=== PATIENT | female | born 1960 | race Caucasian/White ===

== ENCOUNTER 2016-11-29 02:24 | Inpatient (IN) ==
[2016-11-29] MEDS ORDERED: 0.9 % Sodium Chloride 1,000 ML IVC ONE ×3 (02:41→04:26)
[2016-11-29 02:48] LABS: Basophils % 0.1 %; Eosinophils # 0.1 K/mcL (0.0-0.6); Eosinophils % 1.3 %; Hematocrit 31.7 % (35.3-44.9); Immature Granulocytes % 0.5 % (0-4); Lymphocytes # 0.4 K/mcL (0.6-4.6); Lymphocytes % 5.1 %; Mean Corpuscular HGB Conc 34.7 g/dL (31.6-35.5); Mean Corpuscular Hemoglobin 33.6 pg (28.0-33.3); Mean Corpuscular Volume 96.9 fL (83.0-100.0); Mean Platelet Volume 9.6 fL (9.4-12.4); Monocytes # 0.8 K/mcL (0.0-1.3); Monocytes % 9.2 %; Neutrophils # 7.2 K/mcL (1.6-8.9); Red Blood Count 3.27 M/mcL (3.82-4.97); Red Cell Distribution Width 13.1 % (11.5-14.5); Segmented Neutrophils % 83.8 %
[2016-11-29 02:50] LABS: Platelet Count 92 K/mcL (140-400)
--- NOTE | 2016-11-29 02:54 | Emergency Department Note ---
Disposition Clinical Impression: Respiratory distress Respiratory failure Qualifiers: Chronicity: unspecified Respiratory failure complication: unspecified whether with hypoxia or hypercapnia Qualified Code(s): J96.90 - Respiratory failure, unspecified, unspecified whether with hypoxia or hypercapnia Pneumonia Qualifiers: Pneumonia type: due to unspecified organism Laterality: left Lung location: unspecified part of lung Qualified Code(s): J18.9 - Pneumonia, unspecified organism Anemia Qualifiers: Anemia type: unspecified cause Qualified Code(s): D64.9 - Anemia, unspecified Disposition: Admitted As Inpatient Condition: Critical Time of Disposition: 06:28 General Adult HPI - General Chief complaint: ED General Medical Stated complaint: CHELITA Time Seen by Provider: 11/29/16 02:41 Source: EMS Mode of arrival: EMS Limitations: language barrier, physical limitation Nursing Notes Reviewed: Yes Vital Signs Reviewed: Yes - History of Present Illness HPI Narrative: 56-year-old female presents for evaluation for increased work of breathing. Patient is nonverbal and nonambulatory. Much of a history provided by the patient's caregiver. As the patient does have a history of psychiatric issues as well as aspiration pneumonia. Notes that the patient symptoms started within the past 24 hours. Notes increased work of breathing. Denies any cough. Denies any notable fevers. Patient is nonverbal and does not provide a complete review of systems. Caregiver states that the patient's mental status is at baseline. No notable evidence of trauma. Caregiver at bedside denies any history of hypertension, diabetes or heart disease. Pain Scale: 0 - Related Data Home Medications Medication Instructions Recorded Confirmed Docusate [Colace] 40 mg GTUBE BID 02/10/15 05/21/16 Estradiol [Deandra] 0.05 mg TD MOTH 02/10/15 05/21/16 Famotidine [Pepcid] 2.5 ml GTUBE BID 02/10/15 05/21/16 Medroxyprogesterone Acetate 5 mg GTUBE DAILY 02/10/15 05/21/16 [Provera] Valproic Acid Oral Soln [Depakene 10 ml GTUBE BID 02/10/15 05/21/16 Oral Soln] risperiDONE [Risperdal] 4 ml GTUBE BID 02/10/15 05/21/16 Citalopram [CeleXA] 20 mg GTUBE DAILY 03/29/15 05/21/16 Lactose-Reduced Food/Fiber [Jevity 265 ml GTUBE QID 03/29/15 05/21/16 1.5 Alec Liquid] Polyethylene Glycol 3350 [MiraLAX] 17 gm GTUBE BID PRN 03/29/15 05/21/16 LORazepam Oral Conc [Ativan Oral 1 mg GTUBE BID 03/31/16 05/21/16 Conc] Chlorhexidine Gluconate [Hibiclens] 15 ml PO BID 05/21/16 05/21/16 Magnesium Hydroxide [Milk of 1 appl TP DAILY PRN 05/21/16 05/21/16 Magnesia] Multivitamin with Iron [Animal 1 each GTUBE DAILY 05/21/16 05/21/16 Shapes Plus Iron] Doron/Poly/Analy OINT [Triple 1 appl TP BID PRN 05/21/16 05/21/16 Antibiotic Ointment] Sodium Chloride 1 gm GTUBE TID 05/21/16 05/21/16 Valproic Acid (As Sodium Salt) 15 ml GTUBE HS 05/21/16 05/21/16 [Valproic Acid] Previous Rx's Medication Instructions Recorded GuaiFENesin Liq [Robitussin Liq] 200 mg PO Q6HR PRN #120 mls 05/26/15 Albuterol Neb [Proventil Neb] 2.5 mg IH Q4HR PRN #30 inhsol 05/25/16 Clindamycin [Cleocin] 300 mg GTUBE Q8HR #30 capsule 05/25/16 Lactobacillus [Culturelle] 1 each GTUBE BID #30 cap.sprink 05/25/16 Allergies Allergy/AdvReac Type Severity Reaction Status Date / Time Sulfa (Sulfonamide Allergy Hives Verified 05/21/16 09:24 Antibiotics) Limitations: ROS unobtainable due to patients medical condition Past Medical History - Past Medical History Medical history: Reports: other Surgical history: Reports: hysterectomy Psychiatric history: Reports: anxiety, bipolar, depression - Social History Smoking Status: Never smoker Smokeless Tobacco Status: No Alcohol use: Reports: none Drug use: Reports: none Physical Exam - General Limitations: language barrier, physical limitation General appearance: alert, in distress, other (Ill-appearing) - Head Head exam: normocephalic - Eye Eye exam: Present: normal appearance - ENT ENT exam: normal exam, mucous membranes dry - Neck Neck exam: Present: normal inspection - Chest Chest inspection: Present: normal inspection, symmetric chest wall rise - Respiratory Respiratory exam: Present: accessory muscle use, prolonged expiratory phase, other (Rhonchorous breath sounds left > right) - Cardiovascular Cardiovascular exam: Present: normal rhythm, tachycardia. Absent: systolic murmur - Abdominal Exam Abdominal exam: Present: soft, Non-Tender, other - Extremities Exam Extremities exam: Present: normal inspection. Absent: pedal edema - Back Exam Back exam: Present: normal inspection - Neurological Exam Neurological exam: Present: other (At patient's baseline per caregiver bedside.) - Skin Skin exam: Present: warm, dry, intact, normal color Course Course Narrative: Patient seen and examined. Patient concerns for sepsis and SIRS criteria with tachycardia as well as tachypnea. Patient will get epidural evaluation with labs, EKG, chest x-ray as well as urinalysis. IV fluid hydration. Disposition admission. - Reevaluation(s) Reevaluation #1: Patient has increased work of breathing and tachycardia. Increase oxygen requirement. Caregiver at bedside. Addressed CODE STATUS and whether or not the patient would want intubation with respiratory support. Power of insurance defense attorney is attempted to be reached. Respiratory bedside with BiPAP. Time: 03:09 Reevaluation #2: Spoke with the power of insurance defense attorney who stated the patient is full code. Updated on plan of care. Patient required intubation as well as central IV access. Time: 03:33 Reevaluation #3: Intubation as well as central line placement was performed by Dr. Dodge. Time: 04:26 Vital Signs Temperature 98.7 F 11/29/16 02:42 Pulse Rate 94 11/29/16 02:42 Respiratory Rate 24 11/29/16 02:42 Blood Pressure 85/67 11/29/16 02:42 O2 Sat by Pulse Oximetry 95 11/29/16 02:42 Temperature 98.9 F 11/29/16 03:18 Pulse Rate 84 11/29/16 05:35 Respiratory Rate 16 11/29/16 06:15 Blood Pressure 92/62 11/29/16 06:15 O2 Sat by Pulse Oximetry 92 11/29/16 06:15 Oxygen Delivery Oxygen Delivery Ventilator Medical Decision Making - MDM Narrative Medical decision making narrative: 56-year-old female presents for evaluation in respiratory distress. Patient is at baseline and is nonverbal and nonambulatory. Patient's caregiver at bedside providing history since patient has had a cold that started yesterday. Noted increased work of breathing this morning. Does have history of aspiration pneumonia in had a gastric tube. Patient initially was tachypnea can tachycardic with rhonchorous lung sounds. Patient triggered the SIRS criteria and was borderline hypotensive. Patient had the ED sepsis order set ordered. Patient received 3 L of normal saline which should suffice to 30 mL/kg. Patient 's blood pressure improved with IV fluid hydration. Patient became more hypoxic and would not improve with oxygen supplementation with increased tachypnea and tachycardia. Confirm that the patient was a full code and spoke with the power of insurance defense attorney. Patient was intubated without difficulty. Precedex ordered for post intubation sedation. Given the patient's clinical exam and episodes of hypotension upon arrival the patient would likely need a central line. Central line was placed without difficulty in the right IJ. These were placed under informed consent given emergent procedure. Triple antibiotics were ordered. Patient's initial blood gas showed normal pH. The patient did have elevated PA O2 which was reduced after intubation. Patient's blood gas was repeated. Patient's chest x-ray shows left-sided pneumonia. Patient's caregiver was given information about the severity of the patient's symptoms. Patient was admitted to the intensive care unit. - Lab Data Lab results reviewed: Yes I reviewed the patient's lab results. Result diagrams: 11/29/16 02:38 11/29/16 02:38 Lab Results 11/29/16 11/29/16 11/29/16 Range/Units 02:38 02:38 02:38 WBC 8.6 (4.3-11.1) K/mcL RBC 3.27 L (3.82-4.97) M/mcL Hgb 11.0 L (11.5-15.4) g/dL Hct 31.7 L (35.3-44.9) % MCV 96.9 (83.0-100.0) fL MCH 33.6 H (28.0-33.3) pg MCHC 34.7 (31.6-35.5) g/dL RDW 13.1 (11.5-14.5) % Plt Count 92 L (140-400) K/mcL MPV 9.6 (9.4-12.4) fL Immature Gran % 0.5 (0-4) % Seg Neutrophils % 83.8 % Lymphocytes % 5.1 % Monocytes % 9.2 % Eosinophils % 1.3 % Basophils % 0.1 % Neutrophils # 7.2 (1.6-8.9) K/mcL Lymphocytes # 0.4 L (0.6-4.6) K/mcL Monocytes # 0.8 (0.0-1.3) K/mcL Eosinophils # 0.1 (0.0-0.6) K/mcL Basophils # 0.0 (0.0-0.2) K/mcL PT (9.4-12.1) Seconds INR APTT (26.0-36.0) Seconds ABG pH (7.32-7.45) pH Units ABG pCO2 (35-45) mmHg ABG pO2 (85-104) mmHg ABG HCO3 (21-27) mEQ/L ABG Total CO2 (20-26) mEq/L ABG O2 Saturation (95-98) % ABG Base Excess (-2.0 to 3.0) mEq/L Blood Gas Modality Inspired O2 % Sodium 128 L (136-145) mEq/L Potassium 4.3 (3.5-4.5) mEq/L Chloride 92 L (98-109) mEq/L Carbon Dioxide 30 H (19-29) mEq/L BUN 16 (7-20) mg/dL Creatinine 0.66 (0.57-1.11) mg/dL Est GFR ( Amer) > 60 (> 60) Est GFR (Non-Af Amer) > 60 (> 60) BUN/Creatinine Ratio 24 (6-26) Glucose 102 H (70-99) mg/dL Calculated Osmolality 267 L (280-300) Lactic Acid 1.0 (0.5-2.2) mmol/L Calcium 9.0 (8.6-10.8) mg/dL Phosphorus 3.3 (2.3-4.7) mg/dL Magnesium 1.5 L (1.6-2.6) mg/dL Total Bilirubin 0.7 (0.2-1.2) mg/dL Direct Bilirubin 0.2 (0.0-0.5) mg/dL Indirect Bilirubin 0.5 (0.0-1.2) mg/dL AST 38 H (5-34) Units/L ALT 10 (0-55) Units/L Alkaline Phosphatase 81 (38-126) Units/L Troponin I (0-0.03) ng/mL B-Natriuretic Peptide (0-100) pg/mL Serum Total Protein 7.1 (6.0-8.3) g/dL Albumin 2.9 L (3.5-5.0) g/dL Globulin 4.2 H (2.4-3.5) g/dL Albumin/Globulin Ratio 0.7 L (1.1-2.2) Urine Color (Yellow) Urine Clarity (Clear) Urine pH (5.0-8.0) pH Units Ur Specific [place] (1.010-1.025) Urine Protein (Neg-Trace) mg/dL Urine Glucose (UA) (Normal) mg/dL Urine Ketones (Negative) mg/dL Urine Blood (Negative) Urine Nitrite (Negative) Urine Bilirubin (Negative) Urine Urobilinogen (Normal) mg/dL Ur Leukocyte Esterase (Negative) Ur Culture Indicated? (NO) 11/29/16 11/29/16 11/29/16 Range/Units 02:38 02:38 02:50 WBC (4.3-11.1) K/mcL RBC (3.82-4.97) M/mcL Hgb (11.5-15.4) g/dL Hct (35.3-44.9) % MCV (83.0-100.0) fL MCH (28.0-33.3) pg MCHC (31.6-35.5) g/dL RDW (11.5-14.5) % Plt Count (140-400) K/mcL MPV (9.4-12.4) fL Immature Gran % (0-4) % Seg Neutrophils % % Lymphocytes % % Monocytes % % Eosinophils % % Basophils % % Neutrophils # (1.6-8.9) K/mcL Lymphocytes # (0.6-4.6) K/mcL Monocytes # (0.0-1.3) K/mcL Eosinophils # (0.0-0.6) K/mcL Basophils # (0.0-0.2) K/mcL PT 12.6 H (9.4-12.1) Seconds INR 1.2 APTT 31.6 (26.0-36.0) Seconds ABG pH (7.32-7.45) pH Units ABG pCO2 (35-45) mmHg ABG pO2 (85-104) mmHg ABG HCO3 (21-27) mEQ/L ABG Total CO2 (20-26) mEq/L ABG O2 Saturation (95-98) % ABG Base Excess (-2.0 to 3.0) mEq/L Blood Gas Modality Inspired O2 % Sodium (136-145) mEq/L Potassium (3.5-4.5) mEq/L Chloride (98-109) mEq/L Carbon Dioxide (19-29) mEq/L BUN (7-20) mg/dL Creatinine (0.57-1.11) mg/dL Est GFR ( Amer) (> 60) Est GFR (Non-Af Amer) (> 60) BUN/Creatinine Ratio (6-26) Glucose (70-99) mg/dL Calculated Osmolality (280-300) Lactic Acid (0.5-2.2) mmol/L Calcium (8.6-10.8) mg/dL Phosphorus (2.3-4.7) mg/dL Magnesium (1.6-2.6) mg/dL Total Bilirubin (0.2-1.2) mg/dL Direct Bilirubin (0.0-0.5) mg/dL Indirect Bilirubin (0.0-1.2) mg/dL AST (5-34) Units/L ALT (0-55) Units/L Alkaline Phosphatase (38-126) Units/L Troponin I 0.00 (0-0.03) ng/mL B-Natriuretic Peptide 157 H (0-100) pg/mL Serum Total Protein (6.0-8.3) g/dL Albumin (3.5-5.0) g/dL Globulin (2.4-3.5) g/dL Albumin/Globulin Ratio (1.1-2.2) Urine Color (Yellow) Urine Clarity (Clear) Urine pH (5.0-8.0) pH Units Ur Specific [place] (1.010-1.025) Urine Protein (Neg-Trace) mg/dL Urine Glucose (UA) (Normal) mg/dL Urine Ketones (Negative) mg/dL Urine Blood (Negative) Urine Nitrite (Negative) Urine Bilirubin (Negative) Urine Urobilinogen (Normal) mg/dL Ur Leukocyte Esterase (Negative) Ur Culture Indicated? (NO) 07/22/17 07/22/17 07/22/17 Range/Units 02:55 03:49 04:43 WBC (4.3-11.1) K/mcL RBC (3.82-4.97) M/mcL Hgb (11.5-15.4) g/dL Hct (35.3-44.9) % MCV (83.0-100.0) fL MCH (28.0-33.3) pg MCHC (31.6-35.5) g/dL RDW (11.5-14.5) % Plt Count (140-400) K/mcL MPV (9.4-12.4) fL Immature Gran % (0-4) % Seg Neutrophils % % Lymphocytes % % Monocytes % % Eosinophils % % Basophils % % Neutrophils # (1.6-8.9) K/mcL Lymphocytes # (0.6-4.6) K/mcL Monocytes # (0.0-1.3) K/mcL Eosinophils # (0.0-0.6) K/mcL Basophils # (0.0-0.2) K/mcL PT (9.4-12.1) Seconds INR APTT (26.0-36.0) Seconds ABG pH 7.41 (7.32-7.45) pH Units ABG pCO2 50 H (35-45) mmHg ABG pO2 297 H (85-104) mmHg ABG HCO3 31.7 H (21-27) mEQ/L ABG Total CO2 33.2 H (20-26) mEq/L ABG O2 Saturation 100 H (95-98) % ABG Base Excess 6.2 H (-2.0 to 3.0) mEq/L Blood Gas Modality VCT Inspired O2 100 % Sodium (136-145) mEq/L Potassium (3.5-4.5) mEq/L Chloride (98-109) mEq/L Carbon Dioxide (19-29) mEq/L BUN (7-20) mg/dL Creatinine (0.57-1.11) mg/dL Est GFR ( Amer) (> 60) Est GFR (Non-Af Amer) (> 60) BUN/Creatinine Ratio (6-26) Glucose (70-99) mg/dL Calculated Osmolality (280-300) Lactic Acid 1.2 (0.5-2.2) mmol/L Calcium (8.6-10.8) mg/dL Phosphorus (2.3-4.7) mg/dL Magnesium (1.6-2.6) mg/dL Total Bilirubin (0.2-1.2) mg/dL Direct Bilirubin (0.0-0.5) mg/dL Indirect Bilirubin (0.0-1.2) mg/dL AST (5-34) Units/L ALT (0-55) Units/L Alkaline Phosphatase (38-126) Units/L Troponin I (0-0.03) ng/mL B-Natriuretic Peptide (0-100) pg/mL Serum Total Protein (6.0-8.3) g/dL Albumin (3.5-5.0) g/dL Globulin (2.4-3.5) g/dL Albumin/Globulin Ratio (1.1-2.2) Urine Color Yellow (Yellow) Urine Clarity Clear (Clear) Urine pH 6.5 (5.0-8.0) pH Units Ur Specific [place] 1.020 (1.010-1.025) Urine Protein Negative (Neg-Trace) mg/dL Urine Glucose (UA) Normal (Normal) mg/dL Urine Ketones Negative (Negative) mg/dL Urine Blood Negative (Negative) Urine Nitrite Negative (Negative) Urine Bilirubin Negative (Negative) Urine Urobilinogen 2.0 H (Normal) mg/dL Ur Leukocyte Esterase Negative (Negative) Ur Culture Indicated? NO (NO) - Radiology Data Radiology results reviewed: Yes I reviewed the patient's radiology results. Chest X-Ray 11/29/16 00:00 IMPRESSION: Diffuse left lung airspace disease with volume loss. This may represent atelectasis and/or pneumonia. Asymmetric pulmonary edema is less likely. The endotracheal tube is in satisfactory position. D/ / Ryan Hartman MD / Ryan Hartman MD Interpreting Provider: Ryan Hartman MD - EKG Data EKG #1 EKG attestation: Yes I reviewed and interpreted this EKG. EKG shows normal: sinus rhythm Rate: tachycardia Rhythm: NSR Yeso/QRS: normal Q waves: aVR Interpretation: nonspecific ST-T wave changes Critical Care Time Critical Care Time: Yes Total Critical Care Time: 60 Attestation: Critical care performed: Time is exclusive of separately billable procedures. Time includes: direct patient care, patient reassessment, coordination of patient care, interpretation of data (laboratory data, radiology data, and respiratory data), review of patient's medical records, medical consultation and documentation of patient care. Procedures included in critical care time: Procedures excluded from critical care time: Endotracheal intubation, right IJ central line placement S.B.Parag - S.Sydney Situation: Demographics Background: Presenting Complaint Assessment: Vital Signs, Course and respsone to treatment Recommendation: Barrier(s) to disposition, Recommendation based on pending studies, treatments, or consults S.B.Parag Report Given to: Dr. Jeb Ha Repor Time: 04:42 Attestation Statement - Attestation Attestation: I, Thien Degroot MD, personally evaluated this patient and discussed their management with the resident physician. I reviewed the resident's note and agree with the documented findings, medical decision making, and plan of care. 56-year-old female presents to the emergency department from a private care long-term for congestion and difficulty breathing with low oxygen saturation. Patient's baseline mental status is nonambulatory and nonverbal. Apparently for the past day or so she has had some congestion with a cough and increasing noisy respirations shortness of breath. Patient is a full code. On examination patient is a well-developed female who appears significantly older than her actual age. Contractures of upper extremities. No cyanosis or diaphoresis. She does have coarse noisy upper respiratory congestion causing course rales. No definite wheezes noted. Minimal improvement with suctioning. Heart is regular with a mild tachycardia. Abdomen soft with normal bowel sounds. Patient was intubated orally by Dr. Dodge on first attempt without difficulty or complications. A right IJ central line was placed by Dr. Dodge. These procedures were under my supervision with assistance from the senior resident, Dr. Moyer. Chest x-ray shows a large left-sided pneumonia. Labs reviewed. The hospitalist, Dr. Russ, was consulted and accepted admission of the patient.
[2016-11-29 03:02] LABS: INR 1.2; Prothrombin Time 12.6 Seconds (9.4-12.1)
[2016-11-29 03:03] LABS: Alanine Aminotransferase 10 Units/L (0-55); Albumin 2.9 g/dL (3.5-5.0); Albumin/Globulin Ratio 0.7 (1.1-2.2); Alkaline Phosphatase 81 Units/L (38-126); Aspartate Amino Transferase 38 Units/L (5-34); BUN/Creatinine Ratio 24 (6-26); Bilirubin,Direct 0.2 mg/dL (0.0-0.5); Bilirubin,Indirect 0.5 mg/dL (0.0-1.2); Bilirubin,Total 0.7 mg/dL (0.2-1.2); Blood Urea Nitrogen 16 mg/dL (7-20); Carbon Dioxide 30 mEq/L (19-29); Chloride 92 mEq/L (98-109); Globulin 4.2 g/dL (2.4-3.5); Glucose 102 mg/dL (70-99); Magnesium 1.5 mg/dL (1.6-2.6); Osmolality,Calculated 267 (280-300); Phosphorous 3.3 mg/dL (2.3-4.7); Sodium 128 mEq/L (136-145); Total Protein 7.1 g/dL (6.0-8.3); eGFR For African Americans > 60 (> 60); eGFR For Non-African Americans > 60 (> 60)
[2016-11-29 03:04] LABS: Potassium 4.3 mEq/L (3.5-4.5)
[2016-11-29 03:04] LABS: Activated Partial Thrombo Time 31.6 Seconds (26.0-36.0)
[2016-11-29 03:09] LABS: Bilirubin,Urine Negative (Negative); Blood,Urine Negative (Negative); Clarity,Urine Clear (Clear); Color,Urine Yellow (Yellow); Glucose,Urine (UA) Normal (Normal); Ketones,Urine Negative (Negative); Leukocyte Esterase,Urine Negative (Negative); Nitrite,Urine Negative (Negative); PH,Urine 6.5 pH Units (5.0-8.0); Protein,Urine Negative (Neg-Trace)
[2016-11-29] MEDS ORDERED: Piperacillin/Tazobactam 4.5 GM in D5% in Water (Mini-Bag+) 100 ML IVPB ONE (03:10)
[2016-11-29] MEDS ORDERED: Vancomycin 1,500 MG in D5% in Water 250 ML IVPB ONE (03:10)
[2016-11-29] MEDS ORDERED: Levofloxacin 750 MG/150 ML 750 MG/150 ML BAG IVPB ONE (03:10)
[2016-11-29 03:59] LABS: ABG Base Excess 6.2 mEq/L (-2.0 to 3.0); ABG HCO3 31.7 mEQ/L (21-27); ABG Oxygen Saturation 100 % (95-98); ABG PCO2 50 mmHg (35-45); ABG PH 7.41 pH Units (7.32-7.45); ABG PO2 297 mmHg (85-104); ABG TCO2 33.2 mEq/L (20-26)
[2016-11-29 04:01] LABS: Blood Gas FiO2 100 %
[2016-11-29] MEDS: Dexmedetomidine HCl 400 MCG/100 ML MLS IVC SCH ×3 (04:14→22:29)
--- NOTE | 2016-11-29 04:40 | Emergency Department Note ---
Disposition Clinical Impression: Respiratory distress Respiratory failure Qualifiers: Chronicity: unspecified Respiratory failure complication: unspecified whether with hypoxia or hypercapnia Qualified Code(s): J96.90 - Respiratory failure, unspecified, unspecified whether with hypoxia or hypercapnia Pneumonia Qualifiers: Pneumonia type: due to unspecified organism Laterality: left Lung location: unspecified part of lung Qualified Code(s): J18.9 - Pneumonia, unspecified organism Disposition: Admitted As Inpatient General Adult HPI - General Chief complaint: ED Shortness of Breath/Dyspnea Stated complaint: CHELITA Time Seen by Provider: 11/29/16 02:41 Source: EMS Mode of arrival: EMS Limitations: language barrier, physical limitation Nursing Notes Reviewed: Yes Vital Signs Reviewed: Yes - History of Present Illness HPI Narrative: Procedure note only. Refer to Dr. Moyer note for full history and physical. Pain Scale: 0 - Related Data Home Medications Medication Instructions Recorded Confirmed Docusate [Colace] 40 mg GTUBE BID 02/10/15 05/21/16 Estradiol [Deandra] 0.05 mg TD MOTH 02/10/15 05/21/16 Famotidine [Pepcid] 2.5 ml GTUBE BID 02/10/15 05/21/16 Medroxyprogesterone Acetate 5 mg GTUBE DAILY 02/10/15 05/21/16 [Provera] Valproic Acid Oral Soln [Depakene 10 ml GTUBE BID 02/10/15 05/21/16 Oral Soln] risperiDONE [Risperdal] 4 ml GTUBE BID 02/10/15 05/21/16 Citalopram [CeleXA] 20 mg GTUBE DAILY 03/29/15 05/21/16 Lactose-Reduced Food/Fiber [Jevity 265 ml GTUBE QID 03/29/15 05/21/16 1.5 Alec Liquid] Polyethylene Glycol 3350 [MiraLAX] 17 gm GTUBE BID PRN 03/29/15 05/21/16 LORazepam Oral Conc [Ativan Oral 1 mg GTUBE BID 03/31/16 05/21/16 Conc] Chlorhexidine Gluconate [Hibiclens] 15 ml PO BID 05/21/16 05/21/16 Magnesium Hydroxide [Milk of 1 appl TP DAILY PRN 05/21/16 05/21/16 Magnesia] Multivitamin with Iron [Animal 1 each GTUBE DAILY 05/21/16 05/21/16 Shapes Plus Iron] Doron/Poly/Analy OINT [Triple 1 appl TP BID PRN 05/21/16 05/21/16 Antibiotic Ointment] Sodium Chloride 1 gm GTUBE TID 05/21/16 05/21/16 Valproic Acid (As Sodium Salt) 15 ml GTUBE HS 05/21/16 05/21/16 [Valproic Acid] Previous Rx's Medication Instructions Recorded GuaiFENesin Liq [Robitussin Liq] 200 mg PO Q6HR PRN #120 mls 05/26/15 Albuterol Neb [Proventil Neb] 2.5 mg IH Q4HR PRN #30 inhsol 05/25/16 Clindamycin [Cleocin] 300 mg GTUBE Q8HR #30 capsule 05/25/16 Lactobacillus [Culturelle] 1 each GTUBE BID #30 cap.sprink 05/25/16 Allergies Allergy/AdvReac Type Severity Reaction Status Date / Time Sulfa (Sulfonamide Allergy Hives Verified 05/21/16 09:24 Antibiotics) Past Medical History - Past Medical History Medical history: Reports: other Surgical history: Reports: hysterectomy Psychiatric history: Reports: anxiety, bipolar, depression - Social History Smoking Status: Never smoker Smokeless Tobacco Status: No Alcohol use: Reports: none Drug use: Reports: none Physical Exam - General Limitations: language barrier, physical limitation General appearance: alert, other (Ill-appearing) Course Vital Signs Temperature 98.7 F 11/29/16 02:42 Pulse Rate 94 11/29/16 02:42 Respiratory Rate 24 11/29/16 02:42 Blood Pressure 85/67 11/29/16 02:42 O2 Sat by Pulse Oximetry 95 11/29/16 02:42 Temperature 98.7 F 11/29/16 02:42 Pulse Rate 84 11/29/16 05:05 Respiratory Rate 12 11/29/16 05:05 Blood Pressure 114/67 11/29/16 05:05 O2 Sat by Pulse Oximetry 92 11/29/16 05:05 Oxygen Delivery Oxygen Delivery Ventilator Procedures - Central Line Placement Right IJ Central Line Inserted*: Yes Central Line Catheter Replacement*: Yes Central Line Insertion: emergent Consent Obtained: verbal consent Procedural Pause: verify patient name and date of , timeout performed per policy, devon and assess the site, assemble equipment and verify supplies, perform hand hygiene Patient Placed on Monitor/Pulse Ox: Yes During the Procedure: clinician is wearing sterile gloves, cap, mask,& gown during insertion, sterile field and sterile technique are maintained, patient's face is covered with drape or mask and wearing a cap, everyone in room is wearing a mask Central Line Prep: Chlorhexidine scrub, sterile drapes applied Prep the Procedure Site: apply chloraprep to the skin using a back and forth scrubbing motion, apply chloraprep for 30 seconds (upper body), 1-2 min ( femoral sites), allow prep to dry, drape the patient with a full body drape Local Anesthetic: other anesthetic (Patient intubated and on Precedex and on ventilator) Ultrasound Used for Placement: Yes Central Line Lumen Inserted: triple Post Procedure: sutured in place, good blood return, all ports aspirated, flushed, capped, sterile dressing applied, guide wire removed and visualized Post Procedure X-Ray: tip of catheter in good position, no pneumothorax seen Patient Tolerated Procedure: well, no complications Complications: none Name of Clinician Inserting Central Line: John Dodge, Clinician Assisting/Completing Checklist: Junaid Moyer Date: 11/29/16 Time: 04:41 Additional Comments: Attending is Dr. Degroot - Intubation sedative: Etomidate Mg Given: 20 paralytic: Rocuronium Mg Given: 80 Laryngoscope: Eron ET Tube Size: 7.5 ET Tube Uncuffed: No Tube Secured Depth (cm): 24 Tube Secured Location: lips Tube Placement Confirmation: visualized tube passing through cords, equal breath sounds bilaterally, no breath sounds over epigastrium, confirmation by capnometry Patient Tolerated Procedure: well Intubation Complications: none Medical Decision Making - MDM Narrative Medical decision making narrative: Only procedure note done before intubation and central venous catheterization. Assisted by Dr. Moyer. Refer to Dr. Moyer note for full history and physical. - Lab Data Result diagrams: 11/29/16 02:38 11/29/16 02:38 Lab Results 11/29/16 11/29/16 11/29/16 Range/Units 02:38 02:38 02:38 WBC 8.6 (4.3-11.1) K/mcL RBC 3.27 L (3.82-4.97) M/mcL Hgb 11.0 L (11.5-15.4) g/dL Hct 31.7 L (35.3-44.9) % MCV 96.9 (83.0-100.0) fL MCH 33.6 H (28.0-33.3) pg MCHC 34.7 (31.6-35.5) g/dL RDW 13.1 (11.5-14.5) % Plt Count 92 L (140-400) K/mcL MPV 9.6 (9.4-12.4) fL Immature Gran % 0.5 (0-4) % Seg Neutrophils % 83.8 % Lymphocytes % 5.1 % Monocytes % 9.2 % Eosinophils % 1.3 % Basophils % 0.1 % Neutrophils # 7.2 (1.6-8.9) K/mcL Lymphocytes # 0.4 L (0.6-4.6) K/mcL Monocytes # 0.8 (0.0-1.3) K/mcL Eosinophils # 0.1 (0.0-0.6) K/mcL Basophils # 0.0 (0.0-0.2) K/mcL PT (9.4-12.1) Seconds INR APTT (26.0-36.0) Seconds ABG pH (7.32-7.45) pH Units ABG pCO2 (35-45) mmHg ABG pO2 (85-104) mmHg ABG HCO3 (21-27) mEQ/L ABG Total CO2 (20-26) mEq/L ABG O2 Saturation (95-98) % ABG Base Excess (-2.0 to 3.0) mEq/L Blood Gas Modality Inspired O2 % Sodium 128 L (136-145) mEq/L Potassium 4.3 (3.5-4.5) mEq/L Chloride 92 L (98-109) mEq/L Carbon Dioxide 30 H (19-29) mEq/L BUN 16 (7-20) mg/dL Creatinine 0.66 (0.57-1.11) mg/dL Est GFR ( Amer) > 60 (> 60) Est GFR (Non-Af Amer) > 60 (> 60) BUN/Creatinine Ratio 24 (6-26) Glucose 102 H (70-99) mg/dL Calculated Osmolality 267 L (280-300) Lactic Acid 1.0 (0.5-2.2) mmol/L Calcium 9.0 (8.6-10.8) mg/dL Phosphorus 3.3 (2.3-4.7) mg/dL Magnesium 1.5 L (1.6-2.6) mg/dL Total Bilirubin 0.7 (0.2-1.2) mg/dL Direct Bilirubin 0.2 (0.0-0.5) mg/dL Indirect Bilirubin 0.5 (0.0-1.2) mg/dL AST 38 H (5-34) Units/L ALT 10 (0-55) Units/L Alkaline Phosphatase 81 (38-126) Units/L Troponin I (0-0.03) ng/mL B-Natriuretic Peptide (0-100) pg/mL Serum Total Protein 7.1 (6.0-8.3) g/dL Albumin 2.9 L (3.5-5.0) g/dL Globulin 4.2 H (2.4-3.5) g/dL Albumin/Globulin Ratio 0.7 L (1.1-2.2) Urine Color (Yellow) Urine Clarity (Clear) Urine pH (5.0-8.0) pH Units Ur Specific [place] (1.010-1.025) Urine Protein (Neg-Trace) mg/dL Urine Glucose (UA) (Normal) mg/dL Urine Ketones (Negative) mg/dL Urine Blood (Negative) Urine Nitrite (Negative) Urine Bilirubin (Negative) Urine Urobilinogen (Normal) mg/dL Ur Leukocyte Esterase (Negative) Ur Culture Indicated? (NO) 11/29/16 11/29/16 11/29/16 Range/Units 02:38 02:38 02:50 WBC (4.3-11.1) K/mcL RBC (3.82-4.97) M/mcL Hgb (11.5-15.4) g/dL Hct (35.3-44.9) % MCV (83.0-100.0) fL MCH (28.0-33.3) pg MCHC (31.6-35.5) g/dL RDW (11.5-14.5) % Plt Count (140-400) K/mcL MPV (9.4-12.4) fL Immature Gran % (0-4) % Seg Neutrophils % % Lymphocytes % % Monocytes % % Eosinophils % % Basophils % % Neutrophils # (1.6-8.9) K/mcL Lymphocytes # (0.6-4.6) K/mcL Monocytes # (0.0-1.3) K/mcL Eosinophils # (0.0-0.6) K/mcL Basophils # (0.0-0.2) K/mcL PT 12.6 H (9.4-12.1) Seconds INR 1.2 APTT 31.6 (26.0-36.0) Seconds ABG pH (7.32-7.45) pH Units ABG pCO2 (35-45) mmHg ABG pO2 (85-104) mmHg ABG HCO3 (21-27) mEQ/L ABG Total CO2 (20-26) mEq/L ABG O2 Saturation (95-98) % ABG Base Excess (-2.0 to 3.0) mEq/L Blood Gas Modality Inspired O2 % Sodium (136-145) mEq/L Potassium (3.5-4.5) mEq/L Chloride (98-109) mEq/L Carbon Dioxide (19-29) mEq/L BUN (7-20) mg/dL Creatinine (0.57-1.11) mg/dL Est GFR ( Amer) (> 60) Est GFR (Non-Af Amer) (> 60) BUN/Creatinine Ratio (6-26) Glucose (70-99) mg/dL Calculated Osmolality (280-300) Lactic Acid (0.5-2.2) mmol/L Calcium (8.6-10.8) mg/dL Phosphorus (2.3-4.7) mg/dL Magnesium (1.6-2.6) mg/dL Total Bilirubin (0.2-1.2) mg/dL Direct Bilirubin (0.0-0.5) mg/dL Indirect Bilirubin (0.0-1.2) mg/dL AST (5-34) Units/L ALT (0-55) Units/L Alkaline Phosphatase (38-126) Units/L Troponin I 0.00 (0-0.03) ng/mL B-Natriuretic Peptide 157 H (0-100) pg/mL Serum Total Protein (6.0-8.3) g/dL Albumin (3.5-5.0) g/dL Globulin (2.4-3.5) g/dL Albumin/Globulin Ratio (1.1-2.2) Urine Color (Yellow) Urine Clarity (Clear) Urine pH (5.0-8.0) pH Units Ur Specific [place] (1.010-1.025) Urine Protein (Neg-Trace) mg/dL Urine Glucose (UA) (Normal) mg/dL Urine Ketones (Negative) mg/dL Urine Blood (Negative) Urine Nitrite (Negative) Urine Bilirubin (Negative) Urine Urobilinogen (Normal) mg/dL Ur Leukocyte Esterase (Negative) Ur Culture Indicated? (NO) 11/29/16 11/29/16 11/29/16 Range/Units 02:55 03:49 04:43 WBC (4.3-11.1) K/mcL RBC (3.82-4.97) M/mcL Hgb (11.5-15.4) g/dL Hct (35.3-44.9) % MCV (83.0-100.0) fL MCH (28.0-33.3) pg MCHC (31.6-35.5) g/dL RDW (11.5-14.5) % Plt Count (140-400) K/mcL MPV (9.4-12.4) fL Immature Gran % (0-4) % Seg Neutrophils % % Lymphocytes % % Monocytes % % Eosinophils % % Basophils % % Neutrophils # (1.6-8.9) K/mcL Lymphocytes # (0.6-4.6) K/mcL Monocytes # (0.0-1.3) K/mcL Eosinophils # (0.0-0.6) K/mcL Basophils # (0.0-0.2) K/mcL PT (9.4-12.1) Seconds INR APTT (26.0-36.0) Seconds ABG pH 7.41 (7.32-7.45) pH Units ABG pCO2 50 H (35-45) mmHg ABG pO2 297 H (85-104) mmHg ABG HCO3 31.7 H (21-27) mEQ/L ABG Total CO2 33.2 H (20-26) mEq/L ABG O2 Saturation 100 H (95-98) % ABG Base Excess 6.2 H (-2.0 to 3.0) mEq/L Blood Gas Modality VCT Inspired O2 100 % Sodium (136-145) mEq/L Potassium (3.5-4.5) mEq/L Chloride (98-109) mEq/L Carbon Dioxide (19-29) mEq/L BUN (7-20) mg/dL Creatinine (0.57-1.11) mg/dL Est GFR ( Amer) (> 60) Est GFR (Non-Af Amer) (> 60) BUN/Creatinine Ratio (6-26) Glucose (70-99) mg/dL Calculated Osmolality (280-300) Lactic Acid 1.2 (0.5-2.2) mmol/L Calcium (8.6-10.8) mg/dL Phosphorus (2.3-4.7) mg/dL Magnesium (1.6-2.6) mg/dL Total Bilirubin (0.2-1.2) mg/dL Direct Bilirubin (0.0-0.5) mg/dL Indirect Bilirubin (0.0-1.2) mg/dL AST (5-34) Units/L ALT (0-55) Units/L Alkaline Phosphatase (38-126) Units/L Troponin I (0-0.03) ng/mL B-Natriuretic Peptide (0-100) pg/mL Serum Total Protein (6.0-8.3) g/dL Albumin (3.5-5.0) g/dL Globulin (2.4-3.5) g/dL Albumin/Globulin Ratio (1.1-2.2) Urine Color Yellow (Yellow) Urine Clarity Clear (Clear) Urine pH 6.5 (5.0-8.0) pH Units Ur Specific [place] 1.020 (1.010-1.025) Urine Protein Negative (Neg-Trace) mg/dL Urine Glucose (UA) Normal (Normal) mg/dL Urine Ketones Negative (Negative) mg/dL Urine Blood Negative (Negative) Urine Nitrite Negative (Negative) Urine Bilirubin Negative (Negative) Urine Urobilinogen 2.0 H (Normal) mg/dL Ur Leukocyte Esterase Negative (Negative) Ur Culture Indicated? NO (NO) Attestation Statement - Attestation Attestation: I, Thien Degroot MD, personally evaluated this patient and discussed their management with the resident physician. I reviewed the resident's note and agree with the documented findings, medical decision making, and plan of care. Endotracheal intubation and right IJ central line placement performed February under my supervision.
[2016-11-29] MEDS ORDERED: Acetaminophen 650 MG RECTAL SUPP RC PRN (04:49)
[2016-11-29] MEDS ORDERED: Naloxone 0.4 MG/ML INJ IVP PRN (04:49)
[2016-11-29] MEDS ORDERED: Magnesium Sulfate 2 GM in D5% in Water 100 ML IVPB ONE (04:59)
[2016-11-29] MEDS ORDERED: Lacri-Lube 3.5 GM TUBE BOTH EYES PRN (05:01)
[2016-11-29] MEDS ORDERED: *HR* Etomidate 40 MG/20 ML VIAL IVP ONE (05:21)
[2016-11-29] MEDS ORDERED: *HR* Rocuronium Bromide 50 MG/5 ML VIAL IVP ONE (05:21)
--- NOTE | 2016-11-29 05:54 | Internal Med History&Physical ---
Date of Encounter: 11/29/16 Time of Encounter: 05:30 Assessment and Plan (1) Acute respiratory failure with hypercapnia Current visit: Yes Status: Acute Acute on chronic Hypoxic Hypercapnic respiratory failure - secondary to healthcare associated pneumonia, possible aspiration - present on admission and probable mucous plug Continue AC mode on vent - FiO2 60%, rate 12, Tidal Volume 450, PEEP 5 DuoNeb breathing treatment, IV Zosyn, IV Levaquin, IV Vancomycin Continue IV fluids, sedation with Precedex Levophed to be started if patient is hemodynamically unstable Cultures pending Chest x-ray - Diffuse left lung airspace disease with volume loss, likely atelectasis and pneumonia, ET tube and central line in satisfactory position Echocardiogram (06/13/2016) - LVEF 55%, normal LV chamber size mild LV diastolic dysfunction Pulmonology consult Cardiac monitoring, hold PEG tube feedings labs in a.m., Repeat ABG and chest x-ray (2) HCAP (healthcare-associated pneumonia) Current visit: No Status: Acute Healthcare associated pneumonia, present on admission with possible aspiration - bacterial, probably gram-negative bacilli and possible anaerobes Cultures pending Continue IV Levaquin, IV Zosyn, IV vancomycin and DuoNeb breathing treatment Plan as above (3) GERD (gastroesophageal reflux disease) Current visit: No Status: Chronic Continue IV Protonix for GERD and stress ulcer prophylaxis Qualifiers: Esophagitis presence: esophagitis presence not specified Qualified Code(s) : K21.9 - Gastro-esophageal reflux disease without esophagitis (4) Bipolar disease, chronic Current visit: No Status: Chronic Patient is on Risperdal and Valproic acid at home resume home meds when patient is stable (5) Mental retardation Current visit: No Status: Chronic Patient is a resident of a retirement (6) Thrombocytopenia Current visit: No Status: Chronic Chronic Thrombocytopenia - currently 92 -stable and seems to be at baseline no signs of bleeding (7) DVT prophylaxis Current visit: No Status: Acute Continue SCDs, avoid heparin due to thrombocytopenia Internal Medicine - H&P: HPI Chief complaint: Respiratory distress Admitted From: Emergency Dept Plans for Post Hospital Care: Home History of present illness: Ms. Mayberry is a 56 year old female with past medical history of GERD, bipolar disease, anxiety, depression and MRDD. She presents to the ED with shortness of breath and respiratory distress. On examination patient is intubated, sedated and mechanically ventilated. All history is obtained from patient's caregiver at the retirement and also from medical records. Caregiver states the patient is had shortness of breath and cough over the past 2 days. Symptoms have gradually worsened. She states she went to check on the patient a few hours prior to arrival in the ED, and found the patient to be in distress. She states that the patient seemed to have severe wheezing and cough with productive sputum and shortness of breath. Caregiver mentions that the patient is nonverbal and nonambulatory at baseline. She was unable to obtain any other history from the patient. She decided to bring the patient to the ED. Patient has been admitted about 6 months ago for similar complaints. She was treated for healthcare associated pneumonia and sepsis. Caregiver states patient has a PEG tube and all feed are via PEG tube. She mentions that aspiration precautions are maintained at all times. No other pertinent history at this time. Patient was intubated in the ED because of increased work of breathing and tachycardia and worsening distress. Right IJ central line was also placed in view of hypotension. Patient seems to respond to fluids and does not require pressors at this time. Patient has coarse breath sounds bilaterally. Chest x- ray reveals diffuse left lung airspace disease with volume loss probably atelectasis and pneumonia. Patient is being admitted for acute hypoxic and hypercapnic respiratory failure secondary to healthcare associated pneumonia and probable mucous plug on the left side. Caregiver has been explained about critical condition and plan of care. Understood and agreed. No unanswered questions. No family members at the time of admission. CODE STATUS full code. Past Med Surg Social Fam HX - Past Medical History Medical history: other (MRDD) Psychiatric history: anxiety, bipolar, depression - Past Surgical History Surgical History: hysterectomy - Social History Smoking Status: Never smoker Smokeless Tobacco Status: No Alcohol use: none Drug use: none Internal Medicine - H&P: Meds Docusate [Colace] 40 mg GTUBE BID 02/10/15 [History] Estradiol [Deandra] 0.05 mg TD MOTH 02/10/15 [History] Famotidine [Pepcid] 2.5 ml GTUBE BID 02/10/15 [History] Medroxyprogesterone Acetate [Provera] 5 mg GTUBE DAILY 02/10/15 [History] Valproic Acid Oral Soln [Depakene Oral Soln] 10 ml GTUBE BID 02/10/15 [History] risperiDONE [Risperdal] 4 ml GTUBE BID 02/10/15 [History] Citalopram [CeleXA] 20 mg GTUBE DAILY 03/29/15 [History] Lactose-Reduced Food/Fiber [Jevity 1.5 Alec Liquid] 265 ml GTUBE QID 03/29/15 [ History] Polyethylene Glycol 3350 [MiraLAX] 17 gm GTUBE BID PRN 03/29/15 [History] GuaiFENesin Liq [Robitussin Liq] 200 mg PO Q6HR PRN #120 mls 05/26/15 [Rx] LORazepam Oral Conc [Ativan Oral Conc] 1 mg GTUBE BID 03/31/16 [History] Chlorhexidine Gluconate [Hibiclens] 15 ml PO BID 05/21/16 [History] Magnesium Hydroxide [Milk of Magnesia] 1 appl TP DAILY PRN 05/21/16 [History] Multivitamin with Iron [Animal Shapes Plus Iron] 1 each GTUBE DAILY 05/21/16 [ History] Doron/Poly/Analy OINT [Triple Antibiotic Ointment] 1 appl TP BID PRN 05/21/16 [ History] Sodium Chloride 1 gm GTUBE TID 05/21/16 [History] Valproic Acid (As Sodium Salt) [Valproic Acid] 15 ml GTUBE HS 05/21/16 [History] Albuterol Neb [Proventil Neb] 2.5 mg IH Q4HR PRN #30 inhsol 05/25/16 [Rx] Clindamycin [Cleocin] 300 mg GTUBE Q8HR #30 capsule 05/25/16 [Rx] Lactobacillus [Culturelle] 1 each GTUBE BID #30 cap.sprink 05/25/16 [Rx] Allergies Sulfa (Sulfonamide Antibiotics) Allergy (Verified 05/21/16 09:24) Hives ROS unobtainable: due to endotracheal tube All Systems PM: A 10-system review of systems was performed and is negative for pertinent findings except as documented above in the HPI. - Constitutional Vitals: Temp Pulse Resp BP Pulse Ox 98.7 F 84 12 91/63 91 11/29/16 02:42 11/29/16 05:35 11/29/16 05:48 11/29/16 05:48 11/29/16 05:35 Exam: Patient is intubated, sedated and mechanically ventilated - Head Head exam: Present: atraumatic - ENT Additional comments: ET tube in place - Neck Additional comments: Right IJ line in place - Respiratory Respiratory exam: Present: rales (Bilateral), rhonchi (Extensive bilateral) Additional comments: Intubated and mechanically ventilated - Cardiovascular Cardiovascular exam: Present: RRR, +S1, +S2 - GI/Abdominal GI/Abdominal exam: Present: soft, no peritoneal signs. Absent: distended, firm , guarding, rigid Additional comments: PEG tube in place - Extremities Exam Extremities exam: Present: radial pulses palpable and symetrical. Absent: cyanotic, pedal edema, tenderness - Neurological Exam Additional comments: Patient is intubated, sedated and mechanically ventilated Internal Med - H&P Results - Labs CBC & Chem 7: 11/29/16 02:38 11/29/16 02:38
[2016-11-29 05:57] LABS: ABG Base Excess 5.1 mEq/L (-2.0 to 3.0); ABG HCO3 30.9 mEQ/L (21-27); ABG Oxygen Saturation 89 % (95-98); ABG PCO2 51 mmHg (35-45); ABG PH 7.39 pH Units (7.32-7.45); ABG PO2 58 mmHg (85-104); ABG TCO2 32.5 mEq/L (20-26); Blood Gas FiO2 50 %
[2016-11-29] MEDS ORDERED: Vancomycin 1,000 MG in D5% in Water 250 ML IVPB SCH ×3 (06:00→16:00)
[2016-11-29] MEDS ORDERED: *HR* Heparin 5,000 UNIT/ML VIAL SQ SCH (06:30)
[2016-11-29] MEDS: Norepinephrine 4 MG in D5% in Water 250 ML IVC SCH (07:51)
[2016-11-29] MEDS: Ipratropium/Albuterol Neb 3 ML IH SCH ×4 (08:06→19:58)
--- NOTE | 2016-11-29 08:11 | Pulmonology Consult Note ---
Date of Encounter: 11/29/16 Time of Encounter: 08:09 Assessment and Plan (1) Septic shock Current Visit: Yes Status: Acute Patient presents from a [facility] with shortness of breath and cough. History is limited given the patient's clinical status and underlying mental disability. Patient was intubated due to respiratory distress, ABG shows acceptable oxygenation and ventilation. Patient has complete white out of the left lung concerning for pneumonia with possible mucus plugging and atelectasis. Large amount of pus was suctioned through the ET tube and breath sounds improved on the left side. Patient may require bronchoscopy later today for relief of bronchial mucous plugging. Patient is currently being treated for septic shock with broad-spectrum antibiotics for healthcare associated pneumonia. Aspiration is also concern as the patient has a G-tube and apparently has a history of aspiration per the medical record. Patient received 30 mL/kg of IV fluid and remains hypotensive so norepinephrine will be added for blood pressure support. Blood cultures, and sputum cultures are pending. Strep and Legionella antigen will be sent, and MRSA screening will be sent as well. Per review of records patient has minimal family members and decisions on her care were made by her caregivers at the [facility]. We will attempt to obtain clarity on the patient's medical power of ip attorney and who is the legal decision maker for her. Patient is on adequate DVT and GI prophylaxis. (2) Acute respiratory failure with hypoxia Current Visit: Yes Status: Acute (3) Pneumonia Current Visit: Yes Status: Acute Qualifiers: Pneumonia type: due to unspecified organism Laterality: left Lung location: unspecified part of lung Qualified Code(s): J18.9 - Pneumonia, unspecified organism (4) Chronic hyponatremia Current Visit: No Status: Inactive (5) Thrombocytopenia Current Visit: No Status: Chronic (6) Mental retardation Current Visit: No Status: Chronic History of Present Illness Consult date: 11/29/16 Requesting physician: Jesu Santana Reason for consult: pneumonia Chief complaint: Respiratory distress History of present illness: Patient is a 56-year-old female who presents with shortness of breath. Patient is intubated and sedated and is unable to provide history. History is obtained from the medical record. Patient resides in a [facility] and apparently the patient was having shortness of breath and cough for the last 2 days. The cough was productive. Patient was admitted approximately 6 months ago with similar issues. Patient receives feeding through the PEG tube and the caregiver states that aspiration precautions are maintained. Past Med Surg Social Fam HX - Past Medical History Medical history: other (MRDD) Psychiatric history: anxiety, bipolar, depression - Past Surgical History Surgical History: hysterectomy - Social History Smoking Status: Never smoker Smokeless Tobacco Status: No Alcohol use: none Drug use: none - Additional Family History Additional family history: Unable to obtain due to intubation and mechanical ventilation. Medications and Allergies Docusate [Colace] 40 mg GTUBE BID 02/10/15 [History] Estradiol [Deandra] 0.05 mg TD MOTH 02/10/15 [History] Famotidine [Pepcid] 2.5 ml GTUBE BID 02/10/15 [History] Medroxyprogesterone Acetate [Provera] 5 mg GTUBE DAILY 02/10/15 [History] Valproic Acid Oral Soln [Depakene Oral Soln] 10 ml GTUBE BID 02/10/15 [History] risperiDONE [Risperdal] 4 ml GTUBE BID 02/10/15 [History] Citalopram [CeleXA] 20 mg GTUBE DAILY 03/29/15 [History] Lactose-Reduced Food/Fiber [Jevity 1.5 Alec Liquid] 265 ml GTUBE QID 03/29/15 [ History] Polyethylene Glycol 3350 [MiraLAX] 17 gm GTUBE BID PRN 03/29/15 [History] GuaiFENesin Liq [Robitussin Liq] 200 mg PO Q6HR PRN #120 mls 05/26/15 [Rx] LORazepam Oral Conc [Ativan Oral Conc] 1 mg GTUBE BID 03/31/16 [History] Chlorhexidine Gluconate [Hibiclens] 15 ml PO BID 05/21/16 [History] Magnesium Hydroxide [Milk of Magnesia] 1 appl TP DAILY PRN 05/21/16 [History] Multivitamin with Iron [Animal Shapes Plus Iron] 1 each GTUBE DAILY 05/21/16 [ History] Doron/Poly/Analy OINT [Triple Antibiotic Ointment] 1 appl TP BID PRN 05/21/16 [ History] Sodium Chloride 1 gm GTUBE TID 05/21/16 [History] Valproic Acid (As Sodium Salt) [Valproic Acid] 15 ml GTUBE HS 05/21/16 [History] Albuterol Neb [Proventil Neb] 2.5 mg IH Q4HR PRN #30 inhsol 05/25/16 [Rx] Clindamycin [Cleocin] 300 mg GTUBE Q8HR #30 capsule 05/25/16 [Rx] Lactobacillus [Culturelle] 1 each GTUBE BID #30 cap.sprink 05/25/16 [Rx] Allergies Sulfa (Sulfonamide Antibiotics) Allergy (Verified 05/21/16 09:24) Hives ROS unobtainable: due to endotracheal tube All Systems: A 10-system review of systems was performed and is negative for pertinent findings except as documented above in the HPI. Physical Examination Vital Signs: Vital Signs, Last 4 Hours Temp Pulse Resp BP Pulse Ox 11/29/16 07:00 68 12 67/48 92 11/29/16 06:30 70 11/29/16 06:15 16 92/62 92 11/29/16 06:14 12 90 11/29/16 06:00 97.7 F 88 14 104/68 91 11/29/16 05:48 12 91/63 11/29/16 05:35 84 12 101/67 91 11/29/16 05:05 84 12 114/67 92 General appearance: no acute distress ENT: oropharynx moist Effort: normal Auscultation: left: diminished breath sounds, right: clear Cardiovascular: regular rate and rhythm Gastrointestinal: hypoactive bowel sounds, soft, non-tender, non-distended, other (G-tube present) Extremities: no cyanosis, no edema, no clubbing unable to assess due to mental status Ventilator Settings Ventilator Settings: Ventilator Settings, Last 8 Hours Ventilator Mode VC+ Ventilator Mode A/C Ventilator Mode VC+ Ventilator Tidal Volume 450 Setting Ventilator Tidal Volume 450 Setting Ventilator Tidal Volume 450 Setting Ventilator Respiratory Rate 12 Setting Ventilator Respiratory Rate 12 Setting Ventilator Respiratory Rate 12 Setting Actual Respiratory Rate 16 Actual Respiratory Rate 14 Positive End Expiratory 5 Pressure Positive End Expiratory 5 Pressure Positive End Expiratory 5 Pressure Peak Inspiratory Airway 26 Pressure Peak Inspiratory Airway 25 Pressure Results - Laboratory Findings CBC and BMP: 11/29/16 02:38 11/29/16 02:38 ABG ABG pH 7.39 pH Units (7.32-7.45) 11/29/16 05:54 ABG pCO2 51 mmHg (35-45) H 11/29/16 05:54 ABG pO2 58 mmHg (85-104) L 11/29/16 05:54 ABG O2 Saturation 89 % (95-98) L 11/29/16 05:54 PT/INR, D-dimer PT 12.6 Seconds (9.4-12.1) H 11/29/16 02:50 Abnormal lab findings: Abnormal lab results RBC 3.27 M/mcL (3.82-4.97) L 11/29/16 02:38 Hgb 11.0 g/dL (11.5-15.4) L 11/29/16 02:38 Hct 31.7 % (35.3-44.9) L 11/29/16 02:38 MCH 33.6 pg (28.0-33.3) H 11/29/16 02:38 Plt Count 92 K/mcL (140-400) L 11/29/16 02:38 Lymphocytes # 0.4 K/mcL (0.6-4.6) L 11/29/16 02:38 PT 12.6 Seconds (9.4-12.1) H 11/29/16 02:50 ABG pCO2 51 mmHg (35-45) H 11/29/16 05:54 ABG pO2 58 mmHg (85-104) L 11/29/16 05:54 ABG HCO3 30.9 mEQ/L (21-27) H 11/29/16 05:54 ABG Total CO2 32.5 mEq/L (20-26) H 11/29/16 05:54 ABG O2 Saturation 89 % (95-98) L 11/29/16 05:54 ABG Base Excess 5.1 mEq/L (-2.0 to 3.0) H 11/29/16 05:54 Sodium 128 mEq/L (136-145) L 11/29/16 02:38 Chloride 92 mEq/L (98-109) L 11/29/16 02:38 Carbon Dioxide 30 mEq/L (19-29) H 11/29/16 02:38 Glucose 102 mg/dL (70-99) H 11/29/16 02:38 Calculated Osmolality 267 (280-300) L 11/29/16 02:38 Magnesium 1.5 mg/dL (1.6-2.6) L 11/29/16 02:38 AST 38 Units/L (5-34) H 11/29/16 02:38 B-Natriuretic Peptide 157 pg/mL (0-100) H 11/29/16 02:38 Albumin 2.9 g/dL (3.5-5.0) L 11/29/16 02:38 Globulin 4.2 g/dL (2.4-3.5) H 11/29/16 02:38 Albumin/Globulin Ratio 0.7 (1.1-2.2) L 11/29/16 02:38 Urine Urobilinogen 2.0 mg/dL (Normal) H 11/29/16 02:55 - Clinical Findings Intake & Output: Intake & Output 11/28/16 11/29/16 11/29/16 23:59 07:59 15:59 Intake Total 505 / 2505 Balance 505 / 2505 Consult Discharge Plan - Plan Referrals: Ronald Thomas MD [Primary Care Provider] -
[2016-11-29 08:37] LABS: ABG Base Excess 5.3 mEq/L (-2.0 to 3.0); ABG HCO3 29.9 mEQ/L (21-27); ABG Oxygen Saturation 98 % (95-98); ABG PCO2 43 mmHg (35-45); ABG PH 7.45 pH Units (7.32-7.45); ABG PO2 102 mmHg (85-104); ABG TCO2 31.2 mEq/L (20-26)
[2016-11-29 08:39] LABS: Blood Gas FiO2 60 %
[2016-11-29] MEDS ORDERED: Levofloxacin 750 MG/150 ML 750 MG/150 ML BAG IVPB SCH (09:00)
[2016-11-29] MEDS: Lacri-Lube 3.5 GM TUBE BOTH EYES SCH ×5 (09:18→23:38)
[2016-11-29] MEDS: Pantoprazole 40 MG VIAL IVPB SCH (09:19)
[2016-11-29] MEDS: Chlorhexidine Rinse 15 ML MOUTHWASH MM SCH ×2 (09:19→21:09)
[2016-11-29] MEDS: Piperacillin/Tazobactam 3.375 GM in D5% in Water (Mini-Bag+) 100 ML IVPB SCH ×3 (09:19→23:38)
[2016-11-29 09:39] LABS: Hemoglobin A1C 4.8 %
--- NOTE | 2016-11-29 10:06 | Procedure Note ---
Date of procedure: 11/29/16 Pre-op diagnosis: Atelectasis pneumonia Post-op diagnosis: same Procedure: Procedure was performed emergently given severe hypoxemia high FiO2 requirement and the suggestion of mucus obstruction of the left lower lobe (dense consolidation suggested by ultrasound evaluation of the left lower lobe) as a potential etiology for profound hypoxemia. Through the pre-existing oral endotracheal tube, disposable bronchoscope was passed without difficulty. Inspection of the main distal trachea unremarkable. Inspection of the right main stem bronchus and all bronchopulmonary segments within the right chest unremarkable. Left mainstem bronchus was widely patent as was the left upper lobe. Thick secretions were noted within the left lower lobe accompanied by mild submucosal edema and erythema. Vigorous washing technique was utilized and ultimately patency was reestablished the left lower lobe. Specimens were not sent for microbiological analysis since previous specimens have been retrieved following intubation. No untoward events were noted. Of note, this procedure was performed by Dr. Gandhi under my direct supervision. [facility] [phone]
[2016-11-29 11:14] LABS: Hemoglobin A1C 4.8 %
[2016-11-29] MEDS ORDERED: Vancomycin 1,500 MG in D5% in Water 250 ML IVPB SCH (16:00)
[2016-11-29] MEDS: Vancomycin 1,250 MG in D5% in Water 250 ML IVPB SCH (16:43)
[2016-11-30] MEDS: Ipratropium/Albuterol Neb 3 ML IH SCH ×7 (00:03→23:04)
[2016-11-30] MEDS: Vancomycin 1,250 MG in D5% in Water 250 ML IVPB SCH (03:24)
[2016-11-30] MEDS: Lacri-Lube 3.5 GM TUBE BOTH EYES SCH ×6 (03:24→23:56)
[2016-11-30 03:27] LABS: Basophils % 0.2 %; Eosinophils # 0.1 K/mcL (0.0-0.6); Eosinophils % 1.6 %; Hematocrit 29.3 % (35.3-44.9); Immature Granulocytes % 0.2 % (0-4); Immature Platelets 5.1 % (1.1-6.1); Lymphocytes # 0.6 K/mcL (0.6-4.6); Lymphocytes % 6.9 %; Mean Corpuscular HGB Conc 34.1 g/dL (31.6-35.5); Mean Corpuscular Hemoglobin 32.8 pg (28.0-33.3); Mean Corpuscular Volume 96.1 fL (83.0-100.0); Mean Platelet Volume 10.2 fL (9.4-12.4); Monocytes # 2.5 K/mcL (0.0-1.3); Monocytes % 27.8 %; Neutrophils # 5.6 K/mcL (1.6-8.9); Red Blood Count 3.05 M/mcL (3.82-4.97); Red Cell Distribution Width 13.1 % (11.5-14.5); Segmented Neutrophils % 63.3 %
[2016-11-30 03:31] LABS: Platelet Count 86 K/mcL (140-400)
[2016-11-30 03:41] LABS: Alanine Aminotransferase 6 Units/L (0-55); Albumin/Globulin Ratio 0.6 (1.1-2.2); Alkaline Phosphatase 68 Units/L (38-126); Aspartate Amino Transferase 24 Units/L (5-34); BUN/Creatinine Ratio 16 (6-26); Blood Urea Nitrogen 11 mg/dL (7-20); Calcium 8.9 mg/dL (8.6-10.8); Carbon Dioxide 31 mEq/L (19-29); Chloride 96 mEq/L (98-109); Globulin 3.7 g/dL (2.4-3.5); Glucose 89 mg/dL (70-99); Magnesium 1.3 mg/dL (1.6-2.6); Osmolality,Calculated 269 (280-300); Potassium 4.5 mEq/L (3.5-4.5); Sodium 130 mEq/L (136-145); Total Protein 5.9 g/dL (6.0-8.3); eGFR For African Americans > 60 (> 60); eGFR For Non-African Americans > 60 (> 60)
[2016-11-30] MEDS: Dexmedetomidine HCl 400 MCG/100 ML MLS IVC SCH ×3 (03:44→22:08)
[2016-11-30 03:51] LABS: Albumin 2.2 g/dL (3.5-5.0)
[2016-11-30 04:18] LABS: Platelet Estimate Decreased (Normal); Reactive Lymphocytes Present (Not Present); Toxic Granulation Present (Not Present)
[2016-11-30 05:01] LABS: ABG Base Excess 7.1 mEq/L (-2.0 to 3.0); ABG HCO3 31.3 mEQ/L (21-27); ABG Oxygen Saturation 98 % (95-98); ABG PCO2 42 mmHg (35-45); ABG PH 7.48 pH Units (7.32-7.45); ABG PO2 94 mmHg (85-104); ABG TCO2 32.6 mEq/L (20-26); Blood Gas FiO2 40 %; Blood Gas PEEP 5 cm H2O; Blood Gas Respiration Rate 12; Blood Gas VT 450 cc
[2016-11-30] MEDS ORDERED: Magnesium Sulfate 2 GM in D5% in Water 100 ML IVPB ONE (05:51)
[2016-11-30] MEDS: Norepinephrine 4 MG in D5% in Water 250 ML IVC SCH (06:03)
[2016-11-30] MEDS: Pantoprazole 40 MG VIAL IVPB SCH (07:51)
[2016-11-30] MEDS: Piperacillin/Tazobactam 3.375 GM in D5% in Water (Mini-Bag+) 100 ML IVPB SCH (07:52)
[2016-11-30] MEDS: Chlorhexidine Rinse 15 ML MOUTHWASH MM SCH ×2 (07:52→20:08)
--- NOTE | 2016-11-30 08:51 | Pulmonology Progress Note ---
Date of Encounter: 11/30/16 Time of Encounter: 08:44 Assessment and Plan (1) Septic shock Current Visit: Yes Status: Acute Patient appears improved. Need for vasopressor support has decreased. Culture results are no growth to date but final results are pending. Continue antibiotics, MRSA nasal swab was negative so will d/c vancomycin, de-escalate to rocephin. Continue Levaquin and Zosyn. Patient is spontaneously breathing on the ventilator. Possible extubation later today. Patient is status post bronchoscopy with relief of mucous plugging, on exam there is improved air movement in the left lung. Continue DVT, GI prophylaxis. Tube feeds have been initiated (2) Acute respiratory failure with hypoxia Current Visit: Yes Status: Acute (3) Pneumonia Current Visit: Yes Status: Acute Qualifiers: Pneumonia type: due to unspecified organism Laterality: left Lung location: unspecified part of lung Qualified Code(s): J18.9 - Pneumonia, unspecified organism (4) Chronic hyponatremia Current Visit: No Status: Inactive (5) Thrombocytopenia Current Visit: No Status: Chronic (6) Mental retardation Current Visit: No Status: Chronic Subjective Principal diagnosis: Pneumonia/respiratory failure Interval history: Patient seen and examined at bedside. Patient remains intubated and minimally sedated. She will wake up but does not follow commands which may be her baseline given her underlying disability. Objective PUL Vital signs: Last Vital Signs Temp 100.2 F H 11/30/16 08:00 Pulse 78 11/30/16 08:00 Resp 21 11/30/16 08:15 BP 92/52 11/30/16 08:00 Pulse Ox 97 11/30/16 08:15 General appearance: no acute distress ENT: oropharynx moist Auscultation: left: rhonchi Cardiovascular: regular rate and rhythm Gastrointestinal: hypoactive bowel sounds, soft, non-tender, non-distended Extremities: no cyanosis, no edema, no clubbing unable to assess due to mental status Ventilator Settings Ventilator Settings: Ventilator Settings, Last 8 Hours Ventilator Mode CPAP Ventilator Mode VC+ Ventilator Mode VC+ Ventilator Mode VC+ Ventilator Mode VC+ Ventilator Mode VC+ Ventilator Mode VC+ Ventilator Mode VC+ Ventilator Tidal Volume 450 Setting Ventilator Tidal Volume 450 Setting Ventilator Tidal Volume 450 Setting Ventilator Tidal Volume 450 Setting Ventilator Tidal Volume 450 Setting Ventilator Tidal Volume 450 Setting Ventilator Tidal Volume 450 Setting Ventilator Respiratory Rate 12 Setting Ventilator Respiratory Rate 12 Setting Ventilator Respiratory Rate 12 Setting Ventilator Respiratory Rate 12 Setting Ventilator Respiratory Rate 12 Setting Actual Respiratory Rate 20 Actual Respiratory Rate 22 Actual Respiratory Rate 20 Actual Respiratory Rate 13 Actual Respiratory Rate 15 Actual Respiratory Rate 13 Actual Respiratory Rate 12 Positive End Expiratory 5 Pressure Positive End Expiratory 5 Pressure Positive End Expiratory 5 Pressure Positive End Expiratory 5 Pressure Positive End Expiratory 5 Pressure Positive End Expiratory 5 Pressure Positive End Expiratory 5 Pressure Positive End Expiratory 5 Pressure Peak Inspiratory Airway 15 Pressure Peak Inspiratory Airway 15 Pressure Peak Inspiratory Airway 15 Pressure Peak Inspiratory Airway 22 Pressure Peak Inspiratory Airway 22 Pressure Peak Inspiratory Airway 26 Pressure Peak Inspiratory Airway 25 Pressure Results - Laboratory Findings CBC and BMP: 11/30/16 03:07 11/30/16 03:07 ABG ABG pH 7.48 pH Units (7.32-7.45) H 11/30/16 04:51 ABG pCO2 42 mmHg (35-45) 11/30/16 04:51 ABG pO2 94 mmHg (85-104) 11/30/16 04:51 ABG O2 Saturation 98 % (95-98) 11/30/16 04:51 PT/INR, D-dimer PT 12.6 Seconds (9.4-12.1) H 11/29/16 02:50 Abnormal lab findings: Abnormal lab results RBC 3.05 M/mcL (3.82-4.97) L 11/30/16 03:07 Hgb 10.0 g/dL (11.5-15.4) L 11/30/16 03:07 Hct 29.3 % (35.3-44.9) L 11/30/16 03:07 Plt Count 86 K/mcL (140-400) L 11/30/16 03:07 Monocytes # 2.5 K/mcL (0.0-1.3) H 11/30/16 03:07 Reactive Lymphocytes Present (Not Present) A 11/30/16 03:07 Toxic Granulation Present (Not Present) A 11/30/16 03:07 Platelet Estimate Decreased (Normal) L 11/30/16 03:07 PT 12.6 Seconds (9.4-12.1) H 11/29/16 02:50 ABG pH 7.48 pH Units (7.32-7.45) H 11/30/16 04:51 ABG HCO3 31.3 mEQ/L (21-27) H 11/30/16 04:51 ABG Total CO2 32.6 mEq/L (20-26) H 11/30/16 04:51 ABG Base Excess 7.1 mEq/L (-2.0 to 3.0) H 11/30/16 04:51 Sodium 130 mEq/L (136-145) L 11/30/16 03:07 Chloride 96 mEq/L (98-109) L 11/30/16 03:07 Carbon Dioxide 31 mEq/L (19-29) H 11/30/16 03:07 POC Glucose 100 (58-89) H 11/29/16 06:13 Calculated Osmolality 269 (280-300) L 11/30/16 03:07 Magnesium 1.3 mg/dL (1.6-2.6) L 11/30/16 03:07 B-Natriuretic Peptide 157 pg/mL (0-100) H 11/29/16 02:38 Serum Total Protein 5.9 g/dL (6.0-8.3) L 11/30/16 03:07 Albumin 2.2 g/dL (3.5-5.0) L D 11/30/16 03:07 Globulin 3.7 g/dL (2.4-3.5) H 11/30/16 03:07 Albumin/Globulin Ratio 0.6 (1.1-2.2) L 11/30/16 03:07 Urine Urobilinogen 2.0 mg/dL (Normal) H 11/29/16 02:55 - Microbiology Findings Microbiology Findings: Microbiology, Last 48 Hours 11/29/16 07:30 Sputum Culture - Preliminary Sputum 11/29/16 07:56 Legionella Antigen - Final Urine,[place] Streptococcus pneumoniae Antigen (M - Final - Clinical Findings Intake & Output: Intake & Output 11/29/16 11/30/16 11/30/16 23:59 07:59 15:59 Intake Total 665 / 665 827 / 827 Output Total 525 / 525 1400 / 1400 Balance 140 / 140 -573 / -573 Weight 79.4 kg Consult Discharge Plan - Plan Referrals: Ronald Thomas MD [Primary Care Provider] -
[2016-11-30] MEDS ORDERED: Levofloxacin 750 MG/150 ML 750 MG/150 ML BAG IVPB SCH (09:00)
[2016-11-30] MEDS ORDERED: 0.9 % Sodium Chloride 250 ML IVC ONE (18:45)
[2016-11-30] MEDS: 0.9 % Sodium Chloride 1,000 ML IVC SCH (18:58)
[2016-12-01 03:16] LABS: Hemoglobin 9.3 g/dL (11.5-15.4); Immature Platelets 3.7 % (1.1-6.1); Mean Corpuscular HGB Conc 34.4 g/dL (31.6-35.5); Mean Corpuscular Hemoglobin 33.7 pg (28.0-33.3); Mean Corpuscular Volume 97.8 fL (83.0-100.0); Mean Platelet Volume 10.4 fL (9.4-12.4); Platelet Count 101 K/mcL (140-400); Red Blood Count 2.76 M/mcL (3.82-4.97); Red Cell Distribution Width 13.5 % (11.5-14.5)
[2016-12-01 03:47] LABS: BUN/Creatinine Ratio 17 (6-26); Blood Urea Nitrogen 13 mg/dL (7-20); Calcium 8.7 mg/dL (8.6-10.8); Carbon Dioxide 25 mEq/L (19-29); Chloride 102 mEq/L (98-109); Glucose 108 mg/dL (70-99); Magnesium 1.5 mg/dL (1.6-2.6); Osmolality,Calculated 279 (280-300); Sodium 134 mEq/L (136-145); eGFR For African Americans > 60 (> 60); eGFR For Non-African Americans > 60 (> 60)
[2016-12-01 03:52] LABS: Neutrophils # 5.3 K/mcL (1.6-8.9); Platelet Estimate Normal (Normal)
[2016-12-01] MEDS: Lacri-Lube 3.5 GM TUBE BOTH EYES SCH ×5 (03:56→20:40)
[2016-12-01] MEDS: 0.9 % Sodium Chloride 1,000 ML IVC SCH (03:57)
[2016-12-01] MEDS: Dexmedetomidine HCl 400 MCG/100 ML MLS IVC SCH (03:58)
[2016-12-01] MEDS: Ipratropium/Albuterol Neb 3 ML IH SCH ×5 (04:32→20:24)
[2016-12-01 05:18] LABS: ABG Base Excess 6.9 mEq/L (-2.0 to 3.0); ABG HCO3 31.3 mEQ/L (21-27); ABG Oxygen Saturation 99 % (95-98); ABG PCO2 43 mmHg (35-45); ABG PH 7.47 pH Units (7.32-7.45); ABG PO2 117 mmHg (85-104); ABG TCO2 32.6 mEq/L (20-26)
[2016-12-01 05:19] LABS: Blood Gas FiO2 40 %
--- NOTE | 2016-12-01 07:50 | Pulmonology Progress Note ---
<Marcial Gandhi - Last Filed: 12/01/16 07:50> Date of Encounter: 12/01/16 Time of Encounter: 07:50 Assessment and Plan (1) Septic shock Current Visit: Yes Status: Acute Patient appears improved. Need for vasopressor support has decreased. Culture results are no growth to date but final results are pending. Continue antibiotics, MRSA nasal swab was negative so will d/c vancomycin, de-escalate to rocephin. Continue Levaquin and Zosyn. Patient is spontaneously breathing on the ventilator. Possible extubation later today. Patient is status post bronchoscopy with relief of mucous plugging, on exam there is improved air movement in the left lung. Continue DVT, GI prophylaxis. Tube feeds have been initiated (2) Acute respiratory failure with hypoxia Current Visit: Yes Status: Acute (3) Pneumonia Current Visit: Yes Status: Acute Qualifiers: Pneumonia type: due to unspecified organism Laterality: left Lung location: unspecified part of lung Qualified Code(s): J18.9 - Pneumonia, unspecified organism (4) Chronic hyponatremia Current Visit: No Status: Inactive (5) Thrombocytopenia Current Visit: No Status: Chronic (6) Mental retardation Current Visit: No Status: Chronic Subjective Principal diagnosis: Pneumonia/respiratory failure Interval history: Patient seen and examined at bedside. Patient remains intubated and minimally sedated. She will wake up but does not follow commands which may be her baseline given her underlying disability. Objective PUL Vital signs: Last Vital Signs Temp 99.5 F 12/01/16 03:50 Pulse 88 12/01/16 07:36 Resp 19 12/01/16 07:36 BP 123/76 12/01/16 07:36 Pulse Ox 99 12/01/16 07:36 Ventilator Settings Ventilator Settings: Ventilator Settings, Last 8 Hours Ventilator Mode A/C Ventilator Mode A/C Ventilator Mode CPAP Ventilator Mode A/C Ventilator Mode A/C Ventilator Mode A/C Ventilator Mode A/C Ventilator Mode A/C Ventilator Mode A/C Ventilator Mode A/C Ventilator Mode A/C Ventilator Mode A/C Ventilator Mode A/C Ventilator Mode A/C Ventilator Tidal Volume 450 Setting Ventilator Tidal Volume 450 Setting Ventilator Tidal Volume 450 Setting Ventilator Tidal Volume 450 Setting Ventilator Tidal Volume 450 Setting Ventilator Tidal Volume 450 Setting Ventilator Tidal Volume 450 Setting Ventilator Tidal Volume 450 Setting Ventilator Tidal Volume 450 Setting Ventilator Tidal Volume 450 Setting Ventilator Tidal Volume 450 Setting Ventilator Tidal Volume 450 Setting Ventilator Tidal Volume 450 Setting Ventilator Respiratory Rate 12 Setting Ventilator Respiratory Rate 12 Setting Ventilator Respiratory Rate 12 Setting Ventilator Respiratory Rate 12 Setting Ventilator Respiratory Rate 12 Setting Ventilator Respiratory Rate 12 Setting Ventilator Respiratory Rate 12 Setting Ventilator Respiratory Rate 12 Setting Ventilator Respiratory Rate 12 Setting Ventilator Respiratory Rate 12 Setting Ventilator Respiratory Rate 12 Setting Ventilator Respiratory Rate 12 Setting Ventilator Respiratory Rate 12 Setting Actual Respiratory Rate 19 Actual Respiratory Rate 18 Actual Respiratory Rate 17 Actual Respiratory Rate 14 Actual Respiratory Rate 12 Actual Respiratory Rate 18 Actual Respiratory Rate 16 Actual Respiratory Rate 15 Actual Respiratory Rate 16 Actual Respiratory Rate 21 Actual Respiratory Rate 16 Actual Respiratory Rate 12 Actual Respiratory Rate 12 Positive End Expiratory 5 Pressure Positive End Expiratory 5 Pressure Positive End Expiratory 5 Pressure Positive End Expiratory 5 Pressure Positive End Expiratory 5 Pressure Positive End Expiratory 5 Pressure Positive End Expiratory 5 Pressure Positive End Expiratory 5 Pressure Positive End Expiratory 5 Pressure Positive End Expiratory 5 Pressure Positive End Expiratory 5 Pressure Positive End Expiratory 5 Pressure Positive End Expiratory 5 Pressure Positive End Expiratory 5 Pressure Peak Inspiratory Airway 13 Pressure Peak Inspiratory Airway 13 Pressure Peak Inspiratory Airway 13 Pressure Peak Inspiratory Airway 17 Pressure Peak Inspiratory Airway 27 Pressure Peak Inspiratory Airway 20 Pressure Peak Inspiratory Airway 20 Pressure Peak Inspiratory Airway 20 Pressure Peak Inspiratory Airway 21 Pressure Peak Inspiratory Airway 14 Pressure Peak Inspiratory Airway 23 Pressure Peak Inspiratory Airway 22 Pressure Peak Inspiratory Airway 28 Pressure Results - Laboratory Findings CBC and BMP: 12/01/16 02:54 12/01/16 02:54 ABG ABG pH 7.47 pH Units (7.32-7.45) H 12/01/16 04:50 ABG pCO2 43 mmHg (35-45) 12/01/16 04:50 ABG pO2 117 mmHg (85-104) H 12/01/16 04:50 ABG O2 Saturation 99 % (95-98) H 12/01/16 04:50 PT/INR, D-dimer PT 12.6 Seconds (9.4-12.1) H 11/29/16 02:50 Abnormal lab findings: Abnormal lab results RBC 2.76 M/mcL (3.82-4.97) L 12/01/16 02:54 Hgb 9.3 g/dL (11.5-15.4) L 12/01/16 02:54 Hct 27.0 % (35.3-44.9) L 12/01/16 02:54 MCH 33.7 pg (28.0-33.3) H 12/01/16 02:54 Plt Count 101 K/mcL (140-400) L 12/01/16 02:54 Band Neutrophils % 24.0 % (0-4) H 12/01/16 02:54 Monocytes # 2.0 K/mcL (0.0-1.3) H 12/01/16 02:54 Reactive Lymphocytes Present (Not Present) A 11/30/16 03:07 Toxic Granulation Present (Not Present) A 11/30/16 03:07 PT 12.6 Seconds (9.4-12.1) H 11/29/16 02:50 ABG pH 7.47 pH Units (7.32-7.45) H 12/01/16 04:50 ABG pO2 117 mmHg (85-104) H 12/01/16 04:50 ABG HCO3 31.3 mEQ/L (21-27) H 12/01/16 04:50 ABG Total CO2 32.6 mEq/L (20-26) H 12/01/16 04:50 ABG O2 Saturation 99 % (95-98) H 12/01/16 04:50 ABG Base Excess 6.9 mEq/L (-2.0 to 3.0) H 12/01/16 04:50 Sodium 134 mEq/L (136-145) L 12/01/16 02:54 Glucose 108 mg/dL (70-99) H 12/01/16 02:54 POC Glucose 100 (58-89) H 11/29/16 06:13 Calculated Osmolality 279 (280-300) L 12/01/16 02:54 Magnesium 1.5 mg/dL (1.6-2.6) L 12/01/16 02:54 B-Natriuretic Peptide 157 pg/mL (0-100) H 11/29/16 02:38 Serum Total Protein 5.9 g/dL (6.0-8.3) L 11/30/16 03:07 Albumin 2.2 g/dL (3.5-5.0) L D 11/30/16 03:07 Globulin 3.7 g/dL (2.4-3.5) H 11/30/16 03:07 Albumin/Globulin Ratio 0.6 (1.1-2.2) L 11/30/16 03:07 Urine Urobilinogen 2.0 mg/dL (Normal) H 11/29/16 02:55 - Microbiology Findings Microbiology Findings: Microbiology, Last 48 Hours 11/29/16 07:30 Sputum Culture - Preliminary Sputum Gram Negative Mike 11/29/16 07:56 Legionella Antigen - Final Urine,M[place]rary Port Streptococcus pneumoniae Antigen (M - Final - Clinical Findings Intake & Output: Intake & Output 11/30/16 11/30/16 12/01/16 15:59 23:59 07:59 Intake Total 500 / 500 984 / 984 1341 / 1341 Output Total 600 / 600 1400 / 1400 250 / 250 Balance -100 / -100 -416 / -416 1091 / 1091 Weight 79.2 kg - VTE Documentation of Mechanical Device: Intermittent pneumatic compression device Consult Discharge Plan - Plan Referrals: Ronald Thomas MD [Primary Care Provider] - <Emre Lock - Last Filed: 12/01/16 14:48> Date of Encounter: 12/01/16 Objective PUL Vital signs: Last Vital Signs Temp 98.3 F 12/01/16 07:30 Pulse 88 12/01/16 07:36 Resp 15 12/01/16 08:21 BP 123/76 12/01/16 07:36 Pulse Ox 99 12/01/16 08:21 Ventilator Settings Ventilator Settings: Ventilator Settings, Last 8 Hours Ventilator Mode CPAP Ventilator Mode A/C Ventilator Mode A/C Ventilator Mode CPAP Ventilator Mode A/C Ventilator Mode A/C Ventilator Mode A/C Ventilator Mode A/C Ventilator Mode A/C Ventilator Mode A/C Ventilator Mode A/C Ventilator Mode A/C Ventilator Mode A/C Ventilator Tidal Volume 450 Setting Ventilator Tidal Volume 450 Setting Ventilator Tidal Volume 450 Setting Ventilator Tidal Volume 450 Setting Ventilator Tidal Volume 450 Setting Ventilator Tidal Volume 450 Setting Ventilator Tidal Volume 450 Setting Ventilator Tidal Volume 450 Setting Ventilator Tidal Volume 450 Setting Ventilator Tidal Volume 450 Setting Ventilator Tidal Volume 450 Setting Ventilator Tidal Volume 450 Setting Ventilator Respiratory Rate 12 Setting Ventilator Respiratory Rate 12 Setting Ventilator Respiratory Rate 12 Setting Ventilator Respiratory Rate 12 Setting Ventilator Respiratory Rate 12 Setting Ventilator Respiratory Rate 12 Setting Ventilator Respiratory Rate 12 Setting Ventilator Respiratory Rate 12 Setting Ventilator Respiratory Rate 12 Setting Ventilator Respiratory Rate 12 Setting Ventilator Respiratory Rate 12 Setting Actual Respiratory Rate 16 Actual Respiratory Rate 19 Actual Respiratory Rate 18 Actual Respiratory Rate 17 Actual Respiratory Rate 14 Actual Respiratory Rate 12 Actual Respiratory Rate 18 Actual Respiratory Rate 16 Actual Respiratory Rate 15 Actual Respiratory Rate 16 Actual Respiratory Rate 21 Actual Respiratory Rate 16 Positive End Expiratory 5 Pressure Positive End Expiratory 5 Pressure Positive End Expiratory 5 Pressure Positive End Expiratory 5 Pressure Positive End Expiratory 5 Pressure Positive End Expiratory 5 Pressure Positive End Expiratory 5 Pressure Positive End Expiratory 5 Pressure Positive End Expiratory 5 Pressure Positive End Expiratory 5 Pressure Positive End Expiratory 5 Pressure Positive End Expiratory 5 Pressure Positive End Expiratory 5 Pressure Peak Inspiratory Airway 13 Pressure Peak Inspiratory Airway 13 Pressure Peak Inspiratory Airway 13 Pressure Peak Inspiratory Airway 13 Pressure Peak Inspiratory Airway 17 Pressure Peak Inspiratory Airway 27 Pressure Peak Inspiratory Airway 20 Pressure Peak Inspiratory Airway 20 Pressure Peak Inspiratory Airway 20 Pressure Peak Inspiratory Airway 21 Pressure Peak Inspiratory Airway 14 Pressure Peak Inspiratory Airway 23 Pressure Results - Laboratory Findings CBC and BMP: 12/01/16 02:54 12/01/16 02:54 ABG ABG pH 7.47 pH Units (7.32-7.45) H 12/01/16 04:50 ABG pCO2 43 mmHg (35-45) 12/01/16 04:50 ABG pO2 117 mmHg (85-104) H 12/01/16 04:50 ABG O2 Saturation 99 % (95-98) H 12/01/16 04:50 PT/INR, D-dimer PT 12.6 Seconds (9.4-12.1) H 11/29/16 02:50 Abnormal lab findings: Abnormal lab results RBC 2.76 M/mcL (3.82-4.97) L 12/01/16 02:54 Hgb 9.3 g/dL (11.5-15.4) L 12/01/16 02:54 Hct 27.0 % (35.3-44.9) L 12/01/16 02:54 MCH 33.7 pg (28.0-33.3) H 12/01/16 02:54 Plt Count 101 K/mcL (140-400) L 12/01/16 02:54 Band Neutrophils % 24.0 % (0-4) H 12/01/16 02:54 Monocytes # 2.0 K/mcL (0.0-1.3) H 12/01/16 02:54 Reactive Lymphocytes Present (Not Present) A 11/30/16 03:07 Toxic Granulation Present (Not Present) A 11/30/16 03:07 PT 12.6 Seconds (9.4-12.1) H 11/29/16 02:50 ABG pH 7.47 pH Units (7.32-7.45) H 12/01/16 04:50 ABG pO2 117 mmHg (85-104) H 12/01/16 04:50 ABG HCO3 31.3 mEQ/L (21-27) H 12/01/16 04:50 ABG Total CO2 32.6 mEq/L (20-26) H 12/01/16 04:50 ABG O2 Saturation 99 % (95-98) H 12/01/16 04:50 ABG Base Excess 6.9 mEq/L (-2.0 to 3.0) H 12/01/16 04:50 Sodium 134 mEq/L (136-145) L 12/01/16 02:54 Glucose 108 mg/dL (70-99) H 12/01/16 02:54 POC Glucose 100 (58-89) H 11/29/16 06:13 Calculated Osmolality 279 (280-300) L 12/01/16 02:54 Magnesium 1.5 mg/dL (1.6-2.6) L 12/01/16 02:54 B-Natriuretic Peptide 157 pg/mL (0-100) H 11/29/16 02:38 Serum Total Protein 5.9 g/dL (6.0-8.3) L 11/30/16 03:07 Albumin 2.2 g/dL (3.5-5.0) L D 11/30/16 03:07 Globulin 3.7 g/dL (2.4-3.5) H 11/30/16 03:07 Albumin/Globulin Ratio 0.6 (1.1-2.2) L 11/30/16 03:07 Urine Urobilinogen 2.0 mg/dL (Normal) H 11/29/16 02:55 - Microbiology Findings Microbiology Findings: Microbiology, Last 48 Hours 11/29/16 07:30 Sputum Culture - Preliminary Sputum Gram Negative Mike 11/29/16 07:56 Legionella Antigen - Final Urine,M[place]rary Port Streptococcus pneumoniae Antigen (M - Final - Clinical Findings Intake & Output: Intake & Output 11/30/16 12/01/16 12/01/16 23:59 07:59 15:59 Intake Total 984 / 984 1341 / 1341 Output Total 1400 / 1400 675 / 675 Balance -416 / -416 666 / 666 Weight 79.2 kg - Attending Attestation I examined this patient and my medical decision-making was reviewed with the Resident Physician. I agree with the documented findings, disposition and treatment plan as described except to the extent set forth below. Labs, radiology, chart personally reviewed. All lines examined without evidence of infection. Management was reviewed during multidisciplinary critical care rounds. Neuropsych: Awake and alert she is able to follow simple commands poorly she has developmental delay at baseline and is nonverbal she has been weaned off all sedation while on vent Pulm: Favorable spontaneous breathing trial today she is currently doing well on CPAP trial will get parameters and then likely proceed with extubation etiology of acute respiratory failure appears to be aspiration pneumonia she is being treated for this and improving Cards: Distributive shock secondary to sepsis now off vasopressors 24 hours map greater than 60 continue to follow FEN-GI: GI prophylaxis given holding enteral nutrition because of planned liberation from vent Renal: No evidence of a catlike continue to monitor ID: Treated for possible aspiration pneumonia she has gram-negative rods in sputum which we will follow up on speciation Heme/Onc: DVT prophylaxis given Endo: Glucose monitored Integ/MSK: Skin care per routine ICU protocol to prevent ulcers CODE: Full code
[2016-12-01] MEDS: Norepinephrine 4 MG in D5% in Water 250 ML IVC SCH (09:37)
[2016-12-01] MEDS: *HR* Heparin 5,000 UNIT/ML VIAL SQ SCH ×2 (09:43→20:41)
[2016-12-01] MEDS: Chlorhexidine Rinse 15 ML MOUTHWASH MM SCH ×2 (09:43→20:40)
[2016-12-01] MEDS: Pantoprazole 40 MG VIAL IVPB SCH (09:43)
[2016-12-01] MEDS ORDERED: Aminoglycoside Consult 1 EACH MC ONE (09:56)
--- NOTE | 2016-12-01 13:51 | Electrocardiograph Report ---
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
[2016-12-01] MEDS ORDERED: 0.9 % Sodium Chloride 500 ML IVC ONE (15:53)
[2016-12-01] MEDS ORDERED: Magnesium Sulfate 2 GM in D5% in Water 100 ML IVPB ONE (16:02)
--- NOTE | 2016-12-01 16:22 | Electrocardiograph Report ---
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
[2016-12-01] MEDS: Piperacillin/Tazobactam 3.375 GM in D5% in Water (Mini-Bag+) 100 ML IVPB SCH (17:03)
[2016-12-02] MEDS: Lacri-Lube 3.5 GM TUBE BOTH EYES SCH ×3 (00:06→08:10)
[2016-12-02] MEDS: Ipratropium/Albuterol Neb 3 ML IH SCH ×6 (00:09→20:11)
[2016-12-02] MEDS: Piperacillin/Tazobactam 3.375 GM in D5% in Water (Mini-Bag+) 100 ML IVPB SCH ×4 (01:24→17:08)
[2016-12-02 03:40] LABS: Hematocrit 27.4 % (35.3-44.9); Hemoglobin 9.1 g/dL (11.5-15.4); Mean Corpuscular HGB Conc 33.2 g/dL (31.6-35.5); Mean Corpuscular Volume 99.3 fL (83.0-100.0); Mean Platelet Volume 9.6 fL (9.4-12.4); Platelet Count 116 K/mcL (140-400); Red Blood Count 2.76 M/mcL (3.82-4.97); Red Cell Distribution Width 13.7 % (11.5-14.5)
[2016-12-02 03:50] LABS: BUN/Creatinine Ratio 21 (6-26); Blood Urea Nitrogen 15 mg/dL (7-20); Calcium 8.8 mg/dL (8.6-10.8); Carbon Dioxide 29 mEq/L (19-29); Chloride 101 mEq/L (98-109); Glucose 89 mg/dL (70-99); Magnesium 1.8 mg/dL (1.6-2.6); Osmolality,Calculated 282 (280-300); Potassium 3.5 mEq/L (3.5-4.5); Sodium 136 mEq/L (136-145); eGFR For African Americans > 60 (> 60); eGFR For Non-African Americans > 60 (> 60)
[2016-12-02 04:48] LABS: Basophils # 0.2 K/mcL (0.0-0.2); Eosinophils # 0.3 K/mcL (0.0-0.6); Lymphocytes # 1.1 K/mcL (0.6-4.6); Monocytes # 1.1 K/mcL (0.0-1.3); Neutrophils # 5.1 K/mcL (1.6-8.9); Platelet Estimate Slight Decrease (Normal)
[2016-12-02] MEDS: *HR* Heparin 5,000 UNIT/ML VIAL SQ SCH ×2 (06:21→17:12)
--- NOTE | 2016-12-02 07:01 | Pulmonology Progress Note ---
Addendum entered and electronically signed by Marcial Gandhi DO 12/02/16 08:49: Patient has been transferred to [facility] in stable condition. Sign out was given to the admitting hospitalist who accepted the patient in transfer. Original Note: <Marcial Gandhi - Last Filed: 12/02/16 07:59> Date of Encounter: 12/02/16 Time of Encounter: 07:01 Assessment and Plan (1) Septic shock Current Visit: Yes Status: Acute Neuropsych: Awake and alert she is able to follow simple commands poorly she has developmental delay at baseline and is nonverbal. She has been off sedation and appears to be at her baseline mental status. Pulm: Currently being treated for pneumonia, possible aspiration. Patient was successfully liberated from the ventilator yesterday and has been stable from respiratory status. Cards: Hemodynamically stable. Patient been off pressors for greater than 24 hours. FEN-GI: Will continue with tube feeds that the patient uses on a routine basis. No electrolyte disturbances. Renal: Patient has normal creatinine with good urine output. Continue to monitor. Will remove Mccrary today. ID: Treated for possible aspiration pneumonia, gram-negative rods in sputum. Awaiting final culture and sensitivity results. We will continue with Rocephin and Zosyn until final culture results are obtained. Heme/Onc: DVT prophylaxis given Endo: Blood sugars under good control. Continue to monitor. Integ/MSK: Skin care per routine ICU protocol. Patient is stable for transfer to the floor today. CODE: Full code (2) Acute respiratory failure with hypoxia Current Visit: Yes Status: Acute (3) Pneumonia Current Visit: Yes Status: Acute Qualifiers: Pneumonia type: due to unspecified organism Laterality: left Lung location: unspecified part of lung Qualified Code(s): J18.9 - Pneumonia, unspecified organism (4) Chronic hyponatremia Current Visit: No Status: Inactive (5) Thrombocytopenia Current Visit: No Status: Chronic (6) Mental retardation Current Visit: No Status: Chronic Subjective Principal diagnosis: Pneumonia/respiratory failure Interval history: Patient seen and examined at bedside. Patient was extubated yesterday, no acute events overnight. Patient is nonverbal at baseline. Does not appear to be in any acute distress. Objective PUL Vital signs: Last Vital Signs Temp 98.5 F 12/02/16 04:48 Pulse 92 12/02/16 06:00 Resp 12 07/25/17 06:00 BP 113/63 12/02/16 06:00 Pulse Ox 96 12/02/16 06:00 General appearance: no acute distress ENT: oropharynx moist Effort: normal Auscultation: bilateral: rhonchi Cardiovascular: regular rate and rhythm Gastrointestinal: normoactive bowel sounds, soft, non-tender, other (G-tube present) Extremities: no cyanosis, no edema, no clubbing unable to assess due to mental status Results - Laboratory Findings CBC and BMP: 12/02/16 03:30 12/02/16 03:30 ABG ABG pH 7.47 pH Units (7.32-7.45) H 12/01/16 04:50 ABG pCO2 43 mmHg (35-45) 12/01/16 04:50 ABG pO2 117 mmHg (85-104) H 12/01/16 04:50 ABG O2 Saturation 99 % (95-98) H 12/01/16 04:50 PT/INR, D-dimer PT 12.6 Seconds (9.4-12.1) H 11/29/16 02:50 Abnormal lab findings: Abnormal lab results RBC 2.76 M/mcL (3.82-4.97) L 12/02/16 03:30 Hgb 9.1 g/dL (11.5-15.4) L 12/02/16 03:30 Hct 27.4 % (35.3-44.9) L 12/02/16 03:30 Plt Count 116 K/mcL (140-400) L 12/02/16 03:30 Reactive Lymphocytes Present (Not Present) A 11/30/16 03:07 Toxic Granulation Present (Not Present) A 11/30/16 03:07 Platelet Estimate Slight Decrease (Normal) L 12/02/16 03:30 PT 12.6 Seconds (9.4-12.1) H 11/29/16 02:50 ABG pH 7.47 pH Units (7.32-7.45) H 12/01/16 04:50 ABG pO2 117 mmHg (85-104) H 12/01/16 04:50 ABG HCO3 31.3 mEQ/L (21-27) H 12/01/16 04:50 ABG Total CO2 32.6 mEq/L (20-26) H 12/01/16 04:50 ABG O2 Saturation 99 % (95-98) H 12/01/16 04:50 ABG Base Excess 6.9 mEq/L (-2.0 to 3.0) H 12/01/16 04:50 POC Glucose 100 (58-89) H 11/29/16 06:13 B-Natriuretic Peptide 157 pg/mL (0-100) H 11/29/16 02:38 Serum Total Protein 5.9 g/dL (6.0-8.3) L 11/30/16 03:07 Albumin 2.2 g/dL (3.5-5.0) L D 11/30/16 03:07 Globulin 3.7 g/dL (2.4-3.5) H 11/30/16 03:07 Albumin/Globulin Ratio 0.6 (1.1-2.2) L 11/30/16 03:07 Urine Urobilinogen 2.0 mg/dL (Normal) H 11/29/16 02:55 - Microbiology Findings Microbiology Findings: Microbiology, Last 48 Hours 11/29/16 07:30 Sputum Culture - Preliminary Sputum Gram Negative Mike - Clinical Findings Intake & Output: Intake & Output 12/01/16 12/01/16 12/02/16 15:59 23:59 07:59 Intake Total / 12 200 / 200 100 / 100 Output Total 500 / 500 1900 / 1900 250 / 250 Balance -488 / -488 -1700 / -1700 -150 / -150 Weight 81.511 kg - VTE Documentation of Mechanical Device: Intermittent pneumatic compression device Consult Discharge Plan - Plan Referrals: Ronald Thomas MD [Primary Care Provider] - <Emre Lock W - Last Filed: 12/02/16 09:27> Date of Encounter: 12/02/16 Objective PUL Vital signs: Last Vital Signs Temp 99.7 F H 12/02/16 08:56 Pulse 97 12/02/16 08:56 Resp 18 12/02/16 08:56 BP 115/81 12/02/16 08:56 Pulse Ox 97 12/02/16 08:56 Results - Laboratory Findings CBC and BMP: 12/02/16 03:30 12/02/16 03:30 ABG ABG pH 7.47 pH Units (7.32-7.45) H 12/01/16 04:50 ABG pCO2 43 mmHg (35-45) 12/01/16 04:50 ABG pO2 117 mmHg (85-104) H 12/01/16 04:50 ABG O2 Saturation 99 % (95-98) H 12/01/16 04:50 PT/INR, D-dimer PT 12.6 Seconds (9.4-12.1) H 11/29/16 02:50 Abnormal lab findings: Abnormal lab results RBC 2.76 M/mcL (3.82-4.97) L 12/02/16 03:30 Hgb 9.1 g/dL (11.5-15.4) L 12/02/16 03:30 Hct 27.4 % (35.3-44.9) L 12/02/16 03:30 Plt Count 116 K/mcL (140-400) L 12/02/16 03:30 Reactive Lymphocytes Present (Not Present) A 11/30/16 03:07 Toxic Granulation Present (Not Present) A 11/30/16 03:07 Platelet Estimate Slight Decrease (Normal) L 12/02/16 03:30 PT 12.6 Seconds (9.4-12.1) H 11/29/16 02:50 ABG pH 7.47 pH Units (7.32-7.45) H 12/01/16 04:50 ABG pO2 117 mmHg (85-104) H 12/01/16 04:50 ABG HCO3 31.3 mEQ/L (21-27) H 12/01/16 04:50 ABG Total CO2 32.6 mEq/L (20-26) H 12/01/16 04:50 ABG O2 Saturation 99 % (95-98) H 12/01/16 04:50 ABG Base Excess 6.9 mEq/L (-2.0 to 3.0) H 12/01/16 04:50 POC Glucose 100 (58-89) H 11/29/16 06:13 B-Natriuretic Peptide 157 pg/mL (0-100) H 11/29/16 02:38 Serum Total Protein 5.9 g/dL (6.0-8.3) L 11/30/16 03:07 Albumin 2.2 g/dL (3.5-5.0) L D 11/30/16 03:07 Globulin 3.7 g/dL (2.4-3.5) H 11/30/16 03:07 Albumin/Globulin Ratio 0.6 (1.1-2.2) L 11/30/16 03:07 Urine Urobilinogen 2.0 mg/dL (Normal) H 11/29/16 02:55 - Microbiology Findings Microbiology Findings: Microbiology, Last 48 Hours 11/29/16 07:30 Sputum Culture - Preliminary Sputum Gram Negative Mike - Clinical Findings Intake & Output: Intake & Output 12/01/16 12/02/16 12/02/16 23:59 07:59 15:59 Intake Total 200 / 200 100 / 100 Output Total 1900 / 1900 250 / 250 Balance -1700 / -1700 -150 / -150 Weight 81.511 kg - Attending Attestation I examined this patient and my medical decision-making was reviewed with the Resident Physician. I agree with the documented findings, disposition and treatment plan as described except to the extent set forth below. Patient seen and examined at bedside Labs, radiology, chart personally reviewed. All lines examined without evidence of infection. Neuropsych: Awake and alert today appears to be at baseline mental status Pulm: Liberated from the ventilator doing well on she liters nasal cannula oxygen secondary to can be acquired pneumonia continue to wean to keep saturation greater than 88% Cards: Mean arterial pressure remains greater than 60 has not required vasopressor for the last 36 hours. Shock has resolved FEN-GI: Advanced diet as tolerated after speech and swallow evaluation Renal: Good urine output continue to monitor ID: Being treated for likely aspiration pneumonia she is on a beta lactam placed therapy for this we will follow-up cultures as she has gram-negative rods in sputum Heme/Onc: DVT prophylaxis given Endo: Glucose monitor Integ/MSK: She is receiving routine skin care to prevent ulcers CODE: Full code stable for transfer to medical telemetry for ongoing care
[2016-12-02] MEDS: Pantoprazole 40 MG VIAL IVPB SCH (08:09)
[2016-12-02] MEDS: Norepinephrine 4 MG in D5% in Water 250 ML IVC SCH (08:10)
[2016-12-02] MEDS: Dexmedetomidine HCl 400 MCG/100 ML MLS IVC SCH (08:10)
[2016-12-02] MEDS: Chlorhexidine Rinse 15 ML MOUTHWASH MM SCH (08:10)
[2016-12-02] MEDS ORDERED: Naloxone 0.4 MG/ML INJ IVP PRN (09:17)
[2016-12-02] MEDS ORDERED: Acetaminophen 650 MG RECTAL SUPP RC PRN (09:17)
[2016-12-02] MEDS: *HR* LORazepam Oral Conc 2 MG/ML GTUBE SCH ×2 (13:47→22:59)
[2016-12-02] MEDS: Docusate Oral Soln 100 MG/10 ML UDC GTUBE SCH ×2 (13:48→22:57)
[2016-12-02] MEDS: Valproic Acid Oral Soln 250 MG/5 ML UDC GTUBE SCH ×3 (13:48→22:58)
[2016-12-02] MEDS: FAMOTIDINE GTUBE SCH ×2 (13:56→22:58)
[2016-12-02] MEDS: RISPERIDONE GTUBE SCH ×2 (13:56→22:58)
[2016-12-03] MEDS: Ipratropium/Albuterol Neb 3 ML IH SCH ×7 (00:24→23:59)
[2016-12-03] MEDS: Piperacillin/Tazobactam 3.375 GM in D5% in Water (Mini-Bag+) 100 ML IVPB SCH ×2 (02:16→10:15)
[2016-12-03 03:39] LABS: Basophils % 0.6 %; Eosinophils # 0.2 K/mcL (0.0-0.6); Eosinophils % 2.7 %; Hematocrit 27.2 % (35.3-44.9); Hemoglobin 8.9 g/dL (11.5-15.4); Immature Granulocytes % 0.5 % (0-4); Lymphocytes # 1.7 K/mcL (0.6-4.6); Lymphocytes % 26.4 %; Mean Corpuscular HGB Conc 32.7 g/dL (31.6-35.5); Mean Corpuscular Hemoglobin 32.7 pg (28.0-33.3); Mean Platelet Volume 9.4 fL (9.4-12.4); Monocytes # 1.2 K/mcL (0.0-1.3); Monocytes % 18.9 %; Neutrophils # 3.2 K/mcL (1.6-8.9); Platelet Count 137 K/mcL (140-400); Red Blood Count 2.72 M/mcL (3.82-4.97); Red Cell Distribution Width 13.5 % (11.5-14.5); Segmented Neutrophils % 50.9 %
[2016-12-03 03:59] LABS: BUN/Creatinine Ratio 23 (6-26); Blood Urea Nitrogen 16 mg/dL (7-20); Calcium 8.7 mg/dL (8.6-10.8); Carbon Dioxide 32 mEq/L (19-29); Chloride 103 mEq/L (98-109); Glucose 98 mg/dL (70-99); Magnesium 1.7 mg/dL (1.6-2.6); Osmolality,Calculated 289 (280-300); Potassium 3.6 mEq/L (3.5-4.5); Sodium 139 mEq/L (136-145); eGFR For African Americans > 60 (> 60); eGFR For Non-African Americans > 60 (> 60)
[2016-12-03 04:18] LABS: Platelet Estimate Normal (Normal)
[2016-12-03] MEDS: *HR* Heparin 5,000 UNIT/ML VIAL SQ SCH ×2 (05:47→17:45)
[2016-12-03] MEDS ORDERED: Pantoprazole 40 MG VIAL IVPB SCH (09:00)
[2016-12-03] MEDS: Docusate Oral Soln 100 MG/10 ML UDC GTUBE SCH ×2 (10:07→20:58)
[2016-12-03] MEDS: Valproic Acid Oral Soln 250 MG/5 ML UDC GTUBE SCH ×3 (10:07→21:20)
[2016-12-03] MEDS: *HR* LORazepam Oral Conc 2 MG/ML GTUBE SCH ×2 (10:08→20:57)
--- NOTE | 2016-12-03 11:59 | Internal Med Progress Note ---
Date of Encounter: 12/03/16 Time of Encounter: 11:58 - Assessment and plan (1) Acute respiratory failure with hypoxia Current Visit: Yes Status: Acute Assessment and plan: secondary to aspiration pneumonia given current sputum culture, will d/c current abx and start Meropenem ID consultation requested continue O2 supplementation and suctioning of oral secretions bronchodilator support as needed (2) Pneumonia Current Visit: Yes Status: Acute Assessment and plan: as listed above Qualifiers: Pneumonia type: due to unspecified organism Laterality: left Lung location: unspecified part of lung Qualified Code(s): J18.9 - Pneumonia, unspecified organism (3) Anemia Current Visit: No Status: Acute Assessment and plan: H&H low but acceptable will continue to closely monitor Qualifiers: Anemia type: unspecified type Qualified Code(s): D64.9 - Anemia, unspecified (4) Bipolar disease, chronic Current Visit: No Status: Chronic Assessment and plan: continue home medications (5) DVT prophylaxis Current Visit: No Status: Acute Assessment and plan: Heparin SQ - Subjective Interval history: Patient is a 56y/o female with MRDD, s/p PEG tube placement admitted from a [place] for management of acute respiratory failure secondary to aspiration pneumonia. Patient was initially admitted to the ICU for septic shock secondary to aspiration pneumonia. She was mechanically ventilated and started on pressor support. She responded appropriately to therapy and was extubated and off pressor support. She was transferred to medical floor overnight for continuation of her medical care. At this time patient is resting comfortably in bed. She is at her baseline mental status and is bed bound at baseline. She is noted to have positive sputum culture for Acinetobacter Leyla MDR for which she is started on Merem. She is to continue her tube feedings and O2 support. - Constitutional Vitals: Temp Pulse Resp BP Pulse Ox 99.5 F 86 18 111/90 97 12/03/16 11:17 12/03/16 11:17 12/03/16 11:17 12/03/16 11:17 12/03/16 11:17 General appearance: Present: A&O X 0, no acute distress - Head Head exam: Present: atraumatic, normocephalic - Eye Eye exam: Present: conjuntiva pink, sclera anicteric - Respiratory Respiratory exam: Absent: respiratory distress, wheezes (equal air entry bilaterally) - Cardiovascular Cardiovascular exam: Present: RRR, +S1, +S2. Absent: diastolic murmur, gallop, rubs, systolic murmur - GI/Abdominal GI/Abdominal exam: Present: normal bowel sounds, soft. Absent: tenderness (PEG tube in place) - Extremities Exam Extremities exam: Present: warm, radial pulses palpable and symetrical. Absent : calf tenderness - Neurological Exam Neurological exam: Present: alert Internal Medicine: Result - Labs CBC & Chem 7: 12/03/16 03:23 12/03/16 03:23 Labs: Short CBC 12/03/16 Range/Units 03:23 WBC 6.3 (4.3-11.1) K/mcL Hgb 8.9 L (11.5-15.4) g/dL Hct 27.2 L (35.3-44.9) % Plt Count 137 L (140-400) K/mcL Neutrophils # 3.2 (1.6-8.9) K/mcL BMP 12/03/16 03:23 Sodium 139 Potassium 3.6 Chloride 103 Carbon Dioxide 32 H BUN 16 Creatinine 0.69 Glucose 98 Calcium 8.7 - ABG Interpretation ABG results: ABG ABG pH 7.47 pH Units (7.32-7.45) H 12/01/16 04:50 ABG pCO2 43 mmHg (35-45) 12/01/16 04:50 ABG pO2 117 mmHg (85-104) H 12/01/16 04:50 ABG O2 Saturation 99 % (95-98) H 12/01/16 04:50 PT/INR, D-dimer PT 12.6 Seconds (9.4-12.1) H 11/29/16 02:50 - VTE Documentation of Mechanical Device: Intermittent pneumatic compression device Consult Discharge Plan - Plan Referrals: Ronald Thomas MD [Primary Care Provider] -
[2016-12-03] MEDS: Meropenem 1,000 MG in 0.9 % Sodium Chloride Mini Bag 100 ML IVPB SCH (16:18)
[2016-12-03] MEDS: risperiDONE 1 MG TABLET PO SCH (20:57)
[2016-12-04] MEDS: Meropenem 1,000 MG in 0.9 % Sodium Chloride Mini Bag 100 ML IVPB SCH ×2 (00:10→09:12)
[2016-12-04 04:52] LABS: Basophils % 0.6 %; Eosinophils # 0.2 K/mcL (0.0-0.6); Eosinophils % 3.4 %; Hematocrit 28.3 % (35.3-44.9); Hemoglobin 9.3 g/dL (11.5-15.4); Immature Granulocytes % 0.9 % (0-4); Lymphocytes % 30.1 %; Mean Corpuscular HGB Conc 32.9 g/dL (31.6-35.5); Mean Corpuscular Hemoglobin 32.7 pg (28.0-33.3); Mean Corpuscular Volume 99.6 fL (83.0-100.0); Mean Platelet Volume 9.7 fL (9.4-12.4); Monocytes # 1.3 K/mcL (0.0-1.3); Monocytes % 19.4 %; Neutrophils # 3.1 K/mcL (1.6-8.9); Platelet Count 166 K/mcL (140-400); Red Blood Count 2.84 M/mcL (3.82-4.97); Red Cell Distribution Width 13.2 % (11.5-14.5); Segmented Neutrophils % 45.6 %
[2016-12-04 05:03] LABS: BUN/Creatinine Ratio 25 (6-26); Blood Urea Nitrogen 16 mg/dL (7-20); Calcium 8.9 mg/dL (8.6-10.8); Carbon Dioxide 33 mEq/L (19-29); Chloride 104 mEq/L (98-109); Glucose 100 mg/dL (70-99); Magnesium 1.8 mg/dL (1.6-2.6); Osmolality,Calculated 291 (280-300); Potassium 4.1 mEq/L (3.5-4.5); Sodium 140 mEq/L (136-145); eGFR For African Americans > 60 (> 60); eGFR For Non-African Americans > 60 (> 60)
[2016-12-04] MEDS: Ipratropium/Albuterol Neb 3 ML IH SCH ×5 (05:17→20:21)
[2016-12-04 05:40] LABS: Platelet Estimate Normal (Normal)
[2016-12-04] MEDS: *HR* Heparin 5,000 UNIT/ML VIAL SQ SCH ×2 (06:17→18:01)
[2016-12-04] MEDS ORDERED: *HR* Etomidate 20 MG/10 ML AMPUL IVP ONE (06:56)
[2016-12-04] MEDS ORDERED: *HR* Rocuronium Bromide 100 MG/10 ML VIAL IVC ONE (06:56)
[2016-12-04] MEDS: Valproic Acid Oral Soln 250 MG/5 ML UDC GTUBE SCH ×3 (09:11→23:14)
[2016-12-04] MEDS: Docusate Oral Soln 100 MG/10 ML UDC GTUBE SCH ×2 (09:11→23:14)
[2016-12-04] MEDS: *HR* LORazepam Oral Conc 2 MG/ML GTUBE SCH ×2 (09:36→23:14)
--- NOTE | 2016-12-04 10:53 | Internal Med Progress Note ---
Date of Encounter: 12/04/16 Time of Encounter: 10:52 - Assessment and plan (1) Acute respiratory failure with hypoxia Current Visit: Yes Status: Acute Assessment and plan: secondary to aspiration pneumonia given current sputum culture, continue Meropenem Awaiting ID consultation continue O2 supplementation and suctioning of oral secretions bronchodilator support as needed (2) Pneumonia Current Visit: Yes Status: Acute Assessment and plan: as listed above Qualifiers: Pneumonia type: due to unspecified organism Laterality: left Lung location: unspecified part of lung Qualified Code(s): J18.9 - Pneumonia, unspecified organism (3) Anemia Current Visit: No Status: Acute Assessment and plan: H&H low but acceptable will continue to closely monitor Qualifiers: Anemia type: unspecified type Qualified Code(s): D64.9 - Anemia, unspecified (4) Bipolar disease, chronic Current Visit: No Status: Chronic Assessment and plan: continue home medications (5) DVT prophylaxis Current Visit: No Status: Acute Assessment and plan: Heparin SQ - Subjective Interval history: Patient is a 56y/o female with MRDD, s/p PEG tube placement admitted from a [place] for management of acute respiratory failure secondary to aspiration pneumonia. Patient was initially admitted to the ICU for septic shock secondary to aspiration pneumonia. She was mechanically ventilated and started on pressor support. She responded appropriately to therapy and was extubated and off pressor support. She was transferred to medical floor overnight for continuation of her medical care. Pt seen and examined at bedside with her primary caretakers. As per the general office dispatcher, patient is at baseline. She is resting in bed and saturating well on nasal cannula. ID consultation requested for abx duration given positive sputum culture results. - Constitutional Vitals: Temp Pulse Resp BP Pulse Ox 98.3 F 92 18 119/68 98 12/04/16 07:40 12/04/16 07:40 12/04/16 07:40 12/04/16 07:40 12/04/16 08:50 General appearance: Present: A&O X 0, no acute distress - Head Head exam: Present: atraumatic, normocephalic - Eye Eye exam: Present: conjuntiva pink, sclera anicteric - Respiratory Respiratory exam: Present: CTAB. Absent: respiratory distress, wheezes - Cardiovascular Cardiovascular exam: Present: RRR, +S1, +S2. Absent: diastolic murmur, gallop, rubs, systolic murmur - GI/Abdominal GI/Abdominal exam: Present: normal bowel sounds, soft, no peritoneal signs. Absent: distended, tenderness Additional comments: PEG tube in place - Extremities Exam Extremities exam: Present: warm, radial pulses palpable and symetrical. Absent : calf tenderness, cyanotic, pedal edema - Neurological Exam Neurological exam: Present: alert - Psychiatric Psychiatric exam: Present: normal affect, normal mood Internal Medicine: Result - Labs CBC & Chem 7: 12/04/16 04:31 12/04/16 04:31 Labs: Short CBC 12/04/16 Range/Units 04:31 WBC 6.7 (4.3-11.1) K/mcL Hgb 9.3 L (11.5-15.4) g/dL Hct 28.3 L (35.3-44.9) % Plt Count 166 (140-400) K/mcL Neutrophils # 3.1 (1.6-8.9) K/mcL BMP 12/04/16 04:31 Sodium 140 Potassium 4.1 Chloride 104 Carbon Dioxide 33 H BUN 16 Creatinine 0.64 Glucose 100 H Calcium 8.9 - ABG Interpretation ABG results: ABG ABG pH 7.47 pH Units (7.32-7.45) H 12/01/16 04:50 ABG pCO2 43 mmHg (35-45) 12/01/16 04:50 ABG pO2 117 mmHg (85-104) H 12/01/16 04:50 ABG O2 Saturation 99 % (95-98) H 12/01/16 04:50 PT/INR, D-dimer PT 12.6 Seconds (9.4-12.1) H 11/29/16 02:50 - VTE Documentation of Mechanical Device: Intermittent pneumatic compression device Consult Discharge Plan - Plan Referrals: Ronald Thomas MD [Primary Care Provider] -
[2016-12-04] MEDS: risperiDONE 1 MG TABLET GTUBE SCH ×2 (12:13→23:13)
[2016-12-04] MEDS: risperiDONE 1 MG TABLET PO SCH (12:50)
--- NOTE | 2016-12-04 15:43 | Infectious Disease Consult ---
Date of Encounter: 12/04/16 Time of Encounter: 10:40 Assessment and Plan (1) Severe sepsis Status: Acute Assessment and plan: patient had severe sepsis on admission with Fever, Tachycardia, and organ dysfunction ( required mechanical ventilation) Source is secondary to pneumonia ( possibly aspiration). Blood cultures from 11/29/16 show no growth to date. Urine antigens for strep and legionella are negative. Sputum culture from 11/29/16 has grown acenitobacter MDRO patient has improved clinically. afebrile. Now on 2 L of O2. Recommendation: Discontinue Meropenem. Start Ciprofloxacin Start Flagyl. CrCL is currently 98 so no need to adjust dosage at this time. Recommend a total of 10 days. continue to monitor for drug toxicities. continue aspiration precautions. thank you for the consultation and the opportunity to participate in this patients care (2) Acute respiratory failure Status: Acute Assessment and plan: Resolving. Doing well on 2L NC Qualifiers: Respiratory failure complication: unspecified whether with hypoxia or hypercapnia Qualified Code(s): J96.00 - Acute respiratory failure, unspecified whether with hypoxia or hypercapnia (3) Pneumonia Status: Acute Assessment and plan: possible aspiration given her PEG tube. Recommend discontinuing meropenem. Start Cipro and flagyl. Duration of antibitiotics should be 10 days. Qualifiers: Pneumonia type: due to other aerobic Gram-negative bacteria Laterality: bilateral Lung location: lower lobe of lung Qualified Code(s): J15.6 - Pneumonia due to other aerobic Gram-negative bacteria (4) Mental retardation Status: Chronic Assessment and plan: per medical history. Patient is non verbal on my exam today. this is reportedly her baseline. Infectious Disease HPI - Data of Consult Patient: new to practice Consult date: 12/04/16 Requesting Physician: Tracey Fung MD Primary Care Provider: Ronald Thomas MD - Consult Narrative Reason for consult: Pneumonia. Acenitobacter in sputum. Antibioitics Recommendations History of present illness: Ms. Mayberry is a 56 year old female admitted to [facility] on 11/29/16 for Acute respiratory failure, Sepsis, and suspected aspiration pneumonia. Infectious Disease is consulted on 12/04/16 for recommendation on antibiotics and treatment duration. Mrs. Mayberry is a 56 y.o. female with pmh of mental retardation that is unable to speak or ambulate at her baseline. She lives in a fpc and takes all of her meals through a PEG tube. On admission the patient had fever, tachycardia, and tachypnea. She would have respiratory failure and require mechanical ventilation beginning on 11/29/16 and was extubated on 12/02/16. Initial CXR from 11/29/16 would reveal diffuse left lung airspace disease. There would be improved aeration on subsequent exams. She was started on Vancomycin, Zosyn and levofloxacin. Vancomycin was discontinued after one day because Nasal MRSA swab was negative. Zosyn and levofloxacon were discontinued on 12/03/16 and MEropenem 1G Q8H IV was started due to MDRO acenitobacter that had grown out of her sputum. Today the patient is nonverbal. She appears comfortable. She is alert during the exam. No issues overnight or this AM per last model maker. PAtient has remained upright throughout the day and Tube feed residuals were 100cc's when last checked. CC: Tracey Fung MD Past Med Surg Social Fam HX - Past Medical History Medical history: other (MRDD) Psychiatric history: anxiety, bipolar, depression - Past Surgical History Surgical History: hysterectomy - Social History Smoking Status: Never smoker Smokeless Tobacco Status: No Alcohol use: none Drug use: none Infectious Disease-CN:Meds Docusate [Colace] 40 mg GTUBE BID 02/10/15 [History] Estradiol [Deandra] 0.05 mg TD MOTH 02/10/15 [History] Famotidine [Pepcid] 2.5 ml GTUBE BID 02/10/15 [History] Medroxyprogesterone Acetate [Provera] 5 mg GTUBE DAILY 02/10/15 [History] Valproic Acid Oral Soln [Depakene Oral Soln] 10 ml GTUBE BID 02/10/15 [History] risperiDONE [Risperdal] 4 ml GTUBE BID 02/10/15 [History] Citalopram [CeleXA] 20 mg GTUBE DAILY 03/29/15 [History] Lactose-Reduced Food/Fiber [Jevity 1.5 Alec Liquid] 265 ml GTUBE QID 03/29/15 [ History] Polyethylene Glycol 3350 [MiraLAX] 17 gm GTUBE BID PRN 03/29/15 [History] GuaiFENesin Liq [Robitussin Liq] 200 mg PO Q6HR PRN #120 mls 05/26/15 [Rx] LORazepam Oral Conc [Ativan Oral Conc] 1 mg GTUBE BID 03/31/16 [History] Chlorhexidine Gluconate [Hibiclens] 15 ml PO BID 05/21/16 [History] Magnesium Hydroxide [Milk of Magnesia] 1 appl TP DAILY PRN 05/21/16 [History] Multivitamin with Iron [Animal Shapes Plus Iron] 1 tab GTUBE DAILY 05/21/16 [ History] Doron/Poly/Analy OINT [Triple Antibiotic Ointment] 1 appl TP BID PRN 05/21/16 [ History] Sodium Chloride 1 gm GTUBE TID 05/21/16 [History] Valproic Acid (As Sodium Salt) [Valproic Acid] 15 ml GTUBE HS 05/21/16 [History] Albuterol Neb [Proventil Neb] 2.5 mg IH Q4HR PRN #30 inhsol 05/25/16 [Rx] Ciprofloxacin [Cipro] 500 mg GTUBE BID #20 tab 12/05/16 [Rx] metroNIDAZOLE [Flagyl] 500 mg GTUBE TID #30 tab 12/05/16 [Rx] Allergies Sulfa (Sulfonamide Antibiotics) Allergy (Verified 05/21/16 09:24) Hives ROS unobtainable: due to mental status (patient is nonverbal at baseline per medical record. Nonverbal during todays exam as well. ) Exam - Constitutional Vitals: Temp Pulse Resp BP Pulse Ox 99.5 F 75 18 119/68 99 12/04/16 11:23 12/04/16 11:23 12/04/16 11:23 12/04/16 07:40 12/04/16 11:23 General appearance: cooperative, no acute distress - Head Head exam: Present: atraumatic, normal inspection, normocephalic - Eye Eye exam: Present: PERRL, conjuntiva pink, sclera anicteric - ENT ENT exam: Present: mucous membranes moist Additional comments: edentulous - Neck Neck exam: Absent: lymphadenopathy, tenderness, thyromegaly - Respiratory Additional comments: Rhonchi wheezes and course breath sounds over the left upper lung field. - Cardiovascular Cardiovascular exam: Present: RRR, +S1, +S2 - GI/Abdominal GI/Abdominal exam: Present: normal bowel sounds, soft. Absent: tenderness Additional comments: PEG in place, Clean without erythema or drainage from insertion site. - Extremities Exam Extremities exam: Present: normal inspection. Absent: pedal edema - Skin Skin exam: Absent: erythema, rash Infectious Disease CN: Results - Labs CBC & Chem 7: 12/05/16 04:25 12/05/16 04:25 Cultures: Cultures 11/29/16 07:30 Sputum Culture - Final Sputum Acinetobacter sarah/haem MDRO 11/29/16 07:56 Legionella Antigen - Final Urine,[place] Streptococcus pneumoniae Antigen (M - Final Serology: Serology 11/29/16 Range/Units 07:56 Nasal Screen MRSA (PCR) Negative (Negative) - VTE Documentation of Mechanical Device: Intermittent pneumatic compression device Consult Discharge Plan - Plan Additional Instructions: Please follow up with your primary care physician within one week after your discharge from the hospital. Hold Multivitamin while on Ciprofloxacin, restart multivitamin after completion of abx therapy. Continue oral antibiotics as prescribed. Resume all home medications as prescribed by your primary care physician. Referrals: Ronald Thomas MD [Primary Care Provider] - Prescriptions: Ciprofloxacin [Cipro] 500 mg GTUBE BID #20 tab metroNIDAZOLE [Flagyl] 500 mg GTUBE TID #30 tab - Attending Attestation I examined this patient and my medical decision-making was reviewed with the Resident Physician. I agree with the documented findings, disposition and treatment plan as described except to the extent set forth below. Marybel addendum to original report dictated by Dr. Ryan Daley resident physician. Please refer to Dr. Elise note for full detail. Patient is a 56-year-old woman with past medical history mentioned below was admitted to [place] with sepsis and acute respiratory failure. Apparently patient has baseline mental retardation unable to speak has a back to with tube feeding came in with acute respiratory failure and signs of sepsis. Evaluation of the patient revealed sepsis like picture. She needed intubation from 11/29/16 to 12/02. Chest x-ray revealed diffuse left lung airspace disease on 11/29/16. Patient was started on broad-spectrum antibiotics for healthcare associated pneumonia with vancomycin, Zosyn and Levaquin. Vancomycin was later discontinued because of history of MRSA. Patient was noted to have multidrug resistant Acinetobacter baumanni and was switched from the Zosyn and levofloxacin to meropenem. We were asked to evaluate the patient and make further recommendation. Patient laying in bed appears at baseline. No acute distress. Does not really respond but opens eyes and opens mouth to command. After reviewing the x-ray all cultures, chest x-ray and susceptibility pattern I think the patient is okay to go on cefazolin plus Flagyl which would cover all the gram negatives, the Acinetobacter and anaerobes with the Flagyl for possible aspiration. On discharge patient can be switched to Cipro plus Flagyl to finish another 4-5 day course. Monitor labs and drug toxicity. Discussed with pharmacy staff.
[2016-12-04] MEDS ORDERED: metroNIDAZOLE 500 MG TABLET PO SCH (21:00)
[2016-12-04] MEDS: metroNIDAZOLE 500 MG TABLET GTUBE SCH (23:13)
[2016-12-05] MEDS: Ipratropium/Albuterol Neb 3 ML IH SCH ×7 (00:10→23:09)
[2016-12-05 05:19] LABS: Basophils % 0.6 %; Eosinophils # 0.3 K/mcL (0.0-0.6); Eosinophils % 3.7 %; Hematocrit 29.5 % (35.3-44.9); Hemoglobin 10.2 g/dL (11.5-15.4); Immature Granulocytes % 0.9 % (0-4); Lymphocytes % 27.9 %; Mean Corpuscular HGB Conc 34.6 g/dL (31.6-35.5); Mean Corpuscular Hemoglobin 34.3 pg (28.0-33.3); Mean Corpuscular Volume 99.3 fL (83.0-100.0); Mean Platelet Volume 9.3 fL (9.4-12.4); Monocytes # 1.5 K/mcL (0.0-1.3); Monocytes % 20.8 %; Neutrophils # 3.2 K/mcL (1.6-8.9); Platelet Count 230 K/mcL (140-400); Red Blood Count 2.97 M/mcL (3.82-4.97); Red Cell Distribution Width 13.2 % (11.5-14.5); Segmented Neutrophils % 46.1 %
[2016-12-05 05:40] LABS: BUN/Creatinine Ratio 23 (6-26); Blood Urea Nitrogen 15 mg/dL (7-20); Calcium 9.3 mg/dL (8.6-10.8); Carbon Dioxide 30 mEq/L (19-29); Chloride 104 mEq/L (98-109); Glucose 83 mg/dL (70-99); Magnesium 1.9 mg/dL (1.6-2.6); Osmolality,Calculated 288 (280-300); Potassium 4.7 mEq/L (3.5-4.5); Sodium 139 mEq/L (136-145); eGFR For African Americans > 60 (> 60); eGFR For Non-African Americans > 60 (> 60)
[2016-12-05 06:11] LABS: Hypochromasia Present (Not Present); Platelet Estimate Normal (Normal)
[2016-12-05] MEDS: *HR* Heparin 5,000 UNIT/ML VIAL SQ SCH ×2 (06:46→19:10)
[2016-12-05] MEDS: risperiDONE 1 MG TABLET GTUBE SCH ×2 (10:43→21:48)
[2016-12-05] MEDS: metroNIDAZOLE 500 MG TABLET GTUBE SCH ×3 (10:46→21:48)
[2016-12-05] MEDS: *HR* LORazepam Oral Conc 2 MG/ML GTUBE SCH ×2 (10:46→21:27)
[2016-12-05] MEDS: Docusate Oral Soln 100 MG/10 ML UDC GTUBE SCH ×2 (10:47→21:38)
[2016-12-05] MEDS: Valproic Acid Oral Soln 250 MG/5 ML UDC GTUBE SCH ×3 (10:47→21:44)
--- NOTE | 2016-12-05 11:23 | Discharge Summary ---
Date of Encounter: 12/05/16 Time of Encounter: 11:20 - Discharge Diagnosis (1) Acute respiratory failure with hypoxia Priority: Primary Status: Resolved (2) Pneumonia Priority: Primary Status: Acute Qualifiers: Pneumonia type: due to unspecified organism Laterality: left Lung location: unspecified part of lung Qualified Code(s): J18.9 - Pneumonia, unspecified organism (3) Anemia Priority: Secondary Status: Chronic Qualifiers: Anemia type: unspecified type Qualified Code(s): D64.9 - Anemia, unspecified (4) Bipolar disease, chronic Priority: Secondary Status: Chronic (5) DVT prophylaxis Priority: Secondary Status: Acute - Discharge Medications Prescriptions: Ciprofloxacin [Cipro] 500 mg GTUBE BID #20 tab metroNIDAZOLE [Flagyl] 500 mg GTUBE TID #30 tab Home Medications: Docusate [Colace] 40 mg GTUBE BID 02/10/15 [History] Estradiol [Deandra] 0.05 mg TD MOTH 02/10/15 [History] Famotidine [Pepcid] 2.5 ml GTUBE BID 02/10/15 [History] Medroxyprogesterone Acetate [Provera] 5 mg GTUBE DAILY 02/10/15 [History] Valproic Acid Oral Soln [Depakene Oral Soln] 10 ml GTUBE BID 02/10/15 [History] risperiDONE [Risperdal] 4 ml GTUBE BID 02/10/15 [History] Citalopram [CeleXA] 20 mg GTUBE DAILY 03/29/15 [History] Lactose-Reduced Food/Fiber [Jevity 1.5 Alec Liquid] 265 ml GTUBE QID 03/29/15 [ History] Polyethylene Glycol 3350 [MiraLAX] 17 gm GTUBE BID PRN 03/29/15 [History] GuaiFENesin Liq [Robitussin Liq] 200 mg PO Q6HR PRN #120 mls 05/26/15 [Rx] LORazepam Oral Conc [Ativan Oral Conc] 1 mg GTUBE BID 03/31/16 [History] Chlorhexidine Gluconate [Hibiclens] 15 ml PO BID 05/21/16 [History] Magnesium Hydroxide [Milk of Magnesia] 1 appl TP DAILY PRN 05/21/16 [History] Multivitamin with Iron [Animal Shapes Plus Iron] 1 tab GTUBE DAILY 05/21/16 [ History] Doron/Poly/Analy OINT [Triple Antibiotic Ointment] 1 appl TP BID PRN 05/21/16 [ History] Sodium Chloride 1 gm GTUBE TID 05/21/16 [History] Valproic Acid (As Sodium Salt) [Valproic Acid] 15 ml GTUBE HS 05/21/16 [History] Albuterol Neb [Proventil Neb] 2.5 mg IH Q4HR PRN #30 inhsol 05/25/16 [Rx] Ciprofloxacin [Cipro] 500 mg GTUBE BID #20 tab 12/05/16 [Rx] metroNIDAZOLE [Flagyl] 500 mg GTUBE TID #30 tab 12/05/16 [Rx] Allergies/Adverse Reactions: Allergies Sulfa (Sulfonamide Antibiotics) Allergy (Verified 05/21/16 09:24) Hives Date of admission: 11/29/16 04:46 Primary care physician: Ronald Thomas MD Consults: 11/29/16 08:24 Consult to Nutrition [CONS] Routine Comment: Consulting Provider: NUTRITION Reason for Dietary Consult: TF Start and Manage Other:: Patient on tube feeds normally 12/03/16 11:52 Consult to Infectious Diseases [CONS] Routine Consulting Provider: Infectious Disease [place] Reason for Consult: Aspiration PNA with acinotobacter Call Completed: No Discharging clinician: Tracey Fung Anticipated date of discharge: 12/05/16 - Patient Status Disposition: Transfer Other Condition: Good Functional capacity at discharge: bed bound Overall status at discharge: patient is back to baseline - Discharge Instructions Follow Up With: Ronald Thomas MD [Primary Care Provider] - Additional Instructions: Please follow up with your primary care physician within one week after your discharge from the hospital. Hold Multivitamin while on Ciprofloxacin, restart multivitamin after completion of abx therapy. Continue oral antibiotics as prescribed. Resume all home medications as prescribed by your primary care physician. - Diet and Activity Activity: resume usual activities as tolerated, wear oxygen at all times Diet: low fat, low cholesterol, low salt diet Hospital course: Patient is a 56y/o female with MRDD, s/p PEG tube placement admitted from a [place] for management of acute respiratory failure secondary to aspiration pneumonia. Patient was initially admitted to the ICU for septic shock secondary to aspiration pneumonia. She was mechanically ventilated and started on pressor support. She responded appropriately to therapy and was extubated and off pressor support. She was found to have positive respiratory cultures with acinetobacter MDR due to which ID was consulted. Patient was placed on oral abx by ID. At this time she is hemodynamically stable and will be discharged to her longterm with oral antibiotics. Pt is to follow up with PCP after discharge. - Time Spent with Patient Total time spent providing and/or coordinating discharge services: Greater than 30 minutes - Constitutional Vitals: Temp Pulse Resp BP Pulse Ox 99 F 81 16 111/79 97 12/05/16 07:07 12/05/16 07:07 12/05/16 07:07 12/05/16 07:07 12/05/16 07:07 General appearance: Present: A&O X 0, no acute distress - Head Head exam: Present: atraumatic, normocephalic - Eye Eye exam: Present: conjuntiva pink, sclera anicteric - Respiratory Respiratory exam: Present: CTAB. Absent: accessory muscle use, rales, rhonchi, wheezes - Cardiovascular Cardiovascular exam: Present: RRR, +S1, +S2. Absent: diastolic murmur, gallop, rubs, systolic murmur - GI/Abdominal GI/Abdominal exam: Present: normal bowel sounds, soft, no peritoneal signs. Absent: distended, tenderness Additional comments: PEG - Extremities Exam Extremities exam: Present: warm, radial pulses palpable and symetrical. Absent : calf tenderness - Neurological Exam Neurological exam: Present: alert - Psychiatric Psychiatric exam: Present: normal affect, normal mood - VTE Documentation of Mechanical Device: Intermittent pneumatic compression device
--- NOTE | 2016-12-05 16:26 | Infectious Disease Progress No ---
Date of Encounter: 12/05/16 Time of Encounter: 10:30 - Assessment and Plan (1) Severe sepsis Current Visit: Yes Status: Acute patient had severe sepsis on admission with Fever, Tachycardia, and organ dysfunction ( required mechanical ventilation) This has now resolved. She is afebrile with Tmax over the past 24 hours being 99.7. Source is secondary to pneumonia ( possibly aspiration). Blood cultures from 11/29/16 show no growth to date. Urine antigens for strep and legionella are negative. Sputum culture from 11/29/16 has grown acenitobacter MDRO patient has improved clinically. Now on 2 L of O2 via NC. Recommendation: Continue Cipro and flagyl. CrCL is currently 98 so no need to adjust dosage at this time. Recommend a total of 10 days. continue to monitor for drug toxicities. continue aspiration precautions. (2) Acute respiratory failure Current Visit: Yes Status: Acute Resolving. Patient now on 2L of oxygen via nasal canula and is comfortable. Qualifiers: Respiratory failure complication: unspecified whether with hypoxia or hypercapnia Qualified Code(s): J96.00 - Acute respiratory failure, unspecified whether with hypoxia or hypercapnia (3) Pneumonia Current Visit: Yes Status: Acute possible aspiration given her PEG tube. Continue Cipro and flagyl through 12/08/16 to complete a 10 days course. Qualifiers: Pneumonia type: due to other aerobic Gram-negative bacteria Laterality: bilateral Lung location: lower lobe of lung Qualified Code(s): J15.6 - Pneumonia due to other aerobic Gram-negative bacteria (4) Mental retardation Current Visit: Yes Status: Chronic - Subjective Interval history: No major events overnight per staffing branch manager. Patient is nonverbal but dose not appear to be uncomfortable at this time. She is currently receiving a breathing treatment. Infect Dis PN-Objective Data - Labs CBC & Chem 7: 12/05/16 04:25 12/05/16 04:25 Labs: Laboratory Results - last 24 hr 12/03/16 12/04/16 12/04/16 20:24 00:08 05:25 WBC RBC Hgb Hct MCV MCH MCHC RDW Plt Count MPV Immature Gran % Seg Neutrophils % Lymphocytes % Monocytes % Eosinophils % Basophils % Neutrophils # Lymphocytes # Monocytes # Eosinophils # Basophils # Platelet Estimate Hypochromasia Sodium Potassium Chloride Carbon Dioxide BUN Creatinine Est GFR ( Amer) Est GFR (Non-Af Amer) BUN/Creatinine Ratio Glucose POC Glucose 104 H 78 102 H Calculated Osmolality Calcium Phosphorus Magnesium 12/04/16 12/04/16 12/04/16 07:22 11:22 18:01 WBC RBC Hgb Hct MCV MCH MCHC RDW Plt Count MPV Immature Gran % Seg Neutrophils % Lymphocytes % Monocytes % Eosinophils % Basophils % Neutrophils # Lymphocytes # Monocytes # Eosinophils # Basophils # Platelet Estimate Hypochromasia Sodium Potassium Chloride Carbon Dioxide BUN Creatinine Est GFR ( Amer) Est GFR (Non-Af Amer) BUN/Creatinine Ratio Glucose POC Glucose 107 H 93 H 88 Calculated Osmolality Calcium Phosphorus Magnesium 12/05/16 12/05/16 12/05/16 04:25 04:25 04:25 WBC 7.0 RBC 2.97 L Hgb 10.2 L Hct 29.5 L MCV 99.3 MCH 34.3 H MCHC 34.6 RDW 13.2 Plt Count 230 MPV 9.3 L Immature Gran % 0.9 Seg Neutrophils % 46.1 Lymphocytes % 27.9 Monocytes % 20.8 Eosinophils % 3.7 Basophils % 0.6 Neutrophils # 3.2 Lymphocytes # 2.0 Monocytes # 1.5 H Eosinophils # 0.3 Basophils # 0.0 Platelet Estimate Normal Hypochromasia Present A Sodium 139 Potassium 4.7 H Chloride 104 Carbon Dioxide 30 H BUN 15 Creatinine 0.66 Est GFR ( Amer) > 60 Est GFR (Non-Af Amer) > 60 BUN/Creatinine Ratio 23 Glucose 83 POC Glucose Calculated Osmolality 288 Calcium 9.3 Phosphorus 4.5 Magnesium 1.9 Cultures: Cultures 11/29/16 07:30 Sputum Culture - Final Sputum Acinetobacter sarah/haem MDRO 11/29/16 07:56 Legionella Antigen - Final Urine,[place] Streptococcus pneumoniae Antigen (M - Final Serology 11/29/16 Range/Units 07:56 Nasal Screen MRSA (PCR) Negative (Negative) Exam - Constitutional Vitals: Temp Pulse Resp BP Pulse Ox 98.1 F 88 16 129/111 95 12/05/16 16:17 12/05/16 16:17 12/05/16 16:17 12/05/16 16:17 12/05/16 16:17 Exam: she is alert, noncomunicative. Moves all limbs. No acute disstress at this time. - Head Head exam: Present: atraumatic, normal inspection, normocephalic - ENT Additional comments: edentulous. Moist mucous membranes. - Neck Neck exam: Present: normal inspection. Absent: lymphadenopathy, tenderness, thyromegaly - Respiratory Additional comments: She has some course breath sounds and wheezing in the Left upper lung field. Normal effort of breathing. currently receiving a breathing treatment. - Cardiovascular Cardiovascular exam: Present: RRR, +S1, +S2. Absent: clicks, diastolic murmur, gallop, systolic murmur - GI/Abdominal GI/Abdominal exam: Present: normal bowel sounds. Absent: mass, organomegaly, pulsatile mass, tenderness Additional comments: PEG tube is in place insertion site is clean without erythema. - Extremities Exam Extremities exam: Present: normal inspection. Absent: joint swelling, pedal edema, tenderness - Skin Additional comments: No rashes or lesions noted. - VTE Documentation of Mechanical Device: Intermittent pneumatic compression device Consult Discharge Plan - Plan Additional Instructions: Please follow up with your primary care physician within one week after your discharge from the hospital. Hold Multivitamin while on Ciprofloxacin, restart multivitamin after completion of abx therapy. Continue oral antibiotics as prescribed. Resume all home medications as prescribed by your primary care physician. Referrals: Ronald Thomas MD [Primary Care Provider] - Prescriptions: Ciprofloxacin [Cipro] 500 mg GTUBE BID #20 tab metroNIDAZOLE [Flagyl] 500 mg GTUBE TID #30 tab - Attending Attestation I examined this patient and my medical decision-making was reviewed with the Resident Physician. I agree with the documented findings, disposition and treatment plan as described except to the extent set forth below.
[2016-12-06] MEDS: Ipratropium/Albuterol Neb 3 ML IH SCH ×4 (04:12→16:54)
[2016-12-06] MEDS: *HR* Heparin 5,000 UNIT/ML VIAL SQ SCH (05:15)
[2016-12-06] MEDS: Valproic Acid Oral Soln 250 MG/5 ML UDC GTUBE SCH (10:43)
[2016-12-06] MEDS: metroNIDAZOLE 500 MG TABLET GTUBE SCH (10:43)
[2016-12-06] MEDS: *HR* LORazepam Oral Conc 2 MG/ML GTUBE SCH (10:45)
[2016-12-06] MEDS: risperiDONE 1 MG TABLET GTUBE SCH (10:45)
--- NOTE | 2016-12-06 10:47 | Internal Med Progress Note ---
Date of Encounter: 12/06/16 Time of Encounter: 10:47 - Assessment and plan (1) Acute respiratory failure with hypoxia Current Visit: Yes Status: Resolved (2) Pneumonia Current Visit: Yes Status: Acute Qualifiers: Pneumonia type: due to unspecified organism Laterality: left Lung location: unspecified part of lung Qualified Code(s): J18.9 - Pneumonia, unspecified organism (3) Anemia Current Visit: No Status: Chronic Qualifiers: Anemia type: unspecified type Qualified Code(s): D64.9 - Anemia, unspecified (4) Bipolar disease, chronic Current Visit: No Status: Chronic (5) DVT prophylaxis Current Visit: No Status: Acute - Subjective Interval history: Patient is a 56y/o female with MRDD, s/p PEG tube placement admitted from a [facility] for management of acute respiratory failure secondary to aspiration pneumonia. Patient was initially admitted to the ICU for septic shock secondary to aspiration pneumonia. She was mechanically ventilated and started on pressor support. She responded appropriately to therapy and was extubated and off pressor support. She was transferred to medical floor overnight for continuation of her medical care. Pt seen and examined at bedside. Pt resting in bed and in no distress. At baseline mental status. Pt was discharged to nursing home yesterday however due to delay in her home O2 arrangement she was not able to leave. She will be discharged to home once her home O2 has been arranged. No overnight issues reported - Constitutional Vitals: Temp Pulse Resp BP Pulse Ox 98.2 F 86 18 123/72 96 12/06/16 08:06 12/06/16 08:06 12/06/16 08:06 12/06/16 08:06 12/06/16 08:06 General appearance: Present: A&O X 0, no acute distress - Head Head exam: Present: atraumatic, normocephalic - Eye Eye exam: Present: conjuntiva pink, sclera anicteric - Respiratory Respiratory exam: Absent: respiratory distress, wheezes - Cardiovascular Cardiovascular exam: Present: RRR, +S1, +S2. Absent: diastolic murmur, gallop, rubs, systolic murmur - GI/Abdominal GI/Abdominal exam: Present: normal bowel sounds, soft. Absent: tenderness (PEG tube intact) - Extremities Exam Extremities exam: Present: warm, radial pulses palpable and symetrical. Absent : calf tenderness - Neurological Exam Neurological exam: Present: alert Internal Medicine: Result - Labs CBC & Chem 7: 12/05/16 04:25 12/05/16 04:25 - ABG Interpretation ABG results: ABG ABG pH 7.47 pH Units (7.32-7.45) H 12/01/16 04:50 ABG pCO2 43 mmHg (35-45) 12/01/16 04:50 ABG pO2 117 mmHg (85-104) H 12/01/16 04:50 ABG O2 Saturation 99 % (95-98) H 12/01/16 04:50 PT/INR, D-dimer PT 12.6 Seconds (9.4-12.1) H 11/29/16 02:50 - VTE Documentation of Mechanical Device: Intermittent pneumatic compression device Consult Discharge Plan - Plan Additional Instructions: Please follow up with your primary care physician within one week after your discharge from the hospital. Hold Multivitamin while on Ciprofloxacin, restart multivitamin after completion of abx therapy. Continue oral antibiotics as prescribed. Resume all home medications as prescribed by your primary care physician. Referrals: Ronald Thomas MD [Primary Care Provider] - Prescriptions: Ciprofloxacin [Cipro] 500 mg GTUBE BID #20 tab metroNIDAZOLE [Flagyl] 500 mg GTUBE TID #30 tab
[2016-12-06] MEDS: Docusate Oral Soln 100 MG/10 ML UDC GTUBE SCH (10:48)
[2016-12-06 16:26] VITALS: BP 136/74
== END 2016-12-06 19:03 | disposition other institution (70) | DRG 871 ==
LOC: EMEROO 02:24 → SUATTDRO 04:46 → ICNU 04:46 → 2NENU 12-02 09:16
PROVIDERS: ADMIT Family Medicine; ATTEND Internal Medicine

== ENCOUNTER 2017-08-05 19:57 | Inpatient (IN) ==
[2017-08-05] MEDS ORDERED: Acetaminophen 650 MG RECTAL SUPP RC ONE ×2 (20:21→20:25)
[2017-08-05 20:32] LABS: Immature Granulocytes % 0.3 % (0-4)
[2017-08-05 20:33] LABS: Basophils % 0.4 %; Eosinophils % 0.4 %; Hematocrit 31.9 % (35.3-44.9); Hemoglobin 10.9 g/dL (11.5-15.4); Immature Platelets 2.1 % (1.1-6.1); Lymphocytes % 14.4 %; Mean Corpuscular HGB Conc 34.2 g/dL (31.6-35.5); Mean Corpuscular Hemoglobin 34.4 pg (28.0-33.3); Mean Corpuscular Volume 100.6 fL (83.0-100.0); Mean Platelet Volume 10.4 fL (9.4-12.4); Monocytes # 1.7 K/mcL (0.0-1.3); Monocytes % 24.8 %; Neutrophils # 4.1 K/mcL (1.6-8.9); Nucleated Red Blood Cells 0.4 /100 WBC (0); Red Blood Count 3.17 M/mcL (3.82-4.97); Red Cell Distribution Width 13.2 % (11.5-14.5); Segmented Neutrophils % 59.7 %
[2017-08-05 20:55] LABS: Alanine Aminotransferase 23 Units/L (7-52); Albumin 3.3 g/dL (3.5-5.7); Alkaline Phosphatase 105 Units/L (34-104); Aspartate Amino Transferase 52 Units/L (13-39); BUN/Creatinine Ratio 35 (6-26); Bilirubin,Direct 0.1 mg/dL (0.0-0.2); Bilirubin,Indirect 0.2 mg/dL (0.0-1.2); Bilirubin,Total 0.3 mg/dL (0.3-1.0); Blood Urea Nitrogen 29 mg/dL (6-20); Calcium 8.7 mg/dL (8.6-10.3); Carbon Dioxide 29 mEq/L (23-29); Chloride 100 mEq/L (98-107); Globulin 3.2 g/dL (2.4-3.5); Glucose 101 mg/dL (70-105); Osmolality,Calculated 286 (280-300); Potassium 3.5 mEq/L (3.5-5.1); Sodium 135 mEq/L (136-145); Total Protein 6.5 g/dL (6.4-8.9); eGFR For African Americans > 60 (> 60); eGFR For Non-African Americans > 60 (> 60)
[2017-08-05 20:57] LABS: Platelet Count 81 K/mcL (140-400); Troponin I < 0.03 ng/mL (< 0.04)
[2017-08-05 21:00] LABS: Platelet Estimate Decreased (Normal)
[2017-08-05] MEDS ORDERED: Piperacillin/Tazobactam 3.375 GM in 0.9 % Sodium Chloride Mini Bag 100 ML IVPB ONE (22:55)
[2017-08-05] MEDS ORDERED: Levofloxacin 500 MG/100 ML 500 MG/100 ML BAG IVPB ONE (22:55)
[2017-08-05 23:26] LABS: Bilirubin,Urine Negative (Negative); Blood,Urine Negative (Negative); Clarity,Urine Clear (Clear); Color,Urine Yellow (Yellow); Glucose,Urine (UA) Normal (Normal); Ketones,Urine Trace mg/dL (Negative); Leukocyte Esterase,Urine Negative (Negative); Nitrite,Urine Negative (Negative); Protein,Urine 30 mg/dL (Neg-Trace); Specific Gravity,Urine > 1.030 (1.010-1.025); Urobilinogen,Urine Normal (Normal)
[2017-08-05 23:28] LABS: Bacteria,Urine None Seen per hpf (None-Few); Hyaline Casts,Urine None Seen per lpf (None-Few); Squamous Epithelial Cell,Urine Many per lpf (None-Few); WBC,Urine 0-3 per hpf (0-3)
[2017-08-05 23:44] LABS: RBC,Urine 0-3 per hpf (0-3)
--- NOTE | 2017-08-06 00:02 | Emergency Department Note ---
START Narrative - START START: I examined this patient and my medical decision-making was reviewed with the Resident Physician. I agree with the documented findings, disposition and treatment plan as described except to the extent set forth below. Patient arrives ill appearing, nonverbal (this is her baseline per the caregiver at bedside), febrile, tachypneic, hypoxic. Saturating 94-95% on nonrebreather, came up to 97-98% on high flow humidified oxygen by nasal cannula. Clinical diagnosis of pneumonia was made at the bedside, treatment was initiated. Chest x-ray did not confirm this diagnosis, but is reveal no other source for fever. We have Added a flu swab. Her respiratory rate is slowed and she seems much more comfortable since being placed on HFNC. Comfortable with the patient going to the stepdown unit. Critical care time: I was directly and primarily involved in the care of this patient for 35 minutes excluding procedures.
--- NOTE | 2017-08-06 00:30 | Emergency Department Note ---
Disposition Clinical Impression: Acute respiratory failure with hypoxia Pneumonia Qualifiers: Pneumonia type: due to unspecified organism Laterality: unspecified laterality Lung location: unspecified part of lung Qualified Code(s): J18.9 - Pneumonia, unspecified organism Disposition: Admitted As Inpatient Condition: Fair Time of Disposition: 00:43 General Adult HPI - General Chief complaint: ED Fever Stated complaint: High Fever Time Seen by Provider: 08/05/17 20:03 Source: patient, EMS Mode of arrival: EMS Limitations: no limitations Nursing Notes Reviewed: Yes Vital Signs Reviewed: Yes - History of Present Illness HPI Narrative: Patient is a 49-year-old female with a past medical history of bipolar, depression, anxiety, and G-tube presenting to the emergency room in by squad for fever of 104F and shortness of breath. According to the squad the patient' s saturation was in the 80% the patient was having a productive cough that is bringing up mucus. She was initially placed on nasal cannula nonrebreather. Upon arrival to the emergency department respiratory therapy was paged and the patient was placed on high flow nasal cannula oxygen with improvement of her saturation as well as oral suctioning. According the patient's family member at bedside and she is nonverbal. She resides at a [facility] and over the past 2-3 days she has been having increasing cough and congestion as well as fevers. She was seen at an urgent care and diagnosed with URI and sent back to the senior living and no antibiotics at that time. The family member states that she called the squad due to the patient having a fever of 104 after Tylenol administration. The patient is on a baseline 2 L of nasal cannula at home. Pain Scale: 0 - Related Data Home Medications Medication Instructions Recorded Confirmed Estradiol [Deandra] 0.05 mg TD MOTH 02/10/15 08/06/17 Famotidine [Pepcid] 2.5 ml GTUBE BID 02/10/15 08/06/17 Valproic Acid Oral Soln [Depakene 10 ml GTUBE BID 02/10/15 08/06/17 Oral Soln] risperiDONE [Risperdal] 4 ml GTUBE BID 02/10/15 08/06/17 Citalopram [CeleXA] 20 mg GTUBE DAILY 03/29/15 08/06/17 Lactose-Reduced Food/Fiber [Jevity 265 ml GTUBE HS 03/29/15 08/06/17 1.5 Alec Liquid] Polyethylene Glycol 3350 [MiraLAX] 17 gm GTUBE BID PRN 03/29/15 08/06/17 LORazepam Oral Conc [Ativan Oral 1 mg GTUBE BID 03/31/16 08/06/17 Conc] Chlorhexidine Gluconate [Hibiclens] 15 ml PO BID 05/21/16 08/06/17 Magnesium Hydroxide [Milk of 1 appl TP DAILY PRN 05/21/16 08/06/17 Magnesia] Multivitamin with Iron [Animal 1 tab GTUBE DAILY 05/21/16 08/06/17 Shapes Plus Iron] Doron/Poly/Analy OINT [Triple 1 appl TP BID PRN 05/21/16 08/06/17 Antibiotic Ointment] Sodium Chloride 1 gm GTUBE TID 05/21/16 08/06/17 Acetaminophen [Tylenol] 15 ml PO QID PRN 03/03/17 08/06/17 Albuterol Sulfate [Ventolin Hfa] 2 puff IH Q4H PRN 03/03/17 08/06/17 Ferrous Sulfate Oral Soln 7 ml GTUBE DAILY 03/03/17 08/06/17 Docusate [Colace] 100 mg GTUBE DAILY PRN 08/06/17 08/06/17 GuaiFENesin Liq [Robitussin Liq] 15 ml PO Q6HR PRN 08/06/17 08/06/17 Previous Rx's Medication Instructions Recorded Albuterol Neb [Proventil Neb] 2.5 mg IH Q4HR PRN #30 inhsol 05/25/16 Allergies Allergy/AdvReac Type Severity Reaction Status Date / Time Sulfa (Sulfonamide Allergy Hives Verified 08/04/17 17:38 Antibiotics) Past Medical History - Past Medical History Attestation: Yes The following information was validated with the patient. Medical history: Reports: non-contributory Surgical history: Reports: hysterectomy Psychiatric history: Reports: anxiety, bipolar, depression CERTIFIED MEDICATION AIDE history: Reports: no CERTIFIED MEDICATION AIDE history - Social History Smoking Status: Never smoker Smokeless Tobacco Status: No Alcohol use: Reports: none Drug use: Reports: none Physical Exam - General Limitations: no limitations General appearance: alert, in no apparent distress - Head Head exam: atraumatic, normocephalic, normal inspection - Eye Eye exam: Present: normal appearance, PERRL, EOMI - ENT ENT exam: normal exam, normal oropharynx - Neck Neck exam: Present: normal inspection, full ROM, trachea midline - Chest Chest inspection: Present: normal inspection, symmetric chest wall rise. Absent : tenderness - Respiratory Respiratory exam: Present: normal lung sounds bilaterally. Absent: respiratory distress - Expanded Respiratory Exam Location: rhonchi: Left, Right, Upper, Lower - Cardiovascular Cardiovascular exam: Present: tachycardia - Abdominal Exam Abdominal exam: Present: soft, Non-Tender, normal bowel sounds - Extremities Exam Extremities exam: Present: normal inspection, full ROM, normal capillary refill. Absent: tenderness, pedal edema - Back Exam Back exam: Present: normal inspection, full ROM. Absent: CVA tenderness (R), CVA tenderness (L) - Neurological Exam Neurological exam: Present: alert, oriented X3 - Psychiatric Psychiatric exam: Present: normal affect, normal mood - Skin Skin exam: Present: warm, dry, intact, normal color Course Course Narrative: Patient is tolerating high flow oxygen nasal cannula well. She is oxygen saturating in the 100%. Plan at this time is to do a workup of the patient I am considering pneumonia given her recent infectious symptoms and fever. Patient also has a history of being admitted for aspiration pneumonia. - Reevaluation(s) Reevaluation #1: Patient is more alert. Her vital signs have stabilized however she remains on a high flow nasal cannula oxygen saturation is currently at 98%. Her chest x- ray shows bronchial wall thickening possibly consistent with bronchitis according to radiologist however, given patient's presentation and her history of aspiration pneumonia I will initiate antibiotics for healthcare associated pneumonia given that she is coming from a [facility] and she has been hospitalized within the past 90 days. Time: 00:45 Vital Signs Temperature 102.9 F H 08/05/17 20:00 Pulse Rate 104 08/05/17 20:00 Respiratory Rate 20 08/05/17 20:00 Blood Pressure 133/95 08/05/17 20:00 O2 Sat by Pulse Oximetry 87 08/05/17 20:00 Temperature 99.4 F 08/06/17 21:04 Pulse Rate 91 08/06/17 21:04 Respiratory Rate 20 08/06/17 22:10 Blood Pressure 114/48 08/06/17 21:04 O2 Sat by Pulse Oximetry 100 08/06/17 22:10 Oxygen Delivery Oxygen Delivery Nasal Cannula Medical Decision Making - Medical Records Medical records reviewed: Yes I reviewed the patient's medical records. - Lab Data Lab results reviewed: Yes I reviewed the patient's lab results. Result diagrams: 08/06/17 05:25 08/06/17 05:25 Lab Results 08/05/17 08/05/17 08/05/17 Range/Units 20:15 20:15 20:57 WBC 6.8 (4.3-11.1) K/mcL RBC 3.17 L (3.82-4.97) M/mcL Hgb 10.9 L (11.5-15.4) g/dL Hct 31.9 L (35.3-44.9) % MCV 100.6 H (83.0-100.0) fL MCH 34.4 H (28.0-33.3) pg MCHC 34.2 (31.6-35.5) g/dL RDW 13.2 (11.5-14.5) % Plt Count 81 L (140-400) K/mcL MPV 10.4 (9.4-12.4) fL Immature Gran % 0.3 (0-4) % Seg Neutrophils % 59.7 % Lymphocytes % 14.4 % Monocytes % 24.8 % Eosinophils % 0.4 % Basophils % 0.4 % Neutrophils # 4.1 (1.6-8.9) K/mcL Lymphocytes # 1.0 (0.6-4.6) K/mcL Monocytes # 1.7 H (0.0-1.3) K/mcL Eosinophils # 0.0 (0.0-0.6) K/mcL Basophils # 0.0 (0.0-0.2) K/mcL Nucleated RBCs/100 WBC 0.4 H (0) /100 WBC Platelet Estimate Decreased L (Normal) Immature Plt Fraction 2.1 (1.1-6.1) % Sodium 135 L (136-145) mEq/L Potassium 3.5 (3.5-5.1) mEq/L Chloride 100 (98-107) mEq/L Carbon Dioxide 29 (23-29) mEq/L BUN 29 H (6-20) mg/dL Creatinine 0.83 (0.60-1.20) mg/dL Est GFR ( Amer) > 60 (> 60) Est GFR (Non-Af Amer) > 60 (> 60) BUN/Creatinine Ratio 35 H (6-26) Glucose 101 (70-105) mg/dL Calculated Osmolality 286 (280-300) Lactic Acid 0.7 (0.5-2.2) mmol/L Calcium 8.7 (8.6-10.3) mg/dL Total Bilirubin 0.3 (0.3-1.0) mg/dL Direct Bilirubin 0.1 (0.0-0.2) mg/dL Indirect Bilirubin 0.2 (0.0-1.2) mg/dL AST 52 H (13-39) Units/L ALT 23 (7-52) Units/L Alkaline Phosphatase 105 H (34-104) Units/L Troponin I < 0.03 (< 0.04) ng/mL Serum Total Protein 6.5 (6.4-8.9) g/dL Albumin 3.3 L (3.5-5.7) g/dL Globulin 3.2 (2.4-3.5) g/dL Albumin/Globulin Ratio 1.0 L (1.1-2.2) Urine Color (Yellow) Urine Clarity (Clear) Urine pH (5.0-8.0) pH Units Ur Specific Cecil (1.010-1.025) Urine Protein (Neg-Trace) mg/dL Urine Glucose (UA) (Normal) mg/dL Urine Ketones (Negative) mg/dL Urine Blood (Negative) Urine Nitrite (Negative) Urine Bilirubin (Negative) Urine Urobilinogen (Normal) mg/dL Ur Leukocyte Esterase (Negative) Urine Microscopic RBC (0-3) per hpf Urine Microscopic WBC (0-3) per hpf Ur Squamous Epith Cells (None-Few) per lpf Urine Bacteria (None-Few) per hpf Hyaline Casts (None-Few) per lpf Ur Culture Indicated? (NO) 08/05/17 Range/Units 23:16 WBC (4.3-11.1) K/mcL RBC (3.82-4.97) M/mcL Hgb (11.5-15.4) g/dL Hct (35.3-44.9) % MCV (83.0-100.0) fL MCH (28.0-33.3) pg MCHC (31.6-35.5) g/dL RDW (11.5-14.5) % Plt Count (140-400) K/mcL MPV (9.4-12.4) fL Immature Gran % (0-4) % Seg Neutrophils % % Lymphocytes % % Monocytes % % Eosinophils % % Basophils % % Neutrophils # (1.6-8.9) K/mcL Lymphocytes # (0.6-4.6) K/mcL Monocytes # (0.0-1.3) K/mcL Eosinophils # (0.0-0.6) K/mcL Basophils # (0.0-0.2) K/mcL Nucleated RBCs/100 WBC (0) /100 WBC Platelet Estimate (Normal) Immature Plt Fraction (1.1-6.1) % Sodium (136-145) mEq/L Potassium (3.5-5.1) mEq/L Chloride (98-107) mEq/L Carbon Dioxide (23-29) mEq/L BUN (6-20) mg/dL Creatinine (0.60-1.20) mg/dL Est GFR ( Amer) (> 60) Est GFR (Non-Af Amer) (> 60) BUN/Creatinine Ratio (6-26) Glucose (70-105) mg/dL Calculated Osmolality (280-300) Lactic Acid (0.5-2.2) mmol/L Calcium (8.6-10.3) mg/dL Total Bilirubin (0.3-1.0) mg/dL Direct Bilirubin (0.0-0.2) mg/dL Indirect Bilirubin (0.0-1.2) mg/dL AST (13-39) Units/L ALT (7-52) Units/L Alkaline Phosphatase (34-104) Units/L Troponin I (< 0.04) ng/mL Serum Total Protein (6.4-8.9) g/dL Albumin (3.5-5.7) g/dL Globulin (2.4-3.5) g/dL Albumin/Globulin Ratio (1.1-2.2) Urine Color Yellow (Yellow) Urine Clarity Clear (Clear) Urine pH 6.0 (5.0-8.0) pH Units Ur Specific Cecil > 1.030 H (1.010-1.025) Urine Protein 30 H (Neg-Trace) mg/dL Urine Glucose (UA) Normal (Normal) mg/dL Urine Ketones Trace H (Negative) mg/dL Urine Blood Negative (Negative) Urine Nitrite Negative (Negative) Urine Bilirubin Negative (Negative) Urine Urobilinogen Normal (Normal) mg/dL Ur Leukocyte Esterase Negative (Negative) Urine Microscopic RBC 0-3 (0-3) per hpf Urine Microscopic WBC 0-3 (0-3) per hpf Ur Squamous Epith Cells Many H (None-Few) per lpf Urine Bacteria None Seen (None-Few) per hpf Hyaline Casts None Seen (None-Few) per lpf Ur Culture Indicated? NO (NO) - Radiology Data Radiology results reviewed: Yes I reviewed the patient's radiology results. Chest X-Ray 08/05/17 20:17 IMPRESSION: New bilateral central airway thickening concerning for acute bronchitis. No focal consolidation. D/ / Dave Gandhi / Dave Gandhi Interpreting Provider: Dave Gandhi - EKG Data EKG #1 EKG attestation: Yes I reviewed and interpreted this EKG. EKG results narrative: EKG done at 20:43 shows sinus tachycardia at a rate of 100. Normal axis. [place] is 132, QRS is 90, QT is 246 and QTc is 4 and 3 and these are within normal limits. No signs of ST elevation, ST depression or Q waves present at this time. This is unchanged from the EKG that was done on November 122017.
[2017-08-06] MEDS ORDERED: GuaiFENesin Liq 200 MG/10 ML UDC PO PRN (04:29)
[2017-08-06] MEDS ORDERED: Patient Taking Own Medication 1 EACH TP PRN (04:29)
[2017-08-06] MEDS ORDERED: Acetaminophen 160 MG/5 ML UDC PO PRN (04:29)
[2017-08-06] MEDS ORDERED: Naloxone 0.4 MG/ML INJ IVP PRN (04:46)
--- NOTE | 2017-08-06 05:10 | Internal Med History&Physical ---
Date of Encounter: 08/06/17 Time of Encounter: 05:25 Assessment and Plan (1) Pneumonia Status: Suspected ASSESSMENT: - SOB due to possible *Pneumonia - Blood Cx - Antibiotics - CBCD, CMP in AM - Tylenol 650 mg PO q 4-6 hr PRN pain or fever Qualifiers: Pneumonia type: due to other aerobic Gram-negative bacteria Laterality: bilateral Lung location: lower lobe of lung Qualified Code(s): J15.6 - Pneumonia due to other Gram-negative bacteria (2) Acute respiratory failure with hypoxia Status: Resolved Patient was hypoxic when she was evaluated by EMS with reported SPO2 is 80S, in the ER she was placed on nonrebreather and her saturation was around 93%, later came up to 97-98% on high flow humidified oxygen by nasal cannula. The decision was made to admit the patient to step-down unit however due to bed availability she remained in the ER for while and during that time the staff were able to titrate her oxygen requirement down all the way to 4 L on nasal cannula with reported saturation of 99% . (3) Anemia Status: Chronic Macrocytic anemia, hemoglobin is around 10 we will obtain folic acid and B12. Qualifiers: Anemia type: other cause Other causes of anemia: other cause, not classified (4) Mental retardation Status: Chronic (5) Bipolar disease, chronic Status: Chronic We will continue home medication (6) GERD (gastroesophageal reflux disease) Status: Chronic Qualifiers: Esophagitis presence: without esophagitis Qualified Code(s): K21.9 - Gastro -esophageal reflux disease without esophagitis (7) DVT prophylaxis Status: Acute We will place SCDs. Internal Medicine - H&P: HPI Chief complaint: Cough, fever shortness of breath History of present illness: Ms. Mayberry is a 57 year old female with a past medical history of bipolar, depression, anxiety, and G-tube presenting to the emergency for fever of 104F and shortness of breath associated with productive cough of white mucus. . She was hypoxic and on arrival and was placed initially on nasal cannula nonrebreather then later she was placed on high flow nasal cannula oxygen with improvement of her saturation. The patient is nonverbal and cannot provide any history She was treated with antibiotic for possible diagnoses of pneumonia, however her chest x-ray did not confirm pneumonia. A flu screening labs was obtained and bending. Past Med Surg Social Fam HX - Past Medical History Medical history: non-contributory Psychiatric history: anxiety, bipolar, depression - Past Surgical History Surgical History: hysterectomy - Social History Smoking Status: Never smoker Smokeless Tobacco Status: No Alcohol use: none Drug use: none Internal Medicine - H&P: Meds Estradiol [Deandra] 0.05 mg TD MOTH 02/10/15 [History] Famotidine [Pepcid] 2.5 ml GTUBE BID 02/10/15 [History] Valproic Acid Oral Soln [Depakene Oral Soln] 10 ml GTUBE BID 02/10/15 [History] risperiDONE [Risperdal] 4 ml GTUBE BID 02/10/15 [History] Citalopram [CeleXA] 20 mg GTUBE DAILY 03/29/15 [History] Lactose-Reduced Food/Fiber [Jevity 1.5 Alec Liquid] 265 ml GTUBE HS 03/29/15 [ History] Polyethylene Glycol 3350 [MiraLAX] 17 gm GTUBE BID PRN 03/29/15 [History] LORazepam Oral Conc [Ativan Oral Conc] 1 mg GTUBE BID 03/31/16 [History] Chlorhexidine Gluconate [Hibiclens] 15 ml PO BID 05/21/16 [History] Magnesium Hydroxide [Milk of Magnesia] 1 appl TP DAILY PRN 05/21/16 [History] Multivitamin with Iron [Animal Shapes Plus Iron] 1 tab GTUBE DAILY 05/21/16 [ History] Doron/Poly/Analy OINT [Triple Antibiotic Ointment] 1 appl TP BID PRN 05/21/16 [ History] Sodium Chloride 1 gm GTUBE TID 05/21/16 [History] Albuterol Neb [Proventil Neb] 2.5 mg IH Q4HR PRN #30 inhsol 05/25/16 [Rx] Acetaminophen [Tylenol] 15 ml PO QID PRN 03/03/17 [History] Albuterol Sulfate [Ventolin Hfa] 2 puff IH Q4H PRN 03/03/17 [History] Ferrous Sulfate Oral Soln 7 ml GTUBE DAILY 03/03/17 [History] Docusate [Colace] 100 mg GTUBE DAILY PRN 08/06/17 [History] GuaiFENesin Liq [Robitussin Liq] 15 ml PO Q6HR PRN 08/06/17 [History] LORazepam Oral Conc [Ativan Oral Conc] 1 mg GTUBE BID 2 Days #4 mls 08/12/17 [Rx ] 3 Allergy/AdvReac Type Severity Reaction Status Date / Time Sulfa (Sulfonamide Allergy Hives Verified 08/04/17 17:38 Antibiotics) ROS unobtainable: due to mental status All Systems PM: A 10-system review of systems was performed and is negative for pertinent findings except as documented above in the HPI. - Constitutional Vitals: Temp Pulse Resp BP Pulse Ox 103.4 F H 105 18 102/80 97 08/06/17 03:41 08/06/17 03:41 08/06/17 03:41 08/06/17 03:41 08/06/17 03:41 General appearance: Present: A&O X 0 - Head Head exam: Present: atraumatic, normocephalic - Neck Neck exam general surgery: Present: supple, trachea midline. Absent: lymphadenopathy - Respiratory Respiratory exam: Present: respiratory distress, rhonchi, wheezes. Absent: accessory muscle use, rales - Cardiovascular Cardiovascular exam: Present: RRR, +S1, +S2. Absent: diastolic murmur, gallop, rubs, systolic murmur - GI/Abdominal GI/Abdominal exam: Present: normal bowel sounds, soft, no peritoneal signs. Absent: distended, tenderness - Extremities Exam Extremities exam: Present: warm, radial pulses palpable and symmetrical. Absent : calf tenderness, cyanotic, pedal edema Internal Med - H&P Results - Labs CBC & Chem 7: 08/11/17 05:05 08/11/17 05:05
[2017-08-06 05:46] LABS: Red Cell Distribution Width 13.2 % (11.5-14.5)
[2017-08-06 05:49] LABS: Basophils % 0.3 %; Hematocrit 32.9 % (35.3-44.9); Immature Granulocytes % 0.4 % (0-4); Immature Platelets 2.9 % (1.1-6.1); Lymphocytes # 0.8 K/mcL (0.6-4.6); Lymphocytes % 8.9 %; Mean Corpuscular HGB Conc 33.4 g/dL (31.6-35.5); Mean Corpuscular Volume 101.5 fL (83.0-100.0); Mean Platelet Volume 10.5 fL (9.4-12.4); Monocytes # 2.7 K/mcL (0.0-1.3); Monocytes % 28.9 %; Nucleated Red Blood Cells 0.4 /100 WBC (0); Red Blood Count 3.24 M/mcL (3.82-4.97); Segmented Neutrophils % 61.5 %
[2017-08-06 05:55] LABS: Neutrophils # 5.7 K/mcL (1.6-8.9); Platelet Count 73 K/mcL (140-400)
[2017-08-06 06:04] LABS: INR 1.2; Prothrombin Time 12.8 Seconds (9.4-12.1)
[2017-08-06 06:06] LABS: Alanine Aminotransferase 37 Units/L (7-52); Albumin/Globulin Ratio 0.9 (1.1-2.2); Alkaline Phosphatase 102 Units/L (34-104); Aspartate Amino Transferase 82 Units/L (13-39); BUN/Creatinine Ratio 35 (6-26); Bilirubin,Total 0.4 mg/dL (0.3-1.0); Blood Urea Nitrogen 28 mg/dL (6-20); Calcium 8.8 mg/dL (8.6-10.3); Carbon Dioxide 30 mEq/L (23-29); Chloride 101 mEq/L (98-107); Chol/HDL Ratio 3.2 (0-4.9); Cholesterol 121 mg/dL (< 200); Globulin 3.5 g/dL (2.4-3.5); Glucose 95 mg/dL (70-105); HDL Cholesterol 38 mg/dL (40-59); LDL Cholesterol,Calculated 68 mg/dL (0-99); Magnesium 1.7 mg/dL (1.6-2.6); Osmolality,Calculated 291 (280-300); Phosphorous 3.2 mg/dL (2.7-4.5); Potassium 3.9 mEq/L (3.5-5.1); Sodium 138 mEq/L (136-145); Total Protein 6.5 g/dL (6.4-8.9); Triglycerides 74 mg/dL (< 150); eGFR For African Americans > 60 (> 60); eGFR For Non-African Americans > 60 (> 60)
[2017-08-06 06:07] LABS: Activated Partial Thrombo Time 25.7 Seconds (26.0-36.0)
[2017-08-06 06:13] LABS: Platelet Estimate Decreased (Normal)
[2017-08-06 06:52] LABS: Vitamin B12 1248 pg/mL (250-1100)
[2017-08-06 06:59] LABS: Folate > 22.3 ng/mL (3.0-16.0)
[2017-08-06] MEDS ORDERED: GuaiFENesin Liq 200 MG/10 ML UDC GTUBE PRN (09:45)
[2017-08-06] MEDS ORDERED: Neosporin OINT 1 APPL PACKET TP PRN (10:25)
[2017-08-06] MEDS ORDERED: Albuterol 2.5 MG/3 ML NEBULIZER IH PRN (10:25)
[2017-08-06] MEDS ORDERED: Docusate Oral Soln 100 MG/10 ML UDC GTUBE PRN (10:25)
[2017-08-06] MEDS ORDERED: LACTOSE REDUCED FOOD GTUBE SCH (10:30)
[2017-08-06] MEDS ORDERED: [UNRECOGNIZED DRUG - OTHER] GTUBE SCH (10:30)
[2017-08-06] MEDS ORDERED: FIBER GTUBE SCH (10:30)
--- NOTE | 2017-08-06 10:34 | Event Note ---
Date of Encounter: 08/06/17 Time of Encounter: 10:29 S: Per nursing staff, patient has not had any acute events since admission. Patient is non-verbal, so I am unable to get history from her. She shakes her head to deny any issues or needs. She denies SOB. This morning, she is on 6L high flow NC. O: Vitals - Temp 98.8 degrees F., HR 98, RR 16, BP 110/64, O2 sat 100% on 5 L HFNC Gen - Awake, well-nourished, no acute distress HEENT - NCAT, PERRLA, EOMI, hearing grossly intact, oropharynx benign Resp - Mildly labored WOB, intermittent rhonchi bilaterally, no rales or wheezing CV - RRR, normal S1 and S2, no M/R/G, no BLE edema GI - Soft, NT/ND, no masses, normal BS, no HSP Skin - Warm, dry, no rashes/lesions/ulcers Psych - Normal mood and affect, no depression or anxiety A/P: 1) Pneumonia - Continue IV levaquin. Blood cultures pending. Tylenol PRN for pain/fever. Recheck labwork in AM. 2) Acute Respiratory Failure - Continue supplemental O2 PRN; wean as tolerated. Start duonebs Q6H.
[2017-08-06] MEDS: Ipratropium/Albuterol Neb 3 ML IH SCH ×3 (11:20→22:10)
[2017-08-06] MEDS: *HR* LORazepam Oral Conc 2 MG/ML GTUBE SCH ×2 (11:33→22:40)
[2017-08-06] MEDS: Multivitamin Liquid 15 ML UDC GTUBE SCH (11:34)
[2017-08-06] MEDS: Valproic Acid Oral Soln 250 MG/5 ML UDC GTUBE SCH ×2 (11:34→22:40)
[2017-08-06] MEDS: risperiDONE 1 MG TABLET GTUBE SCH ×2 (11:34→22:40)
[2017-08-06] MEDS: Ferrous Sulfate Oral Soln 300 MG/5 ML UDC GTUBE SCH (11:34)
[2017-08-06] MEDS: Chlorhexidine Rinse 15 ML MOUTHWASH PO SCH ×2 (11:51→22:39)
[2017-08-06] MEDS: Levofloxacin 750 MG/150 ML 750 MG/150 ML BAG IVPB SCH (16:45)
--- NOTE | 2017-08-06 16:50 | Electrocardiograph Report ---
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
[2017-08-07] MEDS: Ipratropium/Albuterol Neb 3 ML IH SCH ×4 (04:40→21:44)
[2017-08-07 05:50] LABS: Basophils % 0.2 %; Mean Corpuscular HGB Conc 33.3 g/dL (31.6-35.5); Red Blood Count 2.94 M/mcL (3.82-4.97)
[2017-08-07 05:52] LABS: Eosinophils % 0.2 %; Immature Granulocytes % 0.2 % (0-4); Immature Platelets 3.7 % (1.1-6.1); Lymphocytes # 1.9 K/mcL (0.6-4.6); Lymphocytes % 22.8 %; Mean Platelet Volume 10.9 fL (9.4-12.4); Monocytes # 1.1 K/mcL (0.0-1.3); Nucleated Red Blood Cells 0.2 /100 WBC (0); Red Cell Distribution Width 13.2 % (11.5-14.5); Segmented Neutrophils % 63.6 %
[2017-08-07 05:53] LABS: Neutrophils # 5.2 K/mcL (1.6-8.9); Platelet Count 75 K/mcL (140-400)
[2017-08-07 07:48] LABS: BUN/Creatinine Ratio 34 (6-26); Blood Urea Nitrogen 24 mg/dL (6-20); Calcium 8.5 mg/dL (8.6-10.3); Carbon Dioxide 31 mEq/L (23-29); Chloride 103 mEq/L (98-107); Glucose 131 mg/dL (70-105); Osmolality,Calculated 296 (280-300); Potassium 3.6 mEq/L (3.5-5.1); Sodium 140 mEq/L (136-145); eGFR For African Americans > 60 (> 60); eGFR For Non-African Americans > 60 (> 60)
[2017-08-07] MEDS: Ferrous Sulfate Oral Soln 300 MG/5 ML UDC GTUBE SCH (08:07)
[2017-08-07] MEDS: *HR* LORazepam Oral Conc 2 MG/ML GTUBE SCH ×2 (08:08→22:17)
[2017-08-07] MEDS: Valproic Acid Oral Soln 250 MG/5 ML UDC GTUBE SCH ×2 (08:08→22:17)
[2017-08-07] MEDS: Multivitamin Liquid 15 ML UDC GTUBE SCH (08:08)
[2017-08-07] MEDS: Chlorhexidine Rinse 15 ML MOUTHWASH PO SCH ×2 (08:18→22:17)
[2017-08-07] MEDS: risperiDONE 1 MG TABLET GTUBE SCH ×2 (08:23→22:17)
[2017-08-07] MEDS ORDERED: 0.9 % Sodium Chloride 1,000 ML IVC ONE (16:48)
--- NOTE | 2017-08-07 16:56 | Internal Med Progress Note ---
Date of Encounter: 08/07/17 Time of Encounter: 16:54 - Assessment and plan (1) Acute respiratory failure with hypoxia Current Visit: Yes Status: Acute Assessment and plan: Mildly improved clinically, but still requiring significant supplemental oxygen. Blood cultures preliminary no growth to date. No leukocytosis. Treating pneumonia with antibiotics as per below. Will add mucomyst inhaled Q6H , guaifenesin 300 mg scheduled through PEG, Q4H suctioning, and Q2H turning/ coughing/deep breathing. Continue supplemental O2 and wean as tolerated. Continue duonebs scheduled Q6H. Continue albuterol nebs Q4H PRN SOB. (2) Pneumonia Current Visit: Yes Status: Acute Assessment and plan: Continue IV levaquin. Continue respiratory interventions as per above. Give 1L NS bolus due to mild hypotension. Monitor vitals closely. Recheck labwork in AM. Qualifiers: Pneumonia type: due to unspecified organism Laterality: unspecified laterality Lung location: unspecified part of lung Qualified Code(s): J18.9 - Pneumonia, unspecified organism (3) Anemia Current Visit: Yes Status: Chronic Assessment and plan: Slowly downtrending Hgb. No signs of bleeding. This is a chronic issue for her. Will monitor and transfuse if Hgb < 7.0 or symptomatic. Qualifiers: Anemia type: other cause Other causes of anemia: other cause, not classified Qualified Code(s): D64.89 - Other specified anemias (4) Bipolar disease, chronic Current Visit: Yes Status: Chronic Assessment and plan: Continue home medications. (5) GERD (gastroesophageal reflux disease) Current Visit: Yes Status: Chronic Assessment and plan: Continue home medications. Qualifiers: Qualified Code(s): K21.9 - Gastro-esophageal reflux disease without esophagitis (6) Mental retardation Current Visit: Yes Status: Chronic (7) DVT prophylaxis Current Visit: Yes Status: Acute Assessment and plan: Continue SCDs. Will defer lovenox for now due to downtrending Hgb. - Time Spent With Patient less than 15 minutes - Subjective Interval history: Patient had no acute events overnight. She is non-verbal, so unable to obtain much history except yes/no answers. Lungs still with significant secretions. She is saturating 100% on 5 L NC at this time. She appears to be comfortable. She is unable to voice any concerns. - Constitutional Vitals: Temp Pulse Resp BP Pulse Ox 98.5 F 78 17 104/58 100 08/07/17 15:00 08/07/17 15:00 08/07/17 15:00 08/07/17 15:00 08/07/17 15:00 General appearance: Present: A&O X 0, pleasant, no acute distress. Absent: answers questions appropriately - Respiratory Respiratory exam: Absent: accessory muscle use, rales, wheezes Additional comments: Mildly labored WOB; bilateral rhonchi, minimally improved from yesterday - Cardiovascular Cardiovascular exam: Present: RRR, +S1, +S2. Absent: diastolic murmur, gallop, rubs, systolic murmur - GI/Abdominal GI/Abdominal exam: Present: normal bowel sounds, soft. Absent: distended, hepatomegaly, mass, splenomegaly, tenderness - Psychiatric Psychiatric exam: Present: normal affect, normal mood. Absent: anxious, depressed - Skin Skin exam: Present: dry, intact, warm. Absent: cyanosis, rash Internal Medicine: Result - Labs CBC & Chem 7: 08/07/17 05:24 08/07/17 05:24 Labs: Short CBC 08/07/17 Range/Units 05:24 WBC 8.1 (4.3-11.1) K/mcL Hgb 10.0 L (11.5-15.4) g/dL Hct 30.0 L (35.3-44.9) % Plt Count 75 L (140-400) K/mcL Neutrophils # 5.2 (1.6-8.9) K/mcL BMP 08/07/17 05:24 Sodium 140 Potassium 3.6 Chloride 103 Carbon Dioxide 31 H BUN 24 H Creatinine 0.71 Glucose 131 H Calcium 8.5 L Cardiac Enzymes 08/06/17 Range/Units 16:32 Troponin I < 0.03 (< 0.04) ng/mL - ABG Interpretation ABG results: PT/INR, D-dimer PT 12.8 Seconds (9.4-12.1) H 08/06/17 05:25 - VTE Reasons for not Prescribing Prophylaxis: Medical contraindication (Deferring anticoagulation for now due to downtrending Hgb.) Documentation of Mechanical Device: Intermittent pneumatic compression device Consult Discharge Plan - Plan
[2017-08-07] MEDS: Levofloxacin 750 MG/150 ML 750 MG/150 ML BAG IVPB SCH (18:09)
[2017-08-07] MEDS: GuaiFENesin Liq 200 MG/10 ML UDC GTUBE SCH (18:10)
[2017-08-07] MEDS: Acetylcysteine 10% 2 ML INHSOL IH SCH ×2 (19:28→21:45)
[2017-08-08] MEDS: GuaiFENesin Liq 200 MG/10 ML UDC GTUBE SCH ×4 (02:00→17:45)
[2017-08-08] MEDS: Acetylcysteine 10% 2 ML INHSOL IH SCH ×4 (04:16→22:49)
[2017-08-08] MEDS: Ipratropium/Albuterol Neb 3 ML IH SCH ×4 (04:16→22:49)
[2017-08-08 05:42] LABS: ABG Base Excess 8 mEq/L (-2 to 3); ABG HCO3 34 mEq/L (21-27); ABG Oxygen Saturation 97 % (95-98); ABG PCO2 50 mmHg (35-45); ABG PH 7.43 pH Units (7.32-7.45); ABG PO2 91 mmHg (85-104); ABG TCO2 35 mEq/L (20-26)
[2017-08-08 06:27] LABS: Eosinophils % 1.2 %; Immature Granulocytes % 0.4 % (0-4)
[2017-08-08 06:28] LABS: Basophils % 0.2 %; Eosinophils # 0.1 K/mcL (0.0-0.6); Hematocrit 29.4 % (35.3-44.9); Hemoglobin 9.6 g/dL (11.5-15.4); Immature Platelets 5.2 % (1.1-6.1); Lymphocytes # 1.4 K/mcL (0.6-4.6); Lymphocytes % 28.1 %; Mean Corpuscular HGB Conc 32.7 g/dL (31.6-35.5); Mean Corpuscular Hemoglobin 34.3 pg (28.0-33.3); Mean Platelet Volume 11.3 fL (9.4-12.4); Monocytes # 0.8 K/mcL (0.0-1.3); Monocytes % 16.5 %; Neutrophils # 2.6 K/mcL (1.6-8.9); Red Cell Distribution Width 13.3 % (11.5-14.5); Segmented Neutrophils % 53.6 %
[2017-08-08 06:33] LABS: Platelet Count 74 K/mcL (140-400)
[2017-08-08 06:46] LABS: BUN/Creatinine Ratio 30 (6-26); Blood Urea Nitrogen 19 mg/dL (6-20); Calcium 8.4 mg/dL (8.6-10.3); Carbon Dioxide 32 mEq/L (23-29); Chloride 102 mEq/L (98-107); Glucose 106 mg/dL (70-105); Osmolality,Calculated 291 (280-300); Potassium 3.7 mEq/L (3.5-5.1); Sodium 139 mEq/L (136-145); eGFR For African Americans > 60 (> 60); eGFR For Non-African Americans > 60 (> 60)
[2017-08-08 06:51] LABS: Platelet Estimate Decreased (Normal)
[2017-08-08] MEDS: *HR* LORazepam Oral Conc 2 MG/ML GTUBE SCH ×2 (09:32→22:26)
[2017-08-08] MEDS: risperiDONE 1 MG TABLET GTUBE SCH ×2 (09:32→22:26)
[2017-08-08] MEDS: Valproic Acid Oral Soln 250 MG/5 ML UDC GTUBE SCH ×2 (09:33→22:27)
[2017-08-08] MEDS: Chlorhexidine Rinse 15 ML MOUTHWASH PO SCH ×2 (09:33→22:27)
[2017-08-08] MEDS: Ferrous Sulfate Oral Soln 300 MG/5 ML UDC GTUBE SCH (09:33)
[2017-08-08] MEDS: Multivitamin Liquid 15 ML UDC GTUBE SCH (09:34)
--- NOTE | 2017-08-08 09:58 | Internal Med Progress Note ---
Date of Encounter: 08/08/17 Time of Encounter: 09:55 - Assessment and plan (1) Acute respiratory failure with hypoxia Current Visit: Yes Status: Acute Assessment and plan: Much improved today. ABG this AM with normal pH and mild borderline hypercarbia. Start wean of supplemental O2 as tolerated now. Blood cultures preliminary no growth to date. No leukocytosis. Treating pneumonia with antibiotics as per below. Continue mucomyst inhaled Q6H, guaifenesin 300 mg scheduled through PEG, Q4H suctioning, and Q2H turning/coughing/deep breathing. Continue duonebs scheduled Q6H. Continue albuterol nebs Q4H PRN SOB. (2) Pneumonia Current Visit: Yes Status: Acute Assessment and plan: Continue IV levaquin. Continue respiratory interventions as per above. Start gentle hydration with IV NS at 75 ml/hr due to mild hypotension. Monitor vitals closely. Recheck labwork in AM. Qualifiers: Pneumonia type: due to unspecified organism Laterality: unspecified laterality Lung location: unspecified part of lung Qualified Code(s): J18.9 - Pneumonia, unspecified organism (3) Anemia Current Visit: Yes Status: Chronic Assessment and plan: Slowly downtrending Hgb, relatively stable from yesterday. No signs of bleeding. This is a chronic issue for her. Will monitor and transfuse if Hgb < 7.0 or symptomatic. Qualifiers: Anemia type: other cause Other causes of anemia: other cause, not classified Qualified Code(s): D64.89 - Other specified anemias (4) Bipolar disease, chronic Current Visit: Yes Status: Chronic Assessment and plan: Continue home medications. (5) GERD (gastroesophageal reflux disease) Current Visit: Yes Status: Chronic Assessment and plan: Continue home medications. Qualifiers: Qualified Code(s): K21.9 - Gastro-esophageal reflux disease without esophagitis (6) Mental retardation Current Visit: Yes Status: Chronic (7) DVT prophylaxis Current Visit: Yes Status: Acute Assessment and plan: Continue SCDs. Will defer lovenox for now due to downtrending Hgb. - Time Spent With Patient less than 15 minutes - Subjective Interval history: Patient had no acute events overnight. She is non-verbal at baseline, so unable to obtain much history except yes/no answers. Lungs still improved secretions. She is saturating 100% on 5 L NC at this time; started wean to 3L at this time. She appears to be comfortable. She is unable to voice any concerns. - Constitutional Vitals: Temp Pulse Resp BP Pulse Ox 98 F 75 16 106/57 96 08/08/17 07:14 08/08/17 07:14 08/08/17 07:14 08/08/17 07:14 08/08/17 07:14 General appearance: Present: A&O X 0, cooperative, pleasant, no acute distress. Absent: answers questions appropriately - Respiratory Respiratory exam: Absent: accessory muscle use, rales, wheezes Additional comments: Mildly labored WOB, moderate intermittent rhonchi improving from yesterday - Cardiovascular Cardiovascular exam: Present: RRR, +S1, +S2. Absent: diastolic murmur, gallop, rubs, systolic murmur Additional comments: No BLE edema - GI/Abdominal GI/Abdominal exam: Present: normal bowel sounds, soft. Absent: distended, hepatomegaly, mass, splenomegaly, tenderness - Psychiatric Psychiatric exam: Present: normal affect, normal mood. Absent: anxious, depressed - Skin Skin exam: Present: dry, intact, warm. Absent: cyanosis, rash Internal Medicine: Result - Labs CBC & Chem 7: 08/08/17 05:40 08/08/17 05:40 Labs: Short CBC 08/08/17 Range/Units 05:40 WBC 4.9 (4.3-11.1) K/mcL Hgb 9.6 L (11.5-15.4) g/dL Hct 29.4 L (35.3-44.9) % Plt Count 74 L (140-400) K/mcL Neutrophils # 2.6 (1.6-8.9) K/mcL BMP 08/08/17 05:40 Sodium 139 Potassium 3.7 Chloride 102 Carbon Dioxide 32 H BUN 19 Creatinine 0.64 Glucose 106 H Calcium 8.4 L - ABG Interpretation ABG results: ABG ABG pH 7.43 pH Units (7.32-7.45) 08/08/17 05:40 ABG pCO2 50 mmHg (35-45) H 08/08/17 05:40 ABG pO2 91 mmHg (85-104) 08/08/17 05:40 ABG O2 Saturation 97 % (95-98) 08/08/17 05:40 PT/INR, D-dimer PT 12.8 Seconds (9.4-12.1) H 08/06/17 05:25 - VTE Reasons for not Prescribing Prophylaxis: Medical contraindication (Deferring anticoagulation for now due to downtrending Hgb.) Documentation of Mechanical Device: Intermittent pneumatic compression device Consult Discharge Plan - Plan Referrals: Ronald Thomas MD [Primary Care Provider] -
[2017-08-08] MEDS: 0.9 % Sodium Chloride 1,000 ML IVC SCH (14:03)
[2017-08-08] MEDS: Levofloxacin 750 MG/150 ML 750 MG/150 ML BAG IVPB SCH (17:46)
[2017-08-09] MEDS: GuaiFENesin Liq 200 MG/10 ML UDC GTUBE SCH ×4 (01:30→17:49)
[2017-08-09] MEDS: 0.9 % Sodium Chloride 1,000 ML IVC SCH ×2 (04:55→17:44)
[2017-08-09] MEDS: Ipratropium/Albuterol Neb 3 ML IH SCH ×4 (04:56→22:04)
[2017-08-09] MEDS: Acetylcysteine 10% 2 ML INHSOL IH SCH ×4 (04:57→22:04)
[2017-08-09 06:10] LABS: Basophils % 0.3 %; Immature Granulocytes % 0.3 % (0-4); Red Cell Distribution Width 13.2 % (11.5-14.5)
[2017-08-09 06:12] LABS: Eosinophils # 0.1 K/mcL (0.0-0.6); Eosinophils % 3.6 %; Hematocrit 29.4 % (35.3-44.9); Hemoglobin 9.5 g/dL (11.5-15.4); Immature Platelets 5.2 % (1.1-6.1); Lymphocytes # 1.8 K/mcL (0.6-4.6); Lymphocytes % 49.7 %; Mean Corpuscular HGB Conc 32.3 g/dL (31.6-35.5); Mean Corpuscular Hemoglobin 33.9 pg (28.0-33.3); Mean Platelet Volume 11.2 fL (9.4-12.4); Monocytes # 0.6 K/mcL (0.0-1.3); Monocytes % 15.6 %; Neutrophils # 1.1 K/mcL (1.6-8.9); Nucleated Red Blood Cells 0.5 /100 WBC (0); Segmented Neutrophils % 30.5 %
[2017-08-09 06:27] LABS: BUN/Creatinine Ratio 26 (6-26); Blood Urea Nitrogen 15 mg/dL (6-20); Calcium 8.4 mg/dL (8.6-10.3); Carbon Dioxide 35 mEq/L (23-29); Chloride 104 mEq/L (98-107); Glucose 108 mg/dL (70-105); Osmolality,Calculated 295 (280-300); Platelet Count 78 K/mcL (140-400); Potassium 4.3 mEq/L (3.5-5.1); Sodium 142 mEq/L (136-145); eGFR For African Americans > 60 (> 60); eGFR For Non-African Americans > 60 (> 60)
[2017-08-09 06:29] LABS: Platelet Estimate Decreased (Normal)
[2017-08-09] MEDS: *HR* LORazepam Oral Conc 2 MG/ML GTUBE SCH ×2 (10:36→21:25)
[2017-08-09] MEDS: Multivitamin Liquid 15 ML UDC GTUBE SCH (10:38)
[2017-08-09] MEDS: Valproic Acid Oral Soln 250 MG/5 ML UDC GTUBE SCH ×2 (10:39→21:24)
[2017-08-09] MEDS: risperiDONE 1 MG TABLET GTUBE SCH ×2 (10:40→21:24)
[2017-08-09] MEDS: Ferrous Sulfate Oral Soln 300 MG/5 ML UDC GTUBE SCH (10:40)
[2017-08-09] MEDS: Chlorhexidine Rinse 15 ML MOUTHWASH PO SCH ×2 (10:49→21:24)
--- NOTE | 2017-08-09 13:02 | Internal Med Progress Note ---
Date of Encounter: 08/09/17 Time of Encounter: 12:59 - Assessment and plan (1) Acute respiratory failure with hypoxia Current Visit: Yes Status: Acute Assessment and plan: Improving. Continue wean of supplemental O2 as tolerated. Blood cultures preliminary no growth to date. Treating pneumonia with antibiotics as per below. Continue mucomyst inhaled Q6H, guaifenesin 300 mg scheduled through PEG , Q4H suctioning, and Q2H turning/coughing/deep breathing. Continue duonebs scheduled Q6H. Continue albuterol nebs Q4H PRN SOB. (2) Pneumonia Current Visit: Yes Status: Acute Assessment and plan: Continue IV levaquin. Continue respiratory interventions as per above. Continue gentle hydration with IV NS at 75 ml/hr due to mild hypotension. Monitor vitals closely. Recheck labwork in AM. Qualifiers: Pneumonia type: due to unspecified organism Laterality: unspecified laterality Lung location: unspecified part of lung Qualified Code(s): J18.9 - Pneumonia, unspecified organism (3) Anemia Current Visit: Yes Status: Chronic Assessment and plan: Stable Hgb. No signs of bleeding. This is a chronic issue for her. Will monitor and transfuse if Hgb < 7.0 or symptomatic. Qualifiers: Anemia type: other cause Other causes of anemia: other cause, not classified Qualified Code(s): D64.89 - Other specified anemias (4) Bipolar disease, chronic Current Visit: Yes Status: Chronic Assessment and plan: Continue home medications. (5) GERD (gastroesophageal reflux disease) Current Visit: Yes Status: Chronic Assessment and plan: Continue home medications. Qualifiers: Qualified Code(s): K21.9 - Gastro-esophageal reflux disease without esophagitis (6) Mental retardation Current Visit: Yes Status: Chronic (7) DVT prophylaxis Current Visit: Yes Status: Acute Assessment and plan: Continue SCDs. Will defer lovenox for now due to downtrending Hgb. - Time Spent With Patient less than 15 minutes - Subjective Interval history: Patient had no acute events overnight. She is non-verbal at baseline, so unable to obtain much history except yes/no answers. Lungs with improving secretions. She is saturating 100% on 3 L NC at this time; continuing to wean. She appears to be comfortable. She is unable to voice any concerns. - Constitutional Vitals: Temp Pulse Resp BP Pulse Ox 98 F 73 19 103/63 100 08/09/17 07:00 08/09/17 11:00 08/09/17 11:00 08/09/17 11:00 08/09/17 11:00 General appearance: Present: A&O X 0, cooperative, pleasant, no acute distress. Absent: answers questions appropriately - Respiratory Respiratory exam: Absent: accessory muscle use, rales, wheezes Additional comments: Mildly labored WOB, rare intermittent rhonchi auscultated bilaterally - much improved from yesterday - Cardiovascular Cardiovascular exam: Present: RRR, +S1, +S2. Absent: diastolic murmur, gallop, rubs, systolic murmur Additional comments: No BLE edema - GI/Abdominal GI/Abdominal exam: Present: normal bowel sounds, soft. Absent: distended, hepatomegaly, mass, splenomegaly, tenderness - Psychiatric Psychiatric exam: Present: normal affect, normal mood. Absent: anxious, depressed - Skin Skin exam: Present: dry, intact, warm. Absent: cyanosis, rash Internal Medicine: Result - Labs CBC & Chem 7: 08/09/17 05:37 08/09/17 05:37 Labs: Short CBC 08/09/17 Range/Units 05:37 WBC 3.7 L (4.3-11.1) K/mcL Hgb 9.5 L (11.5-15.4) g/dL Hct 29.4 L (35.3-44.9) % Plt Count 78 L (140-400) K/mcL Neutrophils # 1.1 L (1.6-8.9) K/mcL BMP 08/09/17 05:37 Sodium 142 Potassium 4.3 Chloride 104 Carbon Dioxide 35 H BUN 15 Creatinine 0.58 L Glucose 108 H Calcium 8.4 L - ABG Interpretation ABG results: ABG ABG pH 7.43 pH Units (7.32-7.45) 08/08/17 05:40 ABG pCO2 50 mmHg (35-45) H 08/08/17 05:40 ABG pO2 91 mmHg (85-104) 08/08/17 05:40 ABG O2 Saturation 97 % (95-98) 08/08/17 05:40 PT/INR, D-dimer PT 12.8 Seconds (9.4-12.1) H 03/29/18 05:25 - VTE Reasons for not Prescribing Prophylaxis: Medical contraindication (Deferring anticoagulation for now due to downtrending Hgb.) Documentation of Mechanical Device: Intermittent pneumatic compression device Consult Discharge Plan - Plan Referrals: Ronald Thomas MD [Primary Care Provider] -
[2017-08-09] MEDS: Levofloxacin 750 MG/150 ML 750 MG/150 ML BAG IVPB SCH (17:45)
[2017-08-10] MEDS: GuaiFENesin Liq 200 MG/10 ML UDC GTUBE SCH ×5 (00:19→23:04)
[2017-08-10] MEDS: Ipratropium/Albuterol Neb 3 ML IH SCH ×4 (04:29→23:07)
[2017-08-10] MEDS: Acetylcysteine 10% 2 ML INHSOL IH SCH ×4 (04:29→23:07)
[2017-08-10 04:45] LABS: Basophils % 0.3 %; Hemoglobin 9.5 g/dL (11.5-15.4); Immature Granulocytes % 0.3 % (0-4); Mean Corpuscular Volume 103.6 fL (83.0-100.0); Red Cell Distribution Width 12.9 % (11.5-14.5)
[2017-08-10 04:46] LABS: Eosinophils # 0.2 K/mcL (0.0-0.6); Eosinophils % 6.5 %; Hematocrit 28.7 % (35.3-44.9); Immature Platelets 4.5 % (1.1-6.1); Lymphocytes # 1.7 K/mcL (0.6-4.6); Lymphocytes % 49.1 %; Mean Corpuscular HGB Conc 33.1 g/dL (31.6-35.5); Mean Corpuscular Hemoglobin 34.3 pg (28.0-33.3); Mean Platelet Volume 11.4 fL (9.4-12.4); Monocytes # 0.6 K/mcL (0.0-1.3); Monocytes % 16.5 %; Neutrophils # 0.9 K/mcL (1.6-8.9); Nucleated Red Blood Cells 0.6 /100 WBC (0); Red Blood Count 2.77 M/mcL (3.82-4.97); Segmented Neutrophils % 27.3 %
[2017-08-10 04:48] LABS: Platelet Count 87 K/mcL (140-400)
[2017-08-10 05:01] LABS: BUN/Creatinine Ratio 25 (6-26); Blood Urea Nitrogen 14 mg/dL (6-20); Calcium 8.4 mg/dL (8.6-10.3); Carbon Dioxide 30 mEq/L (23-29); Chloride 108 mEq/L (98-107); Glucose 91 mg/dL (70-105); Osmolality,Calculated 294 (280-300); Potassium 4.3 mEq/L (3.5-5.1); Sodium 142 mEq/L (136-145); eGFR For African Americans > 60 (> 60); eGFR For Non-African Americans > 60 (> 60)
[2017-08-10 05:12] LABS: Platelet Estimate Decreased (Normal)
[2017-08-10] MEDS: *HR* LORazepam Oral Conc 2 MG/ML GTUBE SCH ×2 (09:34→23:06)
[2017-08-10] MEDS: Multivitamin Liquid 15 ML UDC GTUBE SCH (09:34)
[2017-08-10] MEDS: Ferrous Sulfate Oral Soln 300 MG/5 ML UDC GTUBE SCH (09:34)
[2017-08-10] MEDS: risperiDONE 1 MG TABLET GTUBE SCH ×2 (09:35→23:04)
[2017-08-10] MEDS: Valproic Acid Oral Soln 250 MG/5 ML UDC GTUBE SCH ×2 (09:35→23:04)
[2017-08-10] MEDS: Chlorhexidine Rinse 15 ML MOUTHWASH PO SCH ×2 (09:35→23:04)
[2017-08-10] MEDS: 0.9 % Sodium Chloride 1,000 ML IVC SCH ×2 (09:36→18:28)
--- NOTE | 2017-08-10 11:50 | Internal Med Progress Note ---
Date of Encounter: 08/10/17 Time of Encounter: 11:49 - Assessment and plan (1) Acute respiratory failure with hypoxia Current Visit: Yes Status: Acute Assessment and plan: Improving. Continue wean of supplemental O2 as tolerated. Blood cultures x 3 preliminary no growth to date. Treating pneumonia with antibiotics as per below. Continue mucomyst inhaled Q6H, guaifenesin 300 mg scheduled through PEG , Q4H suctioning, and Q2H turning/coughing/deep breathing. Continue duonebs scheduled Q6H. Continue albuterol nebs Q4H PRN SOB. Plan for discharged tomorrow back to care home once back to home oxygen requirement. (2) Pneumonia Current Visit: Yes Status: Acute Assessment and plan: Continue IV levaquin. Continue respiratory interventions as per above. Continue gentle hydration with IV NS at 75 ml/hr. Monitor vitals closely. Recheck labwork in AM. Qualifiers: Pneumonia type: due to unspecified organism Laterality: unspecified laterality Lung location: unspecified part of lung Qualified Code(s): J18.9 - Pneumonia, unspecified organism (3) Anemia Current Visit: Yes Status: Chronic Assessment and plan: Stable Hgb. No signs of bleeding. This is a chronic issue for her. Will monitor and transfuse if Hgb < 7.0 or symptomatic. Qualifiers: Anemia type: other cause Other causes of anemia: other cause, not classified Qualified Code(s): D64.89 - Other specified anemias (4) Bipolar disease, chronic Current Visit: Yes Status: Chronic Assessment and plan: Continue home medications. (5) GERD (gastroesophageal reflux disease) Current Visit: Yes Status: Chronic Assessment and plan: Continue home medications. Qualifiers: Qualified Code(s): K21.9 - Gastro-esophageal reflux disease without esophagitis (6) Mental retardation Current Visit: Yes Status: Chronic (7) DVT prophylaxis Current Visit: Yes Status: Acute Assessment and plan: Continue SCDs. Will defer lovenox for now due to downtrending Hgb. - Time Spent With Patient less than 15 minutes - Subjective Interval history: Patient had no acute events overnight. She is non-verbal at baseline, so unable to obtain much history except yes/no answers. Lungs with greatly improved secretions today. She is saturating 100% on 3 L NC at this time; will try to wean to home 2 L by NC. She appears to be comfortable. She is unable to voice any concerns. - Constitutional Vitals: Temp Pulse Resp BP Pulse Ox 98.2 F 83 16 122/66 95 08/10/17 11:29 08/10/17 11:29 08/10/17 11:29 08/10/17 11:29 08/10/17 11:29 General appearance: Present: A&O X 0, cooperative, pleasant, no acute distress. Absent: answers questions appropriately - Respiratory Respiratory exam: Absent: accessory muscle use, rales, wheezes Additional comments: Normal WOB, rare intermittent rhonchi - greatly improved from yesterday - Cardiovascular Cardiovascular exam: Present: RRR, +S1, +S2. Absent: diastolic murmur, gallop, rubs, systolic murmur Additional comments: No BLE edema - GI/Abdominal GI/Abdominal exam: Present: normal bowel sounds, soft. Absent: distended, hepatomegaly, mass, splenomegaly, tenderness - Psychiatric Psychiatric exam: Present: normal affect, normal mood. Absent: anxious, depressed - Skin Skin exam: Present: dry, intact, warm. Absent: cyanosis, rash Internal Medicine: Result - Labs CBC & Chem 7: 08/10/17 04:21 08/10/17 04:21 Labs: Short CBC 08/10/17 Range/Units 04:21 WBC 3.4 L (4.3-11.1) K/mcL Hgb 9.5 L (11.5-15.4) g/dL Hct 28.7 L (35.3-44.9) % Plt Count 87 L (140-400) K/mcL Neutrophils # 0.9 L (1.6-8.9) K/mcL BMP 08/10/17 04:21 Sodium 142 Potassium 4.3 Chloride 108 H Carbon Dioxide 30 H BUN 14 Creatinine 0.56 L Glucose 91 Calcium 8.4 L - ABG Interpretation ABG results: ABG ABG pH 7.43 pH Units (7.32-7.45) 08/08/17 05:40 ABG pCO2 50 mmHg (35-45) H 08/08/17 05:40 ABG pO2 91 mmHg (85-104) 08/08/17 05:40 ABG O2 Saturation 97 % (95-98) 08/08/17 05:40 PT/INR, D-dimer PT 12.8 Seconds (9.4-12.1) H 08/06/17 05:25 - VTE Reasons for not Prescribing Prophylaxis: Medical contraindication (Deferring anticoagulation for now due to downtrending Hgb.) Documentation of Mechanical Device: Intermittent pneumatic compression device Consult Discharge Plan - Plan Referrals: Ronald Thomas MD [Primary Care Provider] -
[2017-08-10] MEDS: Levofloxacin 750 MG/150 ML 750 MG/150 ML BAG IVPB SCH (18:13)
[2017-08-11] MEDS: Ipratropium/Albuterol Neb 3 ML IH SCH ×4 (04:09→21:31)
[2017-08-11] MEDS: Acetylcysteine 10% 2 ML INHSOL IH SCH ×4 (04:09→21:33)
[2017-08-11] MEDS: GuaiFENesin Liq 200 MG/10 ML UDC GTUBE SCH ×3 (05:32→22:09)
[2017-08-11 05:38] LABS: Basophils % 0.2 %; Eosinophils # 0.2 K/mcL (0.0-0.6); Eosinophils % 3.6 %; Hematocrit 29.6 % (35.3-44.9); Hemoglobin 9.4 g/dL (11.5-15.4); Immature Granulocytes % 0.2 % (0-4); Lymphocytes % 44.1 %; Mean Corpuscular HGB Conc 31.8 g/dL (31.6-35.5); Mean Corpuscular Hemoglobin 32.8 pg (28.0-33.3); Mean Corpuscular Volume 103.1 fL (83.0-100.0); Mean Platelet Volume 11.3 fL (9.4-12.4); Monocytes # 0.6 K/mcL (0.0-1.3); Monocytes % 15.3 %; Neutrophils # 1.5 K/mcL (1.6-8.9); Platelet Count 108 K/mcL (140-400); Red Blood Count 2.87 M/mcL (3.82-4.97); Segmented Neutrophils % 36.6 %
[2017-08-11 05:51] LABS: Lymphocytes # 1.9 K/mcL (0.6-4.6)
[2017-08-11 05:53] LABS: BUN/Creatinine Ratio 21 (6-26); Blood Urea Nitrogen 14 mg/dL (6-20); Calcium 8.5 mg/dL (8.6-10.3); Carbon Dioxide 31 mEq/L (23-29); Chloride 106 mEq/L (98-107); Glucose 111 mg/dL (70-105); Osmolality,Calculated 295 (280-300); Potassium 4.4 mEq/L (3.5-5.1); Sodium 142 mEq/L (136-145); eGFR For African Americans > 60 (> 60); eGFR For Non-African Americans > 60 (> 60)
[2017-08-11 06:36] LABS: Hypochromasia Present (Not Present); Macrocytosis Present (Not Present); Platelet Estimate Decreased (Normal)
[2017-08-11] MEDS: *HR* LORazepam Oral Conc 2 MG/ML GTUBE SCH ×2 (08:28→22:09)
[2017-08-11] MEDS: Chlorhexidine Rinse 15 ML MOUTHWASH PO SCH ×2 (08:28→22:07)
[2017-08-11] MEDS: Multivitamin Liquid 15 ML UDC GTUBE SCH (08:28)
[2017-08-11] MEDS: Valproic Acid Oral Soln 250 MG/5 ML UDC GTUBE SCH ×2 (08:28→22:08)
[2017-08-11] MEDS: risperiDONE 1 MG TABLET GTUBE SCH ×2 (08:28→22:07)
[2017-08-11] MEDS: Ferrous Sulfate Oral Soln 300 MG/5 ML UDC GTUBE SCH (08:28)
[2017-08-11] MEDS: 0.9 % Sodium Chloride 1,000 ML IVC SCH (10:49)
[2017-08-11] MEDS: Levofloxacin 750 MG/150 ML 750 MG/150 ML BAG IVPB SCH (16:11)
--- NOTE | 2017-08-11 20:57 | Internal Med Progress Note ---
Date of Encounter: 08/11/17 Time of Encounter: 09:00 - Assessment and plan (1) Acute respiratory failure with hypoxia Current Visit: Yes Status: Acute Assessment and plan: Improving slowly. Continue current management and weaning of oxygen. (2) Pneumonia Current Visit: Yes Status: Acute Assessment and plan: Continue abx. Qualifiers: Pneumonia type: due to unspecified organism Laterality: unspecified laterality Lung location: unspecified part of lung Qualified Code(s): J18.9 - Pneumonia, unspecified organism (3) Bipolar disease, chronic Current Visit: Yes Status: Chronic Assessment and plan: Chronic issue (4) GERD (gastroesophageal reflux disease) Current Visit: Yes Status: Chronic Assessment and plan: Supportive care. Qualifiers: Qualified Code(s): K21.9 - Gastro-esophageal reflux disease without esophagitis (5) Anemia Current Visit: Yes Status: Chronic Assessment and plan: Following. Qualifiers: Anemia type: other cause Other causes of anemia: other cause, not classified Qualified Code(s): D64.89 - Other specified anemias (6) DVT prophylaxis Current Visit: Yes Status: Acute (7) Mental retardation Current Visit: Yes Status: Chronic - Time Spent With Patient Total time spent is greater than 50% in coordination of care (as documented) at patient's floor/unit and/or counseling patient: - Subjective Interval history: Ms Mayberry is currently admitted for respiratory failure due to pneumonia. She remains moderate to high risk due to potential for worsening clinical status. Ms Mayberry is awake but non verbal to me. - Constitutional Vitals: Temp Pulse Resp BP Pulse Ox 97.9 F 91 16 126/75 93 08/11/17 17:10 08/11/17 17:10 08/11/17 17:10 08/11/17 17:10 08/11/17 17:10 General appearance: Present: A&O X 0, cooperative, pleasant, no acute distress. Absent: answers questions appropriately - Head Head exam: Present: normocephalic - Eye Eye exam: Present: conjuntiva pink - ENT ENT exam: Present: mucous membranes moist - Respiratory Respiratory exam: Present: rhonchi, wheezes - Cardiovascular Cardiovascular exam: Present: distant heart sounds, RRR - GI/Abdominal GI/Abdominal exam: Present: soft. Absent: tenderness - Extremities Exam Extremities exam: Present: warm. Absent: tenderness - Neurological Exam Neurological exam: Present: alert - Skin Skin exam: Present: dry, warm Internal Medicine: Result - Labs CBC & Chem 7: 08/11/17 05:05 08/11/17 05:05 Labs: Short CBC 08/11/17 Range/Units 05:05 WBC 4.2 L (4.3-11.1) K/mcL Hgb 9.4 L (11.5-15.4) g/dL Hct 29.6 L (35.3-44.9) % Plt Count 108 L (140-400) K/mcL Neutrophils # 1.5 L (1.6-8.9) K/mcL BMP 08/11/17 05:05 Sodium 142 Potassium 4.4 Chloride 106 Carbon Dioxide 31 H BUN 14 Creatinine 0.68 Glucose 111 H Calcium 8.5 L - ABG Interpretation ABG results: ABG ABG pH 7.43 pH Units (7.32-7.45) 08/08/17 05:40 ABG pCO2 50 mmHg (35-45) H 08/08/17 05:40 ABG pO2 91 mmHg (85-104) 08/08/17 05:40 ABG O2 Saturation 97 % (95-98) 08/08/17 05:40 PT/INR, D-dimer PT 12.8 Seconds (9.4-12.1) H 08/06/17 05:25 - VTE Reasons for not Prescribing Prophylaxis: Medical contraindication (Deferring anticoagulation for now due to downtrending Hgb.) Documentation of Mechanical Device: Graduated compression elastic hosiery Consult Discharge Plan - Plan Instructions: Acute Respiratory Distress Syndrome (DC), Sepsis (DC), Anemia ( GEN), Pneumonia (DC) Referrals: Ronald Thomas MD [Primary Care Provider] -
[2017-08-12] MEDS: GuaiFENesin Liq 200 MG/10 ML UDC GTUBE SCH ×3 (00:24→12:43)
[2017-08-12] MEDS: Ipratropium/Albuterol Neb 3 ML IH SCH ×2 (03:54→10:50)
[2017-08-12] MEDS: Acetylcysteine 10% 2 ML INHSOL IH SCH ×2 (03:55→10:50)
--- NOTE | 2017-08-12 10:10 | Discharge Summary ---
Date of Encounter: 08/12/17 Time of Encounter: 10:08 - Discharge Diagnosis (1) Acute respiratory failure with hypoxia Priority: Primary Status: Resolved (2) Pneumonia Priority: Primary Status: Suspected Qualifiers: Pneumonia type: due to other aerobic Gram-negative bacteria Laterality: bilateral Lung location: lower lobe of lung Qualified Code(s): J15.6 - Pneumonia due to other Gram-negative bacteria (3) Bipolar disease, chronic Priority: Secondary Status: Chronic (4) GERD (gastroesophageal reflux disease) Priority: Secondary Status: Chronic Qualifiers: Esophagitis presence: without esophagitis Qualified Code(s): K21.9 - Gastro -esophageal reflux disease without esophagitis (5) Anemia Priority: Secondary Status: Chronic Qualifiers: Anemia type: other cause Other causes of anemia: other cause, not classified Qualified Code(s): D64.89 - Other specified anemias (6) Mental retardation Priority: Secondary Status: Chronic (7) DVT prophylaxis Priority: Secondary Status: Acute Hospital course: Ms. Mayebrry is a 57 year old female with hx of bipolar and MRDD brought to ED due to fever and cough. She was noted to be hypoxic by EMS. She was evaluated by ED and admitted with presumed pneumonia. Ms Mayberry was admitted to [facility]. She was started on IV abx. She had slow resolution of her symptoms. Mucomyst was added with some improvement. She remained afebrile. Today she is alert. She does not appear uncomfortable. She is afebrile today. She has completed a course of abx. She is ready to return to Skilled Nursing. - Time Spent with Patient Total time spent providing and/or coordinating discharge services: 42min - Discharge Medications Prescriptions: LORazepam Oral Conc [Ativan Oral Conc] 1 mg GTUBE BID 2 Days #4 mls Home Medications: Estradiol [Deandra] 0.05 mg TD MOTH 02/10/15 [History] Famotidine [Pepcid] 2.5 ml GTUBE BID 02/10/15 [History] Valproic Acid Oral Soln [Depakene Oral Soln] 10 ml GTUBE BID 02/10/15 [History] risperiDONE [Risperdal] 4 ml GTUBE BID 02/10/15 [History] Citalopram [CeleXA] 20 mg GTUBE DAILY 03/29/15 [History] Lactose-Reduced Food/Fiber [Jevity 1.5 Alec Liquid] 265 ml GTUBE HS 03/29/15 [ History] Polyethylene Glycol 3350 [MiraLAX] 17 gm GTUBE BID PRN 03/29/15 [History] LORazepam Oral Conc [Ativan Oral Conc] 1 mg GTUBE BID 03/31/16 [History] Chlorhexidine Gluconate [Hibiclens] 15 ml PO BID 05/21/16 [History] Magnesium Hydroxide [Milk of Magnesia] 1 appl TP DAILY PRN 05/21/16 [History] Multivitamin with Iron [Animal Shapes Plus Iron] 1 tab GTUBE DAILY 05/21/16 [ History] Doron/Poly/Analy OINT [Triple Antibiotic Ointment] 1 appl TP BID PRN 05/21/16 [ History] Sodium Chloride 1 gm GTUBE TID 05/21/16 [History] Albuterol Neb [Proventil Neb] 2.5 mg IH Q4HR PRN #30 inhsol 05/25/16 [Rx] Acetaminophen [Tylenol] 15 ml PO QID PRN 03/03/17 [History] Albuterol Sulfate [Ventolin Hfa] 2 puff IH Q4H PRN 03/03/17 [History] Ferrous Sulfate Oral Soln 7 ml GTUBE DAILY 03/03/17 [History] Docusate [Colace] 100 mg GTUBE DAILY PRN 08/06/17 [History] GuaiFENesin Liq [Robitussin Liq] 15 ml PO Q6HR PRN 08/06/17 [History] LORazepam Oral Conc [Ativan Oral Conc] 1 mg GTUBE BID 2 Days #4 mls 08/12/17 [Rx ] Allergies/Adverse Reactions: 3 Allergy/AdvReac Type Severity Reaction Status Date / Time Sulfa (Sulfonamide Allergy Hives Verified 08/04/17 17:38 Antibiotics) Date of admission: 08/06/17 04:56 Primary care physician: Ronald Thomas MD Consults: 08/06/17 13:32 consult to communications field technician [Consult to Nutrition] [CONS] Stat Comment: Consulting Provider: NUTRITION Reason for Dietary Consult: Tube Feed Start & Manage 08/09/17 12:51 Consult to [employer] Technical Lead Senior Developer [CONS] Routine Reason for SW Consult: Placement Discharging clinician: Chris Godfrey Anticipated date of discharge: 08/12/17 - Constitutional Vitals: Temp Pulse Resp BP Pulse Ox 97.6 F 59 16 117/79 96 08/12/17 07:14 08/12/17 07:14 08/12/17 07:14 08/12/17 07:14 08/12/17 07:14 General appearance: Present: A&O X 0, cooperative, pleasant. Absent: answers questions appropriately - Head Head exam: Present: normocephalic - Eye Eye exam: Present: conjuntiva pink - ENT ENT exam: Present: mucous membranes dry - Respiratory Respiratory exam: Present: CTAB. Absent: rales, rhonchi, wheezes Additional comments: Anteriorly and laterally. - Cardiovascular Cardiovascular exam: Present: RRR. Absent: tachycardia - GI/Abdominal GI/Abdominal exam: Present: soft. Absent: tenderness - Extremities Exam Extremities exam: Present: warm - Neurological Exam Neurological exam: Present: alert - Skin Skin exam: Present: dry, warm - Patient Status Disposition: Home Health Service Condition: Fair Functional capacity at discharge: wheelchair bound Overall status at discharge: patient is progressing back to baseline - Discharge Instructions Instructions: Acute Respiratory Distress Syndrome (DC), Sepsis (DC), Anemia ( GEN), Pneumonia (DC) Follow Up With: Ronald Thomas MD [Primary Care Provider] - Forms: ED Satisfaction Letter - Diet and Activity Activity: increase activity as tolerated Diet: other (tube feed) - VTE Reasons for not Prescribing Prophylaxis: Medical contraindication (Deferring anticoagulation for now due to downtrending Hgb.) Documentation of Mechanical Device: Intermittent pneumatic compression device
--- NOTE | 2017-08-12 10:25 | Physician Discharge Referral ---
Home Health/Hosp Referral Info Transfer to: Home Health Provider in Charge Post Discharge: PCP - Diagnosis (1) Acute respiratory failure with hypoxia Priority: Primary Status: Resolved (2) Pneumonia Priority: Primary Status: Suspected (3) Bipolar disease, chronic Priority: Secondary Status: Chronic (4) GERD (gastroesophageal reflux disease) Priority: Secondary Status: Chronic (5) Anemia Priority: Secondary Status: Chronic (6) Mental retardation Priority: Secondary Status: Chronic (7) DVT prophylaxis Priority: Secondary Status: Acute - Respiratory Orders Oxygen / L per min (Maintain saturation greater than 90%) Smoking Cessation: Smoking cessation has been advised. For more information, call the [place] Tobacco Quit Line at 0-801-QYLR-NOW. - Diet/Nutrition Diet/Nutrition: List: Tube feed - Jevity at 70 ml/h for 12h at hs as before - Activity Activity Orders: Up ad luis, Chair - Services Needed Following services are medically necessary services: Nursing, Home Health Aide - Transfer Medications Prescriptions: LORazepam Oral Conc [Ativan Oral Conc] 1 mg GTUBE BID 2 Days #4 mls Home Medications: Estradiol [Deandra] 0.05 mg TD MOTH 02/10/15 [History] Famotidine [Pepcid] 2.5 ml GTUBE BID 02/10/15 [History] Valproic Acid Oral Soln [Depakene Oral Soln] 10 ml GTUBE BID 02/10/15 [History] risperiDONE [Risperdal] 4 ml GTUBE BID 02/10/15 [History] Citalopram [CeleXA] 20 mg GTUBE DAILY 03/29/15 [History] Lactose-Reduced Food/Fiber [Jevity 1.5 Alec Liquid] 265 ml GTUBE HS 03/29/15 [ History] Polyethylene Glycol 3350 [MiraLAX] 17 gm GTUBE BID PRN 03/29/15 [History] LORazepam Oral Conc [Ativan Oral Conc] 1 mg GTUBE BID 03/31/16 [History] Chlorhexidine Gluconate [Hibiclens] 15 ml PO BID 05/21/16 [History] Magnesium Hydroxide [Milk of Magnesia] 1 appl TP DAILY PRN 05/21/16 [History] Multivitamin with Iron [Animal Shapes Plus Iron] 1 tab GTUBE DAILY 05/21/16 [ History] Doron/Poly/Analy OINT [Triple Antibiotic Ointment] 1 appl TP BID PRN 05/21/16 [ History] Sodium Chloride 1 gm GTUBE TID 05/21/16 [History] Albuterol Neb [Proventil Neb] 2.5 mg IH Q4HR PRN #30 inhsol 05/25/16 [Rx] Acetaminophen [Tylenol] 15 ml PO QID PRN 03/03/17 [History] Albuterol Sulfate [Ventolin Hfa] 2 puff IH Q4H PRN 03/03/17 [History] Ferrous Sulfate Oral Soln 7 ml GTUBE DAILY 03/03/17 [History] Docusate [Colace] 100 mg GTUBE DAILY PRN 08/06/17 [History] GuaiFENesin Liq [Robitussin Liq] 15 ml PO Q6HR PRN 08/06/17 [History] LORazepam Oral Conc [Ativan Oral Conc] 1 mg GTUBE BID 2 Days #4 mls 08/12/17 [Rx ] Allergies/Adverse Reactions: 3 Allergy/AdvReac Type Severity Reaction Status Date / Time Sulfa (Sulfonamide Allergy Hives Verified 08/04/17 17:38 Antibiotics) Certification: Further, I certify that my clinical findings support that this patient is homebound (i.e. absences from home require considerable and taxing effort and are for medical reasons or buddhism services or infrequently or short duration when for other reasons) because: Homebound Reason: Patient requires assistance of a person or device to safely leave home, Altered mental status requiring supervision when leaving home, Severity of cardiac or pulmonary status limits activity tolerance Attestation: My signature below is to certify that this patient is under my care and that I, or nurse practitioner, or a physician's early childhood assistant working with me, has a face-to -face encounter with this patient.
[2017-08-12] MEDS: Chlorhexidine Rinse 15 ML MOUTHWASH PO SCH (11:00)
[2017-08-12] MEDS: risperiDONE 1 MG TABLET GTUBE SCH (11:00)
[2017-08-12] MEDS: Valproic Acid Oral Soln 250 MG/5 ML UDC GTUBE SCH (11:00)
[2017-08-12] MEDS: Ferrous Sulfate Oral Soln 300 MG/5 ML UDC GTUBE SCH (11:00)
[2017-08-12] MEDS: *HR* LORazepam Oral Conc 2 MG/ML GTUBE SCH (11:00)
[2017-08-12] MEDS: Multivitamin Liquid 15 ML UDC GTUBE SCH (12:40)
[2017-08-12 15:45] VITALS: BP 112/69
== END 2017-08-12 16:58 | disposition home health service (06) | DRG 189 ==
LOC: EMEROO 19:57 → 2NENU 19:57 → SUATTDRO 08-06 04:56
PROVIDERS: ADMIT Internal Medicine Nephrology; ATTEND Internal Medicine

== ENCOUNTER 2018-02-28 09:20 | Inpatient (IN) ==
[2018-02-28 09:47] LABS: Basophils % 0.1 %; Eosinophils % 0.2 %; Hemoglobin 11.3 g/dL (11.5-15.4); Immature Granulocytes % 0.4 % (0-4); Lymphocytes # 0.5 K/mcL (0.6-4.6); Lymphocytes % 3.8 %; Mean Corpuscular HGB Conc 33.2 g/dL (31.6-35.5); Mean Corpuscular Hemoglobin 33.7 pg (28.0-33.3); Mean Corpuscular Volume 101.5 fL (83.0-100.0); Mean Platelet Volume 10.1 fL (9.4-12.4); Monocytes # 1.9 K/mcL (0.0-1.3); Monocytes % 13.5 %; Neutrophils # 11.5 K/mcL (1.6-8.9); Red Blood Count 3.35 M/mcL (3.82-4.97); Red Cell Distribution Width 15.8 % (11.5-14.5)
[2018-02-28 09:48] LABS: Platelet Count 83 K/mcL (140-400)
--- NOTE | 2018-02-28 09:51 | Emergency Department Note ---
Disposition Clinical Impression: HCAP (healthcare-associated pneumonia) Disposition: Admitted As Inpatient Condition: Fair Referrals: NONE,PCP [Primary Care Provider] - Forms: ED Satisfaction Letter General Adult HPI - General Chief complaint: ED Shortness of Breath/Dyspnea Stated complaint: cough Time Seen by Provider: 02/28/18 09:24 Source: EMS Mode of arrival: EMS Limitations: language barrier Nursing Notes Reviewed: Yes Vital Signs Reviewed: Yes - History of Present Illness HPI Narrative: 57-year-old female with MRDD presenting to the emergency with department chief complaint of "not acting like herself". Patient is nonverbal and unable to provide any history of present illness. She was sent by alf facility for not acting like herself and having a wet cough. According to EMS patient does get pneumonia frequently. EMS states a alf facility told them that she had a MAXIMUM TEMPERATURE of 104. Caregiver at bedside today she was given cefdinir approximately 5 days ago for the cough. Has not been getting better. Pain Scale: 0 - Related Data Home Medications Medication Instructions Recorded Confirmed Famotidine [Pepcid] 2.5 ml GTUBE BID 02/10/15 08/06/17 risperiDONE [Risperdal] 4 ml GTUBE BID 02/10/15 08/06/17 Lactose-Reduced Food/Fiber [Jevity 265 ml GTUBE HS 03/29/15 08/06/17 1.5 Alec Liquid] Chlorhexidine Gluconate [Hibiclens] 15 ml PO BID 05/21/16 08/06/17 Magnesium Hydroxide [Milk of 1 appl TP DAILY PRN 05/21/16 08/06/17 Magnesia] Multivitamin with Iron [Animal 1 tab GTUBE DAILY 05/21/16 08/06/17 Shapes Plus Iron] Doron/Poly/Analy OINT [Triple 1 appl TP BID PRN 05/21/16 08/06/17 Antibiotic Ointment] Acetaminophen [Tylenol] 15 ml PO QID PRN 03/03/17 08/06/17 Albuterol Sulfate [Ventolin Hfa] 2 puff IH Q4H PRN 03/03/17 08/06/17 Docusate [Colace] 100 mg GTUBE DAILY PRN 08/06/17 08/06/17 GuaiFENesin Liq [Robitussin Liq] 15 ml PO Q6HR PRN 08/06/17 08/06/17 Previous Rx's Medication Instructions Recorded Albuterol Neb [Proventil Neb] 2.5 mg IH Q4HR PRN #30 inhsol 05/25/16 LORazepam Oral Conc [Ativan Oral 1 mg GTUBE BID 2 Days #4 mls 08/12/17 Conc] Hydrocortisone 1% OINT [Cortaid] 1 appl TP BID #1 tube 12/09/17 Allergies Allergy/AdvReac Type Severity Reaction Status Date / Time Sulfa (Sulfonamide Allergy Hives Verified 02/28/18 09:28 Antibiotics) Limitations: ROS unobtainable due to patients medical condition Past Medical History - Past Medical History Attestation: Yes The following information was validated with the patient. Medical history: Reports: non-contributory Surgical history: Reports: hysterectomy Psychiatric history: Reports: anxiety, bipolar, depression LINE SUPPLY history: Reports: no LINE SUPPLY history - Social History Smoking Status: Never smoker Smokeless Tobacco Status: No Alcohol use: Reports: none Drug use: Reports: none Physical Exam - General Limitations: language barrier General appearance: alert, in no apparent distress - Head Head exam: atraumatic, normocephalic, normal inspection - Eye Eye exam: Present: normal appearance. Absent: scleral icterus, conjunctival injection - ENT ENT exam: mucous membranes dry - Neck Neck exam: Present: normal inspection, full ROM - Chest Chest inspection: Present: normal inspection, symmetric chest wall rise. Absent: tenderness, rash - Respiratory Respiratory exam: Present: other (Coarse upper airway sounds, rhonchi noted in the right upper lobe.) - Cardiovascular Cardiovascular exam: Present: regular rate, normal rhythm, normal heart sounds - Abdominal Exam Abdominal exam: Present: soft, Non-Tender, other (G-tube in place, no redness or discharge from the site). Absent: distention, guarding, rebound - Extremities Exam Extremities exam: Present: normal inspection - Neurological Exam Neurological exam: Present: alert - Skin Skin exam: Present: dry Course Course Narrative: 57-year-old female presenting to the emergency department for a cough and fever. Physical exam shows upper airway congestion and rhonchi on the right upper lobe. Patient is hemodynamically stable. Alert. Physical exam otherwise benign. We will perform a two-view chest x-ray and basic laboratory analysis. Concern for healthcare acquired pneumonia with failure of outpatient therapy. Disposition pending results. Caregiver at bedside. - Reevaluation(s) Reevaluation #1: Patient's laboratory analysis shows leukocytosis at 14. Chronic anemia but othe rwise no acute abnormalities. Chest x-ray concerning for pneumonia. Also concerning for possible free air therefore CT of the abdomen and pelvis was completed that did not show any acute abnormality. At this time we will provide the patient with vancomycin, Zosyn and azithromycin for healthcare acquired pneumonia. She remains hemodynamically stable in the room. We will plan to admit for further treatment. I spoke with the hospitalist on-call Dr. Clarke who agrees to accept the patient at this time. Vital Signs Temperature 98.1 F 02/28/18 09:23 Pulse Rate 82 02/28/18 09:23 Respiratory Rate 20 02/28/18 09:23 Blood Pressure 140/56 02/28/18 09:23 O2 Sat by Pulse Oximetry 95 02/28/18 09:23 Temperature 98.1 F 02/28/18 09:23 Pulse Rate 73 02/28/18 11:19 Respiratory Rate 12 02/28/18 11:19 Blood Pressure 101/56 02/28/18 11:19 O2 Sat by Pulse Oximetry 99 02/28/18 11:19 Oxygen Delivery Oxygen Delivery Nasal Cannula Medical Decision Making - Lab Data Result diagrams: 02/28/18 09:34 02/28/18 09:34 Lab Results 02/28/18 02/28/18 02/28/18 Range/Units 09:34 09:34 09:34 WBC 14.0 H (4.3-11.1) K/mcL RBC 3.35 L (3.82-4.97) M/mcL Hgb 11.3 L (11.5-15.4) g/dL Hct 34.0 L (35.3-44.9) % MCV 101.5 H (83.0-100.0) fL MCH 33.7 H (28.0-33.3) pg MCHC 33.2 (31.6-35.5) g/dL RDW 15.8 H (11.5-14.5) % Plt Count 83 L (140-400) K/mcL MPV 10.1 (9.4-12.4) fL Immature Gran % 0.4 (0-4) % Seg Neutrophils % 82.0 % Lymphocytes % 3.8 % Monocytes % 13.5 % Eosinophils % 0.2 % Basophils % 0.1 % Neutrophils # 11.5 H (1.6-8.9) K/mcL Lymphocytes # 0.5 L (0.6-4.6) K/mcL Monocytes # 1.9 H (0.0-1.3) K/mcL Eosinophils # 0.0 (0.0-0.6) K/mcL Basophils # 0.0 (0.0-0.2) K/mcL Sodium 139 (136-145) mEq/L Potassium 4.5 (3.5-5.1) mEq/L Chloride 100 (98-107) mEq/L Carbon Dioxide 35 H (23-29) mEq/L BUN 32 H (6-20) mg/dL Creatinine 0.75 (0.60-1.20) mg/dL Est GFR ( Amer) > 60 (> 60) Est GFR (Non-Af Amer) > 60 (> 60) BUN/Creatinine Ratio 43 H (6-26) Glucose 96 (70-105) mg/dL Calculated Osmolality 295 (280-300) Lactic Acid 1.1 (0.5-2.2) mmol/L Calcium 9.2 (8.6-10.3) mg/dL Troponin I < 0.03 (< 0.04) ng/mL B-Natriuretic Peptide (Less than 100) pg/mL 02/28/18 Range/Units 09:34 WBC (4.3-11.1) K/mcL RBC (3.82-4.97) M/mcL Hgb (11.5-15.4) g/dL Hct (35.3-44.9) % MCV (83.0-100.0) fL MCH (28.0-33.3) pg MCHC (31.6-35.5) g/dL RDW (11.5-14.5) % Plt Count (140-400) K/mcL MPV (9.4-12.4) fL Immature Gran % (0-4) % Seg Neutrophils % % Lymphocytes % % Monocytes % % Eosinophils % % Basophils % % Neutrophils # (1.6-8.9) K/mcL Lymphocytes # (0.6-4.6) K/mcL Monocytes # (0.0-1.3) K/mcL Eosinophils # (0.0-0.6) K/mcL Basophils # (0.0-0.2) K/mcL Sodium (136-145) mEq/L Potassium (3.5-5.1) mEq/L Chloride (98-107) mEq/L Carbon Dioxide (23-29) mEq/L BUN (6-20) mg/dL Creatinine (0.60-1.20) mg/dL Est GFR ( Amer) (> 60) Est GFR (Non-Af Amer) (> 60) BUN/Creatinine Ratio (6-26) Glucose (70-105) mg/dL Calculated Osmolality (280-300) Lactic Acid (0.5-2.2) mmol/L Calcium (8.6-10.3) mg/dL Troponin I (< 0.04) ng/mL B-Natriuretic Peptide 170 H (Less than 100) pg/mL - EKG Data EKG #1 EKG attestation: Yes I reviewed and interpreted this EKG. EKG results narrative: Sinus rhythm. 81 beats minute. MI interval 157, QRS 87, QTC 445. No sign of acute ST segment elevation or ischemia. Compared to previous EKG completed on 08/05/2017 no significant changes noted
[2018-02-28 10:08] LABS: BUN/Creatinine Ratio 43 (6-26); Blood Urea Nitrogen 32 mg/dL (6-20); Calcium 9.2 mg/dL (8.6-10.3); Carbon Dioxide 35 mEq/L (23-29); Chloride 100 mEq/L (98-107); Glucose 96 mg/dL (70-105); Osmolality,Calculated 295 (280-300); Potassium 4.5 mEq/L (3.5-5.1); Sodium 139 mEq/L (136-145); eGFR For Non-African Americans > 60 (> 60)
[2018-02-28 10:09] LABS: Troponin I < 0.03 ng/mL (< 0.04)
[2018-02-28] MEDS ORDERED: Piperacillin/Tazobactam 4.5 GM in 0.9 % Sodium Chloride Mini Bag 100 ML IVPB ONE (10:20)
--- NOTE | 2018-02-28 10:20 | Emergency Department Note ---
Disposition Clinical Impression: HCAP (healthcare-associated pneumonia) Disposition: Admitted As Inpatient Referrals: NONE,PCP [Primary Care Provider] - Forms: ED Satisfaction Letter General Adult HPI - General Chief complaint: ED Shortness of Breath/Dyspnea Stated complaint: cough Time Seen by Provider: 02/28/18 09:24 Source: EMS Mode of arrival: EMS Limitations: language barrier - History of Present Illness HPI Narrative: Attestation note: Patient was seen with the emergency medicine resident/nurse practitioner/erasmo olmedo metallurgical laboratory assistant/transitional resident/medical student: Dr. YUDELKA STAFFORD I have personally performed a face to face evaluation on this patient. I have reviewed and agree with history and physical examination patient management and disposition. Briefly the salient points of the case are as follows: 57-year-old female by EMS from local residential facility for "decreased mental status". Said the patient normally similar per without assistance and able to walk now both arms are flexed at 90 degrees at the elbow. They felt that she had a very wet sounding cough. Patient is MRDD total care patient at local residential facility. Patient's arms did relax she has a G-tube which is in place functioning and free of infection or bleeding. Chest x-ray and screening labs due to very wet sounding cough certainly suggestive or concerning for aspiration pneumonia Pain Scale: 0 - Related Data Home Medications Medication Instructions Recorded Confirmed Estradiol [Deandra] 0.05 mg TD MOTH 02/10/15 08/06/17 Famotidine [Pepcid] 2.5 ml GTUBE BID 02/10/15 08/06/17 Valproic Acid Oral Soln [Depakene 10 ml GTUBE BID 02/10/15 08/06/17 Oral Soln] risperiDONE [Risperdal] 4 ml GTUBE BID 02/10/15 08/06/17 Citalopram [CeleXA] 20 mg GTUBE DAILY 03/29/15 08/06/17 Lactose-Reduced Food/Fiber [Jevity 265 ml GTUBE HS 03/29/15 08/06/17 1.5 Alec Liquid] Polyethylene Glycol 3350 [MiraLAX] 17 gm GTUBE BID PRN 03/29/15 08/06/17 LORazepam Oral Conc [Ativan Oral 1 mg GTUBE BID 03/31/16 08/06/17 Conc] Chlorhexidine Gluconate [Hibiclens] 15 ml PO BID 05/21/16 08/06/17 Magnesium Hydroxide [Milk of 1 appl TP DAILY PRN 05/21/16 08/06/17 Magnesia] Multivitamin with Iron [Animal 1 tab GTUBE DAILY 05/21/16 08/06/17 Shapes Plus Iron] Doron/Poly/Analy OINT [Triple 1 appl TP BID PRN 05/21/16 08/06/17 Antibiotic Ointment] Sodium Chloride 1 gm GTUBE TID 05/21/16 08/06/17 Acetaminophen [Tylenol] 15 ml PO QID PRN 03/03/17 08/06/17 Albuterol Sulfate [Ventolin Hfa] 2 puff IH Q4H PRN 03/03/17 08/06/17 Ferrous Sulfate Oral Soln 7 ml GTUBE DAILY 03/03/17 08/06/17 Docusate [Colace] 100 mg GTUBE DAILY PRN 08/06/17 08/06/17 GuaiFENesin Liq [Robitussin Liq] 15 ml PO Q6HR PRN 08/06/17 08/06/17 Previous Rx's Medication Instructions Recorded Albuterol Neb [Proventil Neb] 2.5 mg IH Q4HR PRN #30 inhsol 05/25/16 LORazepam Oral Conc [Ativan Oral 1 mg GTUBE BID 2 Days #4 mls 08/12/17 Conc] Hydrocortisone 1% OINT [Cortaid] 1 appl TP BID #1 tube 12/09/17 Allergies Allergy/AdvReac Type Severity Reaction Status Date / Time Sulfa (Sulfonamide Allergy Hives Verified 02/28/18 09:28 Antibiotics) Past Medical History - Past Medical History Medical history: Reports: non-contributory Surgical history: Reports: hysterectomy Psychiatric history: Reports: anxiety, bipolar, depression RECONCILIATION COORDINATOR history: Reports: no RECONCILIATION COORDINATOR history - Social History Smoking Status: Never smoker Smokeless Tobacco Status: No Alcohol use: Reports: none Drug use: Reports: none Physical Exam - General Limitations: language barrier General appearance: alert, in no apparent distress Course Vital Signs Temperature 98.1 F 02/28/18 09:23 Pulse Rate 82 02/28/18 09:23 Respiratory Rate 20 02/28/18 09:23 Blood Pressure 140/56 02/28/18 09:23 O2 Sat by Pulse Oximetry 95 02/28/18 09:23 Temperature 98.1 F 02/28/18 09:23 Pulse Rate 82 02/28/18 09:23 Respiratory Rate 20 02/28/18 09:23 Blood Pressure 140/56 02/28/18 09:23 O2 Sat by Pulse Oximetry 96 02/28/18 09:45 Oxygen Delivery Oxygen Delivery Nasal Cannula Medical Decision Making - Lab Data Result diagrams: 02/28/18 09:34 02/28/18 09:34 Lab Results 02/28/18 02/28/18 02/28/18 Range/Units 09:34 09:34 09:34 WBC 14.0 H (4.3-11.1) K/mcL RBC 3.35 L (3.82-4.97) M/mcL Hgb 11.3 L (11.5-15.4) g/dL Hct 34.0 L (35.3-44.9) % MCV 101.5 H (83.0-100.0) fL MCH 33.7 H (28.0-33.3) pg MCHC 33.2 (31.6-35.5) g/dL RDW 15.8 H (11.5-14.5) % Plt Count 83 L (140-400) K/mcL MPV 10.1 (9.4-12.4) fL Immature Gran % 0.4 (0-4) % Seg Neutrophils % 82.0 % Lymphocytes % 3.8 % Monocytes % 13.5 % Eosinophils % 0.2 % Basophils % 0.1 % Neutrophils # 11.5 H (1.6-8.9) K/mcL Lymphocytes # 0.5 L (0.6-4.6) K/mcL Monocytes # 1.9 H (0.0-1.3) K/mcL Eosinophils # 0.0 (0.0-0.6) K/mcL Basophils # 0.0 (0.0-0.2) K/mcL Sodium 139 (136-145) mEq/L Potassium 4.5 (3.5-5.1) mEq/L Chloride 100 (98-107) mEq/L Carbon Dioxide 35 H (23-29) mEq/L BUN 32 H (6-20) mg/dL Creatinine 0.75 (0.60-1.20) mg/dL Est GFR ( Amer) > 60 (> 60) Est GFR (Non-Af Amer) > 60 (> 60) BUN/Creatinine Ratio 43 H (6-26) Glucose 96 (70-105) mg/dL Calculated Osmolality 295 (280-300) Calcium 9.2 (8.6-10.3) mg/dL Troponin I < 0.03 (< 0.04) ng/mL B-Natriuretic Peptide 170 H (Less than 100) pg/mL
[2018-02-28] MEDS ORDERED: Azithromycin 500 MG in D5% in Water 250 ML IVPB ONE (10:22)
[2018-02-28] MEDS: 0.9 % Sodium Chloride 1,000 ML IVC SCH ×2 (12:21→13:30)
--- NOTE | 2018-02-28 14:17 | Internal Med History&Physical ---
Date of Encounter: 02/28/18 Time of Encounter: 14:17 Internal Medicine - H&P: HPI Chief complaint: cough and fever History of present illness: Ms. Mayberry is a 57 year old female with MRDD presenting with changing of MS , productive cough and fever. The patient was treated by ABs as an outpatient with no significant improvement. The patient was evaluated by the ER staff and her labs revealed elevated WBCs, two-view chest x-ray raised a concern for healthcare acquired pneumonia. The patient is non - verbal and was not able to provide any history, The patient was admitted for further evaluation and management Past Med Surg Social Fam HX - Past Medical History Medical history: non-contributory Additional medical history: MRDD. Nonverbal Psychiatric history: anxiety, bipolar, depression - Past Surgical History Surgical History: hysterectomy Additional surgical history: g-tube - Social History Smoking Status: Never smoker Smokeless Tobacco Status: No Alcohol use: none Drug use: none - Family History Mother History Unknown: Yes Internal Medicine - H&P: Meds RX: Famotidine [Pepcid] 20 mg GTUBE BID 02/10/15 [History] RX: risperiDONE [Risperdal] 4 ml GTUBE BID 02/10/15 [History] RX: Lactose-Reduced Food/Fiber [Jevity 1.5 Alec Liquid] 265 ml GTUBE HS 03/29/15 [History] RX: Magnesium Hydroxide [Milk of Magnesia] 1 appl TP DAILY PRN 05/21/16 [History] RX: Multivitamin with Iron [Animal Shapes Plus Iron] 1 tab GTUBE DAILY 05/21/16 [History] RX: Doron/Poly/Analy OINT [Triple Antibiotic Ointment] 1 appl TP BID PRN 05/21/16 [History] RX: Albuterol Neb [Proventil Neb] 2.5 mg IH Q4HR PRN #30 inhsol 05/25/16 [Rx] RX: Acetaminophen [Tylenol] 15 ml PO QID PRN 03/03/17 [History] RX: Albuterol Sulfate [Ventolin Hfa] 2 puff IH Q4H PRN 03/03/17 [History] RX: GuaiFENesin Liq [Robitussin Liq] 10 ml PO Q6HR PRN 08/06/17 [History] RX: LORazepam Oral Conc [Ativan Oral Conc] 1 mg GTUBE BID 2 Days #4 mls 08/12/17 [Rx] RX: Cefdinir [Omnicef] 300 mg PO BID 02/28/18 [History] RX: Cetirizine HCl [Zyrtec] 10 mg PO DAILY 02/28/18 [History] RX: Citalopram [CeleXA] 20 mg GTUBE DAILY 02/28/18 [History] RX: Docusate Sodium [Diocto] 40 mg PO BID 02/28/18 [History] RX: Estradiol [Climara] 0.05 mg TD MOTH 02/28/18 [History] RX: Ferrous Sulfate 308 mg PO DAILY 02/28/18 [History] RX: Polyethylene Glycol 3350 [MiraLAX] 17 gm PO DAILY 02/28/18 [History] RX: Sodium Chloride [Sodium Chloride Tab] 1 gm PO BID 02/28/18 [History] RX: Valproic Acid Oral Soln [Depakene Oral Soln] 500 mg PO 0700,1500 02/28/18 [History] RX: Valproic Acid Oral Soln [Depakene Oral Soln] 750 mg PO 2100 02/28/18 [History] RX: Whey Protein Isolate [Beneprotein] 1 each GTUBE BID 02/28/18 [History] Allergy/AdvReac Type Severity Reaction Status Date / Time Sulfa (Sulfonamide Allergy Hives Verified 02/28/18 09:28 Antibiotics) ROS unobtainable: due to mental status All Systems PM: A 10-system review of systems was performed and is negative for pertinent findings except as documented above in the HPI. - Constitutional Vitals: Temp Pulse Resp BP Pulse Ox 98.1 F 64 12 83/49 99 02/28/18 09:23 02/28/18 13:22 02/28/18 13:22 02/28/18 13:22 02/28/18 13:22 General appearance: Present: no acute distress Exam: As below - Head Head exam: Present: atraumatic, normocephalic - Neck Neck exam general surgery: Present: supple, trachea midline. Absent: lymphadenopathy - Respiratory Respiratory exam: Present: decreased breath sounds, rhonchi. Absent: accessory muscle use, rales, wheezes - Cardiovascular Cardiovascular exam: Present: RRR, +S1, +S2. Absent: diastolic murmur, gallop, rubs, systolic murmur - Extremities Exam Extremities exam: Present: warm, radial pulses palpable and symmetrical. Absent: calf tenderness, cyanotic, pedal edema Internal Med - H&P Results - Labs CBC & Chem 7: 03/04/18 04:08 03/04/18 04:08 Labs: Short CBC 02/28/18 Range/Units 09:34 WBC 14.0 H (4.3-11.1) K/mcL Hgb 11.3 L (11.5-15.4) g/dL Hct 34.0 L (35.3-44.9) % Plt Count 83 L (140-400) K/mcL Neutrophils # 11.5 H (1.6-8.9) K/mcL BMP 02/28/18 09:34 Sodium 139 Potassium 4.5 Chloride 100 Carbon Dioxide 35 H BUN 32 H Creatinine 0.75 Glucose 96 Calcium 9.2 Cardiac Enzymes 02/28/18 Range/Units 09:34 Troponin I < 0.03 (< 0.04) ng/mL - Impressions ITS Impressions Chest X-Ray 02/28/18 09:26 IMPRESSION: Mild dependent bibasilar opacification, possibly infiltrates. Lucency below the right hemidiaphragm raising the possibility of free air. Distended bowel loops were noted below the right hemidiaphragm on previous CT in 2014. If there is clinical concern for free air, consider follow-up decubitus abdomen or CT. Critical results were called by Dr. Mahesh Alfonso MD to Lissetet Lang on 02/28/2018 at 10:05am. D/ / Mahesh Alfonso MD / Mahesh Alfonso MD Interpreting Provider: Mahesh Alfonso MD Abdomen/Pelvis CT 02/28/18 10:07 IMPRESSION: 1. View of lung bases shows bilateral basilar pneumonia. Clinical correlation recommended. 2. Large amount of stool seen throughout colon. 3. No bowel obstruction, free air, or free fluid. D/ / Keyon Chavez / Keyon Chavez Interpreting Provider: Keyon Chavez - Assessment and plan (1) HCAP (healthcare-associated pneumonia) Status: Acute Assessment and plan: ASSESSMENT: - Pneumonia - Blood Cx - Urine Legionella antigen - Antibiotics - CBCD, CMP in AM - Tylenol 650 mg PO q 4-6 hr PRN pain or fever - Home meds - check the list and restart accordingly (2) Bipolar disease, chronic Status: Chronic Assessment and plan: We will cont home meds (3) Anemia Status: Chronic Qualifiers: Anemia type: other cause Other causes of anemia: other cause, not classified Qualified Code(s): D64.89 - Other specified anemias (4) GERD (gastroesophageal reflux disease) Status: Chronic Qualifiers: Esophagitis presence: without esophagitis Qualified Code(s): K21.9 - Gastro-esophageal reflux disease without esophagitis (5) Mental retardation Status: Chronic (6) DVT prophylaxis Status: Acute Assessment and plan: Heparin 5000 BID - Time Spent With Patient Total time spent is greater than 50% in coordination of care (as documented) at patient's floor/unit and/or counseling patient:
[2018-02-28] MEDS ORDERED: Naloxone 0.4 MG/ML INJ IVP PRN (14:18)
[2018-02-28] MEDS ORDERED: Acetaminophen 325 MG TABLET PO PRN (14:18)
[2018-02-28 15:00] LABS: Basophils % 0.1 %; Eosinophils % 0.2 %; Immature Granulocytes % 0.3 % (0-4); Mean Corpuscular Volume 102.9 fL (83.0-100.0); Red Cell Distribution Width 15.9 % (11.5-14.5)
[2018-02-28 15:02] LABS: Hematocrit 28.1 % (35.3-44.9); Hemoglobin 9.2 g/dL (11.5-15.4); Immature Platelets 4.7 % (1.1-6.1); Lymphocytes # 1.7 K/mcL (0.6-4.6); Lymphocytes % 11.9 %; Mean Corpuscular HGB Conc 32.7 g/dL (31.6-35.5); Mean Corpuscular Hemoglobin 33.7 pg (28.0-33.3); Mean Platelet Volume 10.3 fL (9.4-12.4); Monocytes # 1.8 K/mcL (0.0-1.3); Monocytes % 12.9 %; Neutrophils # 10.4 K/mcL (1.6-8.9); Red Blood Count 2.73 M/mcL (3.82-4.97); Segmented Neutrophils % 74.6 %
[2018-02-28 15:04] LABS: Platelet Count 70 K/mcL (140-400)
[2018-02-28 15:18] LABS: Chol/HDL Ratio 3.4 (0-4.9)
[2018-02-28] MEDS ORDERED: Neosporin OINT 1 APPL PACKET TP PRN (20:57)
[2018-02-28] MEDS ORDERED: Albuterol 2.5 MG/3 ML NEBULIZER IH PRN (20:57)
[2018-02-28] MEDS ORDERED: WHEY PROTEIN ISOLATE GTUBE SCH (21:00)
[2018-02-28] MEDS ORDERED: [UNRECOGNIZED DRUG - OTHER] GTUBE SCH (21:00)
[2018-02-28] MEDS ORDERED: FIBER GTUBE SCH (21:00)
[2018-02-28] MEDS ORDERED: RISPERIDONE GTUBE SCH (21:00)
[2018-02-28] MEDS ORDERED: LACTOSE REDUCED FOOD GTUBE SCH (21:00)
[2018-02-28] MEDS ORDERED: risperiDONE 1 MG, risperiDONE 3 MG PO SCH (21:45)
[2018-02-28] MEDS ORDERED: Vancomycin (wt based) 1,000 MG VIAL IVPB SCH (22:00)
[2018-02-28] MEDS: Loratadine 10 MG TABLET PO SCH (22:31)
[2018-02-28] MEDS: *HR* LORazepam 1 MG TABLET GTUBE SCH (22:31)
[2018-02-28] MEDS: Docusate Oral Soln 100 MG/10 ML UDC GTUBE SCH (22:32)
[2018-02-28] MEDS: risperiDONE 1 MG, risperiDONE 3 MG GTUBE SCH (22:32)
[2018-02-28] MEDS: Ferrous Sulfate Oral Soln 300 MG/5 ML UDC PO SCH (22:34)
[2018-02-28 22:57] LABS: Immature Granulocytes % 0.3 % (0-4); Lymphocytes % 12.4 %; Red Cell Distribution Width 15.9 % (11.5-14.5)
[2018-02-28 22:59] LABS: Basophils % 0.1 %; Eosinophils # 0.1 K/mcL (0.0-0.6); Eosinophils % 0.7 %; Hematocrit 31.3 % (35.3-44.9); Immature Platelets 5.7 % (1.1-6.1); Lymphocytes # 1.3 K/mcL (0.6-4.6); Mean Corpuscular HGB Conc 31.9 g/dL (31.6-35.5); Mean Corpuscular Hemoglobin 32.9 pg (28.0-33.3); Mean Platelet Volume 10.6 fL (9.4-12.4); Monocytes # 1.1 K/mcL (0.0-1.3); Monocytes % 10.1 %; Neutrophils # 8.1 K/mcL (1.6-8.9); Red Blood Count 3.04 M/mcL (3.82-4.97); Segmented Neutrophils % 76.4 %
[2018-02-28 23:01] LABS: Platelet Count 74 K/mcL (140-400)
[2018-03-01] MEDS: Piperacillin/Tazobactam 3.375 GM in 0.9 % Sodium Chloride Mini Bag 100 ML IVPB SCH ×3 (00:41→16:53)
[2018-03-01 05:29] LABS: Alanine Aminotransferase 44 Units/L (7-52); Albumin 2.8 g/dL (3.5-5.7); Albumin/Globulin Ratio 0.8 (1.1-2.2); Alkaline Phosphatase 197 Units/L (34-104); Aspartate Amino Transferase 60 Units/L (13-39); BUN/Creatinine Ratio 47 (6-26); Bilirubin,Total 0.4 mg/dL (0.3-1.0); Blood Urea Nitrogen 28 mg/dL (6-20); Calcium 8.7 mg/dL (8.6-10.3); Carbon Dioxide 32 mEq/L (23-29); Chloride 105 mEq/L (98-107); Globulin 3.4 g/dL (2.4-3.5); Glucose 111 mg/dL (70-105); Magnesium 1.7 mg/dL (1.6-2.6); Osmolality,Calculated 292 (280-300); Phosphorous 2.5 mg/dL (2.7-4.5); Potassium 4.2 mEq/L (3.5-5.1); Sodium 138 mEq/L (136-145); Total Protein 6.2 g/dL (6.4-8.9); eGFR For Non-African Americans > 60 (> 60)
[2018-03-01] MEDS: *HR* Heparin 5,000 UNIT/ML VIAL SQ SCH ×2 (06:20→16:55)
[2018-03-01] MEDS: Famotidine 20 MG TABLET GTUBE SCH ×2 (06:28→16:53)
[2018-03-01] MEDS: Valproic Acid Oral Soln 250 MG/5 ML UDC PO SCH ×3 (06:28→20:18)
--- NOTE | 2018-03-01 09:42 | Internal Med Progress Note ---
<Dale Hsu S - Last Filed: 03/01/18 11:21> Hospitalist Progress Note - Encounter Date of Encounter: 03/01/18 Time of Encounter: 09:40 - Subjective Interval History: Pt is seen at the bedside. She was admitted yesterday for productive cough and fever. The pt has a hx of MRDD and is nonverbal/noncommunicative. The pt was treated as an outpt according to H&P and had no improvement. In the ER the pt had a 2view CXR that was concerning for HCAP. Today the pt is seen and she answers no questions. Nursing staff reports no overnight events. - Exam Vitals: Temp Pulse Resp BP Pulse Ox 97.5 F L 70 18 108/47 95 03/01/18 07:08 03/01/18 07:08 03/01/18 07:08 03/01/18 07:08 03/01/18 07:30 Exam: General - AOx0, NAD, laying in bed HEENT - NCAT, mucus membranes moist Cardio - RRR, CTA, no mrg Lungs - bilateral diffuse rhonchi Abd - NTND, no rebound or guarding, no masses palpated Extremities - no edema Skin - no rash, lesions, or open wounds - Assessment and Plan (1) HCAP (healthcare-associated pneumonia) Current Visit: Yes Status: Acute Assessment and Plan: Pt with MRDD presented with increasing cough/productive cough CXR on 02/28 -Mild dependent bibasilar opacification, possibly infiltrates. Pt remains afebrile, not tacycardic -WBC count on admission is 10.6 -doesn't meet SIRS criteria RSV and Influenza swabs negative Plan: - most likely bacterial pneumonia - Blood Cx pending - Urine Legionella antigen - On Vancomycin , levofloxacin and Zosyn day 1 - Tylenol 650 mg PO q 4-6 hr PRN pain or fever - Check CBC/CMP in the morning (2) Bipolar disease, chronic Current Visit: No Status: Chronic Assessment and Plan: Chronic -continue home meds -on risperidone, citrlopram , valproic acid (3) Chronic hyponatremia Current Visit: No Status: Inactive Assessment and Plan: Pt is on salt tablets -has hx of chronic hyponatremia - sodium today is 138 (4) GERD (gastroesophageal reflux disease) Current Visit: No Status: Chronic Assessment and Plan: Chronic -on pepsid (5) Anemia Current Visit: No Status: Chronic Assessment and Plan: Hemoglobin 10, MCV 103 -chronic -baseline appears to be around 10 -will check iron profile, B12 and folic acid -most likel nutritional deficiency (6) DVT prophylaxis Current Visit: No Status: Acute Assessment and Plan: Heparin 5000 BID (7) Mental retardation Current Visit: No Status: Chronic Assessment and Plan: Chronic -nonverbal (8) Acute respiratory failure with hypoxia Current Visit: Yes Status: Resolved Assessment and Plan: See plan as per above. -Pt presented in acute respiratory failure, O2 sat was 95% on 2L. Pt was requiring up to 4L of O2 to maintain O2 sat. -currently O2 sat is 95% on NC - Time Spent with Patient Total time spent is greater than 50% in coordination of care (as documented) at patient's floor/unit and/or counseling patient: less than 15 minutes Plan of Care Discussed with: patient Internal Medicine: Result - Labs CBC & Chem 7: 02/28/18 22:48 03/01/18 04:22 Labs: Short CBC 02/28/18 02/28/18 02/28/18 Range/Units 09:34 14:44 22:48 WBC 14.0 H 13.9 H 10.6 (4.3-11.1) K/mcL Hgb 11.3 L 9.2 L D 10.0 L (11.5-15.4) g/dL Hct 34.0 L 28.1 L 31.3 L (35.3-44.9) % Plt Count 83 L 70 L 74 L (140-400) K/mcL Neutrophils # 11.5 H 10.4 H 8.1 (1.6-8.9) K/mcL BMP 02/28/18 03/01/18 09:34 04:22 Sodium 139 138 Potassium 4.5 4.2 Chloride 100 105 Carbon Dioxide 35 H 32 H BUN 32 H 28 H Creatinine 0.75 0.59 L Glucose 96 111 H Calcium 9.2 8.7 Cardiac Enzymes 02/28/18 02/28/18 02/28/18 Range/Units 09:34 14:44 20:19 Troponin I < 0.03 < 0.03 < 0.03 (< 0.04) ng/mL 03/01/18 Range/Units 04:22 Troponin I < 0.03 (< 0.04) ng/mL Liver Function 03/01/18 Range/Units 04:22 Total Bilirubin 0.4 (0.3-1.0) mg/dL AST 60 H (13-39) Units/L ALT 44 (7-52) Units/L Alkaline Phosphatase 197 H (34-104) Units/L Albumin 2.8 L (3.5-5.7) g/dL - Impressions Impressions Chest X-Ray 02/28/18 09:26 IMPRESSION: Mild dependent bibasilar opacification, possibly infiltrates. Lucency below the right hemidiaphragm raising the possibility of free air. Distended bowel loops were noted below the right hemidiaphragm on previous CT in 2014. If there is clinical concern for free air, consider follow-up decubitus abdomen or CT. Critical results were called by Dr. Mahesh Alfonso MD to Lissette Lang on 02/28/2018 at 10:05am. D/ / Mahesh Alfonso MD / Mahesh Alfonso MD Interpreting Provider: Mahesh Alfonso MD Abdomen/Pelvis CT 02/28/18 10:07 IMPRESSION: 1. View of lung bases shows bilateral basilar pneumonia. Clinical correlation recommended. 2. Large amount of stool seen throughout colon. 3. No bowel obstruction, free air, or free fluid. D/ / Keyon Chavez / Keyon Chavez Interpreting Provider: Keyon Chavez Consult Discharge Plan - Plan Referrals: Ronald Thomas MD [Partnered Physician] - 03/09/18 2:15 pm <Kel Menendez - Last Filed: 03/01/18 17:24> Hospitalist Progress Note - Exam Vitals: Temp Pulse Resp BP Pulse Ox 97.8 F 60 18 100/55 95 03/01/18 12:45 03/01/18 12:45 03/01/18 12:45 03/01/18 12:45 03/01/18 12:45 - Assessment and Plan (1) Bipolar disease, chronic Current Visit: No Status: Chronic (2) Chronic hyponatremia Current Visit: No Status: Inactive (3) GERD (gastroesophageal reflux disease) Current Visit: No Status: Chronic (4) Anemia Current Visit: No Status: Chronic (5) DVT prophylaxis Current Visit: No Status: Acute (6) HCAP (healthcare-associated pneumonia) Current Visit: Yes Status: Acute (7) Mental retardation Current Visit: No Status: Chronic (8) Acute respiratory failure with hypoxia Current Visit: Yes Status: Resolved - Time Spent with Patient Total time spent is greater than 50% in coordination of care (as documented) at patient's floor/unit and/or counseling patient: Internal Medicine: Result - Labs CBC & Chem 7: 02/28/18 22:48 03/01/18 04:22 Labs: Short CBC 02/28/18 Range/Units 22:48 WBC 10.6 (4.3-11.1) K/mcL Hgb 10.0 L (11.5-15.4) g/dL Hct 31.3 L (35.3-44.9) % Plt Count 74 L (140-400) K/mcL Neutrophils # 8.1 (1.6-8.9) K/mcL BMP 03/01/18 04:22 Sodium 138 Potassium 4.2 Chloride 105 Carbon Dioxide 32 H BUN 28 H Creatinine 0.59 L Glucose 111 H Calcium 8.7 Cardiac Enzymes 02/28/18 03/01/18 Range/Units 20:19 04:22 Troponin I < 0.03 < 0.03 (< 0.04) ng/mL Liver Function 03/01/18 Range/Units 04:22 Total Bilirubin 0.4 (0.3-1.0) mg/dL AST 60 H (13-39) Units/L ALT 44 (7-52) Units/L Alkaline Phosphatase 197 H (34-104) Units/L Albumin 2.8 L (3.5-5.7) g/dL - Attending Attestation I examined this patient and my medical decision-making was reviewed with the Resident Physician Dr. Hsu. I agree with the documented findings, disposition and treatment plan as described except to the extent set forth below. Ms. Mayberry is a 57 year old female with MRDD presenting with changing of MS , productive cough and fever. Her CXR showed b/l infiltrates. She was admitted in the hospital and started her on broad spec abx Zosyn, Levaquin and Vanc. She still has lot of junky secretions. Chest: Worsening resp secretions, ronchi+ wheezing + Heart: S1S2 + RRR a/p 1. Sepsis with PNA 2. MLL PNA - mostly bacterial + also high risk for aspiration PNA cont broad spec abx will ask RT for deep suctioning since she still has lot of secretions 3. Dysphasia Cont tube feedings <Dale Hsu - Last Filed: 03/01/18 11:21> (4) GERD (gastroesophageal reflux disease) Qualifiers: Esophagitis presence: without esophagitis Qualified Code(s): K21.9 - Gastro-esophageal reflux disease without esophagitis (5) Anemia Qualifiers: Anemia type: other cause Other causes of anemia: other cause, not classified Qualified Code(s): D64.89 - Other specified anemias <Kel Menendez - Last Filed: 03/01/18 17:24> (3) GERD (gastroesophageal reflux disease) Qualifiers: Esophagitis presence: without esophagitis Qualified Code(s): K21.9 - Gastro- esophageal reflux disease without esophagitis (4) Anemia Qualifiers: Anemia type: other cause Other causes of anemia: other cause, not classified Qualified Code(s): D64.89 - Other specified anemias
[2018-03-01] MEDS: Ferrous Sulfate Oral Soln 300 MG/5 ML UDC PO SCH (09:44)
[2018-03-01] MEDS: Docusate Oral Soln 100 MG/10 ML UDC GTUBE SCH ×2 (09:44→20:19)
[2018-03-01] MEDS: Loratadine 10 MG TABLET PO SCH (09:44)
[2018-03-01] MEDS: *HR* LORazepam 1 MG TABLET GTUBE SCH ×2 (09:46→20:20)
[2018-03-01] MEDS: Levofloxacin 750 MG/150 ML 750 MG/150 ML BAG IVPB SCH (09:46)
[2018-03-01] MEDS: risperiDONE 1 MG, risperiDONE 3 MG GTUBE SCH ×2 (13:25→20:19)
[2018-03-01] MEDS: ESTRADIOL 0.05 MG TD SCH (13:26)
[2018-03-01] MEDS: Multivitamin Liquid 15 ML UDC GTUBE SCH (13:26)
[2018-03-02 03:29] LABS: Basophils % 0.2 %; Immature Granulocytes % 0.3 % (0-4)
[2018-03-02 03:31] LABS: Eosinophils # 0.1 K/mcL (0.0-0.6); Eosinophils % 1.5 %; Hematocrit 27.7 % (35.3-44.9); Immature Platelets 6.4 % (1.1-6.1); Lymphocytes # 1.6 K/mcL (0.6-4.6); Mean Corpuscular HGB Conc 32.5 g/dL (31.6-35.5); Mean Corpuscular Hemoglobin 33.6 pg (28.0-33.3); Mean Corpuscular Volume 103.4 fL (83.0-100.0); Mean Platelet Volume 10.8 fL (9.4-12.4); Monocytes # 0.6 K/mcL (0.0-1.3); Monocytes % 10.6 %; Neutrophils # 3.6 K/mcL (1.6-8.9); Red Blood Count 2.68 M/mcL (3.82-4.97); Red Cell Distribution Width 15.8 % (11.5-14.5); Segmented Neutrophils % 60.4 %
[2018-03-02 03:32] LABS: Platelet Count 74 K/mcL (140-400)
[2018-03-02 03:49] LABS: % Iron Saturation 31 % (15-50); Iron 78 mcg/dL (50-170); Transferrin 181 mg/dL (203-362)
[2018-03-02 03:51] LABS: Alanine Aminotransferase 57 Units/L (7-52); Albumin 2.7 g/dL (3.5-5.7); Albumin/Globulin Ratio 0.8 (1.1-2.2); Alkaline Phosphatase 225 Units/L (34-104); Aspartate Amino Transferase 81 Units/L (13-39); BUN/Creatinine Ratio 35 (6-26); Bilirubin,Total 0.4 mg/dL (0.3-1.0); Blood Urea Nitrogen 21 mg/dL (6-20); Calcium 8.6 mg/dL (8.6-10.3); Carbon Dioxide 31 mEq/L (23-29); Chloride 105 mEq/L (98-107); Globulin 3.3 g/dL (2.4-3.5); Glucose 116 mg/dL (70-105); Osmolality,Calculated 296 (280-300); Potassium 3.9 mEq/L (3.5-5.1); Sodium 141 mEq/L (136-145); eGFR For Non-African Americans > 60 (> 60)
[2018-03-02 04:15] LABS: Vitamin B12 1465 pg/mL (250-1100)
[2018-03-02 04:19] LABS: Folate > 22.3 ng/mL (3.0-16.0)
[2018-03-02] MEDS: *HR* Heparin 5,000 UNIT/ML VIAL SQ SCH ×2 (05:14→16:15)
[2018-03-02] MEDS: Valproic Acid Oral Soln 250 MG/5 ML UDC PO SCH ×3 (05:15→20:33)
[2018-03-02] MEDS: Famotidine 20 MG TABLET GTUBE SCH ×2 (05:15→14:52)
--- NOTE | 2018-03-02 08:20 | Internal Med Progress Note ---
<Dale Hsu S - Last Filed: 03/02/18 10:47> Hospitalist Progress Note - Encounter Date of Encounter: 03/02/18 Time of Encounter: 08:18 - Subjective Interval History: Pt is seen at the bedside. She was admitted yesterday for productive cough and fever. The pt has a hx of MRDD and is nonverbal/noncommunicative. The pt was treated as an outpt according to H&P and had no improvement. In the ER the pt had a 2view CXR that was concerning for HCAP. Today the pt is seen and she answers no questions. Nursing staff reports no overnight events. She is allowing staff to suction her secretions - Exam Vitals: Temp Pulse Resp BP Pulse Ox 97.8 F 68 16 90/51 91 03/02/18 07:09 03/02/18 07:09 03/02/18 07:09 03/02/18 07:09 03/02/18 07:09 Exam: General - AOx0, NAD, laying in bed HEENT - NCAT, mucus membranes moist Cardio - RRR, CTA, no mrg Lungs - bilateral diffuse rhonchi has improved since yesterday Abd - NTND, no rebound or guarding, no masses palpated Extremities - no edema Skin - no rash, lesions, or open wounds - Assessment and Plan (1) HCAP (healthcare-associated pneumonia) Current Visit: Yes Status: Acute Assessment and Plan: Pt with MRDD presented with increasing cough/productive cough; today pt has clinically improved. Rhonchi on lung exam have diminished CXR on 02/28 -Mild dependent bibasilar opacification, possibly infiltrates. Pt remains afebrile, not tacycardic -WBC count on admission is 10.6, today is 5.9 -doesn't meet SIRS criteria RSV and Influenza swabs negative Plan: - most likely bacterial pneumonia - Blood Cx pending - Urine Legionella antigen pending - On Vancomycin , levofloxacin and Zosyn day 2 ; plan to de-escalate abx tomorrow if clinical improvement continues - Tylenol 650 mg PO q 4-6 hr PRN pain or fever - Check CBC/CMP in the morning - continue DuoNebs and suctioning of secretions (2) Bipolar disease, chronic Current Visit: No Status: Chronic Assessment and Plan: Chronic -continue home meds -on risperidone, citrlopram , valproic acid (3) Chronic hyponatremia Current Visit: No Status: Inactive Assessment and Plan: Pt is on salt tablets -has hx of chronic hyponatremia - sodium today is 141 (4) GERD (gastroesophageal reflux disease) Current Visit: No Status: Chronic Assessment and Plan: Chronic -on pepsid (5) Anemia Current Visit: No Status: Chronic Assessment and Plan: Hemoglobin 10, MCV 103 on admission -chronic Today Hgb is 5.9, MCV 103.4 -baseline appears to be around 10 Iron profile -Fe 78, Fe saturation 31%, transferrin 181 B12 1465 Folate >22.3 (6) DVT prophylaxis Current Visit: Yes Status: Acute Assessment and Plan: Heparin 5000 BID (7) Mental retardation Current Visit: No Status: Chronic Assessment and Plan: Chronic -nonverbal (8) Acute respiratory failure with hypoxia Current Visit: Yes Status: Resolved Assessment and Plan: See plan as per above. -Pt presented in acute respiratory failure, O2 sat was 95% on 2L. Pt was requiring up to 4L of O2 to maintain O2 sat. -currently O2 sat is 97% on NC - Time Spent with Patient Total time spent is greater than 50% in coordination of care (as documented) at patient's floor/unit and/or counseling patient: less than 15 minutes Plan of Care Discussed with: patient Internal Medicine: Result - Labs CBC & Chem 7: 03/02/18 03:01 03/02/18 03:01 Labs: Short CBC 03/02/18 Range/Units 03:01 WBC 5.9 (4.3-11.1) K/mcL Hgb 9.0 L (11.5-15.4) g/dL Hct 27.7 L (35.3-44.9) % Plt Count 74 L (140-400) K/mcL Neutrophils # 3.6 (1.6-8.9) K/mcL BMP 03/02/18 03:01 Sodium 141 Potassium 3.9 Chloride 105 Carbon Dioxide 31 H BUN 21 H Creatinine 0.60 Glucose 116 H Calcium 8.6 Liver Function 03/02/18 Range/Units 03:01 Total Bilirubin 0.4 (0.3-1.0) mg/dL AST 81 H (13-39) Units/L ALT 57 H (7-52) Units/L Alkaline Phosphatase 225 H (34-104) Units/L Albumin 2.7 L (3.5-5.7) g/dL Consult Discharge Plan - Plan Referrals: Ronald Thomas MD [Partnered Physician] - 03/09/18 2:15 pm <Fito Jordan - Last Filed: 03/02/18 16:31> Hospitalist Progress Note - Exam Vitals: Temp Pulse Resp BP Pulse Ox 98.2 F 68 18 94/59 96 03/02/18 12:04 03/02/18 12:04 03/02/18 15:47 03/02/18 12:04 03/02/18 15:47 - Assessment and Plan (1) Bipolar disease, chronic Current Visit: No Status: Chronic (2) Chronic hyponatremia Current Visit: No Status: Inactive (3) GERD (gastroesophageal reflux disease) Current Visit: No Status: Chronic (4) Anemia Current Visit: No Status: Chronic (5) DVT prophylaxis Current Visit: Yes Status: Acute (6) HCAP (healthcare-associated pneumonia) Current Visit: Yes Status: Acute (7) Mental retardation Current Visit: No Status: Chronic (8) Acute respiratory failure with hypoxia Current Visit: Yes Status: Resolved - Time Spent with Patient Total time spent is greater than 50% in coordination of care (as documented) at patient's floor/unit and/or counseling patient: Internal Medicine: Result - Labs CBC & Chem 7: 03/02/18 03:01 03/02/18 03:01 Labs: Short CBC 03/02/18 Range/Units 03:01 WBC 5.9 (4.3-11.1) K/mcL Hgb 9.0 L (11.5-15.4) g/dL Hct 27.7 L (35.3-44.9) % Plt Count 74 L (140-400) K/mcL Neutrophils # 3.6 (1.6-8.9) K/mcL BMP 03/02/18 03:01 Sodium 141 Potassium 3.9 Chloride 105 Carbon Dioxide 31 H BUN 21 H Creatinine 0.60 Glucose 116 H Calcium 8.6 Liver Function 03/02/18 Range/Units 03:01 Total Bilirubin 0.4 (0.3-1.0) mg/dL AST 81 H (13-39) Units/L ALT 57 H (7-52) Units/L Alkaline Phosphatase 225 H (34-104) Units/L Albumin 2.7 L (3.5-5.7) g/dL - Attending Attestation I examined this patient and my medical decision-making was reviewed with the Resident Physician. I agree with the documented findings, disposition and treatment plan as described except to the extent set forth below. Wean O2 and de-escalate abx as tolerated. <Dale Hsu - Last Filed: 03/02/18 10:47> (4) GERD (gastroesophageal reflux disease) Qualifiers: Esophagitis presence: without esophagitis Qualified Code(s): K21.9 - Gastro-esophageal reflux disease without esophagitis (5) Anemia Qualifiers: Anemia type: other cause Other causes of anemia: other cause, not classified Qualified Code(s): D64.89 - Other specified anemias <Fito Jordan - Last Filed: 03/02/18 16:31> (3) GERD (gastroesophageal reflux disease) Qualifiers: Esophagitis presence: without esophagitis Qualified Code(s): K21.9 - Gastro- esophageal reflux disease without esophagitis (4) Anemia Qualifiers: Anemia type: other cause Other causes of anemia: other cause, not classified Qualified Code(s): D64.89 - Other specified anemias
[2018-03-02] MEDS: Ipratropium/Albuterol Neb 3 ML IH SCH ×5 (09:20→23:57)
[2018-03-02] MEDS: Piperacillin/Tazobactam 3.375 GM in 0.9 % Sodium Chloride Mini Bag 100 ML IVPB SCH ×3 (09:23→16:07)
[2018-03-02] MEDS: Loratadine 10 MG TABLET PO SCH (09:25)
[2018-03-02] MEDS: Ferrous Sulfate Oral Soln 300 MG/5 ML UDC PO SCH (09:25)
[2018-03-02] MEDS: risperiDONE 1 MG, risperiDONE 3 MG GTUBE SCH ×2 (09:25→20:33)
[2018-03-02] MEDS: Multivitamin Liquid 15 ML UDC GTUBE SCH (09:25)
[2018-03-02] MEDS: GuaiFENesin Liq 200 MG/10 ML UDC PO PRN ×2 (09:25→16:17)
[2018-03-02] MEDS: *HR* LORazepam 1 MG TABLET GTUBE SCH ×2 (09:26→20:33)
[2018-03-02] MEDS: Docusate Oral Soln 100 MG/10 ML UDC GTUBE SCH ×2 (09:26→20:33)
[2018-03-02] MEDS: Levofloxacin 750 MG/150 ML 750 MG/150 ML BAG IVPB SCH (09:26)
[2018-03-03] MEDS: Piperacillin/Tazobactam 3.375 GM in 0.9 % Sodium Chloride Mini Bag 100 ML IVPB SCH ×2 (00:35→10:13)
[2018-03-03] MEDS: Ipratropium/Albuterol Neb 3 ML IH SCH ×6 (04:21→23:58)
[2018-03-03] MEDS: *HR* Heparin 5,000 UNIT/ML VIAL SQ SCH ×2 (04:43→19:03)
[2018-03-03 04:50] LABS: Basophils % 0.2 %; Eosinophils % 0.9 %; Immature Granulocytes % 0.2 % (0-4); Red Blood Count 2.68 M/mcL (3.82-4.97)
[2018-03-03 04:52] LABS: Hematocrit 27.5 % (35.3-44.9); Lymphocytes % 31.5 %; Mean Corpuscular HGB Conc 32.7 g/dL (31.6-35.5); Mean Corpuscular Hemoglobin 33.6 pg (28.0-33.3); Mean Corpuscular Volume 102.6 fL (83.0-100.0); Mean Platelet Volume 10.6 fL (9.4-12.4); Monocytes % 17.4 %; Neutrophils # 2.1 K/mcL (1.6-8.9); Red Cell Distribution Width 15.8 % (11.5-14.5); Segmented Neutrophils % 49.8 %
[2018-03-03 04:55] LABS: Lymphocytes # 1.4 K/mcL (0.6-4.6); Monocytes # 0.8 K/mcL (0.0-1.3); Platelet Count 87 K/mcL (140-400)
[2018-03-03 05:11] LABS: Alanine Aminotransferase 53 Units/L (7-52); Albumin 2.8 g/dL (3.5-5.7); Albumin/Globulin Ratio 0.8 (1.1-2.2); Alkaline Phosphatase 243 Units/L (34-104); Aspartate Amino Transferase 69 Units/L (13-39); BUN/Creatinine Ratio 31 (6-26); Bilirubin,Total 0.3 mg/dL (0.3-1.0); Blood Urea Nitrogen 20 mg/dL (6-20); Calcium 8.9 mg/dL (8.6-10.3); Carbon Dioxide 32 mEq/L (23-29); Chloride 102 mEq/L (98-107); Globulin 3.4 g/dL (2.4-3.5); Glucose 131 mg/dL (70-105); Osmolality,Calculated 294 (280-300); Potassium 4.1 mEq/L (3.5-5.1); Sodium 140 mEq/L (136-145); Total Protein 6.2 g/dL (6.4-8.9); eGFR For Non-African Americans > 60 (> 60)
[2018-03-03] MEDS ORDERED: Aminoglycoside Consult 1 EACH MC ONE (07:04)
[2018-03-03] MEDS: Levofloxacin 750 MG/150 ML 750 MG/150 ML BAG IVPB SCH (08:18)
[2018-03-03] MEDS: Docusate Oral Soln 100 MG/10 ML UDC GTUBE SCH ×2 (08:26→21:32)
[2018-03-03] MEDS: Ferrous Sulfate Oral Soln 300 MG/5 ML UDC PO SCH (08:27)
[2018-03-03] MEDS: Valproic Acid Oral Soln 250 MG/5 ML UDC PO SCH ×3 (08:28→21:30)
[2018-03-03] MEDS: Loratadine 10 MG TABLET PO SCH (08:29)
[2018-03-03] MEDS: Famotidine 20 MG TABLET GTUBE SCH ×2 (08:29→15:25)
[2018-03-03] MEDS: *HR* LORazepam 1 MG TABLET GTUBE SCH ×2 (08:29→21:33)
[2018-03-03] MEDS: risperiDONE 1 MG, risperiDONE 3 MG GTUBE SCH ×2 (08:29→21:33)
[2018-03-03] MEDS: Multivitamin Liquid 15 ML UDC GTUBE SCH (08:29)
--- NOTE | 2018-03-03 09:16 | Internal Med Progress Note ---
<Dale Hsu S - Last Filed: 03/03/18 12:06> Hospitalist Progress Note - Encounter Date of Encounter: 03/03/18 Time of Encounter: 09:14 - Subjective Interval History: Pt is seen at the bedside. She was admitted yesterday for productive cough and fever. The pt has a hx of MRDD and is nonverbal/noncommunicative. The pt was treated as an outpt according to H&P and had no improvement. In the ER the pt had a 2view CXR that was concerning for HCAP. Today the pt is seen and she answers no questions. Nursing staff reports no overnight events. She is allowing staff to suction her secretions - Exam Vitals: Temp Pulse Resp BP Pulse Ox 99.0 F 65 20 115/62 94 03/03/18 08:32 03/03/18 08:48 03/03/18 08:32 03/03/18 08:32 03/03/18 08:40 Exam: General - AOx0, NAD, laying in bed HEENT - NCAT, mucus membranes moist Cardio - RRR, CTA, no mrg Lungs - bilateral diffuse rhonchi has improved since yesterday Abd - NTND, no rebound or guarding, no masses palpated Extremities - no edema Skin - no rash, lesions, or open wounds - Assessment and Plan (1) HCAP (healthcare-associated pneumonia) Current Visit: Yes Status: Acute Assessment and Plan: Pt with MRDD presented with increasing cough/productive cough; today pt has clinically improved. Rhonchi on lung exam have diminished CXR on 02/28 -Mild dependent bibasilar opacification, possibly infiltrates. Pt remains afebrile, not tacycardic -WBC count on admission is 10.6, today is 4.3 -doesn't meet SIRS criteria RSV and Influenza swabs negative Plan: - most likely bacterial pneumonia - Blood Cx pending - Urine Legionella antigen pending - Vancomycin , levofloxacin --- discontinued; continue Zosyn day 3 for a total of 7 days - Tylenol 650 mg PO q 4-6 hr PRN pain or fever - Check CBC/CMP in the morning - continue DuoNebs and suctioning of secretions - dispo: d/c tomorrow as long as clinically stable (2) Bipolar disease, chronic Current Visit: No Status: Chronic Assessment and Plan: Chronic -continue home meds -on risperidone, citrlopram , valproic acid (3) Chronic hyponatremia Current Visit: No Status: Inactive Assessment and Plan: Pt is on salt tablets -has hx of chronic hyponatremia - sodium today is 140 (4) GERD (gastroesophageal reflux disease) Current Visit: No Status: Chronic Assessment and Plan: Chronic -on pepsid (5) Anemia Current Visit: No Status: Chronic Assessment and Plan: Hemoglobin 10, MCV 103 on admission -chronic Today Hgb is 5.9, MCV 103.4 -baseline appears to be around 10 Iron profile -Fe 78, Fe saturation 31%, transferrin 181 B12 1465 Folate >22.3 (6) DVT prophylaxis Current Visit: Yes Status: Acute Assessment and Plan: Heparin 5000 BID (7) Mental retardation Current Visit: No Status: Chronic Assessment and Plan: Chronic -nonverbal (8) Acute respiratory failure with hypoxia Current Visit: Yes Status: Resolved Assessment and Plan: See plan as per above. -Pt presented in acute respiratory failure, O2 sat was 95% on 2L. Pt was requiring up to 4L of O2 to maintain O2 sat. -currently O2 sat is 94% RA - Time Spent with Patient Total time spent is greater than 50% in coordination of care (as documented) at patient's floor/unit and/or counseling patient: less than 15 minutes Plan of Care Discussed with: patient Internal Medicine: Result - Labs CBC & Chem 7: 03/03/18 04:12 03/03/18 04:12 Labs: Short CBC 03/03/18 Range/Units 04:12 WBC 4.3 (4.3-11.1) K/mcL Hgb 9.0 L (11.5-15.4) g/dL Hct 27.5 L (35.3-44.9) % Plt Count 87 L (140-400) K/mcL Neutrophils # 2.1 (1.6-8.9) K/mcL BMP 03/03/18 04:12 Sodium 140 Potassium 4.1 Chloride 102 Carbon Dioxide 32 H BUN 20 Creatinine 0.64 Glucose 131 H Calcium 8.9 Liver Function 03/03/18 Range/Units 04:12 Total Bilirubin 0.3 (0.3-1.0) mg/dL AST 69 H (13-39) Units/L ALT 53 H (7-52) Units/L Alkaline Phosphatase 243 H (34-104) Units/L Albumin 2.8 L (3.5-5.7) g/dL Consult Discharge Plan - Plan Referrals: Ronald Thomas MD [Partnered Physician] - 03/09/18 2:15 pm <Fito Jordan - Last Filed: 03/03/18 14:07> Hospitalist Progress Note - Exam Vitals: Temp Pulse Resp BP Pulse Ox 98.2 F 74 16 102/80 99 03/03/18 11:05 03/03/18 11:39 03/03/18 11:20 03/03/18 11:05 03/03/18 11:20 - Assessment and Plan (1) Bipolar disease, chronic Current Visit: No Status: Chronic (2) Chronic hyponatremia Current Visit: No Status: Inactive (3) GERD (gastroesophageal reflux disease) Current Visit: No Status: Chronic (4) Anemia Current Visit: No Status: Chronic (5) DVT prophylaxis Current Visit: Yes Status: Acute (6) HCAP (healthcare-associated pneumonia) Current Visit: Yes Status: Acute (7) Mental retardation Current Visit: No Status: Chronic (8) Acute respiratory failure with hypoxia Current Visit: Yes Status: Resolved - Time Spent with Patient Total time spent is greater than 50% in coordination of care (as documented) at patient's floor/unit and/or counseling patient: Internal Medicine: Result - Labs CBC & Chem 7: 03/03/18 04:12 03/03/18 04:12 Labs: Short CBC 03/03/18 Range/Units 04:12 WBC 4.3 (4.3-11.1) K/mcL Hgb 9.0 L (11.5-15.4) g/dL Hct 27.5 L (35.3-44.9) % Plt Count 87 L (140-400) K/mcL Neutrophils # 2.1 (1.6-8.9) K/mcL BMP 03/03/18 04:12 Sodium 140 Potassium 4.1 Chloride 102 Carbon Dioxide 32 H BUN 20 Creatinine 0.64 Glucose 131 H Calcium 8.9 Liver Function 03/03/18 Range/Units 04:12 Total Bilirubin 0.3 (0.3-1.0) mg/dL AST 69 H (13-39) Units/L ALT 53 H (7-52) Units/L Alkaline Phosphatase 243 H (34-104) Units/L Albumin 2.8 L (3.5-5.7) g/dL - Attending Attestation I examined this patient and my medical decision-making was reviewed with the Resident Physician. I agree with the documented findings, disposition and treatment plan as described except to the extent set forth below. __ <Dale Hsu - Last Filed: 03/03/18 12:06> (4) GERD (gastroesophageal reflux disease) Qualifiers: Esophagitis presence: without esophagitis Qualified Code(s): K21.9 - Gastro- esophageal reflux disease without esophagitis (5) Anemia Qualifiers: Anemia type: other cause Other causes of anemia: other cause, not classified Qualified Code(s): D64.89 - Other specified anemias <Fito Jordan - Last Filed: 03/03/18 14:07> (3) GERD (gastroesophageal reflux disease) Qualifiers: Esophagitis presence: without esophagitis Qualified Code(s): K21.9 - Gastro- esophageal reflux disease without esophagitis (4) Anemia Qualifiers: Anemia type: other cause Other causes of anemia: other cause, not classified Qualified Code(s): D64.89 - Other specified anemias
[2018-03-04] MEDS: Ipratropium/Albuterol Neb 3 ML IH SCH ×4 (04:00→16:43)
[2018-03-04 04:39] LABS: Basophils % 0.2 %; Eosinophils # 0.1 K/mcL (0.0-0.6); Eosinophils % 2.1 %; Hematocrit 28.2 % (35.3-44.9); Hemoglobin 9.2 g/dL (11.5-15.4); Immature Granulocytes % 0.2 % (0-4); Lymphocytes # 1.5 K/mcL (0.6-4.6); Mean Corpuscular HGB Conc 32.6 g/dL (31.6-35.5); Mean Corpuscular Hemoglobin 33.6 pg (28.0-33.3); Mean Corpuscular Volume 102.9 fL (83.0-100.0); Mean Platelet Volume 10.7 fL (9.4-12.4); Monocytes # 0.6 K/mcL (0.0-1.3); Monocytes % 14.9 %; Neutrophils # 2.1 K/mcL (1.6-8.9); Platelet Count 103 K/mcL (140-400); Red Blood Count 2.74 M/mcL (3.82-4.97); Red Cell Distribution Width 16.1 % (11.5-14.5); Segmented Neutrophils % 48.6 %
[2018-03-04 04:56] LABS: Alanine Aminotransferase 50 Units/L (7-52); Albumin 3.1 g/dL (3.5-5.7); Albumin/Globulin Ratio 0.9 (1.1-2.2); Alkaline Phosphatase 263 Units/L (34-104); Aspartate Amino Transferase 64 Units/L (13-39); BUN/Creatinine Ratio 32 (6-26); Bilirubin,Total 0.3 mg/dL (0.3-1.0); Blood Urea Nitrogen 19 mg/dL (6-20); Calcium 9.1 mg/dL (8.6-10.3); Carbon Dioxide 33 mEq/L (23-29); Chloride 102 mEq/L (98-107); Globulin 3.6 g/dL (2.4-3.5); Glucose 106 mg/dL (70-105); Osmolality,Calculated 291 (280-300); Potassium 4.4 mEq/L (3.5-5.1); Sodium 139 mEq/L (136-145); Total Protein 6.7 g/dL (6.4-8.9); eGFR For Non-African Americans > 60 (> 60)
[2018-03-04] MEDS: *HR* Heparin 5,000 UNIT/ML VIAL SQ SCH (05:13)
--- NOTE | 2018-03-04 07:58 | Electrocardiograph Report ---
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
[2018-03-04] MEDS ORDERED: levoFLOXacin 750 MG TABLET PO SCH (09:00)
[2018-03-04] MEDS: Ferrous Sulfate Oral Soln 300 MG/5 ML UDC PO SCH (09:38)
[2018-03-04] MEDS: Docusate Oral Soln 100 MG/10 ML UDC GTUBE SCH (09:38)
[2018-03-04] MEDS: Multivitamin Liquid 15 ML UDC GTUBE SCH (09:38)
[2018-03-04] MEDS: Loratadine 10 MG TABLET PO SCH (09:39)
[2018-03-04] MEDS: *HR* LORazepam 1 MG TABLET GTUBE SCH (09:39)
[2018-03-04] MEDS: Famotidine 20 MG TABLET GTUBE SCH (09:39)
[2018-03-04] MEDS: risperiDONE 1 MG, risperiDONE 3 MG GTUBE SCH (09:39)
--- NOTE | 2018-03-04 10:44 | Discharge Summary ---
<Dale Hsu S - Last Filed: 03/04/18 11:12> - NOTES TO OUTPATIENT PROVIDER Notes to Outpatient Provider: Follow up to ensure breathing status has improved. Orders not resulted at time of discharge: Pending orders 02/28/18 21:13 Culture,Sputum with Gram Stain [RM] Routine 02/28/18 22:48 Culture,Blood [BC] Routine Date of Encounter: 03/04/18 Time of Encounter: 08:22 - Discharge Diagnosis (1) HCAP (healthcare-associated pneumonia) Priority: Primary Status: Acute (2) Bipolar disease, chronic Priority: Secondary Status: Chronic (3) Chronic hyponatremia Priority: Secondary Status: Inactive (4) GERD (gastroesophageal reflux disease) Priority: Secondary Status: Chronic Qualifiers: Esophagitis presence: without esophagitis Qualified Code(s): K21.9 - Gastro-esophageal reflux disease without esophagitis (5) Anemia Priority: Secondary Status: Chronic Qualifiers: Anemia type: other cause Other causes of anemia: other cause, not classified Qualified Code(s): D64.89 - Other specified anemias (6) DVT prophylaxis Priority: Secondary Status: Acute (7) Mental retardation Priority: Secondary Status: Chronic (8) Acute respiratory failure with hypoxia Priority: Secondary Status: Resolved Hospital course: MMs. Mayberry is a 57 year old female with MRDD, GERD, bipolar disorder. She presented from alf for increasing productive cough/fever. She was initially tx outpt and showed no improvement so was brought in. On admission the pt had a WBC count of 14, which subsequently decreased to 10.6 then 5. 2V xray showed concern for HCAP. Pt is nonverbal, no hx from pt was obtained. She was treated with Levaquin, Vanc and Zosyn x 2 days before de-escalating to just levaquin after showing signs of clinical improvement. Nursing reports no overnight events. The pt is stable for discharge and will go home with 3 more days of levaquin PO for a total of 7 days of tx. Discharge discussed with: patient Time spent discussing smoking cessation with patient: 3 to 10 minutes - Time Spent with Patient Total time spent providing and/or coordinating discharge services: Less than 30 minutes - Discharge Medications Prescriptions: levoFLOXacin [Levaquin] 750 mg PO DAILY 3 Days #3 tablet Home Medications: Famotidine [Pepcid] 20 mg GTUBE BID 02/10/15 [History] risperiDONE [Risperdal] 4 ml GTUBE BID 02/10/15 [History] Lactose-Reduced Food/Fiber [Jevity 1.5 Alec Liquid] 265 ml GTUBE HS 03/29/15 [History] Magnesium Hydroxide [Milk of Magnesia] 1 appl TP DAILY PRN 05/21/16 [History] Multivitamin with Iron [Animal Shapes Plus Iron] 1 tab GTUBE DAILY 05/21/16 [History] Doron/Poly/Analy OINT [Triple Antibiotic Ointment] 1 appl TP BID PRN 05/21/16 [History] Albuterol Neb [Proventil Neb] 2.5 mg IH Q4HR PRN #30 inhsol 05/25/16 [Rx] Acetaminophen [Tylenol] 15 ml PO QID PRN 03/03/17 [History] Albuterol Sulfate [Ventolin Hfa] 2 puff IH Q4H PRN 03/03/17 [History] GuaiFENesin Liq [Robitussin Liq] 10 ml PO Q6HR PRN 08/06/17 [History] LORazepam Oral Conc [Ativan Oral Conc] 1 mg GTUBE BID 2 Days #4 mls 08/12/17 [Rx] Cefdinir [Omnicef] 300 mg PO BID 02/28/18 [History] Cetirizine HCl [Zyrtec] 10 mg PO DAILY 02/28/18 [History] Citalopram [CeleXA] 20 mg GTUBE DAILY 02/28/18 [History] Docusate Sodium [Diocto] 40 mg PO BID 02/28/18 [History] Estradiol [Climara] 0.05 mg TD MOTH 02/28/18 [History] Ferrous Sulfate 308 mg PO DAILY 02/28/18 [History] Polyethylene Glycol 3350 [MiraLAX] 17 gm PO DAILY 02/28/18 [History] Sodium Chloride [Sodium Chloride Tab] 1 gm PO BID 02/28/18 [History] Valproic Acid Oral Soln [Depakene Oral Soln] 500 mg PO 0700,1500 02/28/18 [History] Valproic Acid Oral Soln [Depakene Oral Soln] 750 mg PO 2100 02/28/18 [History] Whey Protein Isolate [Beneprotein] 1 each GTUBE BID 02/28/18 [History] levoFLOXacin [Levaquin] 750 mg PO DAILY 3 Days #3 tablet 03/04/18 [Rx] Allergies/Adverse Reactions: Allergy/AdvReac Type Severity Reaction Status Date / Time Sulfa (Sulfonamide Allergy Hives Verified 02/28/18 09:28 Antibiotics) Date of admission: 02/28/18 17:16 Primary care physician: PCP NONE Consults: 02/28/18 21:14 Consult to Nurse Navigator [CONS] Routine Comment: 02/28/18 23:38 Consult to Shrimp Cleaner [CONS] Routine Reason for SW Consult: Discharge planning Patient is from [facility] with 2L oxygen via [employer] per caregiver. She also gets tube feedings overnight reportedly through [facility]. Discharging clinician: Dale Hsu Anticipated date of discharge: 03/04/18 - Constitutional Vitals: Temp Pulse Resp BP Pulse Ox 97.5 F L 64 18 102/50 100 03/04/18 07:00 03/04/18 07:00 03/04/18 07:43 03/04/18 04:09 03/04/18 07:43 General appearance: Present: no acute distress Exam: General - AOx0, NAD, laying in bed HEENT - NCAT, mucus membranes moist Cardio - RRR, CTA, no mrg Lungs - bilateral diffuse rhonchi has improved since yesterday Abd - NTND, no rebound or guarding, no masses palpated Extremities - no edema Skin - no rash, lesions, or open wounds - Patient Status Disposition: Transfer SNF Condition: Fair Functional capacity at discharge: bed bound Overall status at discharge: patient is progressing back to baseline - Discharge Instructions Instructions: Acute Respiratory Distress Syndrome (DC) Follow Up With: Ronald Thomas MD [Partnered Physician] - 03/09/18 2:15 pm - Diet and Activity Activity: increase activity as tolerated Diet: other <Fito Jordan - Last Filed: 03/04/18 15:32> Orders not resulted at time of discharge: Pending orders 02/28/18 21:13 Culture,Sputum with Gram Stain [RM] Routine 02/28/18 22:48 Culture,Blood [BC] Routine - Discharge Diagnosis (1) Bipolar disease, chronic Status: Chronic (2) Chronic hyponatremia Status: Inactive (3) GERD (gastroesophageal reflux disease) Status: Chronic Qualifiers: Esophagitis presence: without esophagitis Qualified Code(s): K21.9 - Gastro-esophageal reflux disease without esophagitis (4) Anemia Status: Chronic Qualifiers: Anemia type: other cause Other causes of anemia: other cause, not classified Qualified Code(s): D64.89 - Other specified anemias (5) DVT prophylaxis Status: Acute (6) HCAP (healthcare-associated pneumonia) Status: Acute (7) Mental retardation Status: Chronic (8) Acute respiratory failure with hypoxia Status: Resolved Hospital course: Ms. Mayberry is a 57 year old female - Time Spent with Patient Total time spent providing and/or coordinating discharge services: Date of admission: 02/28/18 17:16 Primary care physician: PCP NONE Consults: 02/28/18 21:14 Consult to Nurse Navigator [CONS] Routine Comment: 02/28/18 23:38 Consult to Shrimp Cleaner [CONS] Routine Reason for SW Consult: Discharge planning Patient is from [facility] with 2L oxygen via [employer] per caregiver. She also gets tube feedings overnight reportedly through [facility]. - Constitutional Vitals: Temp Pulse Resp BP Pulse Ox 97.5 F L 65 16 115/56 99 03/04/18 09:00 03/04/18 09:00 03/04/18 13:57 03/04/18 13:57 03/04/18 13:57 - Attending Attestation I examined this patient and my medical decision-making was reviewed with the Resident Physician. I agree with the documented findings, disposition and treatment plan as described except to the extent set forth below.
--- NOTE | 2018-03-04 10:45 | Physician Discharge Referral ---
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 Addendum entered and electronically signed by Dale Hsu 03/04/18 11:49: Note: needs ptot referral and is going to [facility], not [facility] Addendum entered and electronically signed by Dale Hsu 03/04/18 11:14: Pt requires 2L oxygen Original Note: <Dale Hsu - Last Filed: 03/04/18 11:13> ExtendedCare Referral Info Transfer To: [facility] Provider in Charge after Transfer: PCP Institutional Level of Care: Skilled - Diagnosis (1) HCAP (healthcare-associated pneumonia) Priority: Primary Status: Acute (2) Acute respiratory failure with hypoxia Priority: Secondary Status: Resolved (3) Bipolar disease, chronic Priority: Secondary Status: Chronic (4) Chronic hyponatremia Priority: Secondary Status: Inactive (5) GERD (gastroesophageal reflux disease) Priority: Secondary Status: Chronic (6) Anemia Priority: Secondary Status: Chronic (7) DVT prophylaxis Priority: Secondary Status: Acute (8) Mental retardation Priority: Secondary Status: Chronic Prognosis: Fair - Transfer Medications Prescriptions: levoFLOXacin [Levaquin] 750 mg PO DAILY 3 Days #3 tablet Home Medications: Famotidine [Pepcid] 20 mg GTUBE BID 02/10/15 [History] risperiDONE [Risperdal] 4 ml GTUBE BID 02/10/15 [History] Lactose-Reduced Food/Fiber [Jevity 1.5 Alec Liquid] 265 ml GTUBE HS 03/29/15 [History] Magnesium Hydroxide [Milk of Magnesia] 1 appl TP DAILY PRN 05/21/16 [History] Multivitamin with Iron [Animal Shapes Plus Iron] 1 tab GTUBE DAILY 05/21/16 [History] Doron/Poly/Analy OINT [Triple Antibiotic Ointment] 1 appl TP BID PRN 05/21/16 [History] Albuterol Neb [Proventil Neb] 2.5 mg IH Q4HR PRN #30 inhsol 05/25/16 [Rx] Acetaminophen [Tylenol] 15 ml PO QID PRN 03/03/17 [History] Albuterol Sulfate [Ventolin Hfa] 2 puff IH Q4H PRN 03/03/17 [History] GuaiFENesin Liq [Robitussin Liq] 10 ml PO Q6HR PRN 03/29/18 [History] LORazepam Oral Conc [Ativan Oral Conc] 1 mg GTUBE BID 2 Days #4 mls 08/12/17 [Rx] Cefdinir [Omnicef] 300 mg PO BID 02/28/18 [History] Cetirizine HCl [Zyrtec] 10 mg PO DAILY 02/28/18 [History] Citalopram [CeleXA] 20 mg GTUBE DAILY 02/28/18 [History] Docusate Sodium [Diocto] 40 mg PO BID 02/28/18 [History] Estradiol [Climara] 0.05 mg TD MOTH 02/28/18 [History] Ferrous Sulfate 308 mg PO DAILY 02/28/18 [History] Polyethylene Glycol 3350 [MiraLAX] 17 gm PO DAILY 02/28/18 [History] Sodium Chloride [Sodium Chloride Tab] 1 gm PO BID 02/28/18 [History] Valproic Acid Oral Soln [Depakene Oral Soln] 500 mg PO 0700,1500 02/28/18 [History] Valproic Acid Oral Soln [Depakene Oral Soln] 750 mg PO 2100 02/28/18 [History] Whey Protein Isolate [Beneprotein] 1 each GTUBE BID 02/28/18 [History] levoFLOXacin [Levaquin] 750 mg PO DAILY 3 Days #3 tablet 03/04/18 [Rx] Allergies/Adverse Reactions: Allergy/AdvReac Type Severity Reaction Status Date / Time Sulfa (Sulfonamide Allergy Hives Verified 02/28/18 09:28 Antibiotics) - Respiratory Orders None Smoking Cessation: Smoking cessation has been advised. For more information, call the [place] Tobacco Quit Line at 1-318-PPDE-NOW. - Advance Directives Code Status: Full Code - Mobility Orders Chair - Rehabiliation Orders Rehab Potential: Fair CERTIFICATION: I certify that the transfer of the above named patient to an Extended Care Facility is necessary for the continuing treatment of the diagnosis listed. The above information is true and accurate reflection of patient's current condition. Confidential - Redisclosure prohibited without a patient's written consent. <Fito Jordan - Last Filed: 03/04/18 15:33> - Diagnosis (1) Bipolar disease, chronic Status: Chronic (2) Chronic hyponatremia Status: Inactive (3) GERD (gastroesophageal reflux disease) Status: Chronic (4) Anemia Status: Chronic (5) DVT prophylaxis Status: Acute (6) HCAP (healthcare-associated pneumonia) Status: Acute (7) Mental retardation Status: Chronic (8) Acute respiratory failure with hypoxia Status: Resolved - Respiratory Orders Smoking Cessation: Smoking cessation has been advised. For more information, call the [place] Tobacco Quit Line at 8-942-SKWJ-NOW. CERTIFICATION: I certify that the transfer of the above named patient to an Extended Care Facility is necessary for the continuing treatment of the diagnosis listed. The above information is true and accurate reflection of patient's current condition. Confidential - Redisclosure prohibited without a patient's written consent. I examined this patient and my medical decision-making was reviewed with the Resident Physician. I agree with the documented findings, disposition and treatment plan as described except to the extent set forth below.
[2018-03-04] MEDS: Valproic Acid Oral Soln 250 MG/5 ML UDC PO SCH (11:38)
[2018-03-04] MEDS: ESTRADIOL 0.05 MG TD SCH (11:38)
[2018-03-04 13:58] VITALS: BP 115/56
--- NOTE | 2018-03-04 14:43 | Electrocardiograph Report ---
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
== END 2018-03-04 16:10 | DRG 871 ==
LOC: 2ANU 09:20 → EMEROOARM 09:20 → 2NNU 16:12 → SUATTDRO 17:16 → 2NNU 18:41
PROVIDERS: ADMIT Internal Medicine Nephrology; ATTEND Student in an Organized Health Care Education/Training Program

== ENCOUNTER 2019-05-17 04:29 | Inpatient (IN) ==
[2019-05-17] MEDS ORDERED: Ipratropium/Albuterol Neb 3 ML IH ONE (04:35)
[2019-05-17] MEDS ORDERED: cefTRIAXone 1,000 MG in 0.9 % Sodium Chloride Mini Bag 100 ML IVPB ONE (05:21)
[2019-05-17] MEDS ORDERED: Azithromycin 500 MG in 0.9 % Sodium Chloride 250 ML IVPB ONE (05:21)
[2019-05-17 05:49] LABS: Basophils % 0.1 %; Eosinophils # 0.1 K/mcL (0.0-0.6); Hematocrit 33.8 % (35.3-44.9); Hemoglobin 11.3 g/dL (11.5-15.4); Immature Granulocytes % 0.1 % (0-4); Lymphocytes # 0.5 K/mcL (0.6-4.6); Lymphocytes % 6.6 %; Mean Corpuscular HGB Conc 33.4 g/dL (31.6-35.5); Mean Corpuscular Hemoglobin 35.3 pg (28.0-33.3); Mean Corpuscular Volume 105.6 fL (83.0-100.0); Mean Platelet Volume 10.8 fL (9.4-12.4); Monocytes # 1.3 K/mcL (0.0-1.3); Monocytes % 16.4 %; Neutrophils # 5.9 K/mcL (1.6-8.9); Platelet Count 108 K/mcL (140-400); Red Cell Distribution Width 13.4 % (11.5-14.5); Segmented Neutrophils % 75.8 %; White Blood Count 7.9 K/mcL (4.3-11.1)
[2019-05-17 06:06] LABS: BUN/Creatinine Ratio 48 (6-26); Blood Urea Nitrogen 30 mg/dL (8-23); Calcium 9.5 mg/dL (8.6-10.3); Carbon Dioxide 37 mEq/L (23-29); Chloride 96 mEq/L (98-107); Glucose 82 mg/dL (70-105); Osmolality,Calculated 297 (280-300); Potassium 4.7 mEq/L (3.5-5.1); Sodium 141 mEq/L (136-145); Troponin I < 0.03 ng/mL (< 0.04); eGFR For African Americans > 60 (> 60); eGFR For Non-African Americans > 60 (> 60)
[2019-05-17] MEDS ORDERED: MOM Conc 10 ML UD.LIQ GTUBE PRN (08:53)
[2019-05-17] MEDS ORDERED: Acetaminophen 160 MG/5 ML UDC PO PRN (08:53)
[2019-05-17] MEDS ORDERED: Neosporin OINT 1 APPL PACKET TP PRN (08:53)
[2019-05-17] MEDS ORDERED: GuaiFENesin Liq 200 MG/10 ML UDC GTUBE PRN ×2 (08:53)
[2019-05-17] MEDS ORDERED: WHEY PROTEIN ISOLATE GTUBE SCH (09:00)
[2019-05-17] MEDS: Piperacillin/Tazobactam 3.375 GM in 0.9 % Sodium Chloride Mini Bag 100 ML IVPB SCH ×2 (09:23→16:12)
[2019-05-17] MEDS: Albuterol 2.5 MG/3 ML NEBULIZER IH SCH ×4 (10:18→22:35)
[2019-05-17] MEDS: risperiDONE 1 MG TABLET GTUBE SCH ×2 (11:58→21:50)
[2019-05-17] MEDS: Multivit/Ca/Min/Fe/FA 1 TAB TABLET GTUBE SCH (11:58)
[2019-05-17] MEDS: *HR* LORazepam Oral Conc 2 MG/ML GTUBE SCH ×2 (13:15→21:50)
[2019-05-17] MEDS: Ferrous Sulfate Oral Soln 300 MG/5 ML UDC GTUBE SCH (14:08)
[2019-05-17] MEDS: Valproic Acid Oral Soln 250 MG/5 ML UDC GTUBE SCH ×2 (14:08→21:50)
[2019-05-18] MEDS: Piperacillin/Tazobactam 3.375 GM in 0.9 % Sodium Chloride Mini Bag 100 ML IVPB SCH ×3 (02:18→15:23)
[2019-05-18] MEDS: Albuterol 2.5 MG/3 ML NEBULIZER IH SCH ×4 (04:18→21:39)
[2019-05-18 05:25] LABS: Hemoglobin 10.3 g/dL (11.5-15.4); Mean Corpuscular Volume 103.4 fL (83.0-100.0)
[2019-05-18 05:26] LABS: Hematocrit 30.4 % (35.3-44.9); Immature Platelets 4.6 % (1.1-6.1); Mean Corpuscular HGB Conc 33.9 g/dL (31.6-35.5); Mean Platelet Volume 10.6 fL (9.4-12.4); Red Blood Count 2.94 M/mcL (3.82-4.97); Red Cell Distribution Width 14.1 % (11.5-14.5); White Blood Count 9.3 K/mcL (4.3-11.1)
[2019-05-18 05:45] LABS: BUN/Creatinine Ratio 30 (6-26); Blood Urea Nitrogen 23 mg/dL (8-23); Carbon Dioxide 31 mEq/L (23-29); Chloride 98 mEq/L (98-107); Sodium 137 mEq/L (136-145)
[2019-05-18 05:46] LABS: Glucose 82 mg/dL (70-105); Osmolality,Calculated 287 (280-300); eGFR For African Americans > 60 (> 60); eGFR For Non-African Americans > 60 (> 60)
[2019-05-18] MEDS: Ferrous Sulfate Oral Soln 300 MG/5 ML UDC GTUBE SCH (08:05)
[2019-05-18] MEDS: Multivit/Ca/Min/Fe/FA 1 TAB TABLET GTUBE SCH (08:05)
[2019-05-18] MEDS: Valproic Acid Oral Soln 250 MG/5 ML UDC GTUBE SCH ×2 (08:05→19:29)
[2019-05-18] MEDS: risperiDONE 1 MG TABLET GTUBE SCH ×2 (08:06→19:29)
[2019-05-18] MEDS: *HR* LORazepam Oral Conc 2 MG/ML GTUBE SCH (08:06)
[2019-05-18] MEDS ORDERED: Ringers Solution, Lactated 1,000 ML IVC SCH (15:45)
[2019-05-18] MEDS ORDERED: Scopolamine Patch 1.5 MG PATCH.TD72 TD ONE (17:00)
[2019-05-18] MEDS: *HR* Heparin 5,000 UNIT/ML VIAL SQ SCH (17:15)
[2019-05-18] MEDS ORDERED: Ringers Solution, Lactated 500 ML IVC SCH (18:45)
[2019-05-19] MEDS: Piperacillin/Tazobactam 3.375 GM in 0.9 % Sodium Chloride Mini Bag 100 ML IVPB SCH ×3 (01:08→18:04)
[2019-05-19] MEDS: Albuterol 2.5 MG/3 ML NEBULIZER IH SCH ×4 (03:31→23:25)
[2019-05-19] MEDS: *HR* Heparin 5,000 UNIT/ML VIAL SQ SCH ×2 (04:46→18:09)
[2019-05-19] MEDS: Multivit/Ca/Min/Fe/FA 1 TAB TABLET GTUBE SCH (08:05)
[2019-05-19] MEDS: Ferrous Sulfate Oral Soln 300 MG/5 ML UDC GTUBE SCH (08:05)
[2019-05-19] MEDS: Valproic Acid Oral Soln 250 MG/5 ML UDC GTUBE SCH ×2 (08:05→22:25)
[2019-05-19] MEDS: risperiDONE 1 MG TABLET GTUBE SCH ×2 (08:06→22:24)
[2019-05-19 12:57] LABS: Adenovirus Not Detected (Not Detect); Bordetella Pertussis Not Detected (Not Detect); Chlamydophila pneumoniae Not Detected (Not Detect); Coronavirus 229E Not Detected (Not Detect); Coronavirus HKU1 Not Detected (Not Detect); Coronavirus NL63 Not Detected (Not Detect); Coronavirus OC43 Not Detected (Not Detect); Human Metapneumovirus Not Detected (Not Detect); Human Rhinovirus/Enterovirus DETECTED (Not Detect); Influenza A Subtype 2009 H1 Not Detected (Not Detect); Influenza B Not Detected (Not Detect); Mycoplasma pneumoniae Not Detected (Not Detect); Parainfluenza Virus 1 Not Detected (Not Detect); Parainfluenza Virus 2 Not Detected (Not Detect); Parainfluenza Virus 3 Not Detected (Not Detect); Parainfluenza Virus 4 Not Detected (Not Detect); Respiratory Syncytial Virus Not Detected (Not Detect)
[2019-05-20] MEDS: Piperacillin/Tazobactam 3.375 GM in 0.9 % Sodium Chloride Mini Bag 100 ML IVPB SCH ×2 (01:44→10:07)
[2019-05-20] MEDS: Albuterol 2.5 MG/3 ML NEBULIZER IH SCH ×2 (03:13→11:33)
[2019-05-20] MEDS: *HR* Heparin 5,000 UNIT/ML VIAL SQ SCH (06:07)
[2019-05-20] MEDS: risperiDONE 1 MG TABLET GTUBE SCH (10:07)
[2019-05-20] MEDS: Multivit/Ca/Min/Fe/FA 1 TAB TABLET GTUBE SCH (10:07)
[2019-05-20] MEDS: Valproic Acid Oral Soln 250 MG/5 ML UDC GTUBE SCH (10:07)
[2019-05-20] MEDS: Ferrous Sulfate Oral Soln 300 MG/5 ML UDC GTUBE SCH (10:07)
[2019-05-20 11:33] VITALS: BP 99/65
== END 2019-05-20 14:04 | disposition home health service (06) | DRG 871 ==
LOC: EMEROOARM 04:29 → CDU 04:29 → SUATTDRO 09:53 → CDU 10:25 → 3ANU 15:21 → 2NNU 16:44 → 3BNU 05-19 12:47
PROVIDERS: ADMIT Family Medicine; ATTEND Internal Medicine

== ENCOUNTER 2019-05-31 08:20 | Inpatient (IN) ==
[2019-05-31] MEDS ORDERED: Ipratropium/Albuterol Neb 3 ML IH ONE ×2 (08:28→09:08)
[2019-05-31] MEDS ORDERED: Isovue-370 500 ML BOTTLE IVP ONE ×2 (08:36→10:51)
[2019-05-31 08:58] LABS: Basophils % 0.3 %; Eosinophils % 0.1 %; Hematocrit 32.9 % (35.3-44.9); Hemoglobin 11.1 g/dL (11.5-15.4); Immature Granulocytes % 0.3 % (0-4); Lymphocytes # 0.6 K/mcL (0.6-4.6); Lymphocytes % 7.2 %; Mean Corpuscular HGB Conc 33.7 g/dL (31.6-35.5); Mean Corpuscular Hemoglobin 35.1 pg (28.0-33.3); Mean Corpuscular Volume 104.1 fL (83.0-100.0); Mean Platelet Volume 9.7 fL (9.4-12.4); Monocytes # 1.5 K/mcL (0.0-1.3); Neutrophils # 5.5 K/mcL (1.6-8.9); Platelet Count 185 K/mcL (140-400); Red Blood Count 3.16 M/mcL (3.82-4.97); Red Cell Distribution Width 13.8 % (11.5-14.5); Segmented Neutrophils % 72.1 %
[2019-05-31 09:10] LABS: White Blood Count 7.6 K/mcL (4.3-11.1)
[2019-05-31 09:22] LABS: BUN/Creatinine Ratio 33 (6-26); Blood Urea Nitrogen 23 mg/dL (8-23); Calcium 8.8 mg/dL (8.6-10.3); Carbon Dioxide 34 mEq/L (23-29); Chloride 96 mEq/L (98-107); Glucose 102 mg/dL (70-105); Osmolality,Calculated 288 (280-300); Potassium 4.3 mEq/L (3.5-5.1); Sodium 137 mEq/L (136-145); Troponin I < 0.03 ng/mL (< 0.04); eGFR For African Americans > 60 (> 60); eGFR For Non-African Americans > 60 (> 60)
[2019-05-31 09:24] LABS: Platelet Estimate Normal (Normal)
[2019-05-31] MEDS ORDERED: 0.9 % Sodium Chloride 1,000 ML IV ONE ×2 (09:40→09:48)
[2019-05-31] MEDS ORDERED: Naloxone 0.4 MG/ML INJ IVP PRN (12:57)
[2019-05-31] MEDS ORDERED: MAGNESIUM HYDROXIDE TP PRN (12:58)
[2019-05-31] MEDS ORDERED: GuaiFENesin Liq 200 MG/10 ML UDC GTUBE PRN (12:58)
[2019-05-31] MEDS: cefTRIAXone 1,000 MG in Water for inj. (sterile) 10 ML IVP SCH (15:07)
[2019-05-31] MEDS: Azithromycin 500 MG in 0.9 % Sodium Chloride 250 ML IVPB SCH (15:07)
[2019-05-31] MEDS: 0.9 % Sodium Chloride 1,000 ML IVC SCH ×2 (15:07→22:56)
[2019-05-31] MEDS: Valproic Acid Oral Soln 250 MG/5 ML UDC GTUBE SCH ×2 (17:27→20:15)
[2019-05-31] MEDS: *HR* LORazepam 1 MG TABLET GTUBE SCH (20:14)
[2019-05-31] MEDS: Famotidine 20 MG TABLET GTUBE SCH (20:15)
[2019-05-31] MEDS: risperiDONE 1 MG TABLET GTUBE SCH (20:15)
[2019-05-31] MEDS ORDERED: WHEY PROTEIN ISOLATE GTUBE SCH (21:00)
[2019-06-01 00:07] LABS: Bilirubin,Urine Negative (Negative); Blood,Urine Negative (Negative); Clarity,Urine Cloudy (Clear); Color,Urine Yellow (Yellow); Glucose,Urine (UA) Normal (Normal); Ketones,Urine Negative (Negative); Leukocyte Esterase,Urine Negative (Negative); Nitrite,Urine Negative (Negative); Protein,Urine Negative (Neg-Trace); Specific Gravity,Urine 1.023 (1.010-1.025); Urobilinogen,Urine Normal (Normal)
[2019-06-01 00:09] LABS: Bacteria,Urine None Seen per hpf (None-Few); Hyaline Casts,Urine None Seen per lpf (None-Few); Squamous Epithelial Cell,Urine Many per lpf (None-Few); WBC,Urine 0-3 per hpf (0-3)
[2019-06-01 01:35] LABS: Basophils % 0.7 %; Hematocrit 30.3 % (35.3-44.9); Hemoglobin 9.9 g/dL (11.5-15.4); Immature Granulocytes % 0.4 % (0-4); Lymphocytes # 1.3 K/mcL (0.6-4.6); Lymphocytes % 28.7 %; Mean Corpuscular HGB Conc 32.7 g/dL (31.6-35.5); Mean Corpuscular Hemoglobin 34.3 pg (28.0-33.3); Mean Corpuscular Volume 104.8 fL (83.0-100.0); Mean Platelet Volume 9.7 fL (9.4-12.4); Monocytes % 20.8 %; Neutrophils # 2.3 K/mcL (1.6-8.9); Platelet Count 133 K/mcL (140-400); Red Blood Count 2.89 M/mcL (3.82-4.97); Segmented Neutrophils % 49.4 %; White Blood Count 4.6 K/mcL (4.3-11.1)
[2019-06-01] MEDS ORDERED: Ipratropium/Albuterol Neb 3 ML IH PRN (01:41)
[2019-06-01] MEDS ORDERED: Dextromethorphan Polistrx(12h) 30 MG/5 ML UDC PO PRN (01:42)
[2019-06-01 01:49] LABS: BUN/Creatinine Ratio 27 (6-26); Blood Urea Nitrogen 17 mg/dL (8-23); Calcium 8.2 mg/dL (8.6-10.3); Carbon Dioxide 31 mEq/L (23-29); Chloride 101 mEq/L (98-107); Glucose 97 mg/dL (70-105); Magnesium 1.8 mg/dL (1.6-2.6); Osmolality,Calculated 283 (280-300); Phosphorous 3.4 mg/dL (2.7-4.5); Potassium 3.9 mEq/L (3.5-5.1); Sodium 136 mEq/L (136-145); eGFR For African Americans > 60 (> 60); eGFR For Non-African Americans > 60 (> 60)
[2019-06-01 02:19] LABS: Platelet Estimate Normal (Normal)
[2019-06-01 02:43] LABS: ABG Base Excess 7 mEq/L (-2 to 3); ABG HCO3 34 mEq/L (21-27); ABG Oxygen Saturation 98 % (95-98); ABG PCO2 61 mmHg (35-45); ABG PH 7.36 pH Units (7.32-7.45); ABG PO2 119 mmHg (85-104); ABG TCO2 36 mEq/L (20-26)
[2019-06-01 04:42] LABS: Adenovirus Not Detected (Not Detect); Bordetella Pertussis Not Detected (Not Detect); Chlamydophila pneumoniae Not Detected (Not Detect); Coronavirus 229E Not Detected (Not Detect); Coronavirus HKU1 Not Detected (Not Detect); Coronavirus NL63 Not Detected (Not Detect); Coronavirus OC43 Not Detected (Not Detect); Human Metapneumovirus DETECTED (Not Detect); Human Rhinovirus/Enterovirus Not Detected (Not Detect); Influenza A Subtype 2009 H1 Not Detected (Not Detect); Influenza B Not Detected (Not Detect); Parainfluenza Virus 1 Not Detected (Not Detect); Parainfluenza Virus 2 Not Detected (Not Detect); Parainfluenza Virus 3 Not Detected (Not Detect); Parainfluenza Virus 4 Not Detected (Not Detect); Respiratory Syncytial Virus Not Detected (Not Detect)
[2019-06-01 04:43] LABS: Mycoplasma pneumoniae Not Detected (Not Detect)
[2019-06-01] MEDS: Valproic Acid Oral Soln 250 MG/5 ML UDC GTUBE SCH ×3 (07:22→22:07)
[2019-06-01] MEDS: Multivit/Ca/Min/Fe/FA 1 TAB TABLET GTUBE SCH (08:08)
[2019-06-01] MEDS: Lactulose Oral Soln 20 GM/30 ML UDC RC SCH (08:08)
[2019-06-01] MEDS: cefTRIAXone 1,000 MG in Water for inj. (sterile) 10 ML IVP SCH (08:08)
[2019-06-01] MEDS: Famotidine 20 MG TABLET GTUBE SCH ×2 (08:08→22:07)
[2019-06-01] MEDS: Ferrous Sulfate Oral Soln 300 MG/5 ML UDC GTUBE SCH (08:08)
[2019-06-01] MEDS: risperiDONE 1 MG TABLET GTUBE SCH ×2 (08:09→22:06)
[2019-06-01] MEDS: *HR* LORazepam 1 MG TABLET GTUBE SCH ×2 (08:25→22:06)
[2019-06-01] MEDS: Azithromycin 500 MG in 0.9 % Sodium Chloride 250 ML IVPB SCH (12:26)
[2019-06-02 04:49] LABS: Hematocrit 28.9 % (35.3-44.9); Hemoglobin 9.6 g/dL (11.5-15.4); Mean Corpuscular HGB Conc 33.2 g/dL (31.6-35.5); Mean Corpuscular Hemoglobin 34.9 pg (28.0-33.3); Mean Corpuscular Volume 105.1 fL (83.0-100.0); Mean Platelet Volume 10.1 fL (9.4-12.4); Platelet Count 114 K/mcL (140-400); Red Blood Count 2.75 M/mcL (3.82-4.97); Red Cell Distribution Width 13.9 % (11.5-14.5); White Blood Count 4.9 K/mcL (4.3-11.1)
[2019-06-02 05:11] LABS: BUN/Creatinine Ratio 34 (6-26); Blood Urea Nitrogen 20 mg/dL (8-23); Calcium 8.3 mg/dL (8.6-10.3); Carbon Dioxide 36 mEq/L (23-29); Chloride 104 mEq/L (98-107); Glucose 124 mg/dL (70-105); Osmolality,Calculated 298 (280-300); Potassium 4.1 mEq/L (3.5-5.1); Sodium 142 mEq/L (136-145); eGFR For African Americans > 60 (> 60); eGFR For Non-African Americans > 60 (> 60)
[2019-06-02] MEDS: Valproic Acid Oral Soln 250 MG/5 ML UDC GTUBE SCH ×3 (06:15→20:21)
[2019-06-02] MEDS ORDERED: Furosemide 20 MG/2 ML VIAL IVP ONE (07:32)
[2019-06-02] MEDS: *HR* LORazepam 1 MG TABLET GTUBE SCH ×2 (09:54→20:21)
[2019-06-02] MEDS: Lactulose Oral Soln 20 GM/30 ML UDC RC SCH (09:54)
[2019-06-02] MEDS: Multivit/Ca/Min/Fe/FA 1 TAB TABLET GTUBE SCH (09:54)
[2019-06-02] MEDS: Famotidine 20 MG TABLET GTUBE SCH ×2 (09:54→20:21)
[2019-06-02] MEDS: Ferrous Sulfate Oral Soln 300 MG/5 ML UDC GTUBE SCH (09:54)
[2019-06-02] MEDS: risperiDONE 1 MG TABLET GTUBE SCH ×2 (09:54→20:20)
[2019-06-02] MEDS: MethylPREDNISolone 40 MG/ML VIAL IVP SCH ×2 (09:55→16:02)
[2019-06-02] MEDS: cefTRIAXone 1,000 MG in Water for inj. (sterile) 10 ML IVP SCH (09:55)
[2019-06-02] MEDS: Ipratropium/Albuterol Neb 3 ML IH SCH ×5 (10:30→23:20)
[2019-06-02] MEDS: Azithromycin 500 MG in 0.9 % Sodium Chloride 250 ML IVPB SCH (13:18)
[2019-06-02 16:24] LABS: ABG Base Excess 12 mEq/L (-2 to 3); ABG HCO3 38 mEq/L (21-27); ABG Oxygen Saturation 97 % (95-98); ABG PCO2 55 mmHg (35-45); ABG PH 7.45 pH Units (7.32-7.45); ABG PO2 94 mmHg (85-104); ABG TCO2 40 mEq/L (20-26)
[2019-06-03 00:56] LABS: Hematocrit 30.2 % (35.3-44.9); Hemoglobin 9.8 g/dL (11.5-15.4); Mean Corpuscular HGB Conc 32.5 g/dL (31.6-35.5); Mean Corpuscular Hemoglobin 34.8 pg (28.0-33.3); Mean Corpuscular Volume 107.1 fL (83.0-100.0); Mean Platelet Volume 10.4 fL (9.4-12.4); Platelet Count 108 K/mcL (140-400); Red Blood Count 2.82 M/mcL (3.82-4.97); Red Cell Distribution Width 13.2 % (11.5-14.5); White Blood Count 3.8 K/mcL (4.3-11.1)
[2019-06-03] MEDS: MethylPREDNISolone 40 MG/ML VIAL IVP SCH ×2 (01:07→09:53)
[2019-06-03 01:14] LABS: BUN/Creatinine Ratio 37 (6-26); Blood Urea Nitrogen 24 mg/dL (8-23); Calcium 8.5 mg/dL (8.6-10.3); Carbon Dioxide 36 mEq/L (23-29); Chloride 100 mEq/L (98-107); Glucose 165 mg/dL (70-105); Osmolality,Calculated 300 (280-300); Potassium 4.1 mEq/L (3.5-5.1); Sodium 141 mEq/L (136-145); eGFR For African Americans > 60 (> 60); eGFR For Non-African Americans > 60 (> 60)
[2019-06-03] MEDS: Ipratropium/Albuterol Neb 3 ML IH SCH ×3 (03:40→11:09)
[2019-06-03] MEDS: Valproic Acid Oral Soln 250 MG/5 ML UDC GTUBE SCH (06:48)
[2019-06-03] MEDS: Ferrous Sulfate Oral Soln 300 MG/5 ML UDC GTUBE SCH (09:52)
[2019-06-03] MEDS: Famotidine 20 MG TABLET GTUBE SCH (09:52)
[2019-06-03] MEDS: risperiDONE 1 MG TABLET GTUBE SCH (09:52)
[2019-06-03] MEDS: *HR* LORazepam 1 MG TABLET GTUBE SCH (09:52)
[2019-06-03] MEDS: cefTRIAXone 1,000 MG in Water for inj. (sterile) 10 ML IVP SCH (09:53)
[2019-06-03] MEDS: Lactulose Oral Soln 20 GM/30 ML UDC RC SCH (09:54)
[2019-06-03] MEDS: Multivit/Ca/Min/Fe/FA 1 TAB TABLET GTUBE SCH (10:00)
[2019-06-03 11:20] VITALS: BP 111/58
[2019-06-04] MEDS ORDERED: Lactulose Oral Soln 20 GM/30 ML UDC PO SCH (09:00)
== END 2019-06-03 13:45 | disposition home or self-care (01) | DRG 871 ==
LOC: EMEROOARM 08:20 → 3BNU 08:20
PROVIDERS: ADMIT Student in an Organized Health Care Education/Training Program; ATTEND Student in an Organized Health Care Education/Training Program

== ENCOUNTER 2019-08-03 01:46 | Inpatient (IN) ==
[2019-08-03] MEDS ORDERED: Ipratropium/Albuterol Neb 3 ML IH ONE (01:55)
[2019-08-03 02:33] LABS: Bilirubin,Urine Negative (Negative); Blood,Urine Negative (Negative); Clarity,Urine Cloudy (Clear); Color,Urine Yellow (Yellow); Glucose,Urine (UA) Normal (Normal); Ketones,Urine Trace mg/dL (Negative); Leukocyte Esterase,Urine Negative (Negative); Nitrite,Urine Negative (Negative); Protein,Urine Negative (Neg-Trace); Urobilinogen,Urine Normal (Normal)
[2019-08-03 02:36] LABS: Bacteria,Urine None Seen per hpf (None-Few); Hyaline Casts,Urine None Seen per lpf (None-Few); RBC,Urine 0-3 per hpf (0-3); Squamous Epithelial Cell,Urine Many per lpf (None-Few); WBC,Urine 0-3 per hpf (0-3)
[2019-08-03 03:10] LABS: Immature Granulocytes % 0.5 % (0-4); Mean Corpuscular Volume 108.5 fL (83.0-100.0)
[2019-08-03 03:12] LABS: Basophils % 0.1 %; Eosinophils # 0.1 K/mcL (0.0-0.6); Eosinophils % 0.3 %; Hematocrit 30.5 % (35.3-44.9); Lymphocytes # 1.3 K/mcL (0.6-4.6); Lymphocytes % 7.4 %; Mean Corpuscular HGB Conc 32.8 g/dL (31.6-35.5); Mean Corpuscular Hemoglobin 35.6 pg (28.0-33.3); Monocytes # 2.5 K/mcL (0.0-1.3); Monocytes % 13.9 %; Neutrophils # 13.7 K/mcL (1.6-8.9); Platelet Count 77 K/mcL (140-400); Red Blood Count 2.81 M/mcL (3.82-4.97); Red Cell Distribution Width 16.1 % (11.5-14.5); Segmented Neutrophils % 77.8 %; White Blood Count 17.6 K/mcL (4.3-11.1)
[2019-08-03] MEDS ORDERED: Piperacillin/Tazobactam 3.375 GM in 0.9 % Sodium Chloride Mini Bag 100 ML IVPB ONE (03:17)
[2019-08-03 03:31] LABS: Alanine Aminotransferase 25 Units/L (7-52); Albumin 3.3 g/dL (3.5-5.7); Albumin/Globulin Ratio 0.9 (1.1-2.2); Alkaline Phosphatase 142 Units/L (34-104); Aspartate Amino Transferase 36 Units/L (13-39); BUN/Creatinine Ratio 48 (6-26); Bilirubin,Total 0.5 mg/dL (0.3-1.0); Blood Urea Nitrogen 28 mg/dL (8-23); Calcium 9.5 mg/dL (8.6-10.3); Carbon Dioxide 34 mEq/L (23-29); Chloride 100 mEq/L (98-107); Globulin 3.6 g/dL (2.4-3.5); Glucose 89 mg/dL (70-105); Osmolality,Calculated 289 (280-300); Potassium 4.5 mEq/L (3.5-5.1); Sodium 137 mEq/L (136-145); Total Protein 6.9 g/dL (6.4-8.9); eGFR For African Americans > 60 (> 60); eGFR For Non-African Americans > 60 (> 60)
[2019-08-03 03:32] LABS: Troponin I < 0.03 ng/mL (< 0.04)
[2019-08-03] MEDS ORDERED: 0.9 % Sodium Chloride 500 ML IVC ONE (03:53)
[2019-08-03] MEDS ORDERED: Naloxone 0.4 MG/ML INJ IVP PRN (05:01)
[2019-08-03] MEDS ORDERED: Ondansetron 4 MG/2 ML VIAL IVP PRN (05:01)
[2019-08-03] MEDS ORDERED: 0.9 % Sodium Chloride 1,000 ML IVC SCH (05:15)
[2019-08-03] MEDS ORDERED: Ipratropium/Albuterol Neb 3 ML IH PRN (06:33)
[2019-08-03] MEDS ORDERED: Albuterol 2.5 MG/3 ML NEBULIZER IH PRN (06:37)
[2019-08-03 09:34] LABS: Hemoglobin 9.7 g/dL (11.5-15.4)
[2019-08-03 09:35] LABS: Hematocrit 30.1 % (35.3-44.9); Mean Corpuscular HGB Conc 32.2 g/dL (31.6-35.5); Mean Corpuscular Hemoglobin 34.6 pg (28.0-33.3); Mean Corpuscular Volume 107.5 fL (83.0-100.0); Mean Platelet Volume 10.3 fL (9.4-12.4); Red Cell Distribution Width 16.2 % (11.5-14.5); White Blood Count 15.9 K/mcL (4.3-11.1)
[2019-08-03 09:39] LABS: Platelet Count 75 K/mcL (140-400)
[2019-08-03] MEDS: Piperacillin/Tazobactam 3.375 GM in 0.9 % Sodium Chloride Mini Bag 100 ML IVPB SCH ×2 (09:46→18:02)
[2019-08-03 10:10] LABS: Lymphocytes # 1.6 K/mcL (0.6-4.6); Monocytes # 1.3 K/mcL (0.0-1.3); Platelet Estimate Decreased (Normal)
[2019-08-03 10:12] LABS: Toxic Granulation Present (Not Present)
[2019-08-03] MEDS: Valproic Acid Oral Soln 250 MG/5 ML UDC GTUBE SCH ×2 (16:03→20:39)
[2019-08-03] MEDS: risperiDONE 1 MG TABLET GTUBE SCH (20:39)
[2019-08-03] MEDS: Famotidine 20 MG TABLET GTUBE SCH (20:39)
[2019-08-04 01:19] LABS: Basophils % 0.1 %; Lymphocytes % 11.4 %
[2019-08-04 01:21] LABS: Eosinophils # 0.1 K/mcL (0.0-0.6); Eosinophils % 0.4 %; Hematocrit 27.6 % (35.3-44.9); Hemoglobin 8.9 g/dL (11.5-15.4); Immature Granulocytes % 0.6 % (0-4); Lymphocytes # 1.7 K/mcL (0.6-4.6); Mean Corpuscular HGB Conc 32.2 g/dL (31.6-35.5); Mean Corpuscular Hemoglobin 34.8 pg (28.0-33.3); Mean Corpuscular Volume 107.8 fL (83.0-100.0); Mean Platelet Volume 10.3 fL (9.4-12.4); Monocytes # 1.7 K/mcL (0.0-1.3); Red Blood Count 2.56 M/mcL (3.82-4.97); Red Cell Distribution Width 16.1 % (11.5-14.5); Segmented Neutrophils % 75.5 %; White Blood Count 14.5 K/mcL (4.3-11.1)
[2019-08-04 01:22] LABS: Platelet Count 70 K/mcL (140-400)
[2019-08-04 01:35] LABS: BUN/Creatinine Ratio 31 (6-26); Blood Urea Nitrogen 22 mg/dL (8-23); Calcium 8.8 mg/dL (8.6-10.3); Carbon Dioxide 32 mEq/L (23-29); Chloride 103 mEq/L (98-107); Glucose 68 mg/dL (70-105); Magnesium 1.6 mg/dL (1.6-2.6); Osmolality,Calculated 286 (280-300); Phosphorous 3.2 mg/dL (2.7-4.5); Sodium 137 mEq/L (136-145); eGFR For African Americans > 60 (> 60); eGFR For Non-African Americans > 60 (> 60)
[2019-08-04] MEDS ORDERED: 0.9 % Sodium Chloride 1,000 ML ONE (04:25)
[2019-08-04] MEDS: Piperacillin/Tazobactam 3.375 GM in 0.9 % Sodium Chloride Mini Bag 100 ML IVPB SCH ×3 (05:10→20:28)
[2019-08-04] MEDS: Valproic Acid Oral Soln 250 MG/5 ML UDC GTUBE SCH ×3 (05:10→20:27)
[2019-08-04 06:08] LABS: Acinetobacter baumannii by PCR Not Detected (Not Detect); Candida albicans by PCR Not Detected (Not Detect); Candida glabrata by PCR Not Detected (Not Detect); Candida krusei by PCR Not Detected (Not Detect); Candida parapsilosis by PCR Not Detected (Not Detect); Candida tropicalis by PCR Not Detected (Not Detect); Enterobacter cloacae Cmplx PCR Not Detected (Not Detect); Enterobacteriaceae by PCR Not Detected (Not Detect); Enterococcus by PCR Not Detected (Not Detect); Escherichia coli by PCR Not Detected (Not Detect); Klebsiella oxytoca by PCR Not Detected (Not Detect); Klebsiella pneumoniae by PCR Not Detected (Not Detect); Proteus by PCR Not Detected (Not Detect); Pseudomonas aeruginosa by PCR Not Detected (Not Detect); Serratia marcescens by PCR Not Detected (Not Detect); Staphylococcus aureus by PCR Not Detected (Not Detect); Staphylococcus by PCR DETECTED (Not Detect); Streptococcus agalactiae(B)PCR Not Detected (Not Detect); Streptococcus by PCR Not Detected (Not Detect); Streptococcus pneumoniae PCR Not Detected (Not Detect); Streptococcus pyogenes (A) PCR Not Detected (Not Detect); blaKPC Carbapenem-Resist Gene Not Detected (Not Detect); mecA Methicillin-Resist Gene DETECTED (Not Detect); vanA/B Vancomycin-Resist Genes Not Detected (Not Detect)
[2019-08-04] MEDS: Lactulose Oral Soln 20 GM/30 ML UDC GTUBE SCH (08:34)
[2019-08-04] MEDS: polyethylene glycoL 3350 17 GM POWD.PACK PO SCH (08:34)
[2019-08-04] MEDS: risperiDONE 1 MG TABLET GTUBE SCH ×2 (08:34→20:27)
[2019-08-04] MEDS: Famotidine 20 MG TABLET GTUBE SCH ×2 (08:34→20:27)
[2019-08-04] MEDS: Ferrous Sulfate Oral Soln 300 MG/5 ML UDC GTUBE SCH (08:34)
[2019-08-04] MEDS: Ipratropium/Albuterol Neb 3 ML IH SCH ×3 (11:49→20:31)
[2019-08-04] MEDS: Budesonide Neb 0.5 MG/2 ML IH SCH ×2 (11:49→20:31)
[2019-08-04] MEDS: *HR* LORazepam 1 MG TABLET GTUBE SCH ×2 (12:21→20:27)
[2019-08-05] MEDS: Ipratropium/Albuterol Neb 3 ML IH SCH ×6 (00:10→20:36)
[2019-08-05 02:05] LABS: Hemoglobin 9.1 g/dL (11.5-15.4); Red Cell Distribution Width 15.7 % (11.5-14.5)
[2019-08-05 02:07] LABS: Basophils % 0.1 %; Eosinophils # 0.1 K/mcL (0.0-0.6); Eosinophils % 1.5 %; Immature Granulocytes % 0.6 % (0-4); Immature Platelets 4.8 % (1.1-6.1); Lymphocytes # 1.2 K/mcL (0.6-4.6); Mean Corpuscular HGB Conc 32.5 g/dL (31.6-35.5); Mean Corpuscular Hemoglobin 34.6 pg (28.0-33.3); Mean Corpuscular Volume 106.5 fL (83.0-100.0); Mean Platelet Volume 10.1 fL (9.4-12.4); Monocytes # 0.8 K/mcL (0.0-1.3); Neutrophils # 4.7 K/mcL (1.6-8.9); Red Blood Count 2.63 M/mcL (3.82-4.97); Segmented Neutrophils % 68.8 %; White Blood Count 6.8 K/mcL (4.3-11.1)
[2019-08-05 02:10] LABS: Platelet Count 68 K/mcL (140-400)
[2019-08-05 02:25] LABS: BUN/Creatinine Ratio 37 (6-26); Blood Urea Nitrogen 23 mg/dL (8-23); Carbon Dioxide 32 mEq/L (23-29); Chloride 102 mEq/L (98-107); Glucose 85 mg/dL (70-105); Magnesium 1.9 mg/dL (1.6-2.6); Osmolality,Calculated 291 (280-300); Phosphorous 3.9 mg/dL (2.7-4.5); Potassium 3.9 mEq/L (3.5-5.1); Sodium 139 mEq/L (136-145); eGFR For African Americans > 60 (> 60); eGFR For Non-African Americans > 60 (> 60)
[2019-08-05] MEDS: Piperacillin/Tazobactam 3.375 GM in 0.9 % Sodium Chloride Mini Bag 100 ML IVPB SCH ×2 (03:42→11:38)
[2019-08-05] MEDS: Budesonide Neb 0.5 MG/2 ML IH SCH ×2 (08:22→20:36)
[2019-08-05] MEDS: polyethylene glycoL 3350 17 GM POWD.PACK PO SCH (11:01)
[2019-08-05] MEDS: risperiDONE 1 MG TABLET GTUBE SCH ×2 (11:02→20:48)
[2019-08-05] MEDS: Ferrous Sulfate Oral Soln 300 MG/5 ML UDC GTUBE SCH (11:06)
[2019-08-05] MEDS: Lactulose Oral Soln 20 GM/30 ML UDC GTUBE SCH (11:06)
[2019-08-05] MEDS: *HR* LORazepam 1 MG TABLET GTUBE SCH ×2 (11:06→20:48)
[2019-08-05] MEDS: Famotidine 20 MG TABLET GTUBE SCH ×2 (11:06→20:48)
[2019-08-05] MEDS: Valproic Acid Oral Soln 250 MG/5 ML UDC GTUBE SCH ×3 (11:19→20:48)
[2019-08-05] MEDS ORDERED: Acetylcysteine 10% 2 ML INHSOL IH ONE (11:45)
[2019-08-05] MEDS: PrednisoLONE Oral Soln 15 MG/5 ML UDC GTUBE SCH (12:00)
[2019-08-05] MEDS: GuaiFENesin Liq 200 MG/10 ML UDC GTUBE SCH ×2 (12:42→20:48)
[2019-08-05] MEDS: Amoxicillin/Clavulanate 400 MG/5 ML UDC GTUBE SCH (16:18)
[2019-08-06] MEDS: Ipratropium/Albuterol Neb 3 ML IH SCH ×5 (00:27→15:53)
[2019-08-06 00:53] LABS: Basophils % 0.1 %; Hemoglobin 9.2 g/dL (11.5-15.4)
[2019-08-06 00:54] LABS: Hematocrit 27.9 % (35.3-44.9); Immature Granulocytes % 0.7 % (0-4); Immature Platelets 4.1 % (1.1-6.1); Lymphocytes # 0.9 K/mcL (0.6-4.6); Lymphocytes % 11.4 %; Mean Corpuscular Hemoglobin 34.6 pg (28.0-33.3); Mean Corpuscular Volume 104.9 fL (83.0-100.0); Mean Platelet Volume 9.9 fL (9.4-12.4); Monocytes # 0.7 K/mcL (0.0-1.3); Monocytes % 8.7 %; Neutrophils # 6.1 K/mcL (1.6-8.9); Red Blood Count 2.66 M/mcL (3.82-4.97); Red Cell Distribution Width 15.3 % (11.5-14.5); Segmented Neutrophils % 79.1 %; White Blood Count 7.7 K/mcL (4.3-11.1)
[2019-08-06 00:58] LABS: Platelet Count 66 K/mcL (140-400)
[2019-08-06] MEDS: Amoxicillin/Clavulanate 400 MG/5 ML UDC GTUBE SCH ×2 (02:43→16:01)
[2019-08-06] MEDS: Valproic Acid Oral Soln 250 MG/5 ML UDC GTUBE SCH ×2 (06:26→16:01)
[2019-08-06] MEDS: Lactulose Oral Soln 20 GM/30 ML UDC GTUBE SCH (07:50)
[2019-08-06] MEDS: risperiDONE 1 MG TABLET GTUBE SCH (07:50)
[2019-08-06] MEDS: *HR* LORazepam 1 MG TABLET GTUBE SCH (07:50)
[2019-08-06] MEDS: Famotidine 20 MG TABLET GTUBE SCH (07:50)
[2019-08-06] MEDS: polyethylene glycoL 3350 17 GM POWD.PACK PO SCH (07:50)
[2019-08-06] MEDS: PrednisoLONE Oral Soln 15 MG/5 ML UDC GTUBE SCH (07:50)
[2019-08-06] MEDS: Ferrous Sulfate Oral Soln 300 MG/5 ML UDC GTUBE SCH (07:50)
[2019-08-06] MEDS: GuaiFENesin Liq 200 MG/10 ML UDC GTUBE SCH (07:53)
[2019-08-06] MEDS: Budesonide Neb 0.5 MG/2 ML IH SCH (08:06)
[2019-08-06 11:17] VITALS: BP 110/58
== END 2019-08-06 16:48 | disposition home or self-care (01) | DRG 871 ==
LOC: 3ANU 01:46 → EMEROOARM 01:46 → SUATTDRO 04:14 → 3ANU 05:04 → 2NNU 06:16 → 2NENU 08-05 17:26
PROVIDERS: ADMIT Internal Medicine; ATTEND Student in an Organized Health Care Education/Training Program

== ENCOUNTER 2019-11-21 17:11 | Inpatient (IN) ==
[~2019-11-21 17:11] MED LIST: Aminoglycoside Consult 1 EACH MC ONE
[2019-11-21] MEDS ORDERED: 0.9 % Sodium Chloride 1,000 ML IVC ONE ×3 (17:33→20:28)
[2019-11-21 18:12] LABS: Hemoglobin 9.8 g/dL (11.5-15.4); Immature Granulocytes % 0.4 % (0-4); Mean Platelet Volume 10.4 fL (9.4-12.4); Red Cell Distribution Width 14.8 % (11.5-14.5)
[2019-11-21 18:14] LABS: Eosinophils % 0.9 %; Hematocrit 29.8 % (35.3-44.9); Immature Platelets 7.1 % (1.1-6.1); Lymphocytes # 0.7 K/mcL (0.6-4.6); Lymphocytes % 29.6 %; Mean Corpuscular HGB Conc 32.9 g/dL (31.6-35.5); Mean Corpuscular Volume 106.4 fL (83.0-100.0); Monocytes # 0.4 K/mcL (0.0-1.3); Monocytes % 15.9 %; Neutrophils # 1.2 K/mcL (1.6-8.9); Platelet Count 112 K/mcL (140-400); Segmented Neutrophils % 53.2 %; White Blood Count 2.3 K/mcL (4.3-11.1)
[2019-11-21] MEDS ORDERED: Isovue-370 500 ML BOTTLE IVP ONE (18:21)
[2019-11-21 18:24] LABS: Activated Partial Thrombo Time 45.7 Seconds (26.0-36.0)
[2019-11-21 18:27] LABS: Bilirubin,Urine Negative (Negative); Blood,Urine Negative (Negative); Clarity,Urine Clear (Clear); Color,Urine Yellow (Yellow); Glucose,Urine (UA) Normal (Normal); Ketones,Urine Trace mg/dL (Negative); Leukocyte Esterase,Urine Negative (Negative); Nitrite,Urine Negative (Negative); PH,Urine 5.5 pH Units (5.0-8.0); Protein,Urine Negative (Neg-Trace); Specific Gravity,Urine 1.025 (1.010-1.025); Urobilinogen,Urine Normal (Normal)
[2019-11-21 18:36] LABS: Alanine Aminotransferase 52 Units/L (7-52); Albumin 3.1 g/dL (3.5-5.7); Albumin/Globulin Ratio 0.8 (1.1-2.2); Alkaline Phosphatase 182 Units/L (34-104); Aspartate Amino Transferase 61 Units/L (13-39); BUN/Creatinine Ratio 66 (6-26); Bilirubin,Indirect 0.3 mg/dL (0.0-1.0); Bilirubin,Total 0.3 mg/dL (0.3-1.0); Blood Urea Nitrogen 25 mg/dL (8-23); Calcium 9.3 mg/dL (8.6-10.3); Carbon Dioxide 37 mEq/L (23-29); Chloride 96 mEq/L (98-107); Globulin 3.7 g/dL (2.4-3.5); Glucose 91 mg/dL (70-105); Magnesium 1.6 mg/dL (1.6-2.6); Osmolality,Calculated 284 (280-300); Phosphorous 3.2 mg/dL (2.7-4.5); Potassium 4.6 mEq/L (3.5-5.1); Sodium 135 mEq/L (136-145); Total Protein 6.8 g/dL (6.4-8.9); Troponin I < 0.03 ng/mL (< 0.04); eGFR For African Americans > 60 (> 60); eGFR For Non-African Americans > 60 (> 60)
[2019-11-21 18:46] LABS: Thyroid Stimulating Hormone 11.058 mcIU/mL (0.340-5.600)
[2019-11-21] MEDS ORDERED: Levothyroxine Sodium 100 MCG VIAL IVP STA (20:05)
[2019-11-21] MEDS ORDERED: Piperacillin/Tazobactam 3.375 GM in Water for inj. (sterile) 20 ML IVP ONE (20:12)
[2019-11-21] MEDS ORDERED: Hydrocortisone Sodium Succ 100 MG/2 ML VIAL IVP STA (20:12)
[2019-11-21] MEDS ORDERED: Vancomycin 1,250 MG/262.5 ML IV.SOLN IVPB ONE (20:12)
[2019-11-21 21:48] LABS: Triiodothyronine (T3) Total 1.06 ng/mL (0.87-1.78)
[2019-11-22] MEDS ORDERED: Levothyroxine Sodium 100 MCG VIAL IVP ONE (04:23)
[2019-11-22 05:22] LABS: Basophils % 0.3 %; Hematocrit 28.5 % (35.3-44.9); Hemoglobin 9.4 g/dL (11.5-15.4); Immature Granulocytes % 0.6 % (0-4); Immature Platelets 4.9 % (1.1-6.1); Lymphocytes # 0.3 K/mcL (0.6-4.6); Lymphocytes % 8.1 %; Mean Corpuscular Hemoglobin 35.7 pg (28.0-33.3); Mean Corpuscular Volume 108.4 fL (83.0-100.0); Mean Platelet Volume 10.4 fL (9.4-12.4); Monocytes # 0.1 K/mcL (0.0-1.3); Monocytes % 2.8 %; Neutrophils # 3.2 K/mcL (1.6-8.9); Platelet Count 128 K/mcL (140-400); Red Blood Count 2.63 M/mcL (3.82-4.97); Red Cell Distribution Width 15.2 % (11.5-14.5); Segmented Neutrophils % 88.2 %; White Blood Count 3.6 K/mcL (4.3-11.1)
[2019-11-22 05:28] LABS: BUN/Creatinine Ratio 45 (6-26); Blood Urea Nitrogen 22 mg/dL (8-23); Calcium 8.6 mg/dL (8.6-10.3); Carbon Dioxide 34 mEq/L (23-29); Chloride 102 mEq/L (98-107); Glucose 86 mg/dL (70-105); Magnesium 1.6 mg/dL (1.6-2.6); Osmolality,Calculated 291 (280-300); Phosphorous 2.8 mg/dL (2.7-4.5); Potassium 4.8 mEq/L (3.5-5.1); Sodium 139 mEq/L (136-145); eGFR For African Americans > 60 (> 60); eGFR For Non-African Americans > 60 (> 60)
[2019-11-22] MEDS: *HR* Heparin 5,000 UNIT/ML VIAL SQ SCH ×3 (05:31→22:59)
[2019-11-22] MEDS: Piperacillin/Tazobactam 3.375 GM in 0.9 % Sodium Chloride Mini Bag 100 ML IVPB SCH ×3 (07:45→22:59)
[2019-11-22] MEDS ORDERED: Valproic Acid INJ 500 MG in 0.9 % Sodium Chloride 100 ML IVPB SCH ×2 (08:00→14:00)
[2019-11-22] MEDS ORDERED: Vancomycin 1,250 MG/262.5 ML IV.SOLN IVPB SCH (09:00)
[2019-11-22] MEDS ORDERED: *HR* FentaNYL (PF) 100 MCG/2 ML VIAL IVP ONE (11:11)
[2019-11-22] MEDS ORDERED: Tetracaine/Benzocaine/Butamben 1 SPRAY AEROSOL MM ONE (11:11)
[2019-11-22] MEDS ORDERED: *HR* Midazolam HCl 5 MG/5 ML VIAL IVP ONE (11:11)
[2019-11-22] MEDS ORDERED: Albuterol 2.5 MG/3 ML NEBULIZER IH ONE (11:11)
[2019-11-22] MEDS ORDERED: *HR* EPINEPHrine 1 MG/10 ML SYRINGE INTRATRACH PRN (11:11)
[2019-11-22] MEDS ORDERED: Lidocaine Viscous Oral Soln 15 ML SOLUTION ONE (11:12)
[2019-11-22] MEDS ORDERED: 0.9 % Sodium Chloride 1,000 ML IVC SCH ×4 (11:15→20:15)
[2019-11-22] MEDS ORDERED: Valproic Acid Oral Soln 250 MG/5 ML UDC GTUBE SCH ×2 (16:00→21:00)
[2019-11-22] MEDS ORDERED: Valproic Acid INJ 750 MG in 0.9 % Sodium Chloride 100 ML IVPB SCH (21:00)
[2019-11-22] MEDS: Valproic Acid Oral Soln 250 MG/5 ML UDC GTUBE SCH (22:13)
[2019-11-23 03:01] LABS: Hematocrit 26.6 % (35.3-44.9); Hemoglobin 8.6 g/dL (11.5-15.4); Mean Corpuscular HGB Conc 32.3 g/dL (31.6-35.5); Mean Corpuscular Hemoglobin 35.7 pg (28.0-33.3); Mean Corpuscular Volume 110.4 fL (83.0-100.0); Mean Platelet Volume 10.6 fL (9.4-12.4); Platelet Count 104 K/mcL (140-400); Red Blood Count 2.41 M/mcL (3.82-4.97); Red Cell Distribution Width 15.5 % (11.5-14.5); White Blood Count 2.8 K/mcL (4.3-11.1)
[2019-11-23 03:19] LABS: BUN/Creatinine Ratio 44 (6-26); Blood Urea Nitrogen 25 mg/dL (8-23); Calcium 8.6 mg/dL (8.6-10.3); Carbon Dioxide 35 mEq/L (23-29); Chloride 105 mEq/L (98-107); Glucose 63 mg/dL (70-105); Osmolality,Calculated 294 (280-300); Potassium 4.4 mEq/L (3.5-5.1); Sodium 141 mEq/L (136-145); eGFR For African Americans > 60 (> 60); eGFR For Non-African Americans > 60 (> 60)
[2019-11-23] MEDS: *HR* Heparin 5,000 UNIT/ML VIAL SQ SCH ×3 (05:12→21:56)
[2019-11-23] MEDS: 0.9 % Sodium Chloride 1,000 ML IVC SCH ×2 (05:12→10:41)
[2019-11-23] MEDS ORDERED: Levothyroxine Sodium 100 MCG VIAL IVP SCH (06:30)
[2019-11-23] MEDS: Piperacillin/Tazobactam 3.375 GM in 0.9 % Sodium Chloride Mini Bag 100 ML IVPB SCH (09:28)
[2019-11-23] MEDS: Valproic Acid Oral Soln 250 MG/5 ML UDC GTUBE SCH ×3 (10:41→21:57)
[2019-11-23] MEDS: Ipratropium/Albuterol Neb 3 ML IH SCH ×3 (15:24→21:27)
[2019-11-23] MEDS: Amoxicillin/Clavulanate 400 MG/5 ML UDC GTUBE SCH (17:47)
[2019-11-23] MEDS ORDERED: RISPERIDONE 4 MG GTUBE SCH (21:00)
[2019-11-23] MEDS: Famotidine 20 MG TABLET GTUBE SCH (21:56)
[2019-11-23] MEDS: *HR* LORazepam 1 MG TABLET GTUBE SCH (21:56)
[2019-11-23] MEDS: risperiDONE 1 MG, risperiDONE 3 MG GTUBE SCH (21:56)
[2019-11-24 03:08] LABS: Hemoglobin 8.8 g/dL (11.5-15.4); Red Cell Distribution Width 15.2 % (11.5-14.5)
[2019-11-24 03:10] LABS: Eosinophils % 1.1 %; Hematocrit 28.2 % (35.3-44.9); Immature Platelets 5.8 % (1.1-6.1); Lymphocytes % 43.8 %; Mean Corpuscular HGB Conc 31.2 g/dL (31.6-35.5); Mean Corpuscular Hemoglobin 34.4 pg (28.0-33.3); Mean Corpuscular Volume 110.2 fL (83.0-100.0); Mean Platelet Volume 10.8 fL (9.4-12.4); Monocytes # 0.6 K/mcL (0.0-1.3); Monocytes % 16.4 %; Neutrophils # 1.4 K/mcL (1.6-8.9); Platelet Count 110 K/mcL (140-400); Red Blood Count 2.56 M/mcL (3.82-4.97); Segmented Neutrophils % 38.7 %; White Blood Count 3.5 K/mcL (4.3-11.1)
[2019-11-24 03:13] LABS: Lymphocytes # 1.5 K/mcL (0.6-4.6)
[2019-11-24 03:14] LABS: BUN/Creatinine Ratio 43 (6-26); Blood Urea Nitrogen 23 mg/dL (8-23); Calcium 8.2 mg/dL (8.6-10.3); Carbon Dioxide 34 mEq/L (23-29); Chloride 103 mEq/L (98-107); Glucose 93 mg/dL (70-105); Osmolality,Calculated 291 (280-300); Potassium 4.5 mEq/L (3.5-5.1); Sodium 139 mEq/L (136-145); eGFR For African Americans > 60 (> 60); eGFR For Non-African Americans > 60 (> 60)
[2019-11-24] MEDS: Ipratropium/Albuterol Neb 3 ML IH SCH ×7 (03:24→23:30)
[2019-11-24 03:57] LABS: Anisocytosis 1+ (Not Present); Platelet Estimate Normal (Normal)
[2019-11-24] MEDS: *HR* Heparin 5,000 UNIT/ML VIAL SQ SCH ×3 (05:57→21:38)
[2019-11-24] MEDS: Amoxicillin/Clavulanate 400 MG/5 ML UDC GTUBE SCH (05:58)
[2019-11-24 09:56] LABS: Folate > 22.3 ng/mL (3.0-16.0); Vitamin B12 > 1500 pg/mL (250-1100)
[2019-11-24] MEDS ORDERED: Piperacillin/Tazobactam 3.375 GM in 0.9 % Sodium Chloride Mini Bag 100 ML IVPB SCH (10:00)
[2019-11-24] MEDS: Valproic Acid Oral Soln 250 MG/5 ML UDC GTUBE SCH ×3 (10:07→21:38)
[2019-11-24] MEDS: *HR* LORazepam 1 MG TABLET GTUBE SCH ×2 (10:07→21:37)
[2019-11-24] MEDS: Famotidine 20 MG TABLET GTUBE SCH ×2 (10:08→21:37)
[2019-11-24] MEDS: Lactulose Oral Soln 20 GM/30 ML UDC GTUBE SCH (10:08)
[2019-11-24] MEDS: polyethylene glycoL 3350 17 GM POWD.PACK GTUBE SCH (10:08)
[2019-11-24] MEDS: risperiDONE 1 MG, risperiDONE 3 MG GTUBE SCH ×2 (10:08→21:37)
[2019-11-24] MEDS: Meropenem 1,000 MG in Water for inj. (sterile) 20 ML IVP SCH ×2 (12:07→21:37)
[2019-11-24] MEDS: levoFLOXacin 750 MG/150 ML 750 MG/150 ML BAG IVPB SCH (14:14)
[2019-11-24] MEDS ORDERED: 0.9 % Sodium Chloride 1,000 ML IVC ONE (16:15)
[2019-11-25] MEDS: Ipratropium/Albuterol Neb 3 ML IH SCH ×6 (03:47→23:39)
[2019-11-25] MEDS: Meropenem 1,000 MG in Water for inj. (sterile) 20 ML IVP SCH ×2 (04:15→11:55)
[2019-11-25] MEDS: *HR* Heparin 5,000 UNIT/ML VIAL SQ SCH ×3 (06:05→21:09)
[2019-11-25 07:06] LABS: Hemoglobin 8.5 g/dL (11.5-15.4)
[2019-11-25 07:08] LABS: Hematocrit 26.2 % (35.3-44.9); Immature Platelets 5.6 % (1.1-6.1); Mean Corpuscular HGB Conc 32.4 g/dL (31.6-35.5); Mean Corpuscular Hemoglobin 35.1 pg (28.0-33.3); Mean Corpuscular Volume 108.3 fL (83.0-100.0); Mean Platelet Volume 10.5 fL (9.4-12.4); Red Blood Count 2.42 M/mcL (3.82-4.97); Red Cell Distribution Width 15.2 % (11.5-14.5); White Blood Count 4.1 K/mcL (4.3-11.1)
[2019-11-25 07:24] LABS: Platelet Count 91 K/mcL (140-400)
[2019-11-25 07:25] LABS: BUN/Creatinine Ratio 30 (6-26); Blood Urea Nitrogen 16 mg/dL (8-23); Calcium 8.5 mg/dL (8.6-10.3); Carbon Dioxide 36 mEq/L (23-29); Chloride 101 mEq/L (98-107); Glucose 111 mg/dL (70-105); Osmolality,Calculated 290 (280-300); Potassium 4.3 mEq/L (3.5-5.1); Sodium 139 mEq/L (136-145); eGFR For African Americans > 60 (> 60); eGFR For Non-African Americans > 60 (> 60)
[2019-11-25 08:15] LABS: Lymphocytes # 1.3 K/mcL (0.6-4.6); Monocytes # 0.6 K/mcL (0.0-1.3); Neutrophils # 2.2 K/mcL (1.6-8.9); Platelet Estimate Slight Decrease (Normal)
[2019-11-25] MEDS: Valproic Acid Oral Soln 250 MG/5 ML UDC GTUBE SCH ×3 (09:34→21:05)
[2019-11-25] MEDS: Lactulose Oral Soln 20 GM/30 ML UDC GTUBE SCH (09:34)
[2019-11-25] MEDS: levoFLOXacin 750 MG/150 ML 750 MG/150 ML BAG IVPB SCH (09:36)
[2019-11-25] MEDS: Famotidine 20 MG TABLET GTUBE SCH ×2 (09:37→21:06)
[2019-11-25] MEDS: risperiDONE 1 MG, risperiDONE 3 MG GTUBE SCH ×2 (09:38→21:05)
[2019-11-25] MEDS: *HR* LORazepam 1 MG TABLET GTUBE SCH ×2 (09:38→21:06)
[2019-11-25] MEDS: polyethylene glycoL 3350 17 GM POWD.PACK GTUBE SCH (09:38)
[2019-11-26] MEDS: Piperacillin/Tazobactam 3.375 GM in 0.9 % Sodium Chloride Mini Bag 100 ML IVPB SCH ×2 (00:19→08:28)
[2019-11-26 03:25] LABS: Hemoglobin 8.8 g/dL (11.5-15.4); Immature Granulocytes % 0.2 % (0-4)
[2019-11-26 03:26] LABS: BUN/Creatinine Ratio 23 (6-26); Blood Urea Nitrogen 15 mg/dL (8-23); Calcium 8.7 mg/dL (8.6-10.3); Carbon Dioxide 32 mEq/L (23-29); Chloride 103 mEq/L (98-107); Glucose 94 mg/dL (70-105); Osmolality,Calculated 289 (280-300); Potassium 4.7 mEq/L (3.5-5.1); Sodium 139 mEq/L (136-145); eGFR For African Americans > 60 (> 60); eGFR For Non-African Americans > 60 (> 60)
[2019-11-26 03:27] LABS: Basophils % 0.4 %; Eosinophils # 0.1 K/mcL (0.0-0.6); Eosinophils % 2.1 %; Hematocrit 27.8 % (35.3-44.9); Immature Platelets 5.1 % (1.1-6.1); Lymphocytes # 1.6 K/mcL (0.6-4.6); Lymphocytes % 32.1 %; Mean Corpuscular HGB Conc 31.7 g/dL (31.6-35.5); Mean Corpuscular Hemoglobin 34.2 pg (28.0-33.3); Mean Corpuscular Volume 108.2 fL (83.0-100.0); Mean Platelet Volume 10.8 fL (9.4-12.4); Monocytes % 21.4 %; Red Blood Count 2.57 M/mcL (3.82-4.97); Red Cell Distribution Width 15.1 % (11.5-14.5); Segmented Neutrophils % 43.8 %; White Blood Count 4.9 K/mcL (4.3-11.1)
[2019-11-26 03:41] LABS: Monocytes # 1.1 K/mcL (0.0-1.3); Neutrophils # 2.2 K/mcL (1.6-8.9); Platelet Count 90 K/mcL (140-400)
[2019-11-26 04:03] LABS: Platelet Estimate Slight Decrease (Normal)
[2019-11-26] MEDS: Ipratropium/Albuterol Neb 3 ML IH SCH ×5 (04:25→20:12)
[2019-11-26] MEDS: *HR* Heparin 5,000 UNIT/ML VIAL SQ SCH ×3 (05:31→22:27)
[2019-11-26] MEDS: polyethylene glycoL 3350 17 GM POWD.PACK GTUBE SCH (08:24)
[2019-11-26] MEDS: Famotidine 20 MG TABLET GTUBE SCH ×2 (08:24→20:26)
[2019-11-26] MEDS: risperiDONE 1 MG, risperiDONE 3 MG GTUBE SCH ×2 (08:24→20:25)
[2019-11-26] MEDS: Valproic Acid Oral Soln 250 MG/5 ML UDC GTUBE SCH ×3 (08:25→20:26)
[2019-11-26] MEDS: Lactulose Oral Soln 20 GM/30 ML UDC GTUBE SCH (08:25)
[2019-11-26] MEDS: *HR* LORazepam 1 MG TABLET GTUBE SCH ×2 (08:25→20:25)
[2019-11-26] MEDS: metroNIDAZOLE 500 MG TABLET PO SCH ×2 (15:23→20:26)
[2019-11-26] MEDS: Cefdinir 300 MG CAPSULE PO SCH (20:25)
[2019-11-27] MEDS: Ipratropium/Albuterol Neb 3 ML IH SCH ×7 (00:21→23:29)
[2019-11-27 00:32] LABS: Valproate Free 10 ug/mL (7-23)
[2019-11-27 00:33] LABS: Valproate Total 43 ug/mL (50-125)
[2019-11-27] MEDS: *HR* Heparin 5,000 UNIT/ML VIAL SQ SCH ×3 (05:54→20:49)
[2019-11-27 06:22] LABS: Hemoglobin 9.3 g/dL (11.5-15.4); Mean Corpuscular Hemoglobin 34.4 pg (28.0-33.3); Red Cell Distribution Width 14.9 % (11.5-14.5)
[2019-11-27 06:24] LABS: Immature Platelets 5.6 % (1.1-6.1); Mean Corpuscular HGB Conc 32.1 g/dL (31.6-35.5); Mean Corpuscular Volume 107.4 fL (83.0-100.0); Mean Platelet Volume 10.3 fL (9.4-12.4); White Blood Count 5.1 K/mcL (4.3-11.1)
[2019-11-27 06:32] LABS: Platelet Count 99 K/mcL (140-400)
[2019-11-27 06:41] LABS: BUN/Creatinine Ratio 34 (6-26); Blood Urea Nitrogen 20 mg/dL (8-23); Calcium 8.7 mg/dL (8.6-10.3); Carbon Dioxide 35 mEq/L (23-29); Chloride 102 mEq/L (98-107); Glucose 105 mg/dL (70-105); Osmolality,Calculated 293 (280-300); Potassium 4.4 mEq/L (3.5-5.1); Sodium 140 mEq/L (136-145); eGFR For African Americans > 60 (> 60); eGFR For Non-African Americans > 60 (> 60)
[2019-11-27 06:51] LABS: Lymphocytes # 1.2 K/mcL (0.6-4.6); Neutrophils # 2.9 K/mcL (1.6-8.9); Platelet Estimate Decreased (Normal)
[2019-11-27] MEDS: Famotidine 20 MG TABLET GTUBE SCH ×2 (08:47→20:47)
[2019-11-27] MEDS: *HR* LORazepam 1 MG TABLET GTUBE SCH ×2 (08:48→20:47)
[2019-11-27] MEDS: risperiDONE 1 MG, risperiDONE 3 MG GTUBE SCH ×2 (08:48→20:47)
[2019-11-27] MEDS: metroNIDAZOLE 500 MG TABLET PO SCH ×3 (08:49→20:47)
[2019-11-27] MEDS: Lactulose Oral Soln 20 GM/30 ML UDC GTUBE SCH (08:49)
[2019-11-27] MEDS: Valproic Acid Oral Soln 250 MG/5 ML UDC GTUBE SCH ×3 (08:49→20:48)
[2019-11-27] MEDS: polyethylene glycoL 3350 17 GM POWD.PACK GTUBE SCH (08:51)
[2019-11-27 09:32] LABS: Valproate % Free 23 % (5-18)
[2019-11-27] MEDS: Cefdinir 125 MG/5 ML UDC PO SCH ×2 (10:42→22:38)
[2019-11-28] MEDS: Ipratropium/Albuterol Neb 3 ML IH SCH ×6 (03:49→23:02)
[2019-11-28] MEDS: Acetylcysteine 10% 2 ML INHSOL IH SCH ×6 (03:49→23:02)
[2019-11-28] MEDS: Cefdinir 300 MG CAPSULE PO SCH (05:28)
[2019-11-28] MEDS: *HR* Heparin 5,000 UNIT/ML VIAL SQ SCH ×3 (05:47→22:48)
[2019-11-28 06:53] LABS: Basophils % 0.4 %; Hemoglobin 9.7 g/dL (11.5-15.4); Immature Granulocytes % 0.2 % (0-4); Mean Corpuscular HGB Conc 32.3 g/dL (31.6-35.5)
[2019-11-28 06:55] LABS: Eosinophils # 0.2 K/mcL (0.0-0.6); Eosinophils % 3.1 %; Immature Platelets 5.9 % (1.1-6.1); Lymphocytes # 1.6 K/mcL (0.6-4.6); Lymphocytes % 32.3 %; Mean Corpuscular Hemoglobin 34.6 pg (28.0-33.3); Mean Corpuscular Volume 107.1 fL (83.0-100.0); Mean Platelet Volume 10.7 fL (9.4-12.4); Monocytes # 1.1 K/mcL (0.0-1.3); Platelet Count 117 K/mcL (140-400); Red Cell Distribution Width 14.6 % (11.5-14.5); White Blood Count 4.8 K/mcL (4.3-11.1)
[2019-11-28 07:20] LABS: BUN/Creatinine Ratio 33 (6-26); Blood Urea Nitrogen 20 mg/dL (8-23); Calcium 8.7 mg/dL (8.6-10.3); Carbon Dioxide 32 mEq/L (23-29); Chloride 99 mEq/L (98-107); Glucose 86 mg/dL (70-105); Osmolality,Calculated 288 (280-300); Potassium 4.9 mEq/L (3.5-5.1); Sodium 138 mEq/L (136-145); eGFR For African Americans > 60 (> 60); eGFR For Non-African Americans > 60 (> 60)
[2019-11-28] MEDS: Lactulose Oral Soln 20 GM/30 ML UDC GTUBE SCH (09:18)
[2019-11-28] MEDS: polyethylene glycoL 3350 17 GM POWD.PACK GTUBE SCH (09:18)
[2019-11-28] MEDS: Valproic Acid Oral Soln 250 MG/5 ML UDC GTUBE SCH ×2 (09:19→16:32)
[2019-11-28] MEDS: *HR* LORazepam 1 MG TABLET GTUBE SCH ×2 (09:19→19:13)
[2019-11-28] MEDS: risperiDONE 1 MG, risperiDONE 3 MG GTUBE SCH ×2 (09:20→22:46)
[2019-11-28] MEDS: Famotidine 20 MG TABLET GTUBE SCH ×2 (09:20→22:46)
[2019-11-28] MEDS: metroNIDAZOLE 500 MG TABLET PO SCH ×2 (09:21→16:32)
[2019-11-28] MEDS: Cefdinir 125 MG/5 ML UDC PO SCH (16:32)
[2019-11-28] MEDS ORDERED: cefTRIAXone 1,000 MG in Water for inj. (sterile) 10 ML IVP SCH (17:00)
[2019-11-28] MEDS: Valproic Acid INJ 500 MG in 0.9 % Sodium Chloride 100 ML IVPB SCH (18:03)
[2019-11-28] MEDS: MetroNIDAZOLE 500 MG/100 ML 500 MG/100 ML BAG IVPB SCH (19:53)
[2019-11-28] MEDS ORDERED: Valproic Acid INJ 750 MG in 0.9 % Sodium Chloride 100 ML IVPB SCH (21:00)
[2019-11-28] MEDS ORDERED: Cefdinir 125 MG/5 ML UDC GTUBE SCH (21:00)
[2019-11-28] MEDS ORDERED: *HR* LORazepam 2 MG/ML VIAL IVP ONE (21:00)
[2019-11-28] MEDS ORDERED: metroNIDAZOLE 500 MG TABLET GTUBE SCH (21:00)
[2019-11-29] MEDS: MetroNIDAZOLE 500 MG/100 ML 500 MG/100 ML BAG IVPB SCH ×2 (00:32→09:35)
[2019-11-29 02:07] LABS: Basophils % 0.4 %; Eosinophils # 0.1 K/mcL (0.0-0.6); Eosinophils % 2.6 %; Hematocrit 30.1 % (35.3-44.9); Hemoglobin 9.6 g/dL (11.5-15.4); Immature Granulocytes % 0.2 % (0-4); Lymphocytes # 1.7 K/mcL (0.6-4.6); Lymphocytes % 34.9 %; Mean Corpuscular HGB Conc 31.9 g/dL (31.6-35.5); Mean Corpuscular Hemoglobin 34.3 pg (28.0-33.3); Mean Corpuscular Volume 107.5 fL (83.0-100.0); Mean Platelet Volume 10.4 fL (9.4-12.4); Monocytes # 0.8 K/mcL (0.0-1.3); Monocytes % 15.3 %; Neutrophils # 2.3 K/mcL (1.6-8.9); Platelet Count 129 K/mcL (140-400); Red Cell Distribution Width 14.5 % (11.5-14.5); Segmented Neutrophils % 46.6 %
[2019-11-29 02:21] LABS: BUN/Creatinine Ratio 36 (6-26); Blood Urea Nitrogen 20 mg/dL (8-23); Carbon Dioxide 30 mEq/L (23-29); Chloride 99 mEq/L (98-107); Glucose 83 mg/dL (70-105); Osmolality,Calculated 286 (280-300); Potassium 4.4 mEq/L (3.5-5.1); Sodium 137 mEq/L (136-145); eGFR For African Americans > 60 (> 60); eGFR For Non-African Americans > 60 (> 60)
[2019-11-29] MEDS: Ipratropium/Albuterol Neb 3 ML IH SCH ×4 (03:59→16:12)
[2019-11-29] MEDS: Acetylcysteine 10% 2 ML INHSOL IH SCH ×4 (03:59→16:12)
[2019-11-29] MEDS: *HR* Heparin 5,000 UNIT/ML VIAL SQ SCH ×2 (05:29→15:36)
[2019-11-29] MEDS ORDERED: Levothyroxine Sodium 100 MCG VIAL IVP SCH (09:00)
[2019-11-29] MEDS: *HR* LORazepam 1 MG TABLET GTUBE SCH (09:42)
[2019-11-29] MEDS: polyethylene glycoL 3350 17 GM POWD.PACK GTUBE SCH (09:42)
[2019-11-29] MEDS: Lactulose Oral Soln 20 GM/30 ML UDC GTUBE SCH (09:42)
[2019-11-29] MEDS: Famotidine 20 MG TABLET GTUBE SCH (09:42)
[2019-11-29] MEDS: risperiDONE 1 MG, risperiDONE 3 MG GTUBE SCH (09:43)
[2019-11-29] MEDS: Valproic Acid INJ 500 MG in 0.9 % Sodium Chloride 100 ML IVPB SCH ×2 (10:37→15:36)
[2019-11-29] MEDS ORDERED: *HR* FentaNYL (PF) 100 MCG/2 ML VIAL ONE (13:38)
[2019-11-29] MEDS ORDERED: *HR* FentaNYL (PF) 100 MCG/2 ML VIAL IVP PRN (14:38)
[2019-11-29] MEDS ORDERED: Piperacillin/Tazobactam 3.375 GM in 0.9 % Sodium Chloride Mini Bag 100 ML IVPB SCH (16:00)
[2019-11-29 17:52] VITALS: BP 111/68
[2019-11-29] MEDS ORDERED: *HR* Propofol 200 MG/20 ML VIAL IVP ONE (18:28)
[2019-11-29] MEDS ORDERED: Ondansetron 4 MG/2 ML VIAL IVP ONE (18:28)
[2019-11-29] MEDS ORDERED: *HR* Succinylcholine 200 MG/10 ML VIAL IVP ONE (18:28)
[2019-11-29] MEDS ORDERED: Lidocaine -MPF 2% 5 ML VIAL SQ ONE (18:28)
[2019-11-29] MEDS ORDERED: RisperiDONE-M 1 MG TAB.RAPDIS PO SCH (21:00)
== END 2019-11-29 18:29 | disposition home health service (06) | DRG 871 ==
LOC: ICNU 17:11 → EMEROOARM 17:11 → SUATTDRO 11-22 00:06 → OBSVTOIN 11-22 00:06 → ICNU 11-22 01:53 → 2ANU 11-22 18:23
PROVIDERS: ADMIT Internal Medicine; ATTEND Family Medicine

== ENCOUNTER 2019-12-27 12:51 | Inpatient (IN) ==
[2019-12-27] MEDS ORDERED: 0.9 % Sodium Chloride 1,000 ML IVC ONE (12:56)
[2019-12-27] MEDS ORDERED: cefTRIAXone 1,000 MG in Water for inj. (sterile) 10 ML IVP ONE (12:57)
[2019-12-27 13:36] LABS: VBG HCO3 40 mEq/L (21-27); VBG PCO2 48 mmHg (41-51); VBG PH 7.53 pH Units (7.32-7.42); VBG PO2 174 mmHg (25-50)
[2019-12-27 13:47] LABS: Red Cell Distribution Width 13.5 % (11.5-14.5); White Blood Count 5.4 K/mcL (4.3-11.1)
[2019-12-27 13:49] LABS: Basophils % 0.2 %; Eosinophils % 0.4 %; Hematocrit 30.2 % (35.3-44.9); Hemoglobin 9.7 g/dL (11.5-15.4); INR 0.9; Immature Granulocytes % 0.2 % (0-4); Immature Platelets 9.3 % (1.1-6.1); Lymphocytes # 1.1 K/mcL (0.6-4.6); Lymphocytes % 20.3 %; Mean Corpuscular HGB Conc 32.1 g/dL (31.6-35.5); Monocytes # 0.6 K/mcL (0.0-1.3); Monocytes % 11.7 %; Neutrophils # 3.6 K/mcL (1.6-8.9); Prothrombin Time 10.6 Seconds (9.4-12.1); Red Blood Count 2.85 M/mcL (3.82-4.97); Segmented Neutrophils % 67.2 %
[2019-12-27 13:51] LABS: Activated Partial Thrombo Time 39.7 Seconds (26.0-36.0)
[2019-12-27] MEDS ORDERED: Azithromycin 500 MG in 0.9 % Sodium Chloride 250 ML IVPB ONE (14:18)
[2019-12-27 14:21] LABS: Alanine Aminotransferase 51 Units/L (7-52); Albumin 3.1 g/dL (3.5-5.7); Albumin/Globulin Ratio 0.9 (1.1-2.2); Alkaline Phosphatase 184 Units/L (34-104); Aspartate Amino Transferase 69 Units/L (13-39); BUN/Creatinine Ratio 63 (6-26); Bilirubin,Direct 0.1 mg/dL (0.0-0.2); Bilirubin,Indirect 0.3 mg/dL (0.0-1.0); Bilirubin,Total 0.4 mg/dL (0.3-1.0); Blood Urea Nitrogen 27 mg/dL (8-23); Calcium 9.3 mg/dL (8.6-10.3); Carbon Dioxide 36 mEq/L (23-29); Chloride 96 mEq/L (98-107); Globulin 3.6 g/dL (2.4-3.5); Glucose 80 mg/dL (70-105); Lipase 20 Units/L (11-82); Magnesium 1.5 mg/dL (1.6-2.6); Osmolality,Calculated 290 (280-300); Phosphorous 3.4 mg/dL (2.7-4.5); Potassium 5.2 mEq/L (3.5-5.1); Sodium 138 mEq/L (136-145); Total Protein 6.7 g/dL (6.4-8.9); Troponin I < 0.03 ng/mL (< 0.04); eGFR For African Americans > 60 (> 60); eGFR For Non-African Americans > 60 (> 60)
[2019-12-27 14:21] LABS: Bilirubin,Urine Negative (Negative); Blood,Urine Negative (Negative); Clarity,Urine Clear (Clear); Color,Urine Yellow (Yellow); Glucose,Urine (UA) Normal (Normal); Ketones,Urine Trace mg/dL (Negative); Leukocyte Esterase,Urine Negative (Negative); Nitrite,Urine Negative (Negative); Protein,Urine Negative (Neg-Trace); Specific Gravity,Urine 1.022 (1.010-1.025); Urobilinogen,Urine Normal (Normal)
[2019-12-27] MEDS ORDERED: Insulin Human Regular 10 UNIT in 0.9 % Sodium Chloride 10 ML IV ONE (14:28)
[2019-12-27] MEDS ORDERED: Calcium Gluconate 1gm/50mL 1 GM/50 ML BAG IVPB PRN (14:28)
[2019-12-27] MEDS ORDERED: *HR* Dextrose 50 % in Water (Vial) 50 ML VIAL IVP ONE (14:28)
[2019-12-27 14:37] LABS: Platelet Count 75 K/mcL (140-400)
[2019-12-27 14:45] LABS: Thyroid Stimulating Hormone 2.233 mcIU/mL (0.340-5.600)
[2019-12-27] MEDS ORDERED: Naloxone 0.4 MG/ML INJ IVP PRN (14:48)
[2019-12-27] MEDS ORDERED: Ondansetron 4 MG/2 ML VIAL IVP PRN (14:48)
[2019-12-27] MEDS ORDERED: 0.9 % Sodium Chloride 1,000 ML IVC SCH (15:00)
[2019-12-27] MEDS ORDERED: GuaiFENesin Liq 200 MG/10 ML UDC GTUBE PRN (15:15)
[2019-12-27] MEDS ORDERED: Neosporin OINT 1 APPL PACKET TP PRN (15:15)
[2019-12-27] MEDS ORDERED: Valproic Acid Oral Soln 250 MG/5 ML UDC PO SCH ×2 (16:15→21:00)
[2019-12-27] MEDS ORDERED: 0.9 % Sodium Chloride 500 ML IVC ONE (16:26)
[2019-12-27] MEDS ORDERED: 0.9 % Sodium Chloride 1,000 ML ONE (16:52)
[2019-12-27 18:12] LABS: ABG Base Excess 10 mEq/L (-2 to 3); ABG HCO3 37 mEq/L (21-27); ABG Oxygen Saturation 96 % (95-98); ABG PCO2 64 mmHg (35-45); ABG PH 7.37 pH Units (7.32-7.45); ABG PO2 90 mmHg (85-104); ABG TCO2 39 mEq/L (20-26)
[2019-12-27 18:21] LABS: Troponin I < 0.03 ng/mL (< 0.04)
[2019-12-27] MEDS ORDERED: Meropenem 500 MG in Water for inj. (sterile) 10 ML IVP SCH (18:44)
[2019-12-27] MEDS ORDERED: Furosemide 20 MG/2 ML VIAL IVP ONE (18:46)
[2019-12-27] MEDS ORDERED: Perflutren Lipid Microsphere 1.3 ML in 0.9 % Sodium Chloride 8.7 ML IVP PRN (19:23)
[2019-12-27] MEDS: *HR* LORazepam Oral Conc 2 MG/ML GTUBE SCH ×2 (20:26→22:52)
[2019-12-27] MEDS: risperiDONE 1 MG, risperiDONE 3 MG GTUBE SCH (20:26)
[2019-12-27] MEDS: levoFLOXacin 750 MG/150 ML 750 MG/150 ML BAG IVPB SCH (20:43)
[2019-12-27] MEDS ORDERED: WHEY PROTEIN ISOLATE GTUBE SCH (21:00)
[2019-12-27] MEDS ORDERED: RISPERIDONE 4 MG GTUBE SCH (21:00)
[2019-12-27] MEDS ORDERED: RaNITIdine Oral Soln 75 MG/5 ML UDC GTUBE SCH (21:00)
[2019-12-27] MEDS: Budesonide Neb 0.5 MG/2 ML IH SCH (21:32)
[2019-12-28 01:09] LABS: Hemoglobin 9.1 g/dL (11.5-15.4); Immature Granulocytes % 0.4 % (0-4)
[2019-12-28 01:11] LABS: Basophils % 0.1 %; Eosinophils % 0.1 %; Hematocrit 27.9 % (35.3-44.9); Immature Platelets 7.1 % (1.1-6.1); Lymphocytes # 0.8 K/mcL (0.6-4.6); Lymphocytes % 9.1 %; Mean Corpuscular HGB Conc 32.6 g/dL (31.6-35.5); Mean Corpuscular Hemoglobin 34.3 pg (28.0-33.3); Mean Corpuscular Volume 105.3 fL (83.0-100.0); Monocytes # 0.9 K/mcL (0.0-1.3); Monocytes % 11.1 %; Neutrophils # 6.7 K/mcL (1.6-8.9); Nucleated Red Blood Cells 0.2 /100 WBC (0); Platelet Count 81 K/mcL (140-400); Red Blood Count 2.65 M/mcL (3.82-4.97); Red Cell Distribution Width 13.8 % (11.5-14.5); Segmented Neutrophils % 79.2 %; White Blood Count 8.4 K/mcL (4.3-11.1)
[2019-12-28 01:28] LABS: BUN/Creatinine Ratio 51 (6-26); Blood Urea Nitrogen 27 mg/dL (8-23); Calcium 8.8 mg/dL (8.6-10.3); Carbon Dioxide 34 mEq/L (23-29); Chloride 99 mEq/L (98-107); Glucose 70 mg/dL (70-105); Magnesium 1.3 mg/dL (1.6-2.6); Osmolality,Calculated 290 (280-300); Phosphorous 2.5 mg/dL (2.7-4.5); Potassium 4.7 mEq/L (3.5-5.1); Sodium 138 mEq/L (136-145); eGFR For African Americans > 60 (> 60); eGFR For Non-African Americans > 60 (> 60)
[2019-12-28] MEDS ORDERED: Meropenem 500 MG in Water for inj. (sterile) 10 ML IVP SCH (04:00)
[2019-12-28] MEDS: Budesonide Neb 0.5 MG/2 ML IH SCH ×2 (07:53→21:41)
[2019-12-28] MEDS ORDERED: cefTRIAXone 1,000 MG in Water for inj. (sterile) 10 ML IVP SCH (09:00)
[2019-12-28] MEDS: risperiDONE 1 MG, risperiDONE 3 MG GTUBE SCH ×2 (09:06→19:58)
[2019-12-28] MEDS: polyethylene glycoL 3350 17 GM POWD.PACK GTUBE SCH (09:07)
[2019-12-28] MEDS: Multivit/Ca/Min/Fe/FA 1 TAB TABLET GTUBE SCH (09:08)
[2019-12-28] MEDS: Lactulose Oral Soln 20 GM/30 ML UDC GTUBE SCH (09:11)
[2019-12-28] MEDS: Valproic Acid Oral Soln 250 MG/5 ML UDC GTUBE SCH ×3 (09:11→21:56)
[2019-12-28] MEDS: *HR* LORazepam Oral Conc 2 MG/ML GTUBE SCH ×2 (09:12→19:58)
[2019-12-28] MEDS ORDERED: Meropenem 1,000 MG in Water for inj. (sterile) 20 ML IVP SCH (12:00)
[2019-12-28] MEDS ORDERED: Azithromycin 500 MG in 0.9 % Sodium Chloride 250 ML IVPB SCH (15:00)
[2019-12-28] MEDS: levoFLOXacin 750 MG/150 ML 750 MG/150 ML BAG IVPB SCH (17:24)
[2019-12-28] MEDS ORDERED: Scopolamine Patch 1.5 MG PATCH.TD72 TD SCH (17:30)
[2019-12-28] MEDS: Piperacillin/Tazobactam 3.375 GM in 0.9 % Sodium Chloride Mini Bag 100 ML IVPB SCH ×2 (17:31→23:48)
[2019-12-28] MEDS: Famotidine 400 MG/50 ML ORAL SUSPENSION GTUBE SCH (20:00)
[2019-12-29 01:52] LABS: Basophils % 0.2 %; Hematocrit 26.7 % (35.3-44.9); Hemoglobin 8.6 g/dL (11.5-15.4); Immature Granulocytes % 0.2 % (0-4); Mean Corpuscular HGB Conc 32.2 g/dL (31.6-35.5)
[2019-12-29 01:54] LABS: Eosinophils % 0.9 %; Immature Platelets 8.1 % (1.1-6.1); Lymphocytes # 1.2 K/mcL (0.6-4.6); Lymphocytes % 27.8 %; Mean Corpuscular Hemoglobin 35.2 pg (28.0-33.3); Mean Corpuscular Volume 109.4 fL (83.0-100.0); Mean Platelet Volume 11.5 fL (9.4-12.4); Monocytes # 0.6 K/mcL (0.0-1.3); Monocytes % 12.7 %; Neutrophils # 2.6 K/mcL (1.6-8.9); Red Blood Count 2.44 M/mcL (3.82-4.97); Red Cell Distribution Width 13.8 % (11.5-14.5); Segmented Neutrophils % 58.2 %; White Blood Count 4.4 K/mcL (4.3-11.1)
[2019-12-29 01:56] LABS: Platelet Count 71 K/mcL (140-400)
[2019-12-29 02:10] LABS: BUN/Creatinine Ratio 39 (6-26); Blood Urea Nitrogen 22 mg/dL (8-23); Calcium 8.7 mg/dL (8.6-10.3); Carbon Dioxide 37 mEq/L (23-29); Chloride 100 mEq/L (98-107); Glucose 99 mg/dL (70-105); Osmolality,Calculated 293 (280-300); Potassium 3.9 mEq/L (3.5-5.1); Sodium 140 mEq/L (136-145); eGFR For African Americans > 60 (> 60); eGFR For Non-African Americans > 60 (> 60)
[2019-12-29] MEDS: Valproic Acid Oral Soln 250 MG/5 ML UDC GTUBE SCH ×3 (08:11→21:29)
[2019-12-29] MEDS: Piperacillin/Tazobactam 3.375 GM in 0.9 % Sodium Chloride Mini Bag 100 ML IVPB SCH (08:11)
[2019-12-29] MEDS: Lactulose Oral Soln 20 GM/30 ML UDC GTUBE SCH (08:12)
[2019-12-29] MEDS: risperiDONE 1 MG, risperiDONE 3 MG GTUBE SCH ×2 (08:12→21:30)
[2019-12-29] MEDS: polyethylene glycoL 3350 17 GM POWD.PACK GTUBE SCH (08:12)
[2019-12-29] MEDS: Multivit/Ca/Min/Fe/FA 1 TAB TABLET GTUBE SCH (08:12)
[2019-12-29] MEDS: Famotidine 400 MG/50 ML ORAL SUSPENSION GTUBE SCH ×2 (08:12→21:30)
[2019-12-29 08:43] LABS: Magnesium 1.8 mg/dL (1.6-2.6); Phosphorous 3.3 mg/dL (2.7-4.5)
[2019-12-29] MEDS: Budesonide Neb 0.5 MG/2 ML IH SCH ×2 (10:43→22:04)
[2019-12-29] MEDS: *HR* LORazepam Oral Conc 2 MG/ML GTUBE SCH (21:23)
[2019-12-29] MEDS: Cefdinir 125 MG/5 ML UDC GTUBE SCH (21:30)
[2019-12-30 07:08] LABS: Basophils % 0.2 %; Hemoglobin 8.8 g/dL (11.5-15.4); Immature Granulocytes % 0.2 % (0-4)
[2019-12-30 07:10] LABS: Eosinophils # 0.1 K/mcL (0.0-0.6); Eosinophils % 2.8 %; Hematocrit 27.5 % (35.3-44.9); Immature Platelets 8.2 % (1.1-6.1); Lymphocytes # 1.4 K/mcL (0.6-4.6); Lymphocytes % 31.7 %; Mean Corpuscular Hemoglobin 34.6 pg (28.0-33.3); Mean Corpuscular Volume 108.3 fL (83.0-100.0); Mean Platelet Volume 11.4 fL (9.4-12.4); Monocytes # 0.8 K/mcL (0.0-1.3); Monocytes % 17.8 %; Red Blood Count 2.54 M/mcL (3.82-4.97); Red Cell Distribution Width 13.9 % (11.5-14.5); Segmented Neutrophils % 47.3 %; White Blood Count 4.3 K/mcL (4.3-11.1)
[2019-12-30] MEDS: Budesonide Neb 0.5 MG/2 ML IH SCH ×2 (07:28→22:24)
[2019-12-30 07:38] LABS: Platelet Count 71 K/mcL (140-400)
[2019-12-30 08:24] LABS: Magnesium 1.6 mg/dL (1.6-2.6); Phosphorous 3.1 mg/dL (2.7-4.5)
[2019-12-30 08:29] LABS: BUN/Creatinine Ratio 45 (6-26); Blood Urea Nitrogen 23 mg/dL (8-23); Calcium 9.3 mg/dL (8.6-10.3); Carbon Dioxide 38 mEq/L (23-29); Chloride 100 mEq/L (98-107); Glucose 91 mg/dL (70-105); Osmolality,Calculated 293 (280-300); Potassium 4.4 mEq/L (3.5-5.1); Sodium 140 mEq/L (136-145); eGFR For African Americans > 60 (> 60); eGFR For Non-African Americans > 60 (> 60)
[2019-12-30] MEDS: Lactulose Oral Soln 20 GM/30 ML UDC GTUBE SCH (09:42)
[2019-12-30] MEDS: Multivit/Ca/Min/Fe/FA 1 TAB TABLET GTUBE SCH (09:43)
[2019-12-30] MEDS: Valproic Acid Oral Soln 250 MG/5 ML UDC GTUBE SCH ×3 (09:43→20:59)
[2019-12-30] MEDS: risperiDONE 1 MG, risperiDONE 3 MG GTUBE SCH ×2 (09:47→21:00)
[2019-12-30] MEDS: polyethylene glycoL 3350 17 GM POWD.PACK GTUBE SCH (09:47)
[2019-12-30] MEDS: *HR* LORazepam Oral Conc 2 MG/ML GTUBE SCH ×2 (11:41→21:00)
[2019-12-30] MEDS: Famotidine 400 MG/50 ML ORAL SUSPENSION GTUBE SCH ×2 (15:30→21:00)
[2019-12-30] MEDS: Cefdinir 125 MG/5 ML UDC GTUBE SCH ×2 (15:30→21:00)
[2019-12-31 06:17] LABS: Basophils % 0.2 %; Monocytes % 15.6 %
[2019-12-31 06:19] LABS: Eosinophils # 0.1 K/mcL (0.0-0.6); Eosinophils % 2.9 %; Hematocrit 27.6 % (35.3-44.9); Hemoglobin 8.7 g/dL (11.5-15.4); Immature Platelets 8.2 % (1.1-6.1); Lymphocytes # 1.8 K/mcL (0.6-4.6); Lymphocytes % 41.5 %; Mean Corpuscular HGB Conc 31.5 g/dL (31.6-35.5); Mean Corpuscular Hemoglobin 34.1 pg (28.0-33.3); Mean Corpuscular Volume 108.2 fL (83.0-100.0); Mean Platelet Volume 11.9 fL (9.4-12.4); Monocytes # 0.7 K/mcL (0.0-1.3); Neutrophils # 1.8 K/mcL (1.6-8.9); Nucleated Red Blood Cells 0.5 /100 WBC (0); Red Blood Count 2.55 M/mcL (3.82-4.97); Red Cell Distribution Width 13.8 % (11.5-14.5); Segmented Neutrophils % 39.8 %; White Blood Count 4.4 K/mcL (4.3-11.1)
[2019-12-31 06:39] LABS: Magnesium 1.6 mg/dL (1.6-2.6); Phosphorous 3.8 mg/dL (2.7-4.5)
[2019-12-31 06:40] LABS: BUN/Creatinine Ratio 38 (6-26); Blood Urea Nitrogen 20 mg/dL (8-23); Calcium 9.2 mg/dL (8.6-10.3); Carbon Dioxide 36 mEq/L (23-29); Chloride 102 mEq/L (98-107); Glucose 97 mg/dL (70-105); Osmolality,Calculated 293 (280-300); Potassium 4.4 mEq/L (3.5-5.1); Sodium 140 mEq/L (136-145); eGFR For African Americans > 60 (> 60); eGFR For Non-African Americans > 60 (> 60)
[2019-12-31 07:07] LABS: Platelet Count 91 K/mcL (140-400)
[2019-12-31] MEDS: Budesonide Neb 0.5 MG/2 ML IH SCH (07:37)
[2019-12-31] MEDS: Valproic Acid Oral Soln 250 MG/5 ML UDC GTUBE SCH (08:50)
[2019-12-31] MEDS: *HR* LORazepam Oral Conc 2 MG/ML GTUBE SCH (08:50)
[2019-12-31] MEDS: Lactulose Oral Soln 20 GM/30 ML UDC GTUBE SCH (08:50)
[2019-12-31] MEDS: polyethylene glycoL 3350 17 GM POWD.PACK GTUBE SCH (08:51)
[2019-12-31] MEDS: risperiDONE 1 MG, risperiDONE 3 MG GTUBE SCH (08:51)
[2019-12-31] MEDS: Famotidine 400 MG/50 ML ORAL SUSPENSION GTUBE SCH (08:51)
[2019-12-31] MEDS: Cefdinir 125 MG/5 ML UDC GTUBE SCH (08:51)
[2019-12-31] MEDS ORDERED: Multivitamin Liquid 15 ML UDC GTUBE SCH (09:00)
[2019-12-31 11:23] VITALS: BP 104/58
== END 2019-12-31 12:55 | DRG 871 ==
LOC: 2ANU 12:51 → EMEROOARM 12:51 → SUATTDRO 17:17 → 2NNU 18:04 → SUATTDRO 12-28 16:42 → 2ANU 12-29 19:46
PROVIDERS: ADMIT Student in an Organized Health Care Education/Training Program; ATTEND Internal Medicine

== ENCOUNTER 2020-01-06 18:05 | Inpatient (IN) ==
[2020-01-06] MEDS ORDERED: 0.9 % Sodium Chloride 1,000 ML IVC ONE ×2 (19:04→22:26)
[2020-01-06 21:06] LABS: Bilirubin,Urine Negative (Negative); Blood,Urine Negative (Negative); Clarity,Urine Clear (Clear); Color,Urine Yellow (Yellow); Glucose,Urine (UA) Normal (Normal); Ketones,Urine Negative (Negative); Leukocyte Esterase,Urine Negative (Negative); Nitrite,Urine Negative (Negative); Protein,Urine Negative (Neg-Trace); Urobilinogen,Urine Normal (Normal)
[2020-01-06 21:06] LABS: Eosinophils # 0.1 K/mcL (0.0-0.6); Eosinophils % 2.2 %; Lymphocytes # 1.1 K/mcL (0.6-4.6); Lymphocytes % 46.7 %; Mean Corpuscular HGB Conc 32.3 g/dL (31.6-35.5); Mean Corpuscular Hemoglobin 35.1 pg (28.0-33.3); Mean Corpuscular Volume 108.8 fL (83.0-100.0); Mean Platelet Volume 11.6 fL (9.4-12.4); Monocytes # 0.3 K/mcL (0.0-1.3); Monocytes % 11.8 %; Neutrophils # 0.9 K/mcL (1.6-8.9); Platelet Count 188 K/mcL (140-400); Red Blood Count 2.85 M/mcL (3.82-4.97); Segmented Neutrophils % 39.3 %; White Blood Count 2.3 K/mcL (4.3-11.1)
[2020-01-06 21:11] LABS: Prothrombin Time 11.1 Seconds (9.4-12.1)
[2020-01-06 21:14] LABS: Activated Partial Thrombo Time 36.6 Seconds (26.0-36.0)
[2020-01-06 21:31] LABS: VBG HCO3 37 mEq/L (21-27); VBG PCO2 54 mmHg (41-51); VBG PH 7.44 pH Units (7.32-7.42); VBG PO2 190 mmHg (25-50)
[2020-01-06 21:38] LABS: Troponin I < 0.03 ng/mL (< 0.04)
[2020-01-06 22:00] LABS: Alanine Aminotransferase 54 Units/L (7-52); Albumin 3.1 g/dL (3.5-5.7); Alkaline Phosphatase 174 Units/L (34-104); Amylase 35 Units/L (29-103); Aspartate Amino Transferase 59 Units/L (13-39); BUN/Creatinine Ratio 61 (6-26); Bilirubin,Indirect 0.4 mg/dL (0.0-1.0); Bilirubin,Total 0.4 mg/dL (0.3-1.0); Blood Urea Nitrogen 23 mg/dL (8-23); Calcium 9.4 mg/dL (8.6-10.3); Carbon Dioxide 37 mEq/L (23-29); Chloride 99 mEq/L (98-107); Globulin 3.2 g/dL (2.4-3.5); Glucose 57 mg/dL (70-105); Lipase 16 Units/L (11-82); Magnesium 1.6 mg/dL (1.6-2.6); Osmolality,Calculated 289 (280-300); Phosphorous 3.5 mg/dL (2.7-4.5); Potassium 4.2 mEq/L (3.5-5.1); Sodium 139 mEq/L (136-145); Total Protein 6.3 g/dL (6.4-8.9); eGFR For African Americans > 60 (> 60); eGFR For Non-African Americans > 60 (> 60)
[2020-01-06] MEDS ORDERED: Meropenem 1,000 MG in Water for inj. (sterile) 20 ML IVP STA (22:29)
[2020-01-07 00:02] LABS: Thyroid Stimulating Hormone 1.222 mcIU/mL (0.340-5.600)
[2020-01-07] MEDS ORDERED: Naloxone 0.4 MG/ML INJ IVP PRN (00:24)
[2020-01-07] MEDS ORDERED: Ondansetron 4 MG/2 ML VIAL IVP PRN (00:24)
[2020-01-07] MEDS ORDERED: 0.9 % Sodium Chloride 1,000 ML IVC SCH (00:30)
[2020-01-07] MEDS ORDERED: Azithromycin 500 MG in 0.9 % Sodium Chloride 250 ML IVPB SCH (01:00)
[2020-01-07 02:10] LABS: Adenovirus Not Detected (Not Detect); Bordetella Pertussis Not Detected (Not Detect); Chlamydophila pneumoniae Not Detected (Not Detect); Coronavirus 229E Not Detected (Not Detect); Coronavirus HKU1 Not Detected (Not Detect); Coronavirus NL63 Not Detected (Not Detect); Coronavirus OC43 Not Detected (Not Detect); Human Metapneumovirus Not Detected (Not Detect); Human Rhinovirus/Enterovirus Not Detected (Not Detect); Influenza A Subtype 2009 H1 Not Detected (Not Detect); Influenza B Not Detected (Not Detect); Mycoplasma pneumoniae Not Detected (Not Detect); Parainfluenza Virus 1 Not Detected (Not Detect); Parainfluenza Virus 2 Not Detected (Not Detect); Parainfluenza Virus 3 Not Detected (Not Detect); Parainfluenza Virus 4 Not Detected (Not Detect); Respiratory Syncytial Virus Not Detected (Not Detect)
[2020-01-07] MEDS ORDERED: Vancomycin 1,750 MG/517.5 ML IV.SOLN IVPB ONE (03:00)
[2020-01-07] MEDS ORDERED: Vancomycin 1,500 MG/265 ML IV.SOLN IVPB ONE (03:00)
[2020-01-07 04:53] LABS: Basophils % 0.3 %; Hematocrit 29.8 % (35.3-44.9); Hemoglobin 9.5 g/dL (11.5-15.4); Immature Granulocytes % 0.3 % (0-4); Lymphocytes # 1.4 K/mcL (0.6-4.6); Lymphocytes % 34.3 %; Mean Corpuscular HGB Conc 31.9 g/dL (31.6-35.5); Mean Corpuscular Hemoglobin 35.3 pg (28.0-33.3); Mean Corpuscular Volume 110.8 fL (83.0-100.0); Mean Platelet Volume 10.9 fL (9.4-12.4); Monocytes # 0.5 K/mcL (0.0-1.3); Monocytes % 12.3 %; Neutrophils # 2.1 K/mcL (1.6-8.9); Platelet Count 189 K/mcL (140-400); Red Blood Count 2.69 M/mcL (3.82-4.97); Red Cell Distribution Width 14.1 % (11.5-14.5); Segmented Neutrophils % 51.8 %
[2020-01-07 05:15] LABS: Alanine Aminotransferase 52 Units/L (7-52); Albumin 3.2 g/dL (3.5-5.7); Alkaline Phosphatase 174 Units/L (34-104); Aspartate Amino Transferase 56 Units/L (13-39); BUN/Creatinine Ratio 42 (6-26); Bilirubin,Total 0.6 mg/dL (0.3-1.0); Blood Urea Nitrogen 19 mg/dL (8-23); Calcium 9.1 mg/dL (8.6-10.3); Carbon Dioxide 30 mEq/L (23-29); Chloride 104 mEq/L (98-107); Globulin 3.1 g/dL (2.4-3.5); Glucose 74 mg/dL (70-105); Osmolality,Calculated 289 (280-300); Sodium 139 mEq/L (136-145); Total Protein 6.3 g/dL (6.4-8.9); eGFR For African Americans > 60 (> 60); eGFR For Non-African Americans > 60 (> 60)
[2020-01-07 05:22] LABS: Anisocytosis 1+ (Not Present); Platelet Estimate Normal (Normal)
[2020-01-07] MEDS: *HR* Heparin 5,000 UNIT/ML VIAL SQ SCH ×2 (05:35→17:03)
[2020-01-07] MEDS ORDERED: GuaiFENesin Liq 200 MG/10 ML UDC GTUBE PRN (13:58)
[2020-01-07] MEDS ORDERED: Scopolamine Patch 1.5 MG PATCH.TD72 TD SCH (14:00)
[2020-01-07] MEDS ORDERED: Vancomycin 1,250 MG/262.5 ML IV.SOLN IVPB SCH (15:00)
[2020-01-07] MEDS: Meropenem 1,000 MG in Water for inj. (sterile) 20 ML IVP SCH ×2 (17:02→23:45)
[2020-01-07] MEDS: Valproic Acid Oral Soln 250 MG/5 ML UDC PO SCH ×2 (18:22→21:00)
[2020-01-07] MEDS: risperiDONE 1 MG TABLET GTUBE SCH (21:00)
[2020-01-07] MEDS ORDERED: Famotidine 400 MG/50 ML ORAL SUSPENSION GTUBE SCH (21:00)
[2020-01-07] MEDS: *HR* LORazepam 1 MG TABLET GTUBE SCH (21:00)
[2020-01-07] MEDS: BENEPROTEIN GTUBE SCH (21:01)
[2020-01-07] MEDS: Budesonide Neb 0.5 MG/2 ML IH SCH (22:06)
[2020-01-07] MEDS: Famotidine 400 MG/50 ML ORAL SUSPENSION GTUBE SCH (22:53)
[2020-01-08 03:36] LABS: Basophils % 0.3 %; Eosinophils # 0.1 K/mcL (0.0-0.6); Eosinophils % 1.5 %; Hematocrit 27.9 % (35.3-44.9); Hemoglobin 9.1 g/dL (11.5-15.4); Lymphocytes # 1.7 K/mcL (0.6-4.6); Lymphocytes % 52.8 %; Mean Corpuscular HGB Conc 32.6 g/dL (31.6-35.5); Mean Corpuscular Volume 107.3 fL (83.0-100.0); Monocytes # 0.4 K/mcL (0.0-1.3); Monocytes % 12.3 %; Neutrophils # 1.1 K/mcL (1.6-8.9); Platelet Count 166 K/mcL (140-400); Segmented Neutrophils % 33.1 %; White Blood Count 3.2 K/mcL (4.3-11.1)
[2020-01-08 03:49] LABS: BUN/Creatinine Ratio 37 (6-26); Blood Urea Nitrogen 16 mg/dL (8-23); Calcium 8.7 mg/dL (8.6-10.3); Carbon Dioxide 28 mEq/L (23-29); Chloride 105 mEq/L (98-107); Glucose 103 mg/dL (70-105); Osmolality,Calculated 285 (280-300); Potassium 4.1 mEq/L (3.5-5.1); Sodium 137 mEq/L (136-145); eGFR For African Americans > 60 (> 60); eGFR For Non-African Americans > 60 (> 60)
[2020-01-08] MEDS: *HR* Heparin 5,000 UNIT/ML VIAL SQ SCH ×2 (05:36→17:31)
[2020-01-08] MEDS: Budesonide Neb 0.5 MG/2 ML IH SCH ×2 (08:15→20:27)
[2020-01-08] MEDS: Valproic Acid Oral Soln 250 MG/5 ML UDC PO SCH ×3 (10:02→17:31)
[2020-01-08] MEDS: Multivitamin Liquid 15 ML UDC GTUBE SCH (10:03)
[2020-01-08] MEDS: Lactulose Oral Soln 20 GM/30 ML UDC GTUBE SCH (10:03)
[2020-01-08] MEDS: Meropenem 1,000 MG in Water for inj. (sterile) 20 ML IVP SCH ×3 (10:04→23:39)
[2020-01-08] MEDS: risperiDONE 1 MG TABLET GTUBE SCH ×2 (10:05→20:06)
[2020-01-08] MEDS: *HR* LORazepam 1 MG TABLET GTUBE SCH ×2 (10:06→20:06)
[2020-01-08] MEDS: Famotidine 400 MG/50 ML ORAL SUSPENSION GTUBE SCH ×2 (10:10→20:06)
[2020-01-08] MEDS: BENEPROTEIN GTUBE SCH ×2 (10:11→20:06)
[2020-01-08] MEDS ORDERED: Isovue-370 500 ML BOTTLE IVP ONE (12:29)
[2020-01-09] MEDS: *HR* Heparin 5,000 UNIT/ML VIAL SQ SCH ×2 (05:26→16:20)
[2020-01-09 07:12] LABS: Basophils % 0.3 %; Eosinophils # 0.1 K/mcL (0.0-0.6); Eosinophils % 3.1 %; Hematocrit 28.1 % (35.3-44.9); Hemoglobin 9.6 g/dL (11.5-15.4); Lymphocytes # 1.6 K/mcL (0.6-4.6); Lymphocytes % 44.1 %; Mean Corpuscular HGB Conc 34.2 g/dL (31.6-35.5); Mean Corpuscular Hemoglobin 36.6 pg (28.0-33.3); Mean Corpuscular Volume 107.3 fL (83.0-100.0); Mean Platelet Volume 10.8 fL (9.4-12.4); Monocytes # 0.6 K/mcL (0.0-1.3); Monocytes % 15.6 %; Neutrophils # 1.3 K/mcL (1.6-8.9); Platelet Count 184 K/mcL (140-400); Red Blood Count 2.62 M/mcL (3.82-4.97); Red Cell Distribution Width 14.4 % (11.5-14.5); Segmented Neutrophils % 36.9 %; White Blood Count 3.6 K/mcL (4.3-11.1)
[2020-01-09 07:34] LABS: BUN/Creatinine Ratio 26 (6-26); Blood Urea Nitrogen 15 mg/dL (8-23); Carbon Dioxide 30 mEq/L (23-29); Chloride 104 mEq/L (98-107); Glucose 95 mg/dL (70-105); Osmolality,Calculated 287 (280-300); Potassium 4.1 mEq/L (3.5-5.1); Sodium 138 mEq/L (136-145); eGFR For African Americans > 60 (> 60); eGFR For Non-African Americans > 60 (> 60)
[2020-01-09] MEDS: Budesonide Neb 0.5 MG/2 ML IH SCH ×2 (07:35→20:20)
[2020-01-09] MEDS ORDERED: Water for inj. (sterile) 20 ML IV ONE ×2 (09:14→23:30)
[2020-01-09] MEDS: *HR* LORazepam 1 MG TABLET GTUBE SCH ×2 (09:20→20:49)
[2020-01-09] MEDS: Lactulose Oral Soln 20 GM/30 ML UDC GTUBE SCH (09:20)
[2020-01-09] MEDS: risperiDONE 1 MG TABLET GTUBE SCH ×2 (09:20→20:49)
[2020-01-09] MEDS: Valproic Acid Oral Soln 250 MG/5 ML UDC PO SCH ×3 (09:21→20:49)
[2020-01-09] MEDS: Multivitamin Liquid 15 ML UDC GTUBE SCH (09:21)
[2020-01-09] MEDS: Meropenem 1,000 MG in Water for inj. (sterile) 20 ML IVP SCH ×3 (09:23→23:36)
[2020-01-09] MEDS: BENEPROTEIN GTUBE SCH (09:26)
[2020-01-09] MEDS: Famotidine 400 MG/50 ML ORAL SUSPENSION GTUBE SCH ×2 (09:27→20:50)
[2020-01-09] MEDS: polyethylene glycoL 3350 17 GM POWD.PACK GTUBE SCH (09:34)
[2020-01-09] MEDS ORDERED: Lidocaine -MPF 2% 2 ML VIAL ONE (13:00)
[2020-01-10 02:13] LABS: Basophils % 0.6 %; Eosinophils # 0.1 K/mcL (0.0-0.6); Eosinophils % 2.3 %; Hemoglobin 9.9 g/dL (11.5-15.4); Lymphocytes # 1.8 K/mcL (0.6-4.6); Lymphocytes % 52.6 %; Mean Corpuscular Hemoglobin 35.1 pg (28.0-33.3); Mean Corpuscular Volume 106.4 fL (83.0-100.0); Mean Platelet Volume 10.7 fL (9.4-12.4); Monocytes # 0.6 K/mcL (0.0-1.3); Platelet Count 185 K/mcL (140-400); Red Blood Count 2.82 M/mcL (3.82-4.97); Segmented Neutrophils % 28.5 %; White Blood Count 3.4 K/mcL (4.3-11.1)
[2020-01-10 02:32] LABS: BUN/Creatinine Ratio 21 (6-26); Blood Urea Nitrogen 12 mg/dL (8-23); Calcium 8.8 mg/dL (8.6-10.3); Carbon Dioxide 27 mEq/L (23-29); Chloride 105 mEq/L (98-107); Glucose 79 mg/dL (70-105); Osmolality,Calculated 285 (280-300); Potassium 4.2 mEq/L (3.5-5.1); Sodium 138 mEq/L (136-145); eGFR For African Americans > 60 (> 60); eGFR For Non-African Americans > 60 (> 60)
[2020-01-10] MEDS: *HR* Heparin 5,000 UNIT/ML VIAL SQ SCH (05:52)
[2020-01-10] MEDS: Budesonide Neb 0.5 MG/2 ML IH SCH (07:32)
[2020-01-10 07:41] VITALS: BP 122/55
[2020-01-10] MEDS ORDERED: Water for inj. (sterile) 10 ML ONE (08:04)
[2020-01-10] MEDS: Multivitamin Liquid 15 ML UDC GTUBE SCH (08:06)
[2020-01-10] MEDS: polyethylene glycoL 3350 17 GM POWD.PACK GTUBE SCH (08:06)
[2020-01-10] MEDS: Lactulose Oral Soln 20 GM/30 ML UDC GTUBE SCH (08:08)
[2020-01-10] MEDS: risperiDONE 1 MG TABLET GTUBE SCH (08:08)
[2020-01-10] MEDS: Valproic Acid Oral Soln 250 MG/5 ML UDC PO SCH (08:08)
[2020-01-10] MEDS: *HR* LORazepam 1 MG TABLET GTUBE SCH (08:08)
[2020-01-10] MEDS: Meropenem 1,000 MG in Water for inj. (sterile) 20 ML IVP SCH (08:10)
[2020-01-10] MEDS: Famotidine 400 MG/50 ML ORAL SUSPENSION GTUBE SCH (08:17)
[2020-01-10] MEDS ORDERED: metroNIDAZOLE 500 MG TABLET GTUBE SCH (15:00)
[2020-01-10] MEDS ORDERED: Cefdinir 125 MG/5 ML UDC GTUBE SCH (18:00)
== END 2020-01-10 11:27 | DRG 871 ==
LOC: EMEROOARM 18:05 → 2ANU 18:05 → SUATTDRO 01-07 02:18 → 2ANU 01-07 03:05
PROVIDERS: ADMIT Student in an Organized Health Care Education/Training Program; ATTEND Family Medicine

== ENCOUNTER 2020-02-22 21:04 | Inpatient (IN) ==
[2020-02-22 21:58] LABS: Basophils % 0.3 %; Mean Corpuscular Hemoglobin 34.6 pg (28.0-33.3); Mean Corpuscular Volume 104.7 fL (83.0-100.0); Mean Platelet Volume 10.4 fL (9.4-12.4)
[2020-02-22 22:00] LABS: Eosinophils # 0.1 K/mcL (0.0-0.6); Hematocrit 31.5 % (35.3-44.9); Hemoglobin 10.4 g/dL (11.5-15.4); Immature Platelets 4.4 % (1.1-6.1); Lymphocytes # 1.7 K/mcL (0.6-4.6); Lymphocytes % 43.4 %; Monocytes # 0.6 K/mcL (0.0-1.3); Monocytes % 14.2 %; Neutrophils # 1.6 K/mcL (1.6-8.9); Prothrombin Time 11.7 Seconds (9.4-12.1); Red Blood Count 3.01 M/mcL (3.82-4.97); Red Cell Distribution Width 11.9 % (11.5-14.5); Segmented Neutrophils % 40.1 %; White Blood Count 3.9 K/mcL (4.3-11.1)
[2020-02-22 22:16] LABS: Bacteria,Urine Few per hpf (None-Few); Bilirubin,Urine Negative (Negative); Blood,Urine Trace (Negative); Clarity,Urine Clear (Clear); Color,Urine Yellow (Yellow); Glucose,Urine (UA) Normal (Normal); Ketones,Urine Negative (Negative); Leukocyte Esterase,Urine Moderate (Negative); Mucus,Urine Few per lpf (None-Few); Nitrite,Urine Negative (Negative); Protein,Urine Negative (Neg-Trace); RBC,Urine 0-3 per hpf (0-3); Specific Gravity,Urine 1.017 (1.010-1.025); Squamous Epithelial Cell,Urine Few per hpf (None-Few); Transitional Epi Cells,Urine Few per hpf (None-Few); Urobilinogen,Urine Normal (Normal); WBC,Urine 15-30 per hpf (0-3)
[2020-02-22 22:18] LABS: Alanine Aminotransferase 23 Units/L (7-52); Albumin 3.1 g/dL (3.5-5.7); Albumin/Globulin Ratio 0.9 (1.1-2.2); Alkaline Phosphatase 112 Units/L (34-104); Aspartate Amino Transferase 27 Units/L (13-39); BUN/Creatinine Ratio 48 (6-26); Bilirubin,Indirect 0.4 mg/dL (0.0-1.0); Bilirubin,Total 0.4 mg/dL (0.3-1.0); Blood Urea Nitrogen 21 mg/dL (8-23); Calcium 8.9 mg/dL (8.6-10.3); Carbon Dioxide 35 mEq/L (23-29); Chloride 97 mEq/L (98-107); Globulin 3.5 g/dL (2.4-3.5); Glucose 89 mg/dL (70-105); Lipase 12 Units/L (11-82); Magnesium 1.7 mg/dL (1.6-2.6); Osmolality,Calculated 284 (280-300); Potassium 4.1 mEq/L (3.5-5.1); Sodium 136 mEq/L (136-145); Total Protein 6.6 g/dL (6.4-8.9); Troponin I < 0.03 ng/mL (< 0.04); eGFR For African Americans > 60 (> 60); eGFR For Non-African Americans > 60 (> 60)
[2020-02-22] MEDS ORDERED: 0.9 % Sodium Chloride 1,000 ML IVC ONE (22:24)
[2020-02-22] MEDS ORDERED: cefTRIAXone 1,000 MG in 0.9 % Sodium Chloride Mini Bag 100 ML IVPB ONE (22:24)
[2020-02-22 22:25] LABS: Platelet Count 98 K/mcL (140-400)
[2020-02-22 22:31] LABS: Thyroid Stimulating Hormone 0.228 mcIU/mL (0.340-5.600)
[2020-02-22] MEDS ORDERED: Vancomycin 1,750 MG/517.5 ML IV.SOLN IVPB ONE (23:02)
[2020-02-22] MEDS ORDERED: Piperacillin/Tazobactam 3.375 GM in 0.9 % Sodium Chloride Mini Bag 100 ML IVPB ONE (23:02)
[2020-02-23] MEDS ORDERED: Naloxone 0.4 MG/ML INJ IVP PRN (01:35)
[2020-02-23] MEDS ORDERED: MOM Conc 10 ML UD.LIQ GTUBE PRN (01:36)
[2020-02-23] MEDS ORDERED: GuaiFENesin Liq 200 MG/10 ML UDC GTUBE PRN (01:36)
[2020-02-23] MEDS ORDERED: Neosporin OINT 1 APPL PACKET TP PRN (01:36)
[2020-02-23] MEDS ORDERED: [UNRECOGNIZED DRUG - OTHER] GTUBE SCH (01:45)
[2020-02-23] MEDS ORDERED: OXYGEN 2 UNIT IH SCH (01:45)
[2020-02-23] MEDS ORDERED: FIBER GTUBE SCH (01:45)
[2020-02-23] MEDS ORDERED: LACTOSE REDUCED FOOD GTUBE SCH (01:45)
[2020-02-23] MEDS ORDERED: Ringers Solution, Lactated 500 ML IVC ONE (02:13)
[2020-02-23] MEDS ORDERED: 0.9 % Sodium Chloride 1,000 ML IVC ONE (03:14)
[2020-02-23 04:24] LABS: Hematocrit 28.4 % (35.3-44.9)
[2020-02-23 04:26] LABS: Eosinophils # 0.1 K/mcL (0.0-0.6); Eosinophils % 1.2 %; Hemoglobin 9.2 g/dL (11.5-15.4); Immature Platelets 4.9 % (1.1-6.1); Lymphocytes # 1.7 K/mcL (0.6-4.6); Lymphocytes % 38.7 %; Mean Corpuscular HGB Conc 32.4 g/dL (31.6-35.5); Mean Corpuscular Hemoglobin 34.6 pg (28.0-33.3); Mean Corpuscular Volume 106.8 fL (83.0-100.0); Mean Platelet Volume 10.7 fL (9.4-12.4); Monocytes # 0.7 K/mcL (0.0-1.3); Monocytes % 15.5 %; Neutrophils # 1.9 K/mcL (1.6-8.9); Red Blood Count 2.66 M/mcL (3.82-4.97); Red Cell Distribution Width 12.1 % (11.5-14.5); Segmented Neutrophils % 44.6 %; White Blood Count 4.3 K/mcL (4.3-11.1)
[2020-02-23 04:28] LABS: Platelet Count 81 K/mcL (140-400)
[2020-02-23 04:48] LABS: BUN/Creatinine Ratio 37 (6-26); Blood Urea Nitrogen 16 mg/dL (8-23); Calcium 8.2 mg/dL (8.6-10.3); Carbon Dioxide 31 mEq/L (23-29); Chloride 103 mEq/L (98-107); Glucose 87 mg/dL (70-105); Osmolality,Calculated 287 (280-300); Potassium 4.1 mEq/L (3.5-5.1); Sodium 138 mEq/L (136-145); eGFR For African Americans > 60 (> 60); eGFR For Non-African Americans > 60 (> 60)
[2020-02-23] MEDS ORDERED: Isovue-370 500 ML BOTTLE IVP ONE ×2 (05:46→05:49)
[2020-02-23] MEDS ORDERED: Ringers Solution, Lactated 1,000 ML ONE (05:50)
[2020-02-23] MEDS: *HR* Heparin 5,000 UNIT/ML VIAL SQ SCH ×2 (05:51→17:32)
[2020-02-23] MEDS: Ringers Solution, Lactated 1,000 ML IVC SCH ×2 (05:51→13:30)
[2020-02-23] MEDS: Scopolamine Patch 1.5 MG PATCH.TD72 TD SCH (05:52)
[2020-02-23] MEDS: Lactulose Oral Soln 20 GM/30 ML UDC GTUBE SCH (08:29)
[2020-02-23] MEDS: risperiDONE 1 MG TABLET GTUBE SCH ×3 (08:29→20:52)
[2020-02-23] MEDS: Valproic Acid Oral Soln 250 MG/5 ML UDC GTUBE SCH ×3 (08:29→20:51)
[2020-02-23] MEDS: Piperacillin/Tazobactam 3.375 GM in 0.9 % Sodium Chloride Mini Bag 100 ML IVPB SCH ×2 (08:29→16:30)
[2020-02-23] MEDS: polyethylene glycoL 3350 17 GM POWD.PACK GTUBE SCH (08:30)
[2020-02-23] MEDS: Famotidine 400 MG/50 ML ORAL SUSPENSION GTUBE SCH ×2 (08:34→20:53)
[2020-02-23] MEDS: REVEFENACIN 175 MCG IH SCH (08:35)
[2020-02-23] MEDS ORDERED: WHEY PROTEIN ISOLATE GTUBE SCH (09:00)
[2020-02-23] MEDS: Budesonide Neb 0.5 MG/2 ML IH SCH ×2 (10:22→22:31)
[2020-02-23] MEDS ORDERED: Perflutren Lipid Microsphere 1.3 ML in 0.9 % Sodium Chloride 8.7 ML IVP PRN (10:59)
[2020-02-23] MEDS ORDERED: Isovue-370 500 ML BOTTLE PO ONE (11:22)
[2020-02-23] MEDS: Multivitamin Liquid 15 ML UDC GTUBE SCH (11:24)
[2020-02-23 12:25] LABS: Triiodothyronine (T3) Free 3.07 pg/mL (2.50-3.90)
[2020-02-23] MEDS: Vancomycin 1,250 MG/262.5 ML IV.SOLN IVPB SCH (14:53)
[2020-02-23] MEDS ORDERED: Ringers Solution, Lactated 1,000 ML IVC SCH (20:15)
[2020-02-24] MEDS: Piperacillin/Tazobactam 3.375 GM in 0.9 % Sodium Chloride Mini Bag 100 ML IVPB SCH (00:16)
[2020-02-24] MEDS: Vancomycin 1,250 MG/262.5 ML IV.SOLN IVPB SCH (01:49)
[2020-02-24] MEDS: *HR* Heparin 5,000 UNIT/ML VIAL SQ SCH ×2 (05:19→17:49)
[2020-02-24 05:22] LABS: INR 1.1; Prothrombin Time 12.4 Seconds (9.4-12.1)
[2020-02-24 05:25] LABS: Alanine Aminotransferase 26 Units/L (7-52); Albumin 2.7 g/dL (3.5-5.7); Albumin/Globulin Ratio 0.9 (1.1-2.2); Alkaline Phosphatase 124 Units/L (34-104); Aspartate Amino Transferase 33 Units/L (13-39); BUN/Creatinine Ratio 30 (6-26); Bilirubin,Total 0.4 mg/dL (0.3-1.0); Blood Urea Nitrogen 14 mg/dL (8-23); Calcium 8.4 mg/dL (8.6-10.3); Carbon Dioxide 31 mEq/L (23-29); Chloride 105 mEq/L (98-107); Glucose 110 mg/dL (70-105); Magnesium 1.6 mg/dL (1.6-2.6); Osmolality,Calculated 289 (280-300); Potassium 4.2 mEq/L (3.5-5.1); Sodium 139 mEq/L (136-145); Total Protein 5.7 g/dL (6.4-8.9); eGFR For African Americans > 60 (> 60); eGFR For Non-African Americans > 60 (> 60)
[2020-02-24 05:35] LABS: Basophils % 0.4 %; Hemoglobin 9.5 g/dL (11.5-15.4)
[2020-02-24 05:37] LABS: Eosinophils # 0.1 K/mcL (0.0-0.6); Eosinophils % 2.3 %; Hematocrit 29.2 % (35.3-44.9); Immature Platelets 5.3 % (1.1-6.1); Lymphocytes # 1.3 K/mcL (0.6-4.6); Lymphocytes % 48.9 %; Mean Corpuscular HGB Conc 32.5 g/dL (31.6-35.5); Mean Corpuscular Hemoglobin 34.1 pg (28.0-33.3); Mean Corpuscular Volume 104.7 fL (83.0-100.0); Mean Platelet Volume 11.1 fL (9.4-12.4); Monocytes # 0.4 K/mcL (0.0-1.3); Monocytes % 15.2 %; Neutrophils # 0.9 K/mcL (1.6-8.9); Nucleated Red Blood Cells 0.8 /100 WBC (0); Red Blood Count 2.79 M/mcL (3.82-4.97); Red Cell Distribution Width 12.1 % (11.5-14.5); Segmented Neutrophils % 33.2 %; White Blood Count 2.6 K/mcL (4.3-11.1)
[2020-02-24 06:00] LABS: Platelet Count 78 K/mcL (140-400)
[2020-02-24] MEDS: Budesonide Neb 0.5 MG/2 ML IH SCH ×2 (10:00→21:33)
[2020-02-24] MEDS: Valproic Acid Oral Soln 250 MG/5 ML UDC GTUBE SCH ×3 (10:03→22:20)
[2020-02-24] MEDS: Lactulose Oral Soln 20 GM/30 ML UDC GTUBE SCH (10:03)
[2020-02-24] MEDS: risperiDONE 1 MG TABLET GTUBE SCH ×2 (10:03→22:20)
[2020-02-24] MEDS: Multivitamin Liquid 15 ML UDC GTUBE SCH (10:03)
[2020-02-24] MEDS: polyethylene glycoL 3350 17 GM POWD.PACK GTUBE SCH (10:04)
[2020-02-24] MEDS: Famotidine 400 MG/50 ML ORAL SUSPENSION GTUBE SCH ×2 (10:11→22:21)
[2020-02-24] MEDS: REVEFENACIN 175 MCG IH SCH (10:12)
[2020-02-24] MEDS: cefTRIAXone 1,000 MG in Water for inj. (sterile) 10 ML IVP SCH (10:12)
[2020-02-25] MEDS: Piperacillin/Tazobactam 3.375 GM in 0.9 % Sodium Chloride Mini Bag 100 ML IVPB SCH (00:15)
[2020-02-25 02:19] LABS: Alanine Aminotransferase 22 Units/L (7-52); Albumin 2.8 g/dL (3.5-5.7); Albumin/Globulin Ratio 0.9 (1.1-2.2); Alkaline Phosphatase 120 Units/L (34-104); Aspartate Amino Transferase 28 Units/L (13-39); BUN/Creatinine Ratio 22 (6-26); Bilirubin,Total 0.3 mg/dL (0.3-1.0); Blood Urea Nitrogen 10 mg/dL (8-23); Calcium 8.5 mg/dL (8.6-10.3); Carbon Dioxide 30 mEq/L (23-29); Chloride 105 mEq/L (98-107); Glucose 102 mg/dL (70-105); Magnesium 1.6 mg/dL (1.6-2.6); Osmolality,Calculated 289 (280-300); Potassium 4.1 mEq/L (3.5-5.1); Sodium 140 mEq/L (136-145); Total Protein 5.8 g/dL (6.4-8.9); eGFR For African Americans > 60 (> 60); eGFR For Non-African Americans > 60 (> 60)
[2020-02-25 04:52] LABS: Hematocrit 29.2 % (35.3-44.9); Hemoglobin 9.7 g/dL (11.5-15.4); Mean Corpuscular HGB Conc 33.2 g/dL (31.6-35.5); Mean Corpuscular Hemoglobin 34.6 pg (28.0-33.3); Mean Corpuscular Volume 104.3 fL (83.0-100.0); Red Cell Distribution Width 12.3 % (11.5-14.5); White Blood Count 3.9 K/mcL (4.3-11.1)
[2020-02-25 04:53] LABS: Basophils % 0.5 %; Eosinophils # 0.1 K/mcL (0.0-0.6); Eosinophils % 2.1 %; Immature Granulocytes % 0.3 % (0-4); Lymphocytes # 1.5 K/mcL (0.6-4.6); Mean Platelet Volume 11.2 fL (9.4-12.4); Monocytes # 0.5 K/mcL (0.0-1.3); Monocytes % 12.6 %; Neutrophils # 1.8 K/mcL (1.6-8.9); Platelet Count 84 K/mcL (140-400); Segmented Neutrophils % 46.5 %
[2020-02-25] MEDS: *HR* Heparin 5,000 UNIT/ML VIAL SQ SCH ×2 (05:56→18:04)
[2020-02-25] MEDS: Budesonide Neb 0.5 MG/2 ML IH SCH ×2 (08:09→21:41)
[2020-02-25] MEDS: risperiDONE 1 MG TABLET GTUBE SCH ×2 (09:11→21:48)
[2020-02-25] MEDS: Lactulose Oral Soln 20 GM/30 ML UDC GTUBE SCH (09:16)
[2020-02-25] MEDS: Valproic Acid Oral Soln 250 MG/5 ML UDC GTUBE SCH ×3 (09:17→21:47)
[2020-02-25] MEDS: polyethylene glycoL 3350 17 GM POWD.PACK GTUBE SCH (09:18)
[2020-02-25] MEDS: Famotidine 400 MG/50 ML ORAL SUSPENSION GTUBE SCH ×2 (09:19→21:48)
[2020-02-25] MEDS: Multivitamin Liquid 15 ML UDC GTUBE SCH (09:19)
[2020-02-25] MEDS: REVEFENACIN 175 MCG IH SCH (09:20)
[2020-02-25] MEDS: cefTRIAXone 1,000 MG in Water for inj. (sterile) 10 ML IVP SCH (09:21)
[2020-02-25] MEDS ORDERED: Furosemide 20 MG/2 ML VIAL IVP ONE (11:24)
[2020-02-25] MEDS: Ipratropium/Albuterol Neb 3 ML IH SCH ×3 (11:37→21:41)
[2020-02-25] MEDS: MetroNIDAZOLE 500 MG/100 ML 500 MG/100 ML BAG IVPB SCH ×2 (13:22→17:32)
[2020-02-26] MEDS: MetroNIDAZOLE 500 MG/100 ML 500 MG/100 ML BAG IVPB SCH ×4 (00:13→23:13)
[2020-02-26] MEDS: Ipratropium/Albuterol Neb 3 ML IH SCH ×4 (04:00→21:14)
[2020-02-26] MEDS: *HR* Heparin 5,000 UNIT/ML VIAL SQ SCH ×2 (05:34→16:28)
[2020-02-26] MEDS: Scopolamine Patch 1.5 MG PATCH.TD72 TD SCH (05:34)
[2020-02-26] MEDS: Lactulose Oral Soln 20 GM/30 ML UDC GTUBE SCH (08:21)
[2020-02-26] MEDS: Valproic Acid Oral Soln 250 MG/5 ML UDC GTUBE SCH ×3 (08:21→20:53)
[2020-02-26] MEDS: cefTRIAXone 1,000 MG in Water for inj. (sterile) 10 ML IVP SCH (08:21)
[2020-02-26] MEDS: Famotidine 400 MG/50 ML ORAL SUSPENSION GTUBE SCH ×2 (08:22→20:54)
[2020-02-26] MEDS: risperiDONE 1 MG TABLET GTUBE SCH ×2 (08:22→20:54)
[2020-02-26] MEDS: Multivitamin Liquid 15 ML UDC GTUBE SCH (08:22)
[2020-02-26] MEDS: polyethylene glycoL 3350 17 GM POWD.PACK GTUBE SCH (08:22)
[2020-02-26] MEDS: REVEFENACIN 175 MCG IH SCH (08:23)
[2020-02-26 10:01] LABS: Basophils % 0.2 %; Eosinophils # 0.1 K/mcL (0.0-0.6); Eosinophils % 2.4 %; Hematocrit 30.1 % (35.3-44.9); Hemoglobin 10.1 g/dL (11.5-15.4); Immature Granulocytes % 0.4 % (0-4); Lymphocytes # 1.5 K/mcL (0.6-4.6); Lymphocytes % 29.8 %; Mean Corpuscular HGB Conc 33.6 g/dL (31.6-35.5); Mean Corpuscular Hemoglobin 34.9 pg (28.0-33.3); Mean Corpuscular Volume 104.2 fL (83.0-100.0); Mean Platelet Volume 10.4 fL (9.4-12.4); Monocytes # 0.9 K/mcL (0.0-1.3); Monocytes % 17.3 %; Neutrophils # 2.5 K/mcL (1.6-8.9); Platelet Count 108 K/mcL (140-400); Red Blood Count 2.89 M/mcL (3.82-4.97); Red Cell Distribution Width 12.3 % (11.5-14.5); Segmented Neutrophils % 49.9 %
[2020-02-26 10:10] LABS: Alanine Aminotransferase 18 Units/L (7-52); Albumin/Globulin Ratio 0.9 (1.1-2.2); Alkaline Phosphatase 118 Units/L (34-104); Aspartate Amino Transferase 25 Units/L (13-39); BUN/Creatinine Ratio 19 (6-26); Bilirubin,Total 0.2 mg/dL (0.3-1.0); Blood Urea Nitrogen 10 mg/dL (8-23); Carbon Dioxide 30 mEq/L (23-29); Chloride 102 mEq/L (98-107); Globulin 3.4 g/dL (2.4-3.5); Glucose 110 mg/dL (70-105); Magnesium 1.6 mg/dL (1.6-2.6); Osmolality,Calculated 290 (280-300); Sodium 140 mEq/L (136-145); Total Protein 6.4 g/dL (6.4-8.9); eGFR For African Americans > 60 (> 60); eGFR For Non-African Americans > 60 (> 60)
[2020-02-26] MEDS: Budesonide Neb 0.5 MG/2 ML IH SCH ×2 (10:11→21:14)
[2020-02-27 03:25] LABS: Basophils % 0.2 %; Eosinophils # 0.1 K/mcL (0.0-0.6); Eosinophils % 2.5 %; Hematocrit 31.3 % (35.3-44.9); Hemoglobin 10.5 g/dL (11.5-15.4); Immature Granulocytes % 0.2 % (0-4); Lymphocytes # 1.6 K/mcL (0.6-4.6); Lymphocytes % 33.5 %; Mean Corpuscular HGB Conc 33.5 g/dL (31.6-35.5); Mean Corpuscular Hemoglobin 35.4 pg (28.0-33.3); Mean Corpuscular Volume 105.4 fL (83.0-100.0); Mean Platelet Volume 10.6 fL (9.4-12.4); Monocytes # 0.8 K/mcL (0.0-1.3); Monocytes % 16.3 %; Neutrophils # 2.3 K/mcL (1.6-8.9); Platelet Count 121 K/mcL (140-400); Red Blood Count 2.97 M/mcL (3.82-4.97); Red Cell Distribution Width 12.4 % (11.5-14.5); Segmented Neutrophils % 47.3 %; White Blood Count 4.8 K/mcL (4.3-11.1)
[2020-02-27 03:37] LABS: Alanine Aminotransferase 17 Units/L (7-52); Albumin 3.1 g/dL (3.5-5.7); Albumin/Globulin Ratio 0.9 (1.1-2.2); Alkaline Phosphatase 117 Units/L (34-104); Aspartate Amino Transferase 24 Units/L (13-39); BUN/Creatinine Ratio 22 (6-26); Bilirubin,Total 0.3 mg/dL (0.3-1.0); Blood Urea Nitrogen 11 mg/dL (8-23); Calcium 9.3 mg/dL (8.6-10.3); Carbon Dioxide 31 mEq/L (23-29); Chloride 103 mEq/L (98-107); Globulin 3.3 g/dL (2.4-3.5); Glucose 96 mg/dL (70-105); Magnesium 1.7 mg/dL (1.6-2.6); Osmolality,Calculated 287 (280-300); Potassium 4.1 mEq/L (3.5-5.1); Sodium 139 mEq/L (136-145); Total Protein 6.4 g/dL (6.4-8.9); eGFR For African Americans > 60 (> 60); eGFR For Non-African Americans > 60 (> 60)
[2020-02-27] MEDS: Ipratropium/Albuterol Neb 3 ML IH SCH ×4 (03:49→21:38)
[2020-02-27] MEDS: *HR* Heparin 5,000 UNIT/ML VIAL SQ SCH ×2 (05:12→16:27)
[2020-02-27] MEDS: cefTRIAXone 1,000 MG in Water for inj. (sterile) 10 ML IVP SCH (07:45)
[2020-02-27] MEDS: MetroNIDAZOLE 500 MG/100 ML 500 MG/100 ML BAG IVPB SCH ×3 (07:45→23:12)
[2020-02-27] MEDS: Multivitamin Liquid 15 ML UDC GTUBE SCH (07:45)
[2020-02-27] MEDS: risperiDONE 1 MG TABLET GTUBE SCH ×2 (07:46→19:08)
[2020-02-27] MEDS: Valproic Acid Oral Soln 250 MG/5 ML UDC GTUBE SCH ×3 (07:46→19:08)
[2020-02-27] MEDS: Lactulose Oral Soln 20 GM/30 ML UDC GTUBE SCH (07:46)
[2020-02-27] MEDS: REVEFENACIN 175 MCG IH SCH (07:48)
[2020-02-27] MEDS: polyethylene glycoL 3350 17 GM POWD.PACK GTUBE SCH (07:48)
[2020-02-27] MEDS: Famotidine 400 MG/50 ML ORAL SUSPENSION GTUBE SCH ×2 (07:51→19:08)
[2020-02-27] MEDS: Budesonide Neb 0.5 MG/2 ML IH SCH ×2 (09:59→21:38)
[2020-02-28 01:59] LABS: INR 1.1; Prothrombin Time 12.7 Seconds (9.4-12.1)
[2020-02-28] MEDS: Ipratropium/Albuterol Neb 3 ML IH SCH ×4 (03:40→23:24)
[2020-02-28] MEDS: *HR* Heparin 5,000 UNIT/ML VIAL SQ SCH ×2 (05:44→17:15)
[2020-02-28] MEDS: Famotidine 400 MG/50 ML ORAL SUSPENSION GTUBE SCH (07:11)
[2020-02-28] MEDS: Valproic Acid Oral Soln 250 MG/5 ML UDC GTUBE SCH (07:11)
[2020-02-28] MEDS: Multivitamin Liquid 15 ML UDC GTUBE SCH (07:11)
[2020-02-28] MEDS: risperiDONE 1 MG TABLET GTUBE SCH (07:12)
[2020-02-28] MEDS: Lactulose Oral Soln 20 GM/30 ML UDC GTUBE SCH (07:12)
[2020-02-28] MEDS: MetroNIDAZOLE 500 MG/100 ML 500 MG/100 ML BAG IVPB SCH ×2 (07:12→17:13)
[2020-02-28] MEDS: polyethylene glycoL 3350 17 GM POWD.PACK GTUBE SCH (07:12)
[2020-02-28] MEDS: cefTRIAXone 1,000 MG in Water for inj. (sterile) 10 ML IVP SCH (07:13)
[2020-02-28] MEDS: SODIUM CHLORIDE 0.9% IVPB SCH ×3 (09:42→23:58)
[2020-02-28] MEDS: VALPROIC ACID IVPB SCH ×3 (09:42→23:58)
[2020-02-28] MEDS: Budesonide Neb 0.5 MG/2 ML IH SCH ×2 (10:12→23:24)
[2020-02-28 15:55] LABS: Adenovirus Not Detected (Not Detect); Bordetella Pertussis Not Detected (Not Detect); Chlamydophila pneumoniae Not Detected (Not Detect); Coronavirus 229E Not Detected (Not Detect); Coronavirus HKU1 Not Detected (Not Detect); Coronavirus NL63 Not Detected (Not Detect); Coronavirus OC43 Not Detected (Not Detect); Human Metapneumovirus Not Detected (Not Detect); Human Rhinovirus/Enterovirus Not Detected (Not Detect); Influenza A Subtype 2009 H1 Not Detected (Not Detect); Influenza B Not Detected (Not Detect); Mycoplasma pneumoniae Not Detected (Not Detect); Parainfluenza Virus 1 Not Detected (Not Detect); Parainfluenza Virus 2 Not Detected (Not Detect); Parainfluenza Virus 3 Not Detected (Not Detect); Parainfluenza Virus 4 Not Detected (Not Detect); Respiratory Syncytial Virus Not Detected (Not Detect); SARS-CoV-2 Not Detected (Not Detect)
[2020-02-28] MEDS ORDERED: *HR* FentaNYL (PF) 100 MCG/2 ML VIAL ONE (21:16)
[2020-02-28] MEDS ORDERED: *HR* Propofol 200 MG/20 ML VIAL IVP ONE ×2 (21:16→21:47)
[2020-02-28] MEDS ORDERED: Lidocaine -MPF 2% 2 ML VIAL ONE (21:16)
[2020-02-28] MEDS ORDERED: *HR* Succinylcholine 200 MG/10 ML VIAL IVP ONE (21:16)
[2020-02-29] MEDS: MetroNIDAZOLE 500 MG/100 ML 500 MG/100 ML BAG IVPB SCH ×4 (00:26→23:22)
[2020-02-29] MEDS: Famotidine 400 MG/50 ML ORAL SUSPENSION GTUBE SCH ×3 (02:13→22:13)
[2020-02-29] MEDS: risperiDONE 1 MG TABLET GTUBE SCH ×3 (02:14→22:13)
[2020-02-29] MEDS: SODIUM CHLORIDE 0.9% IVPB SCH (02:23)
[2020-02-29] MEDS: VALPROIC ACID IVPB SCH (02:23)
[2020-02-29 02:32] LABS: Basophils % 0.6 %; Eosinophils # 0.1 K/mcL (0.0-0.6); Eosinophils % 1.4 %; Hematocrit 35.1 % (35.3-44.9); Hemoglobin 11.6 g/dL (11.5-15.4); Immature Granulocytes % 0.1 % (0-4); Mean Corpuscular Hemoglobin 34.8 pg (28.0-33.3); Mean Corpuscular Volume 105.4 fL (83.0-100.0); Mean Platelet Volume 9.8 fL (9.4-12.4); Monocytes # 1.4 K/mcL (0.0-1.3); Neutrophils # 3.5 K/mcL (1.6-8.9); Platelet Count 154 K/mcL (140-400); Red Blood Count 3.33 M/mcL (3.82-4.97); Red Cell Distribution Width 12.9 % (11.5-14.5); Segmented Neutrophils % 49.9 %
[2020-02-29 02:52] LABS: Platelet Estimate Normal (Normal)
[2020-02-29 02:54] LABS: BUN/Creatinine Ratio 20 (6-26); Blood Urea Nitrogen 12 mg/dL (8-23); Calcium 9.2 mg/dL (8.6-10.3); Carbon Dioxide 24 mEq/L (23-29); Chloride 102 mEq/L (98-107); Glucose 71 mg/dL (70-105); Osmolality,Calculated 282 (280-300); Potassium 4.2 mEq/L (3.5-5.1); Sodium 137 mEq/L (136-145); eGFR For African Americans > 60 (> 60); eGFR For Non-African Americans > 60 (> 60)
[2020-02-29] MEDS: Ipratropium/Albuterol Neb 3 ML IH SCH ×4 (04:49→22:21)
[2020-02-29] MEDS: *HR* Heparin 5,000 UNIT/ML VIAL SQ SCH ×2 (06:18→16:54)
[2020-02-29] MEDS: Scopolamine Patch 1.5 MG PATCH.TD72 TD SCH (06:26)
[2020-02-29] MEDS ORDERED: D5% in Water 1,000 ML IVC PRN (06:37)
[2020-02-29] MEDS ORDERED: *HR* Dextrose 50 % in Water (Vial) 50 ML VIAL IVP PRN (06:37)
[2020-02-29] MEDS ORDERED: Dextrose Gel 15 GM/37.5 ML TUBE PO PRN ×2 (06:37)
[2020-02-29] MEDS: Lactulose Oral Soln 20 GM/30 ML UDC GTUBE SCH (10:07)
[2020-02-29] MEDS: Valproic Acid Oral Soln 250 MG/5 ML UDC GTUBE SCH ×3 (10:07→22:13)
[2020-02-29] MEDS: polyethylene glycoL 3350 17 GM POWD.PACK GTUBE SCH (10:08)
[2020-02-29] MEDS: Multivitamin Liquid 15 ML UDC GTUBE SCH (10:13)
[2020-02-29] MEDS: cefTRIAXone 1,000 MG in Water for inj. (sterile) 10 ML IVP SCH (10:14)
[2020-02-29] MEDS: Budesonide Neb 0.5 MG/2 ML IH SCH ×2 (10:34→22:21)
[2020-03-01] MEDS: Ipratropium/Albuterol Neb 3 ML IH SCH ×4 (03:54→21:58)
[2020-03-01 05:15] LABS: Basophils % 0.1 %; Eosinophils # 0.1 K/mcL (0.0-0.6); Eosinophils % 1.6 %; Hematocrit 35.1 % (35.3-44.9); Hemoglobin 11.6 g/dL (11.5-15.4); Immature Granulocytes % 0.1 % (0-4); Lymphocytes % 27.4 %; Mean Corpuscular Hemoglobin 34.7 pg (28.0-33.3); Mean Corpuscular Volume 105.1 fL (83.0-100.0); Mean Platelet Volume 9.7 fL (9.4-12.4); Monocytes # 1.6 K/mcL (0.0-1.3); Monocytes % 21.5 %; Neutrophils # 3.6 K/mcL (1.6-8.9); Platelet Count 156 K/mcL (140-400); Red Blood Count 3.34 M/mcL (3.82-4.97); Red Cell Distribution Width 12.8 % (11.5-14.5); Segmented Neutrophils % 49.3 %; White Blood Count 7.3 K/mcL (4.3-11.1)
[2020-03-01 05:33] LABS: BUN/Creatinine Ratio 24 (6-26); Blood Urea Nitrogen 14 mg/dL (8-23); Calcium 9.1 mg/dL (8.6-10.3); Carbon Dioxide 29 mEq/L (23-29); Chloride 102 mEq/L (98-107); Glucose 104 mg/dL (70-105); Osmolality,Calculated 285 (280-300); Potassium 3.7 mEq/L (3.5-5.1); Sodium 137 mEq/L (136-145); eGFR For African Americans > 60 (> 60); eGFR For Non-African Americans > 60 (> 60)
[2020-03-01] MEDS: *HR* Heparin 5,000 UNIT/ML VIAL SQ SCH ×2 (05:34→17:59)
[2020-03-01 06:07] LABS: Platelet Estimate Normal (Normal)
[2020-03-01] MEDS: cefTRIAXone 1,000 MG in Water for inj. (sterile) 10 ML IVP SCH (09:52)
[2020-03-01] MEDS: risperiDONE 1 MG TABLET GTUBE SCH ×3 (09:53→21:07)
[2020-03-01] MEDS: polyethylene glycoL 3350 17 GM POWD.PACK GTUBE SCH ×2 (09:54→10:22)
[2020-03-01] MEDS: Lactulose Oral Soln 20 GM/30 ML UDC GTUBE SCH ×2 (09:54→10:23)
[2020-03-01] MEDS: Multivitamin Liquid 15 ML UDC GTUBE SCH ×2 (09:54→11:33)
[2020-03-01] MEDS: Famotidine 400 MG/50 ML ORAL SUSPENSION GTUBE SCH ×3 (09:54→21:07)
[2020-03-01] MEDS: Valproic Acid Oral Soln 250 MG/5 ML UDC GTUBE SCH ×4 (09:55→21:07)
[2020-03-01] MEDS: MetroNIDAZOLE 500 MG/100 ML 500 MG/100 ML BAG IVPB SCH (10:00)
[2020-03-01] MEDS: Amoxicillin/Clavulanate 400 MG/5 ML UDC GTUBE SCH ×3 (10:01→21:07)
[2020-03-01] MEDS: Budesonide Neb 0.5 MG/2 ML IH SCH ×2 (10:49→21:58)
[2020-03-02] MEDS: Ipratropium/Albuterol Neb 3 ML IH SCH ×2 (03:51→10:05)
[2020-03-02] MEDS: *HR* Heparin 5,000 UNIT/ML VIAL SQ SCH (05:50)
[2020-03-02 07:30] LABS: Basophils % 0.3 %; Eosinophils # 0.1 K/mcL (0.0-0.6); Eosinophils % 2.1 %; Hematocrit 35.2 % (35.3-44.9); Hemoglobin 11.4 g/dL (11.5-15.4); Immature Granulocytes % 0.2 % (0-4); Lymphocytes # 1.7 K/mcL (0.6-4.6); Lymphocytes % 25.8 %; Mean Corpuscular HGB Conc 32.4 g/dL (31.6-35.5); Mean Corpuscular Volume 105.1 fL (83.0-100.0); Monocytes # 1.5 K/mcL (0.0-1.3); Monocytes % 22.5 %; Neutrophils # 3.2 K/mcL (1.6-8.9); Platelet Count 158 K/mcL (140-400); Red Blood Count 3.35 M/mcL (3.82-4.97); Red Cell Distribution Width 12.9 % (11.5-14.5); Segmented Neutrophils % 49.1 %; White Blood Count 6.6 K/mcL (4.3-11.1)
[2020-03-02 07:42] LABS: BUN/Creatinine Ratio 24 (6-26); Blood Urea Nitrogen 14 mg/dL (8-23); Calcium 9.1 mg/dL (8.6-10.3); Carbon Dioxide 31 mEq/L (23-29); Chloride 100 mEq/L (98-107); Glucose 107 mg/dL (70-105); Osmolality,Calculated 285 (280-300); Potassium 3.9 mEq/L (3.5-5.1); Sodium 137 mEq/L (136-145); eGFR For African Americans > 60 (> 60); eGFR For Non-African Americans > 60 (> 60)
[2020-03-02] MEDS: Valproic Acid Oral Soln 250 MG/5 ML UDC GTUBE SCH (08:09)
[2020-03-02] MEDS: risperiDONE 1 MG TABLET GTUBE SCH (08:10)
[2020-03-02] MEDS: polyethylene glycoL 3350 17 GM POWD.PACK GTUBE SCH (08:10)
[2020-03-02] MEDS: Lactulose Oral Soln 20 GM/30 ML UDC GTUBE SCH (08:10)
[2020-03-02] MEDS: Multivitamin Liquid 15 ML UDC GTUBE SCH (08:11)
[2020-03-02] MEDS: Famotidine 400 MG/50 ML ORAL SUSPENSION GTUBE SCH (08:11)
[2020-03-02 09:00] LABS: Anisocytosis 1+ (Not Present); Platelet Estimate Normal (Normal)
[2020-03-02] MEDS: Budesonide Neb 0.5 MG/2 ML IH SCH (10:06)
[2020-03-02 10:36] VITALS: BP 117/82
== END 2020-03-02 15:22 | disposition home health service (06) | DRG 871 ==
LOC: EMEROOARM 21:04 → 2NNU 21:04 → SUATTDRO 02-23 17:11 → 2ANU 02-24 20:12
PROVIDERS: ADMIT Internal Medicine; ATTEND Family Medicine

== ENCOUNTER 2020-04-17 22:17 | Inpatient (IN) ==
[2020-04-18 00:22] LABS: Basophils % 0.1 %; Hematocrit 31.8 % (35.3-44.9); Hemoglobin 10.6 g/dL (11.5-15.4); Immature Granulocytes % 1.4 % (0-4); Lymphocytes # 1.3 K/mcL (0.6-4.6); Lymphocytes % 10.6 %; Mean Corpuscular HGB Conc 33.3 g/dL (31.6-35.5); Mean Corpuscular Hemoglobin 32.6 pg (28.0-33.3); Mean Corpuscular Volume 97.8 fL (83.0-100.0); Mean Platelet Volume 9.6 fL (9.4-12.4); Monocytes # 0.8 K/mcL (0.0-1.3); Monocytes % 6.8 %; Neutrophils # 9.7 K/mcL (1.6-8.9); Platelet Count 506 K/mcL (140-400); Red Blood Count 3.25 M/mcL (3.82-4.97); Red Cell Distribution Width 13.4 % (11.5-14.5); Segmented Neutrophils % 81.1 %
[2020-04-18 00:36] LABS: BUN/Creatinine Ratio 79 (6-26); Blood Urea Nitrogen 34 mg/dL (8-23); Calcium 8.9 mg/dL (8.6-10.3); Carbon Dioxide 31 mEq/L (23-29); Chloride 93 mEq/L (98-107); Glucose 103 mg/dL (70-105); Osmolality,Calculated 282 (280-300); Potassium 4.4 mEq/L (3.5-5.1); Sodium 132 mEq/L (136-145); eGFR For African Americans > 60 (> 60); eGFR For Non-African Americans > 60 (> 60)
[2020-04-18 00:37] LABS: Troponin I < 0.03 ng/mL (< 0.04)
[2020-04-18] MEDS ORDERED: Ondansetron 4 MG/2 ML VIAL IVP PRN (02:20)
[2020-04-18] MEDS ORDERED: Naloxone 0.4 MG/ML INJ IVP PRN (02:20)
[2020-04-18] MEDS ORDERED: Bisacodyl 10 MG RECTAL SUPPOSITORY RC PRN (02:22)
[2020-04-18] MEDS ORDERED: MOM Conc 10 ML UD.LIQ GTUBE PRN (02:22)
[2020-04-18] MEDS ORDERED: GuaiFENesin Liq 200 MG/10 ML UDC GTUBE PRN (02:22)
[2020-04-18] MEDS ORDERED: Neosporin OINT 1 APPL PACKET TP PRN (02:22)
[2020-04-18] MEDS: *HR* Enoxaparin 40 MG/0.4 ML SYRINGE SQ SCH (05:45)
[2020-04-18 07:18] LABS: Basophils % 0.2 %; Eosinophils % 0.2 %; Hemoglobin 10.7 g/dL (11.5-15.4); Immature Granulocytes % 1.4 % (0-4); Lymphocytes % 15.4 %; Mean Corpuscular HGB Conc 33.4 g/dL (31.6-35.5); Mean Corpuscular Hemoglobin 33.2 pg (28.0-33.3); Mean Corpuscular Volume 99.4 fL (83.0-100.0); Mean Platelet Volume 9.6 fL (9.4-12.4); Monocytes # 1.1 K/mcL (0.0-1.3); Monocytes % 8.5 %; Neutrophils # 9.6 K/mcL (1.6-8.9); Platelet Count 483 K/mcL (140-400); Red Blood Count 3.22 M/mcL (3.82-4.97); Red Cell Distribution Width 13.5 % (11.5-14.5); Segmented Neutrophils % 74.3 %
[2020-04-18 07:23] LABS: Prothrombin Time 12.1 Seconds (9.4-12.1)
[2020-04-18 07:51] LABS: Alanine Aminotransferase 14 Units/L (7-52); Albumin/Globulin Ratio 0.8 (1.1-2.2); Alkaline Phosphatase 140 Units/L (34-104); Aspartate Amino Transferase 22 Units/L (13-39); BUN/Creatinine Ratio 76 (6-26); Bilirubin,Total 0.8 mg/dL (0.3-1.0); Blood Urea Nitrogen 34 mg/dL (8-23); Calcium 9.3 mg/dL (8.6-10.3); Carbon Dioxide 34 mEq/L (23-29); Chloride 95 mEq/L (98-107); Globulin 3.8 g/dL (2.4-3.5); Glucose 88 mg/dL (70-105); Magnesium 2.2 mg/dL (1.6-2.6); Osmolality,Calculated 289 (280-300); Phosphorous 4.5 mg/dL (2.7-4.5); Potassium 4.1 mEq/L (3.5-5.1); Sodium 136 mEq/L (136-145); Total Protein 6.8 g/dL (6.4-8.9); eGFR For African Americans > 60 (> 60); eGFR For Non-African Americans > 60 (> 60)
[2020-04-18] MEDS: REVEFENACIN 175 MCG IH SCH (09:48)
[2020-04-18] MEDS ORDERED: Budesonide Neb 0.5 MG/2 ML IH SCH (10:00)
[2020-04-18] MEDS: *HR* LORazepam 1 MG TABLET GTUBE SCH (12:02)
[2020-04-18] MEDS: polyethylene glycoL 3350 17 GM POWD.PACK GTUBE SCH (12:02)
[2020-04-18] MEDS: levoFLOXacin 750 MG TABLET GTUBE SCH (12:02)
[2020-04-18] MEDS: Lactulose Oral Soln 20 GM/30 ML UDC GTUBE SCH (12:02)
[2020-04-18] MEDS: risperiDONE 1 MG TABLET GTUBE SCH ×2 (12:02→20:12)
[2020-04-18] MEDS: Multivitamin Liquid 15 ML UDC GTUBE SCH (12:03)
[2020-04-18] MEDS: Famotidine 400 MG/50 ML ORAL SUSPENSION GTUBE SCH ×2 (12:04→20:15)
[2020-04-18] MEDS: Dexamethasone 4 MG/ML VIAL IVP SCH ×2 (12:05→17:53)
[2020-04-18] MEDS: Scopolamine Patch 1.5 MG PATCH.TD72 TD SCH (12:06)
[2020-04-18] MEDS: Valproic Acid Oral Soln 250 MG/5 ML UDC GTUBE SCH ×3 (12:30→20:12)
[2020-04-18] MEDS ORDERED: Lidocaine -MPF 2% 2 ML VIAL ONE (14:24)
[2020-04-18] MEDS ORDERED: EPHEDrine 50 MG/ML VIAL ONE (15:29)
[2020-04-18] MEDS ORDERED: *HR* PHENYLEPHRINE 1,000 MCG/10 ML SYRINGE IVP ONE ×2 (15:35)
[2020-04-18] MEDS ORDERED: *HR* EPINEPHrine 1 MG/10 ML SYRINGE ONE (16:06)
[2020-04-18] MEDS: Budesonide/Formoterol 160/4.5 1 PUFF INH IH SCH (22:40)
[2020-04-19] MEDS: *HR* Enoxaparin 40 MG/0.4 ML SYRINGE SQ SCH (05:11)
[2020-04-19] MEDS: *HR* LORazepam 1 MG TABLET GTUBE SCH ×3 (05:11→21:57)
[2020-04-19 06:19] LABS: Basophils % 0.1 %; Immature Granulocytes % 1.4 % (0-4); Lymphocytes # 1.5 K/mcL (0.6-4.6); Lymphocytes % 12.4 %; Mean Corpuscular HGB Conc 33.3 g/dL (31.6-35.5); Mean Corpuscular Hemoglobin 33.8 pg (28.0-33.3); Mean Corpuscular Volume 101.4 fL (83.0-100.0); Mean Platelet Volume 9.6 fL (9.4-12.4); Monocytes # 0.8 K/mcL (0.0-1.3); Monocytes % 7.1 %; Neutrophils # 9.3 K/mcL (1.6-8.9); Platelet Count 453 K/mcL (140-400); Red Blood Count 2.96 M/mcL (3.82-4.97); Red Cell Distribution Width 13.8 % (11.5-14.5); White Blood Count 11.8 K/mcL (4.3-11.1)
[2020-04-19 06:35] LABS: BUN/Creatinine Ratio 74 (6-26); Blood Urea Nitrogen 43 mg/dL (8-23); Carbon Dioxide 33 mEq/L (23-29); Chloride 97 mEq/L (98-107); Glucose 116 mg/dL (70-105); Osmolality,Calculated 294 (280-300); Potassium 4.4 mEq/L (3.5-5.1); Sodium 136 mEq/L (136-145); eGFR For African Americans > 60 (> 60); eGFR For Non-African Americans > 60 (> 60)
[2020-04-19] MEDS: Budesonide/Formoterol 160/4.5 1 PUFF INH IH SCH ×2 (07:44→19:56)
[2020-04-19] MEDS: REVEFENACIN 175 MCG IH SCH (07:45)
[2020-04-19] MEDS: Famotidine 400 MG/50 ML ORAL SUSPENSION GTUBE SCH ×2 (09:00→21:58)
[2020-04-19] MEDS: risperiDONE 1 MG TABLET GTUBE SCH ×2 (09:00→21:59)
[2020-04-19] MEDS: polyethylene glycoL 3350 17 GM POWD.PACK GTUBE SCH (09:00)
[2020-04-19] MEDS: Lactulose Oral Soln 20 GM/30 ML UDC GTUBE SCH (09:00)
[2020-04-19] MEDS: Valproic Acid Oral Soln 250 MG/5 ML UDC GTUBE SCH ×3 (09:00→21:57)
[2020-04-19] MEDS: Multivitamin Liquid 15 ML UDC GTUBE SCH (09:00)
[2020-04-19] MEDS: levoFLOXacin 750 MG TABLET GTUBE SCH (09:00)
[2020-04-19] MEDS ORDERED: Lidocaine -MPF 2% 2 ML VIAL ONE (12:31)
[2020-04-19] MEDS ORDERED: Lidocaine Viscous Oral Soln 15 ML SOLUTION ONE (13:06)
[2020-04-19] MEDS: Dexamethasone 4 MG/ML VIAL IVP SCH (15:27)
[2020-04-20] MEDS: *HR* Enoxaparin 40 MG/0.4 ML SYRINGE SQ SCH (05:36)
[2020-04-20] MEDS: Budesonide/Formoterol 160/4.5 1 PUFF INH IH SCH ×2 (07:58→19:35)
[2020-04-20] MEDS: REVEFENACIN 175 MCG IH SCH (07:59)
[2020-04-20] MEDS: Dexamethasone 4 MG/ML VIAL IVP SCH (08:18)
[2020-04-20] MEDS: risperiDONE 1 MG TABLET GTUBE SCH ×2 (08:18→22:06)
[2020-04-20] MEDS: polyethylene glycoL 3350 17 GM POWD.PACK GTUBE SCH (08:18)
[2020-04-20] MEDS: Multivitamin Liquid 15 ML UDC GTUBE SCH (08:18)
[2020-04-20] MEDS: Lactulose Oral Soln 20 GM/30 ML UDC GTUBE SCH (08:18)
[2020-04-20] MEDS: Valproic Acid Oral Soln 250 MG/5 ML UDC GTUBE SCH ×3 (08:19→22:05)
[2020-04-20] MEDS: *HR* LORazepam 1 MG TABLET GTUBE SCH ×2 (08:19→22:06)
[2020-04-20] MEDS: levoFLOXacin 750 MG TABLET GTUBE SCH (08:19)
[2020-04-20] MEDS: Famotidine 400 MG/50 ML ORAL SUSPENSION GTUBE SCH ×2 (09:15→22:05)
[2020-04-21] MEDS: *HR* Enoxaparin 40 MG/0.4 ML SYRINGE SQ SCH (05:02)
[2020-04-21] MEDS: Dexamethasone 4 MG/ML VIAL IVP SCH (07:21)
[2020-04-21] MEDS: Valproic Acid Oral Soln 250 MG/5 ML UDC GTUBE SCH ×3 (07:22→21:44)
[2020-04-21] MEDS: *HR* LORazepam 1 MG TABLET GTUBE SCH ×2 (07:22→21:43)
[2020-04-21] MEDS: Multivitamin Liquid 15 ML UDC GTUBE SCH (07:22)
[2020-04-21] MEDS: Lactulose Oral Soln 20 GM/30 ML UDC GTUBE SCH (07:22)
[2020-04-21] MEDS: risperiDONE 1 MG TABLET GTUBE SCH ×2 (07:23→21:43)
[2020-04-21] MEDS: Famotidine 400 MG/50 ML ORAL SUSPENSION GTUBE SCH ×2 (07:23→21:48)
[2020-04-21] MEDS: polyethylene glycoL 3350 17 GM POWD.PACK GTUBE SCH (07:23)
[2020-04-21] MEDS: levoFLOXacin 750 MG TABLET GTUBE SCH (07:23)
[2020-04-21] MEDS: Scopolamine Patch 1.5 MG PATCH.TD72 TD SCH (07:27)
[2020-04-21] MEDS: REVEFENACIN 175 MCG IH SCH (07:46)
[2020-04-21] MEDS: Budesonide/Formoterol 160/4.5 1 PUFF INH IH SCH ×2 (08:45→19:33)
[2020-04-21 10:43] LABS: Hematocrit 32.4 % (35.3-44.9); Hemoglobin 10.6 g/dL (11.5-15.4); Mean Corpuscular HGB Conc 32.7 g/dL (31.6-35.5); Mean Corpuscular Hemoglobin 34.3 pg (28.0-33.3); Mean Corpuscular Volume 104.9 fL (83.0-100.0); Platelet Count 381 K/mcL (140-400); Red Blood Count 3.09 M/mcL (3.82-4.97); Red Cell Distribution Width 14.3 % (11.5-14.5); White Blood Count 11.4 K/mcL (4.3-11.1)
[2020-04-21 10:54] LABS: BUN/Creatinine Ratio 66 (6-26); Blood Urea Nitrogen 31 mg/dL (8-23); Calcium 8.7 mg/dL (8.6-10.3); Carbon Dioxide 30 mEq/L (23-29); Chloride 103 mEq/L (98-107); Glucose 102 mg/dL (70-105); Magnesium 1.8 mg/dL (1.6-2.6); Osmolality,Calculated 301 (280-300); Potassium 4.1 mEq/L (3.5-5.1); Sodium 142 mEq/L (136-145); eGFR For African Americans > 60 (> 60); eGFR For Non-African Americans > 60 (> 60)
[2020-04-22] MEDS: *HR* Enoxaparin 40 MG/0.4 ML SYRINGE SQ SCH (05:36)
[2020-04-22] MEDS: polyethylene glycoL 3350 17 GM POWD.PACK GTUBE SCH (07:43)
[2020-04-22] MEDS: risperiDONE 1 MG TABLET GTUBE SCH ×2 (07:43→23:40)
[2020-04-22] MEDS: levoFLOXacin 750 MG TABLET GTUBE SCH (07:43)
[2020-04-22] MEDS: Lactulose Oral Soln 20 GM/30 ML UDC GTUBE SCH (07:44)
[2020-04-22] MEDS: *HR* LORazepam 1 MG TABLET GTUBE SCH ×2 (07:44→23:39)
[2020-04-22] MEDS: Dexamethasone 4 MG/ML VIAL IVP SCH (07:44)
[2020-04-22] MEDS: Valproic Acid Oral Soln 250 MG/5 ML UDC GTUBE SCH ×3 (07:44→23:39)
[2020-04-22] MEDS: REVEFENACIN 175 MCG IH SCH (07:45)
[2020-04-22] MEDS: Multivitamin Liquid 15 ML UDC GTUBE SCH (07:45)
[2020-04-22] MEDS: Famotidine 400 MG/50 ML ORAL SUSPENSION GTUBE SCH ×2 (07:45→23:40)
[2020-04-22] MEDS: Budesonide/Formoterol 160/4.5 1 PUFF INH IH SCH ×2 (08:12→19:39)
[2020-04-22 10:01] LABS: SARS-CoV-2 by NAA DETECTED
[2020-04-23] MEDS: *HR* Enoxaparin 40 MG/0.4 ML SYRINGE SQ SCH (06:29)
[2020-04-23 06:48] VITALS: BP 110/67
[2020-04-23] MEDS: Valproic Acid Oral Soln 250 MG/5 ML UDC GTUBE SCH (07:28)
[2020-04-23] MEDS: *HR* LORazepam 1 MG TABLET GTUBE SCH (07:28)
[2020-04-23] MEDS: risperiDONE 1 MG TABLET GTUBE SCH (07:28)
[2020-04-23] MEDS: Multivitamin Liquid 15 ML UDC GTUBE SCH (07:28)
[2020-04-23] MEDS: Lactulose Oral Soln 20 GM/30 ML UDC GTUBE SCH (07:28)
[2020-04-23] MEDS: REVEFENACIN 175 MCG IH SCH (07:29)
[2020-04-23] MEDS: polyethylene glycoL 3350 17 GM POWD.PACK GTUBE SCH (07:29)
[2020-04-23] MEDS: Famotidine 400 MG/50 ML ORAL SUSPENSION GTUBE SCH (07:34)
[2020-04-23] MEDS: Budesonide/Formoterol 160/4.5 1 PUFF INH IH SCH (07:42)
== END 2020-04-23 14:10 | disposition home health service (06) | DRG 393 ==
LOC: 3BNU 22:17 → EMEROOARM 22:17 → SUATTDRO 04-18 01:16 → 3BNU 04-18 01:29
PROVIDERS: ADMIT Family Medicine; ATTEND Internal Medicine
PROC: ENDOBRF (2020-04-19 09:30)